=== PATIENT | male | born 1950 | race Caucasian/White ===

== ENCOUNTER 2019-12-09 11:43 | Outpatient (CLI) | payer MEDICARE, SELFPAY ==
[2019-12-09 12:29] LABS: Basophils Absolute Auto 0.03 K/mm3 (0.00-0.10); Basophils Percent Auto 0.3 % (0.0-1.0); Eosinophils Absolute Auto 0.17 K/mm3 (0.02-0.50); Eosinophils Percent Auto 1.7 % (1.0-6.0); Hematocrit 36.9 % (37.0-46.0); Hemoglobin 11.5 g/dL (12.4-15.3); Immature Granulocyte Absolute 0.03 K/mm3 (0.00-0.00); Immature Granulocyte Percent A 0.3 % (0.0-0.0); Immature Platelet Fraction Pct 17.5 % (1.0-7.0); Lymphocytes Absolute Auto 2.12 K/mm3 (1.10-4.50); Lymphocytes Percent Auto 21.8 % (18.0-42.0); Mean Corpuscular HGB Conc 31.2 g/dL (32.0-36.0); Mean Corpuscular Volume 89.8 fL (78.0-102.0); Monocytes Absolute Auto 0.61 K/mm3 (0.10-0.90); Monocytes Percent Auto 6.3 % (2.0-11.0); Neutrophils Absolute Auto 6.8 K/mm3 (1.7-7.2); Neutrophils Percent Auto 69.6 % (50.0-70.0); Platelet Count Result 35 K/mm3 (150-420); Red Blood Count 4.11 M/mm3 (4.70-6.10); Red Cell Distribution Width 14.1 % (11.6-14.4); White Blood Count 9.7 K/mm3 (4.8-10.8)
== END 2019-12-09 11:44 | disposition home or self-care (01) ==
DX: D69.3 Immune thrombocytopenic purpura (principal)
CPT/HCPCS: 36415; 85025; 85055

== ENCOUNTER 2020-01-07 11:54 | Outpatient (CLI) | payer MEDICARE, SELFPAY ==
[2020-01-07 12:13] LABS: Basophils Absolute Auto 0.04 K/mm3 (0.00-0.10); Basophils Percent Auto 0.4 % (0.0-1.0); Eosinophils Absolute Auto 0.22 K/mm3 (0.02-0.50); Eosinophils Percent Auto 2.3 % (1.0-6.0); Hematocrit 34.8 % (37.0-46.0); Hemoglobin 11.1 g/dL (12.4-15.3); Immature Granulocyte Absolute 0.03 K/mm3 (0.00-0.00); Immature Granulocyte Percent A 0.3 % (0.0-0.0); Immature Platelet Fraction Pct 16.6 % (1.0-7.0); Lymphocytes Absolute Auto 1.76 K/mm3 (1.10-4.50); Mean Corpuscular HGB Conc 31.9 g/dL (32.0-36.0); Mean Corpuscular Hemoglobin 28.5 pg (27.0-31.0); Mean Corpuscular Volume 89.2 fL (78.0-102.0); Monocytes Absolute Auto 0.69 K/mm3 (0.10-0.90); Monocytes Percent Auto 7.1 % (2.0-11.0); Neutrophils Percent Auto 71.9 % (50.0-70.0); Platelet Count Result 39 K/mm3 (150-420); Red Cell Distribution Width 13.9 % (11.6-14.4); White Blood Count 9.8 K/mm3 (4.8-10.8)
== END 2020-01-07 11:55 | disposition home or self-care (01) ==
DX: D69.3 Immune thrombocytopenic purpura (principal)
CPT/HCPCS: 36415; 85025; 85055

== ENCOUNTER 2020-02-08 11:52 | Outpatient (CLI) | payer MEDICARE, SELFPAY ==
[2020-02-08 12:16] LABS: Basophils Absolute Auto 0.03 K/mm3 (0.00-0.10); Basophils Percent Auto 0.3 % (0.0-1.0); Eosinophils Percent Auto 2.2 % (1.0-6.0); Hemoglobin 11.8 g/dL (12.4-15.3); Immature Granulocyte Absolute 0.05 K/mm3 (0.00-0.00); Immature Granulocyte Percent A 0.5 % (0.0-0.0); Immature Platelet Fraction Pct 15.6 % (1.0-7.0); Lymphocytes Absolute Auto 1.78 K/mm3 (1.10-4.50); Lymphocytes Percent Auto 19.5 % (18.0-42.0); Mean Corpuscular HGB Conc 31.9 g/dL (32.0-36.0); Mean Corpuscular Hemoglobin 28.4 pg (27.0-31.0); Mean Corpuscular Volume 88.9 fL (78.0-102.0); Monocytes Absolute Auto 0.49 K/mm3 (0.10-0.90); Monocytes Percent Auto 5.4 % (2.0-11.0); Neutrophils Absolute Auto 6.6 K/mm3 (1.7-7.2); Neutrophils Percent Auto 72.1 % (50.0-70.0); Platelet Count Result 37 K/mm3 (150-420); Red Blood Count 4.16 M/mm3 (4.70-6.10); Red Cell Distribution Width 13.8 % (11.6-14.4); White Blood Count 9.1 K/mm3 (4.8-10.8)
[2020-02-08 13:03] LABS: Alanine Aminotransferase 29 U/L (16-63); Albumin Level 2.8 g/dL (3.4-5.0); Alkaline Phosphatase 157 U/L (46-116); Anion Gap 12.7 mmol/L (7-16); Aspartate Amino Transferase 17 U/L (15-37); Bilirubin,Total 0.6 mg/dL (0.00-1.00); Blood Urea Nitrogen 40 mg/dL (7-18); Carbon Dioxide 27 mmol/L (21-32); Chloride 106 mmol/L (98-108); Estimated Glomerular Filt Rate 18; Glucose 121 mg/dL (70-99); Osmolality Calculated 304 mOsm/kg (285-295); Potassium 3.7 mmol/L (3.5-5.1); Sodium 142 mmol/L (136-145); Total Protein 6.1 g/dL (6.4-8.2)
== END 2020-02-08 11:53 | disposition home or self-care (01) ==
DX: D69.3 Immune thrombocytopenic purpura (principal)
CPT/HCPCS: 36415; 80053; 85025; 85055

== ENCOUNTER 2020-03-14 09:21 | Outpatient (CLI) | payer MEDICARE, SELFPAY ==
[2020-03-14 09:37] LABS: Basophils Absolute Auto 0.03 K/mm3 (0.00-0.10); Basophils Percent Auto 0.3 % (0.0-1.0); Eosinophils Absolute Auto 0.24 K/mm3 (0.02-0.50); Eosinophils Percent Auto 2.5 % (1.0-6.0); Hematocrit 36.7 % (37.0-46.0); Hemoglobin 11.4 g/dL (12.4-15.3); Immature Granulocyte Absolute 0.03 K/mm3 (0.00-0.00); Immature Granulocyte Percent A 0.3 % (0.0-0.0); Immature Platelet Fraction Pct 20.7 % (1.0-7.0); Lymphocytes Absolute Auto 1.98 K/mm3 (1.10-4.50); Lymphocytes Percent Auto 20.6 % (18.0-42.0); Mean Corpuscular HGB Conc 31.1 g/dL (32.0-36.0); Mean Corpuscular Hemoglobin 27.7 pg (27.0-31.0); Mean Corpuscular Volume 89.1 fL (78.0-102.0); Monocytes Absolute Auto 0.65 K/mm3 (0.10-0.90); Monocytes Percent Auto 6.8 % (2.0-11.0); Neutrophils Absolute Auto 6.7 K/mm3 (1.7-7.2); Neutrophils Percent Auto 69.5 % (50.0-70.0); Red Blood Count 4.12 M/mm3 (4.70-6.10); Red Cell Distribution Width 14.1 % (11.6-14.4); White Blood Count 9.6 K/mm3 (4.8-10.8)
[2020-03-14 09:43] LABS: Platelet Count Result 17 K/mm3 (150-420)
== END 2020-03-14 09:22 | disposition home or self-care (01) ==
DX: D69.3 Immune thrombocytopenic purpura (principal)
CPT/HCPCS: 36415; 85025; 85055

== ENCOUNTER 2020-03-21 09:33 | Outpatient (CLI) | payer MEDICARE, SELFPAY ==
[2020-03-21 09:45] LABS: Basophils Absolute Auto 0.04 K/mm3 (0.00-0.10); Basophils Percent Auto 0.4 % (0.0-1.0); Eosinophils Percent Auto 2.1 % (1.0-6.0); Hemoglobin 10.7 g/dL (12.4-15.3); Immature Granulocyte Absolute 0.03 K/mm3 (0.00-0.00); Immature Granulocyte Percent A 0.3 % (0.0-0.0); Lymphocytes Percent Auto 23.7 % (18.0-42.0); Mean Corpuscular HGB Conc 31.5 g/dL (32.0-36.0); Mean Corpuscular Hemoglobin 28.3 pg (27.0-31.0); Mean Corpuscular Volume 89.9 fL (78.0-102.0); Mean Platelet Volume 12.7 fl (8.7-11.0); Monocytes Percent Auto 7.2 % (2.0-11.0); Neutrophils Absolute Auto 6.4 K/mm3 (1.7-7.2); Neutrophils Percent Auto 66.3 % (50.0-70.0); Platelet Count Result 107 K/mm3 (150-420); Red Blood Count 3.78 M/mm3 (4.70-6.10); Red Cell Distribution Width 14.7 % (11.6-14.4); White Blood Count 9.7 K/mm3 (4.8-10.8)
== END 2020-03-21 09:34 | disposition home or self-care (01) ==
LOC: CHSLAB 09:36
DX: D69.3 Immune thrombocytopenic purpura (principal)
CPT/HCPCS: 36415; 85025

== ENCOUNTER 2020-05-10 09:15 | Outpatient (CLI) | payer OTHER, MEDICARE, SELFPAY ==
[2020-05-10 09:29] LABS: Basophils Absolute Auto 0.02 K/mm3 (0.00-0.10); Basophils Percent Auto 0.2 % (0.0-1.0); Eosinophils Absolute Auto 0.21 K/mm3 (0.02-0.50); Eosinophils Percent Auto 2.1 % (1.0-6.0); Hematocrit 35.4 % (37.0-46.0); Hemoglobin 11.1 g/dL (12.4-15.3); Immature Granulocyte Absolute 0.04 K/mm3 (0.00-0.00); Immature Granulocyte Percent A 0.4 % (0.0-0.0); Lymphocytes Absolute Auto 2.04 K/mm3 (1.10-4.50); Lymphocytes Percent Auto 20.5 % (18.0-42.0); Mean Corpuscular HGB Conc 31.4 g/dL (32.0-36.0); Mean Corpuscular Hemoglobin 28.4 pg (27.0-31.0); Mean Corpuscular Volume 90.5 fL (78.0-102.0); Neutrophils Absolute Auto 7.1 K/mm3 (1.7-7.2); Neutrophils Percent Auto 70.8 % (50.0-70.0); Platelet Count Result 44 K/mm3 (150-420); Red Blood Count 3.91 M/mm3 (4.70-6.10); Red Cell Distribution Width 14.4 % (11.6-14.4)
[2020-05-10] MEDS: romiPLOStim 125 MCG VIAL SUB-Q (10:14)
== END 2020-05-10 09:16 | disposition home or self-care (01) ==
PROVIDERS: Visit Provider Internal Medicine Hematology & Oncology
DX: D69.3 Immune thrombocytopenic purpura (principal)
CPT/HCPCS: 36415; 85025; 85055; 96372; J2796

== ENCOUNTER 2020-05-17 09:21 | Outpatient (CLI) | payer MEDICARE, OTHER, SELFPAY ==
[2020-05-17 09:36] LABS: Basophils Absolute Auto 0.02 K/mm3 (0.00-0.10); Basophils Percent Auto 0.2 % (0.0-1.0); Eosinophils Absolute Auto 0.19 K/mm3 (0.02-0.50); Eosinophils Percent Auto 1.9 % (1.0-6.0); Hematocrit 34.6 % (37.0-46.0); Hemoglobin 10.9 g/dL (12.4-15.3); Immature Granulocyte Absolute 0.04 K/mm3 (0.00-0.00); Immature Granulocyte Percent A 0.4 % (0.0-0.0); Immature Platelet Fraction Pct 12.7 % (1.0-7.0); Lymphocytes Absolute Auto 2.25 K/mm3 (1.10-4.50); Lymphocytes Percent Auto 22.8 % (18.0-42.0); Mean Corpuscular HGB Conc 31.5 g/dL (32.0-36.0); Mean Corpuscular Hemoglobin 28.2 pg (27.0-31.0); Mean Corpuscular Volume 89.6 fL (78.0-102.0); Monocytes Absolute Auto 0.65 K/mm3 (0.10-0.90); Monocytes Percent Auto 6.6 % (2.0-11.0); Neutrophils Absolute Auto 6.7 K/mm3 (1.7-7.2); Neutrophils Percent Auto 68.1 % (50.0-70.0); Platelet Count Result 38 K/mm3 (150-420); Red Blood Count 3.86 M/mm3 (4.70-6.10); White Blood Count 9.9 K/mm3 (4.8-10.8)
[2020-05-17] MEDS: romiPLOStim 125 MCG VIAL SUB-Q (10:14)
== END 2020-05-17 09:22 | disposition home or self-care (01) ==
PROVIDERS: Visit Provider Internal Medicine Hematology & Oncology
DX: D69.3 Immune thrombocytopenic purpura (principal)
CPT/HCPCS: 36415; 85025; 85055; 96372; J2796

== ENCOUNTER 2020-05-24 10:37 | Outpatient (CLI) | payer MEDICARE, OTHER, SELFPAY ==
[2020-05-24 10:52] LABS: Basophils Absolute Auto 0.03 K/mm3 (0.00-0.10); Basophils Percent Auto 0.3 % (0.0-1.0); Eosinophils Absolute Auto 0.22 K/mm3 (0.02-0.50); Eosinophils Percent Auto 2.2 % (1.0-6.0); Hematocrit 37.4 % (37.0-46.0); Hemoglobin 11.6 g/dL (12.4-15.3); Immature Granulocyte Absolute 0.04 K/mm3 (0.00-0.00); Immature Granulocyte Percent A 0.4 % (0.0-0.0); Lymphocytes Absolute Auto 2.16 K/mm3 (1.10-4.50); Lymphocytes Percent Auto 21.4 % (18.0-42.0); Mean Corpuscular Hemoglobin 28.1 pg (27.0-31.0); Mean Corpuscular Volume 90.6 fL (78.0-102.0); Monocytes Absolute Auto 0.65 K/mm3 (0.10-0.90); Monocytes Percent Auto 6.4 % (2.0-11.0); Neutrophils Percent Auto 69.3 % (50.0-70.0); Platelet Count Result 28 K/mm3 (150-420); Red Blood Count 4.13 M/mm3 (4.70-6.10); Red Cell Distribution Width 14.3 % (11.6-14.4); White Blood Count 10.1 K/mm3 (4.8-10.8)
[2020-05-24] MEDS: romiPLOStim 125 MCG VIAL SUB-Q (11:19)
== END 2020-05-24 10:38 | disposition home or self-care (01) ==
PROVIDERS: Visit Provider Internal Medicine Hematology & Oncology
DX: D69.3 Immune thrombocytopenic purpura (principal)
CPT/HCPCS: 36415; 85025; 85055; 96372; J2796

== ENCOUNTER 2020-05-31 11:42 | Outpatient (CLI) | payer MEDICARE, OTHER, SELFPAY ==
[2020-05-31 12:00] LABS: Basophils Absolute Auto 0.03 K/mm3 (0.00-0.10); Basophils Percent Auto 0.3 % (0.0-1.0); Eosinophils Absolute Auto 0.19 K/mm3 (0.02-0.50); Eosinophils Percent Auto 2.1 % (1.0-6.0); Hematocrit 36.7 % (37.0-46.0); Hemoglobin 11.6 g/dL (12.4-15.3); Immature Granulocyte Absolute 0.02 K/mm3 (0.00-0.00); Immature Granulocyte Percent A 0.2 % (0.0-0.0); Immature Platelet Fraction Pct 17.8 % (1.0-7.0); Lymphocytes Absolute Auto 1.86 K/mm3 (1.10-4.50); Mean Corpuscular HGB Conc 31.6 g/dL (32.0-36.0); Mean Corpuscular Hemoglobin 28.4 pg (27.0-31.0); Monocytes Percent Auto 5.6 % (2.0-11.0); Neutrophils Absolute Auto 6.3 K/mm3 (1.7-7.2); Neutrophils Percent Auto 70.8 % (50.0-70.0); Red Blood Count 4.08 M/mm3 (4.70-6.10); Red Cell Distribution Width 14.3 % (11.6-14.4); White Blood Count 8.9 K/mm3 (4.8-10.8)
[2020-05-31] MEDS: romiPLOStim 125 MCG VIAL SUB-Q (12:17)
[2020-05-31 12:22] VITALS: BP 142/69; PULSE 80; RESP 16; TEMP 36.4; O2SAT 94
[2020-05-31 13:15] LABS: Platelet Count Result 13 K/mm3 (150-420)
--- NOTE | 2020-05-31 13:15 | PHAR ---
05/31/20 13:15 - PLT=13 TODAY PER EZRA IN LAB. TLS
== END 2020-05-31 11:43 | disposition home or self-care (01) ==
LOC: CHSLAB 12:02 → CHSTREATRM 12:03
PROVIDERS: Visit Provider Internal Medicine Hematology & Oncology
DX: D69.3 Immune thrombocytopenic purpura (principal)
CPT/HCPCS: 36415; 85025; 85055; 96372; J2796

== ENCOUNTER 2020-06-07 08:04 | Outpatient (CLI) | payer MEDICARE, OTHER, SELFPAY ==
[2020-06-07] VITALS (10 sets, daily range): BP systolic 139–175; BP diastolic 61–85; PULSE 86–98; RESP 20–24; TEMP 36.6–36.8; O2SAT 94–97
== END 2020-06-07 08:05 | disposition home or self-care (01) ==
PROVIDERS: Visit Provider Internal Medicine Hematology & Oncology
DX: D69.3 Immune thrombocytopenic purpura (principal)
CPT/HCPCS: 96365; 96366; A9270; J1459

== ENCOUNTER 2020-06-08 08:00 | Outpatient (CLI) | payer MEDICARE, SELFPAY ==
[2020-06-08] VITALS (7 sets, daily range): BP systolic 136–169; BP diastolic 72–88; PULSE 88–92; RESP 14–20; TEMP 37.1–37.2; O2SAT 95–97
--- NOTE | 2020-06-08 08:26 | PC.NURSE ---
Patient here for 2nd day of Privigen IVIG IV infusion for ITP. Patient reports just worn out from yesterday- being up in for so long. Patient refusing tylenol and bendryl for pre med Reports never was given that before when I had this and don't want to take it now. Vital signs stable. Patient is a diabetic, but forgot to take his blood sugar this a.m. Accu check done 111. Has not ate breakfast- breakfast ordered for patient. IVIG administration began.
[2020-06-08 08:27] LABS: Glucose Point of Care 111 (65-105)
[2020-06-08] MEDS: ACETAMINOPHEN 325 MG TABLET 650 MG PO (09:39)
[2020-06-08 11:34] LABS: Glucose Point of Care 265 (65-105)
--- NOTE | 2020-06-08 12:01 | PC.NURSE ---
Privigen infusion continues without difficulty. Blood sugar 265. Patient taking his own sliding scale insulin. Eating lunch. No concerns.
--- NOTE | 2020-06-08 14:12 | PC.NURSE ---
1410 IVIG infusion completed. Patient tolerated well. IV site with pressure dressing applied. No concerns other than just being tired. Safe exit of hospital per wheelchair. No further appointment necessary at this time.
== END 2020-06-08 08:01 | disposition home or self-care (01) ==
PROVIDERS: Visit Provider Internal Medicine Hematology & Oncology
DX: D69.3 Immune thrombocytopenic purpura (principal)
CPT/HCPCS: 96365; 96366; A9270; J1459

== ENCOUNTER 2020-06-14 10:51 | Outpatient (RCR) | payer MEDICARE, SELFPAY ==
[2020-04-11 10:47] LABS: Basophils Absolute Auto 0.02 K/mm3 (0.00-0.10); Basophils Percent Auto 0.2 % (0.0-1.0); Eosinophils Absolute Auto 0.19 K/mm3 (0.02-0.50); Eosinophils Percent Auto 1.7 % (1.0-6.0); Hematocrit 35.6 % (37.0-46.0); Immature Granulocyte Absolute 0.04 K/mm3 (0.00-0.00); Immature Granulocyte Percent A 0.4 % (0.0-0.0); Immature Platelet Fraction Pct 16.8 % (1.0-7.0); Lymphocytes Absolute Auto 2.08 K/mm3 (1.10-4.50); Mean Corpuscular HGB Conc 30.9 g/dL (32.0-36.0); Mean Corpuscular Hemoglobin 27.8 pg (27.0-31.0); Mean Corpuscular Volume 89.9 fL (78.0-102.0); Monocytes Absolute Auto 0.63 K/mm3 (0.10-0.90); Monocytes Percent Auto 5.7 % (2.0-11.0); Platelet Count Result 34 K/mm3 (150-420); Red Blood Count 3.96 M/mm3 (4.70-6.10); Red Cell Distribution Width 14.5 % (11.6-14.4)
[2020-04-18 12:01] LABS: Basophils Absolute Auto 0.03 K/mm3 (0.00-0.10); Basophils Percent Auto 0.3 % (0.0-1.0); Eosinophils Absolute Auto 0.21 K/mm3 (0.02-0.50); Eosinophils Percent Auto 2.1 % (1.0-6.0); Hematocrit 36.3 % (37.0-46.0); Hemoglobin 11.1 g/dL (12.4-15.3); Immature Granulocyte Absolute 0.03 K/mm3 (0.00-0.00); Immature Granulocyte Percent A 0.3 % (0.0-0.0); Immature Platelet Fraction Pct 14.9 % (1.0-7.0); Lymphocytes Absolute Auto 2.02 K/mm3 (1.10-4.50); Lymphocytes Percent Auto 20.5 % (18.0-42.0); Mean Corpuscular HGB Conc 30.6 g/dL (32.0-36.0); Mean Corpuscular Hemoglobin 27.6 pg (27.0-31.0); Mean Corpuscular Volume 90.3 fL (78.0-102.0); Monocytes Absolute Auto 0.58 K/mm3 (0.10-0.90); Monocytes Percent Auto 5.9 % (2.0-11.0); Neutrophils Percent Auto 70.9 % (50.0-70.0); Platelet Count Result 51 K/mm3 (150-420); Red Blood Count 4.02 M/mm3 (4.70-6.10); Red Cell Distribution Width 14.4 % (11.6-14.4); White Blood Count 9.8 K/mm3 (4.8-10.8)
[2020-04-25 10:56] LABS: Basophils Absolute Auto 0.03 K/mm3 (0.00-0.10); Basophils Percent Auto 0.4 % (0.0-1.0); Eosinophils Absolute Auto 0.17 K/mm3 (0.02-0.50); Eosinophils Percent Auto 2.2 % (1.0-6.0); Hematocrit 36.5 % (37.0-46.0); Hemoglobin 10.9 g/dL (12.4-15.3); Immature Granulocyte Absolute 0.02 K/mm3 (0.00-0.00); Immature Granulocyte Percent A 0.3 % (0.0-0.0); Immature Platelet Fraction Pct 18.1 % (1.0-7.0); Lymphocytes Percent Auto 19.1 % (18.0-42.0); Mean Corpuscular HGB Conc 29.9 g/dL (32.0-36.0); Mean Corpuscular Hemoglobin 28.2 pg (27.0-31.0); Mean Corpuscular Volume 94.6 fL (78.0-102.0); Monocytes Absolute Auto 0.52 K/mm3 (0.10-0.90); Monocytes Percent Auto 6.6 % (2.0-11.0); Neutrophils Absolute Auto 5.6 K/mm3 (1.7-7.2); Neutrophils Percent Auto 71.4 % (50.0-70.0); Platelet Count Result 63 K/mm3 (150-420); Red Blood Count 3.86 M/mm3 (4.70-6.10); Red Cell Distribution Width 14.5 % (11.6-14.4); White Blood Count 7.9 K/mm3 (4.8-10.8)
[2020-05-02 10:02] LABS: Basophils Absolute Auto 0.03 K/mm3 (0.00-0.10); Basophils Percent Auto 0.3 % (0.0-1.0); Eosinophils Absolute Auto 0.17 K/mm3 (0.02-0.50); Eosinophils Percent Auto 1.9 % (1.0-6.0); Hematocrit 36.1 % (37.0-46.0); Hemoglobin 10.8 g/dL (12.4-15.3); Immature Granulocyte Absolute 0.03 K/mm3 (0.00-0.00); Immature Granulocyte Percent A 0.3 % (0.0-0.0); Immature Platelet Fraction Pct 11.7 % (1.0-7.0); Lymphocytes Percent Auto 21.3 % (18.0-42.0); Mean Corpuscular HGB Conc 29.9 g/dL (32.0-36.0); Mean Corpuscular Hemoglobin 27.6 pg (27.0-31.0); Mean Corpuscular Volume 92.1 fL (78.0-102.0); Monocytes Absolute Auto 0.65 K/mm3 (0.10-0.90); Monocytes Percent Auto 7.3 % (2.0-11.0); Neutrophils Absolute Auto 6.2 K/mm3 (1.7-7.2); Neutrophils Percent Auto 68.9 % (50.0-70.0); Platelet Count Result 56 K/mm3 (150-420); Red Blood Count 3.92 M/mm3 (4.70-6.10); Red Cell Distribution Width 14.5 % (11.6-14.4); White Blood Count 8.9 K/mm3 (4.8-10.8)
[2020-05-02 10:07] LABS: Mean Platelet Volume 12.2 fl (8.7-11.0)
[2020-06-14 11:03] LABS: Basophils Absolute Auto 0.02 K/mm3 (0.00-0.10); Basophils Percent Auto 0.3 % (0.0-1.0); Eosinophils Absolute Auto 0.11 K/mm3 (0.02-0.50); Eosinophils Percent Auto 1.8 % (1.0-6.0); Hematocrit 33.3 % (37.0-46.0); Hemoglobin 10.3 g/dL (12.4-15.3); Immature Granulocyte Absolute 0.02 K/mm3 (0.00-0.00); Immature Granulocyte Percent A 0.3 % (0.0-0.0); Lymphocytes Absolute Auto 1.68 K/mm3 (1.10-4.50); Lymphocytes Percent Auto 27.3 % (18.0-42.0); Mean Corpuscular HGB Conc 30.9 g/dL (32.0-36.0); Mean Corpuscular Hemoglobin 27.8 pg (27.0-31.0); Mean Platelet Volume 11.4 fl (8.7-11.0); Monocytes Absolute Auto 0.51 K/mm3 (0.10-0.90); Monocytes Percent Auto 8.3 % (2.0-11.0); Neutrophils Absolute Auto 3.8 K/mm3 (1.7-7.2); Platelet Count Result 152 K/mm3 (150-420); Red Cell Distribution Width 14.4 % (11.6-14.4); White Blood Count 6.2 K/mm3 (4.8-10.8)
== END 2020-07-10 23:59 | disposition home or self-care (01) ==
LOC: CHSLAB 10:51
PROVIDERS: Visit Provider Internal Medicine Hematology & Oncology
DX: D69.3 Immune thrombocytopenic purpura (principal)
CPT/HCPCS: 36415; 85025; 85055

== ENCOUNTER 2020-07-22 13:17 | Outpatient (CLI) | payer MEDICARE, SELFPAY ==
[2020-07-22 14:03] LABS: Basophils Absolute Auto 0.02 K/mm3 (0.00-0.10); Basophils Percent Auto 0.4 % (0.0-1.0); Eosinophils Absolute Auto 0.09 K/mm3 (0.02-0.50); Eosinophils Percent Auto 1.8 % (1.0-6.0); Hematocrit 35.5 % (37.0-46.0); Hemoglobin 11.2 g/dL (12.4-15.3); Immature Granulocyte Absolute 0.03 K/mm3 (0.00-0.00); Immature Granulocyte Percent A 0.6 % (0.0-0.0); Immature Platelet Fraction Pct 30.8 % (1.0-7.0); Lymphocytes Absolute Auto 0.99 K/mm3 (1.10-4.50); Lymphocytes Percent Auto 19.4 % (18.0-42.0); Mean Corpuscular HGB Conc 31.5 g/dL (32.0-36.0); Mean Corpuscular Hemoglobin 28.1 pg (27.0-31.0); Monocytes Absolute Auto 0.75 K/mm3 (0.10-0.90); Monocytes Percent Auto 14.7 % (2.0-11.0); Neutrophils Absolute Auto 3.2 K/mm3 (1.7-7.2); Neutrophils Percent Auto 63.1 % (50.0-70.0); Red Blood Count 3.99 M/mm3 (4.70-6.10); Red Cell Distribution Width 14.3 % (11.6-14.4); White Blood Count 5.1 K/mm3 (4.8-10.8)
[2020-07-22 14:49] LABS: Platelet Count Result 2 K/mm3 (150-420)
[2020-07-22 15:07] LABS: Alanine Aminotransferase 28 U/L (16-63); Albumin Level 2.9 g/dL (3.4-5.0); Alkaline Phosphatase 170 U/L (46-116); Anion Gap 12 mmol/L (8-16); Aspartate Amino Transferase 25 U/L (15-37); Bilirubin,Total 0.4 mg/dL (0.00-1.00); Blood Urea Nitrogen 53 mg/dL (7-18); Carbon Dioxide 21 mmol/L (21-32); Chloride 104 mmol/L (98-108); Estimated Glomerular Filt Rate 13; Glucose 136 mg/dL (70-99); Magnesium 1.2 mg/dL (1.8-2.4); Osmolality Calculated 300 mOsm/kg (285-295); Potassium 4.2 mmol/L (3.5-5.1); Prostate Specific Antigen 1.6 ng/mL (< OR = 4.0); Sodium 137 mmol/L (136-145); Total Protein 6.4 g/dL (6.4-8.2)
[2020-07-22 23:21] LABS: SARS-CoV-2 RNA PCR Positive
== END 2020-07-22 13:18 | disposition home or self-care (01) ==
PROVIDERS: Visit Provider Internal Medicine Hematology & Oncology
DX: U07.1 COVID-19 (principal); R05 Cough; D69.3 Immune thrombocytopenic purpura; Z12.5 Encounter for screening for malignant neoplasm of prostate
CPT/HCPCS: 36415; 80053; 83735; 84153; 85025; 85055; 87635; C9803; G0103; U0003

== ENCOUNTER 2020-07-22 18:40 | Inpatient (IN) | payer MEDICARE, OTHER, SELFPAY ==
[2020-07-22] VITALS (8 sets, daily range): BP systolic 155–168; BP diastolic 53–82; PULSE 60–105; RESP 17–24; TEMP 36.4–37.1; O2SAT 91–98; BMI 50.8
--- NOTE | ~2020-07-22 | XR_ITS ---
EXAMINATION: XR chest 1V portable DATE: 07/26/2020 13:09 INDICATION: Cough. COVID-19 pneumonia. TECHNIQUE: A single frontal view of the chest was obtained. COMPARISON: Chest single view 07/22/2020, CT abdomen and pelvis 04/06/2014 FINDINGS: The chest demonstrates clear lungs without pneumonia, pleural effusion, or pneumothorax. Th e heart size is normal. There are prominent paracardial fat pads. IMPRESSION: 1. No acute cardiopulmonary disease. Reviewed, dictated and finalized at location A. YSIS BIOMED TECHNICIAN
--- NOTE | ~2020-07-22 | US_ITS ---
EXAMINATION: US renal BI DATE: 07/23/2020 16:57 INDICATION: Renal failure TECHNIQUE: Multiple grayscale and Doppler ultrasound images of the kidneys were obtained. COMPARISON: 08/31/2012 FINDINGS: The right kidney measures 11.2 x 4.5 x 4.8 cm. The left kidney measures 12.3 x 4.4 x 5.7 cm . The kidneys demonstrate normal parenchymal echogenicity. There is moderate bilateral hydronephrosis . The bladder is normal. IMPRESSION: 1. Moderate bilateral hydronephrosis. Reviewed, dictated and finalized at location A. E EPIDEMIOLOGIST
--- NOTE | ~2020-07-22 | XR_ITS ---
EXAMINATION: XR chest 1V portable INDICATION: History of hypertension, COVID 19 PUI TECHNIQUE: Portable AP chest at 1954 hours COMPARISON: 04/06/2014 FINDINGS: Cardiomegaly is noted. There are opacities of the mid and lower lung zones. A small left pl eural effusion is suggested. There is no pneumothorax. IMPRESSION: 1. Airspace opacities of the mid and lower lung zones, consistent with atelectasis versus pneumonia. 2. Possible small left pleural effusion. 3. Cardiomegaly. Reviewed, dictated and finalized at location A. EXPERIMENTAL MECHANIC IMPRESSION: 1. Airspace opacities of the mid and lower lung zones, consistent with atelecta sis versus pneumonia. 2. Possible small left pleural effusion. 3. Cardiomegaly.
--- NOTE | 2020-07-22 19:08 | ED.RECABL ---
HPI - Recheck/Abnormal Lab/Rx General Chief Complaint: Recheck/Abnormal Lab/Rx Stated Complaint: abdnormal labs Time Seen by Provider: 07/22/20 19:08 Source: patient and EMS Mode of arrival: EMS Limitations: no limitations History of Present Illness HPI narrative: Patient is a 69-year-old male with a history of prior CVA, paroxysmal atrial fibrillation, hypertension, diabetes, ITP, who presents from outside care facility for evaluation of low platelets. Patient reportedly had platelet count of 2000 from outpatient laboratory testing. Patient's physician in [place], Dr. Rey, called him and told him to go to the nearest emergency department right away. Patient denies any acute pain or bleeding. No gum bleeding, no hematuria. No bruising or rash. No chest pain or shortness of breath. Patient states that he was swabbed for Covid today because he has had a dry cough. He does not know the results of this. He denies any rhinorrhea, loss of sense of taste or smell. No current sore throat. He denies abdominal pain. He reports chronic lower back pain. In the past, patient has required steroid therapy as well as IVIG, currently is not on any steroid therapy. Related Data Allergies Allergy/AdvReac Type Severity Reaction Status Date / Time Heparin Analogues Allergy Verified 07/29/13 23:30 meropenem Allergy Verified 07/29/13 21:03 vancomycin Allergy Verified 07/29/13 21:03 Review of Systems Review of Systems: Narrative: CONSTITUTIONAL: Denies fever, chills, or sweats. EYES: Denies visual changes, redness, or discharge. ENT: Denies rhinorrhea, congestion, sore throat, or otalgia. CARDIOVASCULAR: Denies chest pain, palpitations, or edema. RESPIRATORY: Reports dry cough GASTROINTESTINAL: Denies abdominal pain, nausea, vomiting, or diarrhea. GENITOURINARY: Denies dysuria or hematuria. SKIN: Denies rash or itching. MUSCULOSKELETAL: Reports chronic back pain NEUROLOGIC: Denies headache PMFSH Past Medical History Medical History Anxiety Atrial fibrillation CVA (cerebral vascular accident) Depression Diabetes History of ITP Hypertension Hypothyroidism Obstructive sleep apnea Surgical History Surgical History (Updated 07/22/20 @ 19:36 by Teresa Castro MD) History of appendectomy Social History Social History (Updated 12/11/20 @ 19:36 by Teresa Castro MD) Smoking status: Former smoker Tobacco type: cigars Alcohol intake: former Substance use: never Gender identity (if verbalized by the patient): Male Exam Narrative: Exam Narrative: GENERAL: Awake, alert, conversant HEAD: Normocephalic, atraumatic. EYES: 2+ PERRLA and EOMI. ENT: Nares clear, no rhinorrhea or epistaxis. Mucous membranes moist. NECK: Supple. CHEST: No respiratory distress, breathing even and non labored HEART: atrial fibrillation, rate controlled ABDOMEN:Obese, Non distended, non tender EXTREMITIES: Normal range of motion. Non pitting edema, bilateral lower extremities. SKIN: Warm, dry, no rash.Chronic venous stasis changes bilateral lower extremities. No petechiae or ecchymoses. NEURO:No focal deficits. Alert and oriented x3 Course Vital Signs Vital signs: Vital Signs Temperature 37.0 C 07/22/20 19:05 Pulse Rate 60 07/22/20 19:05 Respiratory Rate 17 07/22/20 19:05 Blood Pressure 165/74 H 07/22/20 19:05 Pulse Oximetry 95 07/22/20 19:05 Temperature 37.0 C 07/22/20 19:05 Pulse Rate 102 H 07/22/20 19:33 Respiratory Rate 18 07/22/20 19:33 Blood Pressure 155/62 H 07/22/20 19:33 Pulse Oximetry 98 07/22/20 19:33 MDM - Recheck/Abnormal Lab/Rx MDM Narrative Medical decision making narrative: Patient is a 69-year-old male who presented for evaluation of low platelet counts as called by his primary care provider. Patient reportedly had outpatient labs drawn this morning as well as a Covid swab given dry cough, and results of Covid swab are still
[2020-07-22 19:39] LABS: Basophils Percent Auto 0.6 % (0.2-1.2); Eosinophils Absolute Auto 0.1 K/mm3 (0-0.3); Eosinophils Percent Auto 1.7 % (0-4.4); Hematocrit 38.2 % (42.0-52.0); Hemoglobin 12.4 g/dL (14.0-18.0); Immature Granulocyte Absolute 0.02 K/mm3 (0.00-0.031); Immature Granulocyte Percent A 0.4 % (0-0.5); Lymphocytes Absolute Auto 0.98 K/mm3 (0.9-3.2); Lymphocytes Percent Auto 18.1 % (18.3-44.2); Mean Corpuscular HGB Conc 32.5 g/dl (32-36); Mean Corpuscular Hemoglobin 28.4 pg (26-34); Mean Corpuscular Volume 87.6 fl (80-100); Monocytes Absolute Auto 0.7 K/mm3 (0.1-0.6); Monocytes Percent Auto 12.4 % (2.6-8.5); Neutrophils Absolute Auto 3.6 K/mm3 (1.3-6.7); Neutrophils Percent Auto 66.8 % (45.5-73.1); Red Blood Count 4.36 M/mm3 (4.6-6.20); Red Cell Distribution Width 14.5 % (11.5-14.5); White Blood Count 5.4 K/mm3 (4.5-10.0)
[2020-07-22 19:45] LABS: Platelet Count Result 3 k/mm3 (150-375)
[2020-07-22 19:46] LABS: Prothrombin Time 13.7 Seconds (11.1-14.7)
[2020-07-22 19:49] LABS: Anion Gap 12 mmol/L (8-16); Blood Urea Nitrogen 55 mg/dL (9-20); Calcium 8.5 mg/dL (8.4-10.2); Carbon Dioxide 23 mmol/L (22-30); Chloride 103 mmol/L (98-107); Estimated CRCL calculation 22 ml/min; Estimated Glomerular Filt Rate 14; Glucose 233 mg/dL (75-110); Potassium 3.9 mmol/L (3.4-5.0); Sodium 138 mmol/L (137-145)
[2020-07-22] MEDS: methylPREDNISolone SOD SUCC 125 MG VIAL IV PUSH (20:54)
[2020-07-22] MEDS: SODIUM CHLORIDE 0.9% IV 250 ML 30 ML IV CONT (20:56)
--- NOTE | 2020-07-22 22:03 | PC.NURSE ---
Antibiotic still running when pt transferred to floor.
--- NOTE | 2020-07-22 22:05 | ADMGEN ---
This patient, Marcelino Quinonez, was admitted to [facility] Surg Room 323-01. Patient/family oriented to hospital policies and general routines including ID bracelet, bed and alarms, visiting hours, pain management, procedures, bathroom and other care routines, personal items, smoking policy, room service/diet, and visiting hours. Information on how to activate the Rapid Response Team has been discussed. Patient/Family are encouraged to report perceived risks to care and to ask questions if they do not understand what they are told or what they should do.
[2020-07-23] VITALS (13 sets, daily range): BP systolic 134–193; BP diastolic 55–100; PULSE 71–106; RESP 18–22; TEMP 36.3–36.9; O2SAT 94–99
[2020-07-23] MEDS: TUBING, BLOOD SET 1 EACH XX (02:03)
--- NOTE | 2020-07-23 08:07 | PC.NURSE ---
Called Dr Luna about pt reciving plts last night. No follow up CBC was done. New orders recieved,He said get new CBC consult Hematology
[2020-07-23] MEDS: methylPREDNISolone SOD SUCC 125 MG VIAL IV PUSH (09:02)
[2020-07-23 09:10] LABS: Hematocrit 36.4 % (42.0-52.0); Hemoglobin 11.7 g/dL (14.0-18.0); Immature Platelet Fraction Pct 21.9 % (0.9-11.2); Mean Corpuscular HGB Conc 32.1 g/dl (32-36); Mean Corpuscular Hemoglobin 27.5 pg (26-34); Mean Corpuscular Volume 85.6 fl (80-100); Red Blood Count 4.25 M/mm3 (4.6-6.20); Red Cell Distribution Width 14.2 % (11.5-14.5); White Blood Count 5.9 K/mm3 (4.5-10.0)
[2020-07-23 09:21] LABS: Platelet Count Result 7 k/mm3 (150-375)
--- NOTE | 2020-07-23 09:30 | PC.NURSE ---
called Dr. Luna to notifiy of critical plts. Of 7. New orders received to transfuse 10 units of plts.
--- NOTE | 2020-07-23 11:47 | PM.CNNEP ---
Assessment and Plan Assessment and plan (1) Acute on chronic kidney failure: Qualifiers: Acute renal failure type: unspecified Chronic kidney disease stage: unspecified stage Qualified Code(s): N17.9 - Acute kidney failure, unspecified; N18.9 - Chronic kidney disease, unspecified Code(s): N17.9 - Acute kidney failure, unspecified; N18.9 - Chronic kidney disease, unspecified Status: Acute Assessment and Plan: the patient has chronic kidney disease. This is substantial. In January he had a creatinine of 3.49 and GFR of only 18. So he has stage 4 chronic kidney disease. Most likely this is related to diabetes, hypertension, and vascular disease. We will check blood work to look for other causes which would include glomerulonephritis, interstitial nephritis. These are less likely in this scenario. Obstruction is also a possibility which is always something to consider. We will check immunofixation, serology, and a renal ultrasound. The patient has acute kidney injury as well. His creatinine is mildly higher than his baseline. The patient feels fine is been eating okay. So it is also possible that this may just be progression of his renal disease. We will check urine electrolytes and eosinophils to evaluate this. The patient does not have any symptoms of COVID but if it turns out that he does have COVID then this is associated with acute kidney injury as well. (2) Thrombocytopenia: Code(s): D69.6 - Thrombocytopenia, unspecified Status: Acute Assessment and Plan: The patient's has thrombocytopenia. He has ITP. (3) Exposure to COVID-19 virus: Code(s): Z20.828 - Contact with and (suspected) exposure to other viral communicable diseases Status: Acute Assessment and Plan: His has COVID-19 as well his daughter and grandchildren. It has spread throughout the family. (4) Erythropoietin deficiency anemia: Code(s): D63.1 - Anemia in chronic kidney disease Status: Acute Assessment and Plan: The patient has anemia. This is most likely related to his kidney disease with that low GFR. I am going to evaluate this with Iron stool guaiacs at [facility]. His hemoglobin is a bit higher than we would normally need to prescribe Epogen. (5) Essential (primary) hypertension: Code(s): I10 - Essential (primary) hypertension Status: Acute Assessment and Plan: He has hypertension for many years. He is on hydralazine for this at home. Will switched to amlodipine as this is a less immunostimulatory medication. (6) Type 2 diabetes mellitus without complications: Code(s): E11.9 - Type 2 diabetes mellitus without complications Status: Acute Assessment and Plan: the patient is getting blood sugars. History of Present Illness Reason for Consult Consult date: 07/23/20 Chief Complaint Chief complaint: Thrombocytopenia, ITP, Pneumonia History of Present Illness Narrative: Marcelino is a very pleasant 69-year-old gentleman who has multiple medical problems including chronic kidney disease, sleep apnea, stroke, atrial fibrillation, ITP, hypothyroidism, hypertension, depression, and anxiety. The patient has had hypertension for about 20 years. It has been under fair control. The patient has had diabetes for probably 20 or 30 years. His control has been fair of this as well. He has multiple complications from his diabetes, including kidneys, eyes, vascular disease, foot ulcers, etc. The patient has chronic kidney disease. He says that 15 years ago or so he was at the [facility] and had a very high creatinine. He almost needed dialysis but got away with that and his kidney function improved. He does not think he is sees a cloth printing utility worker as an outpatient but he has been told that his creatinine has been high for a long time. He does not have bloody urine, foamy urine, kidney stones, or bladder infections. He has no pain wi
--- NOTE | 2020-07-23 12:48 | PC.NURSE ---
Called Dr Luna to notifiy him of pt bp. it was 180/100. Doctor said he was putting in his home medications now.
[2020-07-23 13:01] LABS: Creatine Kinase 151 U/L (55-170); Erythrocyte Sedimentation Rate 30 mm/hr (0-20)
[2020-07-23 13:02] LABS: Complement C3 131 mg/dL (88-165)
[2020-07-23 13:44] LABS: Iron 95 ug/dL (49-181)
[2020-07-23 13:54] LABS: Percent Iron Saturation 31 % (20-50)
--- NOTE | 2020-07-23 14:22 | PM.IMHP ---
H&P: HPI History of Present Illness Date/Time: 07/23/20 14:22 Chief complaint: Thrombocytopenia, ITP, Pneumonia Narrative: Marcelino Quinonez is a 69 year old male [facility] Past Medical History Medical History (Updated 07/23/20 @ 11:54 by Aba Devine MD) Anxiety Atrial fibrillation CVA (cerebral vascular accident) Depression Diabetes Erythropoietin deficiency anemia Essential (primary) hypertension Exposure to COVID-19 virus History of ITP Hypertension Hypothyroidism Obstructive sleep apnea Type 2 diabetes mellitus without complications Surgical History Surgical History History of appendectomy Family History Family History Father Colon cancer Mother Breast cancer Sibling Acute myocardial infarction Colon cancer Social History Social History Smoking packs per day: 1 Smoking cigarettes per day: 20.0 Years smoked: 13 Smoking pack-years: 13.00 Smoking status: Former smoker Tobacco type: cigarettes and cigars Alcohol intake: current Drinks per week: 15 Substance use: never Gender identity (if verbalized by the patient): Male Spiritual care concerns: No Meds Home Medications and Allergies Home Medications Medication Instructions Recorded Confirmed Type Lactobacillus acidophilus 1,000 mmu cells PO DAILY 07/23/20 07/23/20 History atorvastatin [Lipitor] 40 mg PO DAILY 07/23/20 07/23/20 History bumetanide [Bumex] 1 mg PO DAILY 07/23/20 07/23/20 History carvedilol [Coreg] 12.5 mg PO BID 07/23/20 07/23/20 History gabapentin 800 mg PO TID 07/23/20 07/23/20 History hydralazine 50 mg PO TID 07/23/20 07/23/20 History insulin aspart U-100 See Protocol SUBCUT TIDWM 07/23/20 07/23/20 History insulin glargine [Lantus U-100 50 unit SUBCUT BID 07/23/20 07/23/20 History Insulin] isosorbide mononitrate 30 mg PO DAILY 07/23/20 07/23/20 History levetiracetam [Keppra] 1,000 mg PO BID 07/23/20 07/23/20 History levothyroxine [Synthroid] 75 mcg PO DAILY 07/23/20 07/23/20 History loperamide 2 mg PO Q4H PRN 07/23/20 07/23/20 History Allergies Allergy/AdvReac Type Severity Reaction Status Date / Time meropenem Allergy Hives Verified 07/23/20 00:02 vancomycin Allergy Hives Verified 07/23/20 00:02 Heparin Analogues AdvReac Unknown Verified 07/23/20 00:02 Vital Signs Vital Signs - 24 hr 07/22/20 19:05 07/22/20 19:33 07/22/20 21:00 Temperature 37.0 C Pulse Rate 60 102 H 105 H Respiratory Rate 17 18 24 H Blood Pressure 165/74 H 155/62 H 168/82 H Pulse Oximetry 95 98 97 07/22/20 21:25 07/22/20 21:46 07/22/20 21:57 Temperature 37.1 C 36.9 C 36.4 C Pulse Rate 94 100 96 Respiratory Rate 23 H 24 H 18 Blood Pressure 168/82 H 158/76 H 166/70 H Pulse Oximetry 97 96 94 07/22/20 22:05 07/22/20 23:40 07/23/20 00:00 Temperature 36.5 C 36.6 C 36.4 C Pulse Rate 92 96 95 Respiratory Rate 20 18 22 H Blood Pressure 161/53 H 158/76 H 134/55 L Pulse Oximetry 97 91 97 07/23/20 00:30 07/23/20 01:17 07/23/20 01:35 Temperature 36.4 C 36.6 C Pulse Rate 95 96 Respiratory Rate 22 H 22 H Blood Pressure 134/55 L 143/66 H Pulse Oximetry 97 97 99 07/23/20 02:35 07/23/20 04:00 07/23/20 08:00 Temperature 36.9 C 36.4 C L 36.6 C Pulse Rate 102 H 106 H 103 H Respiratory Rate 20 20 18 Blood Pressure 146/81 H 160/70 H 160/83 H Pulse Oximetry 97 99 94 07/23/20 12:00 07/23/20 13:38 07/23/20 14:04 Temperature 36.7 C 36.7 C 36.7 C Pulse Rate 100 106 H 98 Respiratory Rate 18 20 18 Blood Pressure 180/100 H 180/100 H 190/100 H Pulse Oximetry 98 98 95 H&P: Results Labs Labs: Short CBC 07/22/20 07/23/20 Range/Units 19:31 08:56 WBC 5.4 5.9 (4.5-10.0) K/mm3 Hgb 12.4 L 11.7 L (14.0-18.0) g/dL Hct 38.2 L 36.4 L (42.0-52.0) % Plt Count 3 L* 7 L* D (150-375) k/mm3 BMP 07/22/20 19:31 Sodium 1
[2020-07-23 14:28] LABS: Folic Acid 7.9 ng/mL (2.76->20)
[2020-07-23 15:12] LABS: Vitamin D 25 Hydroxy 30.6 ng/mL
[2020-07-23] MEDS: ATORVASTATIN 40 MG TABLET PO (15:26)
[2020-07-23] MEDS: hydrALAZINE HCL 50 MG TABLET PO ×2 (15:26→17:35)
[2020-07-23] MEDS: ISOSORBIDE MONONITRATE 30 MG TAB.ER.24H PO (15:26)
[2020-07-23] MEDS: SODIUM CHLORIDE 0.9% IV 250 ML 30 ML IV CONT (15:27)
[2020-07-23 15:57] LABS: Parathyroid Intact 606.6 pg/mL (7.5-53.5)
[2020-07-23 16:19] LABS: Glucose Point of Care 444 (65-105)
[2020-07-23] MEDS: GABAPENTIN 400 MG CAPSULE 800 MG PO (17:35)
[2020-07-23] MEDS: INSULIN ASPART (*BKC) 100 UNITS/ML SUB-Q (17:36)
--- NOTE | 2020-07-23 18:42 | HP_ITS ---
DATE OF SERVICE: CHIEF COMPLAINT: 1. Low platelet count. 2. COVID positive. HISTORY OF PRESENT ILLNESS: The patient is a 69-year-old male with history of multiple medical problems including CVA, wheelchair bound, paroxysmal atrial fibrillation, hypertension, diabetes, ITP, who was sent for the evaluation of low platelet count. According to the patient, the patient's platelet count was 2000 from an outside lab, and Dr. Candido Hyman told him that he should go to the emergency room for further evaluation and avail treatment. At the present time, the patient denies any bleeding, shortness of breath, or chest pain; however, he tested positive for COVID and had dry cough and visited the emergency room for further evaluation and treatment because chest x-ray also showed that the patient had pneumonia. The patient denies any fever or chills. REVIEW OF SYSTEMS: Positive for low platelet count, dry cough. All other 10 review of systems were reviewed with the patient and found to be negative. No evidence of acute bleeding at the present time. PAST MEDICAL HISTORY: Anxiety, atrial fibrillation, CVA, depression, diabetes, history of ITP, history of hypertension, hypothyroidism, obstructive sleep apnea. PAST SURGICAL HISTORY: History of appendectomy. SOCIAL HISTORY: The patient is a former smoker, currently smokes cigars occasionally. Used to drink alcohol, quit 10 years ago. No substance abuse. FAMILY HISTORY: The patient's father and mother both had hypertension. CURRENT MEDICATIONS: Reviewed and in the chart, and the current medications include atorvastatin, Bumex, carvedilol, gabapentin, hydralazine, insulin aspart, insulin glargine, isosorbide, lactobacillus, Keppra, and levothyroxine. ALLERGIES: THE PATIENT IS NOT ALLERGIC TO ANY MEDICATION. PHYSICAL EXAMINATION: VITAL SIGNS: At the time of admission include blood pressure of 155/62, pulse rate 102, respiration rate 18, pulse ox 98, temperature 37. HEENT: Pupils are equally reacting to light. NECK: No JVD. No bruit. Neck supple. LUNGS: Air entry good. No additional sounds. HEART: S1 and S2. Rate and rhythm regular. No S3, no murmurs. ABDOMEN: Soft and nontender. Bowel sounds are positive. No hepatosplenomegaly. EXTREMITIES: No cyanosis, clubbing, or edema. PERSONAL CARE WORKER: Alert and oriented x3. No new focal deficits. The patient, however, is wheelchair bound. LABORATORY DATA: Important laboratory data showed WBC count 5.4, hemoglobin 12.4, and platelet count is 3. Sodium 138, potassium 3.9, BUN 55, creatinine 4.3, glucose is 233. Chest x-ray shows possible pneumonia. ASSESSMENT: 1. Severe thrombocytopenia. 2. [id number] kidney failure. 3. COVID pneumonia. 4. History of diabetes. 5. History of hypertension. 6. History of hypothyroidism. PLAN: Admit, blood culture, urine culture, IV antibiotics, replace platelets. History of ITP, patient has. We will consult Hematology-Oncology. The patient stayed for more than 2 days in the hospital. The patient is full code at the present time. Further evaluation and treatment of the patient will be done according to the lab data available and recommended by a specialist. Roe I MT: Wayne
--- NOTE | 2020-07-23 19:39 | PC.NURSE ---
Called Dr Luna about pt's blood sugar of 444. new orders received to change SSI from low to mid. No orders for extra corrective insulin
[2020-07-23] MEDS: INSULIN GLARGINE (*BKC) 100 UNITS/ML 50 UNITS SUB-Q (20:47)
[2020-07-23] MEDS: levETIRAcetam 500 MG TABLET 1000 MG PO (20:48)
[2020-07-23] MEDS: carvediloL 12.5 MG TABLET PO (20:48)
[2020-07-23 21:19] LABS: Creatinine Urine 25.1 mg/dL
[2020-07-23 21:19] LABS: Glucose Point of Care 481 (65-105)
[2020-07-23 21:22] LABS: Sodium Urine Random 78 meq/L
[2020-07-23 21:27] LABS: Total Protein Urine Random 550 mg/dL; Ur Ttl Prot Creatinine Ratio 21.91 mg/mg (0-0.20)
[2020-07-23] MEDS: INSULIN ASPART (*BKC) 100 UNITS/ML 15 UNITS SUB-Q (21:37)
[2020-07-23] MEDS: ACETAMINOPHEN 325 MG TABLET 650 MG PO (21:37)
[2020-07-24] VITALS (8 sets, daily range): BP systolic 110–177; BP diastolic 59–98; PULSE 75–104; RESP 16–20; TEMP 36.1–36.8; O2SAT 95–100
[2020-07-24 00:40] LABS: Glucose Point of Care 460 (65-105)
[2020-07-24] MEDS: INSULIN ASPART (*BKC) 100 UNITS/ML 10 UNITS SUB-Q (01:38)
[2020-07-24] MEDS: LOPERAMIDE HCL 2 MG CAPSULE PO ×2 (01:44→10:48)
[2020-07-24] MEDS: LEVOTHYROXINE SODIUM 75 MCG TABLET PO (06:06)
[2020-07-24 07:16] LABS: Hematocrit 38.4 % (42.0-52.0); Hemoglobin 12.5 g/dL (14.0-18.0); Immature Platelet Fraction Pct 24.7 % (0.9-11.2); Mean Corpuscular HGB Conc 32.6 g/dl (32-36); Mean Corpuscular Hemoglobin 28.1 pg (26-34); Mean Corpuscular Volume 86.3 fl (80-100); Red Blood Count 4.45 M/mm3 (4.6-6.20); White Blood Count 10.5 K/mm3 (4.5-10.0)
[2020-07-24 07:54] LABS: Anion Gap 16 mmol/L (8-16); Blood Urea Nitrogen 70 mg/dL (9-20); Calcium 8.3 mg/dL (8.4-10.2); Carbon Dioxide 18 mmol/L (22-30); Chloride 101 mmol/L (98-107); Estimated CRCL calculation 22 ml/min; Estimated Glomerular Filt Rate 13; Glucose 410 mg/dL (75-110); Potassium 4.4 mmol/L (3.4-5.0); Sodium 135 mmol/L (137-145)
--- NOTE | 2020-07-24 08:00 | PC.NURSE ---
Called Dr tanner about pt blood sugar still being higfh with moderate SSI. New orders recieved for high SSI.
[2020-07-24 08:45] LABS: Platelet Count Result 17 k/mm3 (150-375)
--- NOTE | 2020-07-24 08:50 | PM.IMPN ---
Progress Note: A&P Assessment and Plan (1) Acute on chronic kidney failure: Qualifiers: Acute renal failure type: unspecified Chronic kidney disease stage: unspecified stage Qualified Code(s): N17.9 - Acute kidney failure, unspecified; N18.9 - Chronic kidney disease, unspecified Code(s): N17.9 - Acute kidney failure, unspecified; N18.9 - Chronic kidney disease, unspecified Status: Acute Assessment and Plan: the patient has chronic kidney disease. This is substantial. In January he had a creatinine of 3.49 and GFR of only 18. So he has stage 4 chronic kidney disease. Most likely this is related to diabetes, hypertension, and vascular disease. We will check blood work to look for other causes which would include glomerulonephritis, interstitial nephritis. These are less likely in this scenario. Obstruction is also a possibility which is always something to consider. We will check immunofixation, serology, and a renal ultrasound. The patient has acute kidney injury as well. His creatinine is mildly higher than his baseline. The patient feels fine is been eating okay. So it is also possible that this may just be progression of his renal disease. We will check urine electrolytes and eosinophils to evaluate this. The patient does not have any symptoms of COVID but if it turns out that he does have COVID then this is associated with acute kidney injury as well. (2) Thrombocytopenia: Code(s): D69.6 - Thrombocytopenia, unspecified Status: Acute Assessment and Plan: The patient's has thrombocytopenia. He has ITP. (3) Exposure to COVID-19 virus: Code(s): Z20.828 - Contact with and (suspected) exposure to other viral communicable diseases Status: Acute Assessment and Plan: His has COVID-19 as well his daughter and grandchildren. It has spread throughout the family. (4) Erythropoietin deficiency anemia: Code(s): D63.1 - Anemia in chronic kidney disease Status: Acute Assessment and Plan: The patient has anemia. This is most likely related to his kidney disease with that low GFR. I am going to evaluate this with Iron stool guaiacs at [facility]. His hemoglobin is a bit higher than we would normally need to prescribe Epogen. (5) Essential (primary) hypertension: Code(s): I10 - Essential (primary) hypertension Status: Acute Assessment and Plan: He has hypertension for many years. He is on hydralazine for this at home. Will switched to amlodipine as this is a less immunostimulatory medication. (6) Type 2 diabetes mellitus without complications: Code(s): E11.9 - Type 2 diabetes mellitus without complications Status: Acute Assessment and Plan: the patient is getting blood sugars. and follow sliding scale insulin Subjective Date/time seen: 07/24/20 08:50 Interval history: Patient was seen during the morning rounds today. Feeling slightly better, decreased sob,no chest pain, mood stable. Review of Systems Review of Systems: All systems reviewed & are unremarkable except as noted in HPI and below (the history and physical.) Exam Narrative: Exam Narrative: Exam Narrative: Well developed well-nourished in no acute distress Skin is warm and dry without rash Head normocephalic atraumatic Eyes normal sclerae and conjunctivae Mouth normal lips teeth and gums Neck no nodes no thyromegaly no carotid bruits Axillae no nodes Back no CVA tenderness Lungs:- air entry is slightly decreased. Heart irregular rate and rhythm without rub or gallop Abdomen bowel sounds positive soft nontender, no HSM, masses, or bruits. Extremities no cyanosis, clubbing, But 1 to 2+ edema Pulses 2+ equal in radial arteries Psychological not anxious or depressed Neuro alert and oriented x3 motor 5/5 cranial nerves 2-12 intact reflexes 2+ and equal in the biceps and patellar tendons cerebellar normal rapid alternating
--- NOTE | 2020-07-24 08:57 | PC.NURSE ---
Called Dr tanner about critical plt. of 17,000 . No new orders recived. Will continue to monitor.
[2020-07-24 09:11] LABS: Glucose Point of Care 394 (65-105)
--- NOTE | 2020-07-24 09:49 | PM.PNNEP ---
Progress Note: A&P Assessment and Plan (1) Acute on chronic kidney failure: Qualifiers: Acute renal failure type: unspecified Chronic kidney disease stage: unspecified stage Qualified Code(s): N17.9 - Acute kidney failure, unspecified; N18.9 - Chronic kidney disease, unspecified Code(s): N17.9 - Acute kidney failure, unspecified; N18.9 - Chronic kidney disease, unspecified Status: Acute Assessment and Plan: the patient has chronic kidney disease. This is substantial. In January he had a creatinine of 3.49 and GFR of only 18. So he has stage 4 chronic kidney disease. He tells me that [facility] was [facility] and had a creatinine of 7 which improved to about 4. Most likely this is related to diabetes, hypertension, and vascular disease. Most likely this is chronic kidney disease. May be a little bit of a bump in the creatinine from his COVID but it sounds like his baseline creatinine is more like 4. We discussed that he is going to need to plan for dialysis although he does not need dialysis now. This can wait till he has an outpatient and over COVID. He plans to continue with the [facility] for his [facility]ic care. (2) Thrombocytopenia: Code(s): D69.6 - Thrombocytopenia, unspecified Status: Acute Assessment and Plan: The patient's has thrombocytopenia. He has ITP. (3) Exposure to COVID-19 virus: Code(s): Z20.828 - Contact with and (suspected) exposure to other viral communicable diseases Status: Acute Assessment and Plan: His test came back positive His has COVID-19 as well his daughter and grandchildren. It has spread throughout the family. (4) Erythropoietin deficiency anemia: Code(s): D63.1 - Anemia in chronic kidney disease Status: Acute Assessment and Plan: The patient has anemia. This is most likely related to his kidney disease with that low GFR. I am going to evaluate this with Iron stool guaiacs at [facility]. His hemoglobin is a bit higher than we would normally need to prescribe Epogen. (5) Essential (primary) hypertension: Code(s): I10 - Essential (primary) hypertension Status: Acute Assessment and Plan: He has hypertension for many years. (6) Type 2 diabetes mellitus without complications: Code(s): E11.9 - Type 2 diabetes mellitus without complications Status: Acute Assessment and Plan: the patient is getting blood sugars. Subjective Date/time seen: 07/24/20 09:49 Interval history: Alert. Up in a chair. Ate breakfast. Feels okay. No shortness of breath or cough. Daughter is on the phone on speaker as we visit. Review of Systems Cardiovascular: Cardiovascular: Reports no additional cardiovascular complaints Respiratory: Respiratory: Reports no additional respiratory complaints Gastrointestinal: Gastrointestinal: Reports no additional gastrointestinal complaints Genitourinary: Genitourinary: Reports no additional male genitourinary complaints Exam Narrative: Exam Narrative: WDWN in NAD skin no rash head ncat lungs clear cor reg no rub abd BS+ nontender and soft ext no edema. Objective Data Vital Signs Vital Signs: Vital Signs - 24 hr 07/23/20 12:00 07/23/20 13:38 07/23/20 14:04 Temperature 36.7 C 36.7 C 36.7 C Pulse Rate 100 106 H 98 Respiratory Rate 18 20 18 Blood Pressure 180/100 H 180/100 H 190/100 H Pulse Oximetry 98 98 95 07/23/20 15:04 07/23/20 16:00 07/23/20 20:00 Temperature 36.3 C L 36.9 C 36.8 C Pulse Rate 71 94 95 Respiratory Rate 20 18 20 Blood Pressure 193/100 H 163/98 H 156/71 H Pulse Oximetry 98 96 95 07/24/20 00:00 07/24/20 04:00 Temperature 36.6 C 36.8 C Pulse Rate 99 95 Respiratory Rate 20 20 Blood Pressure 177/98 H 154/69 H Pulse Oximetry 97 100 Intake/Output Intake/Output: Intake & Output 07/21/20 07/22/20 07/23/20 07/24/20 23:59 23:59 23:59 23:59 Intake Total 0 14
[2020-07-24] MEDS: INSULIN ASPART (*BKC) 100 UNITS/ML SUB-Q (10:27)
[2020-07-24] MEDS: levETIRAcetam 500 MG TABLET 1000 MG PO ×2 (10:30→21:57)
[2020-07-24] MEDS: hydrALAZINE HCL 50 MG TABLET PO ×3 (10:33→17:48)
[2020-07-24] MEDS: ISOSORBIDE MONONITRATE 30 MG TAB.ER.24H PO (10:33)
[2020-07-24] MEDS: ACIDOPHILUS/BULGARICUS CHEWABLE TABLET 1 TABLET PO (10:33)
[2020-07-24] MEDS: amLODIPine BESYLATE 2.5 MG TABLET PO (10:33)
[2020-07-24] MEDS: GABAPENTIN 400 MG CAPSULE 800 MG PO ×3 (10:33→17:48)
[2020-07-24] MEDS: carvediloL 12.5 MG TABLET PO ×2 (10:34→21:57)
[2020-07-24] MEDS: DEXAMETHASONE SOD PHOS INJ 4 MG/ML VIAL 6 MG IV PUSH (10:34)
[2020-07-24] MEDS: ATORVASTATIN 40 MG TABLET PO (10:34)
[2020-07-24] MEDS: INSULIN GLARGINE (*BKC) 100 UNITS/ML 50 UNITS SUB-Q ×2 (10:35→21:58)
--- NOTE | 2020-07-24 12:56 | PM.PNPUL ---
Progress Note: A&P Assessment and Plan (1) Pneumonia due to COVID-19 virus: Code(s): U07.1 - COVID-19; J12.89 - Other viral pneumonia Status: Acute Assessment and Plan: He is not hypoxic. I would limit systemic steroids to no more than 5 days. This can be solumedrol as currently ordered for ITP, dexamethasone 6 mg or prednisone 40 mg daily. Not a candidate for Remdesivir (2) Thrombocytopenia: Code(s): D69.6 - Thrombocytopenia, unspecified Status: Acute (3) Chronic ITP (idiopathic thrombocytopenia): Code(s): D69.3 - Immune thrombocytopenic purpura Status: Acute Subjective Date/time seen: 07/24/20 12:56 Interval history: 69 y/o obese male with DM, Afib, CKD, ITP admitted to hospital for low platelets. His platelets were 2 on admission. There was no significant signs of bleeding he denied headaches. He did not have a CT head on admission. I was asked to see him for COVID-19. He has dry cough but no dyspnea, no chest tightness, he had one episode of fever a few days ago which resolved with tylenol. He denies loss of taste or smell. His CXR shows bibasilar infiltrates with cardiomegaly. He said most of his family members have developed COVID-19 in the past few weeks. He was also found to be in acute renal failure He was given platelet transfusions and started on systemic steroids. He says he usually get's IVIG which improves his platelets the most and he develops severe hyperglycemia from systemic steroids. Review of Systems Review of Systems: All systems reviewed & are unremarkable except as noted in HPI and below Exam Const: General: cooperative, healthy appearing, comfortable, no acute distress, well developed, alert, awake and Physically active Nutritional Appearance: obese morbidly obese Orientation/consciousness: oriented to person, oriented to place, oriented to time and patient oriented x3 HENMT: Head: normal to inspection, normocephalic and atraumatic Eyes: General: appearance normal, both eyes and all related structures Neck: Neck: trachea midline and supple Resp: Effort & Inspection: normal respiratory effort Auscultation: clear to auscultation bilaterally Cardio: Jugular venous distension: no JVD Rate: regular rate Rhythm: regular rhythm Heart sounds: S1 normal heart sound present and S2 normal heart sound present GI: Inspection: normal to inspection Auscultation: normal bowel sounds Skin: General skin exam: no rashes or lesions noted Neuro: General: oriented to person, oriented to place, oriented to time and patient oriented x3 Cognition (Neuro): normal cognition Speech: normal speech Extrem: General: no clubbing, cyanosis or edema Psych: Appearance: grossly normal and well kempt Mental Status: mental status grossly normal Objective Data Vital Signs Vital Signs: Vital Signs - 24 hr 07/23/20 13:38 07/23/20 14:04 07/23/20 15:04 Temperature 36.7 C 36.7 C 36.3 C L Pulse Rate 106 H 98 71 Respiratory Rate 20 18 20 Blood Pressure 180/100 H 190/100 H 193/100 H Pulse Oximetry 98 95 98 07/23/20 16:00 07/23/20 20:00 07/24/20 00:00 Temperature 36.9 C 36.8 C 36.6 C Pulse Rate 94 95 99 Respiratory Rate 18 20 20 Blood Pressure 163/98 H 156/71 H 177/98 H Pulse Oximetry 96 95 97 07/24/20 04:00 07/24/20 08:00 07/24/20 10:34 Temperature 36.8 C 36.1 C L Pulse Rate 95 75 75 Respiratory Rate 20 18 Blood Pressure 154/69 H 150/80 H Pulse Oximetry 100 98 Intake/Output Intake/Output: Intake & Output 07/21/20 07/22/20 07/23/20 07/24/20 23:59 23:59 23:59 23:59 Intake Total 0 1472 300 Output Total 3 600 Balance 0 1469 -300 Meds/Results Medications: Active Medications Generic Name Dose Route Start Last Admin Trade Name Freq PRN Reason Stop Dose Admin Acetaminophen 650 mg 07/23/20 21:10 07/23/20 21:37 Acetaminophen 325 Mg Tablet PO 650 mg Q6H PRN Administration Mild Pain (1-3) or Fever Amlodipine Besylate 2.5 mg 1
--- NOTE | 2020-07-24 12:57 | PC.NURSE ---
Notified Dr Luna of blood sugar of 414. one time dose of 15 units subcu of NovoLog
[2020-07-24] MEDS: INSULIN ASPART (*BKC) 100 UNITS/ML 15 UNITS SUB-Q ×2 (13:17→18:28)
[2020-07-24 17:24] LABS: Glucose Point of Care 414 (65-105)
[2020-07-24 17:56] LABS: Glucose Point of Care 460 (65-105)
--- NOTE | 2020-07-24 18:02 | PC.NURSE ---
Called Dr Luna ,notified him of blood sugar of 460. Recieved orders for one time dose of 15 units NovoLog .
[2020-07-24] MEDS: methylPREDNISolone SOD SUCC 125 MG VIAL IV PUSH (21:58)
[2020-07-24 23:05] LABS: Glucose Point of Care 387 (65-105)
[2020-07-25] VITALS (8 sets, daily range): BP systolic 107–143; BP diastolic 53–75; PULSE 73–104; RESP 18–20; TEMP 36.1–36.6; O2SAT 93–97
--- NOTE | 2020-07-25 00:23 | PC.NURSE ---
0001 07/25/2020 24 hour uriine collection completed and sent to lab.
--- NOTE | 2020-07-25 00:28 | PC.NURSE ---
2220 07/24/2020 HS SNACK OFFERED, PT DECLINED.
[2020-07-25] MEDS: LOPERAMIDE HCL 2 MG CAPSULE PO ×4 (05:07→20:47)
[2020-07-25 06:51] LABS: Albumin Level 3.4 g/dL (3.5-5.1); Anion Gap 13 mmol/L (8-16); Blood Urea Nitrogen 85 mg/dL (9-20); Calcium 7.9 mg/dL (8.4-10.2); Carbon Dioxide 18 mmol/L (22-30); Chloride 101 mmol/L (98-107); Estimated CRCL calculation 20 ml/min; Estimated Glomerular Filt Rate 12; Glucose 426 mg/dL (75-110); Hemoglobin A1C 7.4 % (<5.7); Phosphorus 5.6 mg/dL (2.5-4.5); Potassium 4.5 mmol/L (3.4-5.0); Sodium 132 mmol/L (137-145)
--- NOTE | 2020-07-25 07:47 | PC.NURSE ---
AT 0630, i ATTEMPTED TO GIVE PT HIS AM SYNTHROID DOSE. HE REFUSED. STATING HE DOESN'T TAKE ANYTHING FOR THYROID AND DOES NOT HAVE HYPOTHYROIDISM. tHEN HE STATED HE IS UNSURE OF HIS HOME MEDS. HIS DAUGHTER FILLS HIS PILL BOX AT HOME. hE WILL CHECK WITH HER AT NINE AM TO VERIFY IF HE TAKES IT. INFO PASSD ON IN REPORT TO NEXT RN.
[2020-07-25 08:01] LABS: Hematocrit 37.4 % (42.0-52.0); Hemoglobin 12.2 g/dL (14.0-18.0); Immature Platelet Fraction Pct 17.9 % (0.9-11.2); Mean Corpuscular HGB Conc 32.6 g/dl (32-36); Mean Corpuscular Hemoglobin 28.3 pg (26-34); Mean Corpuscular Volume 86.8 fl (80-100); Red Blood Count 4.31 M/mm3 (4.6-6.20); White Blood Count 10.9 K/mm3 (4.5-10.0)
[2020-07-25 08:19] LABS: Platelet Count Result 21 k/mm3 (150-375)
[2020-07-25 09:12] LABS: Glucose Point of Care 420 (65-105)
[2020-07-25] MEDS: INSULIN ASPART (*BKC) 100 UNITS/ML 10 UNITS SUB-Q ×2 (09:43→13:01)
[2020-07-25] MEDS: GABAPENTIN 400 MG CAPSULE 800 MG PO ×3 (09:44→17:50)
[2020-07-25] MEDS: methylPREDNISolone SOD SUCC 125 MG VIAL IV PUSH (09:44)
[2020-07-25] MEDS: ISOSORBIDE MONONITRATE 30 MG TAB.ER.24H PO (09:45)
[2020-07-25] MEDS: ACIDOPHILUS/BULGARICUS CHEWABLE TABLET 1 TABLET PO (09:45)
[2020-07-25] MEDS: levETIRAcetam 500 MG TABLET 1000 MG PO ×2 (09:45→20:19)
[2020-07-25] MEDS: carvediloL 12.5 MG TABLET PO ×2 (09:45→20:19)
[2020-07-25] MEDS: hydrALAZINE HCL 50 MG TABLET PO ×3 (09:46→17:50)
[2020-07-25] MEDS: amLODIPine BESYLATE 2.5 MG TABLET PO (09:46)
[2020-07-25] MEDS: ATORVASTATIN 40 MG TABLET PO (09:46)
[2020-07-25] MEDS: INSULIN GLARGINE (*BKC) 100 UNITS/ML 50 UNITS SUB-Q ×3 (09:50→20:47)
[2020-07-25 13:21] LABS: Glucose Point of Care > 500 (65-105)
--- NOTE | 2020-07-25 13:23 | PM.PNPUL ---
Progress Note: A&P Assessment and Plan (1) Pneumonia due to COVID-19 virus: Code(s): U07.1 - COVID-19; J12.89 - Other viral pneumonia Status: Acute Assessment and Plan: He is not hypoxic. I would limit systemic steroids to no more than 5 days. This can be solumedrol as currently ordered for ITP, dexamethasone 6 mg or prednisone 40 mg daily. Not a candidate for Remdesivir (2) Thrombocytopenia: Code(s): D69.6 - Thrombocytopenia, unspecified Status: Acute (3) Chronic ITP (idiopathic thrombocytopenia): Code(s): D69.3 - Immune thrombocytopenic purpura Status: Acute Subjective Date/time seen: 07/25/20 13:23 Interval history: No respiratory complaints Review of Systems Review of Systems: All systems reviewed & are unremarkable except as noted in HPI and below Exam Const: General: cooperative, healthy appearing, comfortable, no acute distress, well developed, alert, awake and Physically active Nutritional Appearance: obese morbidly obese Orientation/consciousness: oriented to person, oriented to place, oriented to time and patient oriented x3 HENMT: Head: normal to inspection, normocephalic and atraumatic Eyes: General: appearance normal, both eyes and all related structures Neck: Neck: trachea midline and supple Resp: Effort & Inspection: normal respiratory effort Auscultation: clear to auscultation bilaterally Cardio: Jugular venous distension: no JVD Rate: regular rate Rhythm: regular rhythm Heart sounds: S1 normal heart sound present and S2 normal heart sound present GI: Inspection: normal to inspection Auscultation: normal bowel sounds Skin: General skin exam: no rashes or lesions noted Neuro: General: oriented to person, oriented to place, oriented to time and patient oriented x3 Cognition (Neuro): normal cognition Speech: normal speech Extrem: General: no clubbing, cyanosis or edema Psych: Appearance: grossly normal and well kempt Mental Status: mental status grossly normal Objective Data Vital Signs Vital Signs: Vital Signs - 24 hr 07/24/20 16:00 07/24/20 20:00 07/24/20 21:57 Temperature 36.2 C L 36.8 C Pulse Rate 96 101 H 101 H Respiratory Rate 18 16 Blood Pressure 122/65 110/59 L Pulse Oximetry 98 96 07/25/20 00:00 07/25/20 05:00 07/25/20 08:00 Temperature 36.1 C L 36.1 C L 36.1 C L Pulse Rate 99 90 100 Respiratory Rate 20 20 18 Blood Pressure 143/72 H 130/73 133/70 Pulse Oximetry 96 96 96 07/25/20 09:45 07/25/20 12:00 Temperature 36.4 C L Pulse Rate 100 104 H Respiratory Rate 20 Blood Pressure 112/53 L Pulse Oximetry 93 Intake/Output Intake/Output: Intake & Output 07/22/20 07/23/20 07/24/20 07/25/20 23:59 23:59 23:59 23:59 Intake Total 0 1472 1205 1660 Output Total 3 1450 Balance 0 1469 -245 1660 Meds/Results Medications: Active Medications Generic Name Dose Route Start Last Admin Trade Name Freq PRN Reason Stop Dose Admin Acetaminophen 650 mg 07/23/20 21:10 07/23/20 21:37 Acetaminophen 325 Mg Tablet PO 650 mg Q6H PRN Administration Mild Pain (1-3) or Fever Amlodipine Besylate 2.5 mg 07/24/20 09:00 07/25/20 09:46 Amlodipine Besylate 2.5 Mg Tablet PO 2.5 mg QAM DAMARI Administration Atorvastatin Calcium 40 mg 07/23/20 14:00 07/25/20 09:46 Atorvastatin 40 Mg Tablet PO 40 mg DAILY DAMARI Administration Carvedilol 12.5 mg 07/23/20 21:00 07/25/20 09:45 Carvedilol 12.5 Mg Tablet PO 12.5 mg Q12HR DAMARI Administration Dextrose 12.5 gm 07/23/20 13:40 Dextrose 50% 25 Gm/50 Ml Syringe IV PUSH PRN PRN Hypoglycemia Protocol Gabapentin 800 mg 07/23/20 17:00 07/25/20 09:44 Gabapentin 400 Mg Capsule PO 800 mg TID DAMARI Administration Glucagon 1 mg 07/23/20 13:40 Glucagon For Inj 1 Mg Vial IM PRN PRN Hypoglycemia Protocol Glucose 15 gm 07/23/20 13:40 Glucose Oral Gel 15 Gm Of Glucse In 37.[address]
[2020-07-25 14:23] LABS: Glucose Point of Care > 500 (65-105)
--- NOTE | 2020-07-25 17:22 | PM.IMPN ---
Progress Note: A&P Assessment and Plan (1) Acute on chronic kidney failure: Qualifiers: Acute renal failure type: unspecified Chronic kidney disease stage: unspecified stage Qualified Code(s): N17.9 - Acute kidney failure, unspecified; N18.9 - Chronic kidney disease, unspecified Code(s): N17.9 - Acute kidney failure, unspecified; N18.9 - Chronic kidney disease, unspecified Status: Acute Assessment and Plan: the patient has chronic kidney disease. So he has stage 4 chronic kidney disease. (2) Thrombocytopenia: Code(s): D69.6 - Thrombocytopenia, unspecified Status: Acute Assessment and Plan: The patient's has thrombocytopenia. He has ITP. (3) Exposure to COVID-19 virus: Code(s): Z20.828 - Contact with and (suspected) exposure to other viral communicable diseases Status: Acute Assessment and Plan: His has COVID-19 as well his daughter and grandchildren. (4) Erythropoietin deficiency anemia: Code(s): D63.1 - Anemia in chronic kidney disease Status: Acute Assessment and Plan: The patient has anemia. This is most likely related to his kidney disease with that low GFR. I am going to evaluate this with Iron stool guaiacs at [facility]. His hemoglobin is a bit higher than we would normally need to prescribe Epogen. (5) Essential (primary) hypertension: Code(s): I10 - Essential (primary) hypertension Status: Acute Assessment and Plan: He has hypertension for many years. (6) Type 2 diabetes mellitus without complications: Code(s): E11.9 - Type 2 diabetes mellitus without complications Status: Acute Assessment and Plan: the patient is getting blood sugars. and follow sliding scale insulin Subjective Date/time seen: 07/25/20 17:22 Interval history: Pt is in the restroom, pt is admitted with covid, viral pneumonia and ITP pt sugars are running high because of steroids pt seen by pumology and neprology pt would like to see hematology would like IVIG treatment tomorrow Denies any bleeding or bruising No cough no fever would like to go home soon Review of Systems Review of Systems: All systems reviewed & are unremarkable except as noted in HPI and below Exam Const: General: cooperative and no acute distress Orientation/consciousness: oriented to person, oriented to place, oriented to time and patient oriented x3 HENMT: Head: normal to inspection General nose exam: Normal external nose present Face and sinus: normal facial exam Chest: Chest palpation & inspection: normal inspection of the chest and normal palpation of entire chest wall Neuro: General: oriented to person, oriented to place, oriented to time and patient oriented x3 Cranial nerves: Yes CN's II-XII intact bilaterally Speech: normal speech Gait exam (Neuro): Normal gait present Motor exam (neuro): 5/5 motor strength present throughout Sensory Exam: normal sensation Extrem: General: other (Wheel chair bound, one plus edema) Psych: Appearance: grossly normal Objective Data Vital Signs Vital Signs: Vital Signs - 24 hr 07/24/20 20:00 07/24/20 21:57 07/25/20 00:00 Temperature 36.8 C 36.1 C L Pulse Rate 101 H 101 H 99 Respiratory Rate 16 20 Blood Pressure 110/59 L 143/72 H Pulse Oximetry 96 96 07/25/20 05:00 07/25/20 08:00 07/25/20 09:45 Temperature 36.1 C L 36.1 C L Pulse Rate 90 100 100 Respiratory Rate 20 18 Blood Pressure 130/73 133/70 Pulse Oximetry 96 96 07/25/20 12:00 07/25/20 16:00 Temperature 36.4 C L 36.2 C L Pulse Rate 104 H 94 Respiratory Rate 20 20 Blood Pressure 112/53 L 107/56 L Pulse Oximetry 93 97 Intake/Output Intake/Output: Intake & Output 07/22/20 07/23/20 07/24/20 07/25/20 23:59 23:59 23:59 23:59 Intake Total 0 1472 1205 3020 Output Total 3 1450 Balance 0 1469 -245 3020 Meds/Results Medications: Active Medications Generic Name Dose Route Sta
[2020-07-25] MEDS: INSULIN ASPART (*BKC) 100 UNITS/ML 9 UNITS SUB-Q (17:48)
[2020-07-25] MEDS: methylPREDNISolone SOD SUCC 125 MG VIAL 60 MG IV PUSH (17:49)
[2020-07-25 17:52] LABS: Glucose Point of Care 441 (65-105)
--- NOTE | 2020-07-25 18:10 | PM.PNNEP ---
Progress Note: A&P Assessment and Plan (1) Acute on chronic kidney failure: Qualifiers: Acute renal failure type: unspecified Chronic kidney disease stage: unspecified stage Qualified Code(s): N17.9 - Acute kidney failure, unspecified; N18.9 - Chronic kidney disease, unspecified Code(s): N17.9 - Acute kidney failure, unspecified; N18.9 - Chronic kidney disease, unspecified Status: Acute Assessment and Plan: the patient has stage 4 chronic kidney disease. Most likely this is related to diabetes, hypertension, and vascular disease. his creatinine is up just a little bit. He is not on diuretics. Will follow this along. (2) Thrombocytopenia: Code(s): D69.6 - Thrombocytopenia, unspecified Status: Acute Assessment and Plan: The patient's has thrombocytopenia. He has ITP. Platelet count is on the rise (3) Exposure to COVID-19 virus: Code(s): Z20.828 - Contact with and (suspected) exposure to other viral communicable diseases Status: Acute Assessment and Plan: His test came back positive His has COVID-19 as well his daughter and grandchildren. It has spread throughout the family. (4) Erythropoietin deficiency anemia: Code(s): D63.1 - Anemia in chronic kidney disease Status: Acute Assessment and Plan: The patient has anemia. mild. (5) Essential (primary) hypertension: Code(s): I10 - Essential (primary) hypertension Status: Acute Assessment and Plan: He has hypertension for many years. Well controlled. (6) Type 2 diabetes mellitus without complications: Code(s): E11.9 - Type 2 diabetes mellitus without complications Status: Acute Assessment and Plan: the patient is getting blood sugars. Subjective Date/time seen: 07/25/20 18:10 Interval history: Alert. Up in a chair. no cough or shortness of breath. No swelling Review of Systems Cardiovascular: Cardiovascular: Reports no additional cardiovascular complaints Respiratory: Respiratory: Reports no additional respiratory complaints Gastrointestinal: Gastrointestinal: Reports no additional gastrointestinal complaints Genitourinary: Genitourinary: Reports no additional male genitourinary complaints Exam Narrative: Exam Narrative: WDWN in NAD skin no rash head ncat lungs clear bilaterally cor reg no rub abd BS+ nontender and soft ext no edema. Objective Data Vital Signs Vital Signs: Vital Signs - 24 hr 07/24/20 20:00 07/24/20 21:57 07/25/20 00:00 Temperature 36.8 C 36.1 C L Pulse Rate 101 H 101 H 99 Respiratory Rate 16 20 Blood Pressure 110/59 L 143/72 H Pulse Oximetry 96 96 07/25/20 05:00 07/25/20 08:00 07/25/20 09:45 Temperature 36.1 C L 36.1 C L Pulse Rate 90 100 100 Respiratory Rate 20 18 Blood Pressure 130/73 133/70 Pulse Oximetry 96 96 07/25/20 12:00 07/25/20 16:00 Temperature 36.4 C L 36.2 C L Pulse Rate 104 H 94 Respiratory Rate 20 20 Blood Pressure 112/53 L 107/56 L Pulse Oximetry 93 97 Intake/Output Intake/Output: Intake & Output 07/22/20 07/23/20 07/24/20 07/25/20 23:59 23:59 23:59 23:59 Intake Total 0 1472 1205 3020 Output Total 3 1450 Balance 0 1469 -245 3020 Meds/Results Medications: Active Medications Generic Name Dose Route Start Last Admin Trade Name Freq PRN Reason Stop Dose Admin Acetaminophen 650 mg 07/23/20 21:10 07/23/20 21:37 Acetaminophen 325 Mg Tablet PO 650 mg Q6H PRN Administration Mild Pain (1-3) or Fever Amlodipine Besylate 2.5 mg 07/24/20 09:00 07/25/20 09:46 Amlodipine Besylate 2.5 Mg Tablet PO 2.5 mg QAM DAMARI Administration Atorvastatin Calcium 40 mg 07/23/20 14:00 07/25/20 09:46 Atorvastatin 40 Mg Tablet PO 40 mg DAILY DAMARI Administration Carvedilol 12.5 mg 07/23/20 21:00 07/25/20 09:45 Carvedilol 12.5 Mg Tablet PO 12.5 mg Q12HR DAMARI Adminis
--- NOTE | 2020-07-25 18:16 | PDONCCN ---
HPI - Date of Consult Date/Time: 07/25/20 18:16 Requesting Physician: Ok Salvador DO Primary Care Provider: [facility] - Consult Narrative Reason for consult: Thrombocytopenia Narrative: Marcelino Quinonez is a 69 year old male This is a pleasant 69-year-old obese male with history of ITP diagnosed in . Patient also has a history of stroke and atrial fibrillation along with diabetes and hypertension. He has received IV IgG treatment in the past. Patient has history of diabetes. He came into the hospital when platelet was found to be 2000. He was not having any bleeding. He denies any shortness of breath and chest pain. He was tested positive for COVID-19 and had dry cough. Chest x-ray was performed in the ER that showed patient might have pneumonia. He denies any fevers and chills. Patient received platelet transfusion with slight improvement in the platelet count. IV Solu-Medrol was started. Platelet [place] 3000 [place] [address]. Review of Systems - Review of Systems All systems reviewed & are unremarkable except as noted in HPI and bel - Neurologic Reports system reviewed and no additional complaints, except as documented PMF Medical History: Medical History (Last Updated 07/23/20 @ 11:54 by Aba Devine MD) Anxiety Atrial fibrillation CVA (cerebral vascular accident) Depression Diabetes Erythropoietin deficiency anemia Essential (primary) hypertension Exposure to COVID-19 virus History of ITP Hypertension Hypothyroidism Obstructive sleep apnea Type 2 diabetes mellitus without complications Surgical History: Surgical History (Last Reviewed 07/23/20 @ 11:52 by Aba Devine MD) History of appendectomy Family History: Family History (Last Reviewed 07/23/20 @ 11:52 by Aba Devine MD) Father Colon cancer Mother Breast cancer Sibling Acute myocardial infarction Colon cancer - Social History Social History: Social History (Last Reviewed 07/23/20 @ 11:52 by Aba Devine MD) Gender Identity: Gender identity (if verbalized by the patient): Male Alcohol Use: Alcohol intake: current Drinks per week: 15 Substance Use: Substance use: never Others: Spiritual care concerns: No Smoking Status: Smoking status: Former smoker Tobacco type: cigarettes Tobacco type: cigars Approximate Smoking End Date: 1976 Smoking Pack-years: Smoking packs per day: 1 Smoking cigarettes per day: 20 Years smoked: 13 Smoking pack-years: 13.00 Meds Home Medications Medication Instructions Recorded Confirmed Type Lactobacillus acidophilus 1,000 mmu cells PO DAILY 07/23/20 07/23/20 History atorvastatin [Lipitor] 40 mg PO DAILY 07/23/20 07/23/20 History bumetanide [Bumex] 1 mg PO DAILY 07/23/20 07/23/20 History carvedilol [Coreg] 12.5 mg PO BID 07/23/20 07/23/20 History gabapentin 800 mg PO TID 07/23/20 07/23/20 History hydralazine 50 mg PO TID 07/23/20 07/23/20 History insulin aspart U-100 See Protocol SUBCUT TIDWM 07/23/20 07/23/20 History insulin glargine [Lantus U-100 50 unit SUBCUT BID 07/23/20 07/23/20 History Insulin] isosorbide mononitrate 30 mg PO DAILY 07/23/20 07/23/20 History levetiracetam [Keppra] 1,000 mg PO BID 07/23/20 07/23/20 History levothyroxine [Synthroid] 75 mcg PO DAILY 07/23/20 07/23/20 History loperamide 2 mg PO Q4H PRN 07/23/20 07/23/20 History Allergies Allergy/AdvReac Type Severity Reaction Status Date / Time meropenem Allergy Hives Verified 07/23/20 00:02 vancomycin Allergy Hives Verified 07/23/20 00:02 Heparin Analogues AdvReac Unknown Verified 07/23/20 00:02 Results - Labs CBC & Chem 7: 07/25/20 07:35 07/25/20 06:14 Labs: Short CBC 07/25/20 Range/Units 07:35 WBC 10.9 H (4.5-10.0) K/mm3 Hgb 12.2 L (14.0-18.0) g/dL Hct 37.4 L (42.0-52.0) % Plt Count 21 L* (150-375) k/mm3 [facility] 07/25/20 06:1
[2020-07-25] MEDS: INSULIN ASPART (*BKC) 100 UNITS/ML 15 UNITS SUB-Q (20:45)
[2020-07-25 21:41] LABS: Glucose Point of Care > 500 (65-105)
[2020-07-26] VITALS (8 sets, daily range): BP systolic 120–147; BP diastolic 54–77; PULSE 81–112; RESP 18–20; TEMP 36.1–36.8; O2SAT 97–100
[2020-07-26 00:32] LABS: Glucose Point of Care 481 (65-105)
[2020-07-26] MEDS: LEVOTHYROXINE SODIUM 75 MCG TABLET PO (04:54)
[2020-07-26] MEDS: methylPREDNISolone SOD SUCC 125 MG VIAL 60 MG IV PUSH (04:54)
[2020-07-26 07:05] LABS: Albumin Level 3.4 g/dL (3.5-5.1); Anion Gap 12 mmol/L (8-16); Blood Urea Nitrogen 95 mg/dL (9-20); Calcium 7.7 mg/dL (8.4-10.2); Carbon Dioxide 18 mmol/L (22-30); Chloride 100 mmol/L (98-107); Estimated CRCL calculation 19 ml/min; Estimated Glomerular Filt Rate 11; Glucose 471 mg/dL (75-110); Potassium 4.6 mmol/L (3.4-5.0); Sodium 130 mmol/L (137-145)
[2020-07-26] MEDS: amLODIPine BESYLATE 2.5 MG TABLET PO (08:10)
[2020-07-26] MEDS: hydrALAZINE HCL 50 MG TABLET PO ×3 (08:10→18:02)
[2020-07-26] MEDS: GABAPENTIN 400 MG CAPSULE 800 MG PO ×3 (08:11→18:02)
[2020-07-26] MEDS: levETIRAcetam 500 MG TABLET 1000 MG PO ×2 (08:11→21:31)
[2020-07-26] MEDS: ATORVASTATIN 40 MG TABLET PO (08:11)
[2020-07-26] MEDS: carvediloL 12.5 MG TABLET PO ×2 (08:12→21:32)
[2020-07-26] MEDS: ACIDOPHILUS/BULGARICUS CHEWABLE TABLET 1 TABLET PO (08:12)
[2020-07-26 08:23] LABS: Glucose Point of Care 423 (65-105)
[2020-07-26] MEDS: INSULIN GLARGINE (*BKC) 100 UNITS/ML 50 UNITS SUB-Q ×2 (08:27→21:35)
[2020-07-26] MEDS: INSULIN ASPART (*BKC) 100 UNITS/ML 8 UNITS SUB-Q ×3 (08:27→18:00)
[2020-07-26] MEDS: ISOSORBIDE MONONITRATE 30 MG TAB.ER.24H PO (08:27)
[2020-07-26] MEDS: INSULIN ASPART (*BKC) 100 UNITS/ML 10 UNITS SUB-Q ×3 (08:29→18:00)
[2020-07-26] MEDS: LOPERAMIDE HCL 2 MG CAPSULE PO ×3 (08:31→18:06)
--- NOTE | 2020-07-26 11:03 | PM.PNNEP ---
Progress Note: A&P Assessment and Plan (1) Acute on chronic kidney failure: Qualifiers: Acute renal failure type: unspecified Chronic kidney disease stage: unspecified stage Qualified Code(s): N17.9 - Acute kidney failure, unspecified; N18.9 - Chronic kidney disease, unspecified Code(s): N17.9 - Acute kidney failure, unspecified; N18.9 - Chronic kidney disease, unspecified Status: Acute Assessment and Plan: the patient has stage 4 chronic kidney disease. Most likely this is related to diabetes, hypertension, and vascular disease. his creatinine is up just a little bit more. this could be covid (third spacing?) related. bp is a bit soft. will stop amlodipine. (2) Thrombocytopenia: Code(s): D69.6 - Thrombocytopenia, unspecified Status: Acute Assessment and Plan: The patient's has thrombocytopenia. He has ITP. Platelet count is on the rise (3) Exposure to COVID-19 virus: Code(s): Z20.828 - Contact with and (suspected) exposure to other viral communicable diseases Status: Acute Assessment and Plan: His test came back positive His has COVID-19 as well his daughter and grandchildren. It has spread throughout the family. (4) Erythropoietin deficiency anemia: Code(s): D63.1 - Anemia in chronic kidney disease Status: Acute Assessment and Plan: The patient has anemia. mild. (5) Essential (primary) hypertension: Code(s): I10 - Essential (primary) hypertension Status: Acute Assessment and Plan: He has hypertension for many years. Well controlled. (6) Type 2 diabetes mellitus without complications: Code(s): E11.9 - Type 2 diabetes mellitus without complications Status: Acute Assessment and Plan: the patient is getting blood sugars. Subjective Date/time seen: 07/26/20 11:03 Interval history: Alert. resting in bed. he is a little more congested and has a cough. Review of Systems Cardiovascular: Cardiovascular: Reports no additional cardiovascular complaints Respiratory: Respiratory: Reports no additional respiratory complaints Gastrointestinal: Gastrointestinal: Reports no additional gastrointestinal complaints Genitourinary: Genitourinary: Reports no additional male genitourinary complaints Exam Narrative: Exam Narrative: WDWN in NAD skin no rash or sq nodules head ncat lungs clear to ausc cor reg no rub abd BS+ nontender and soft ext no edema. Objective Data Vital Signs Vital Signs: Vital Signs - 24 hr 07/25/20 12:00 07/25/20 16:00 07/25/20 20:00 Temperature 36.4 C L 36.2 C L 36.6 C Pulse Rate 104 H 94 93 Respiratory Rate 20 20 20 Blood Pressure 112/53 L 107/56 L 113/75 Pulse Oximetry 93 97 96 07/25/20 20:19 07/26/20 00:00 07/26/20 04:00 Temperature 36.6 C 36.8 C Pulse Rate 73 90 81 Respiratory Rate 20 20 Blood Pressure 123/56 L 125/70 Pulse Oximetry 97 100 07/26/20 08:00 07/26/20 08:12 Temperature 36.2 C L Pulse Rate 90 86 Respiratory Rate 20 Blood Pressure 139/54 L Pulse Oximetry 100 Intake/Output Intake/Output: Intake & Output 07/23/20 07/24/20 07/25/20 07/26/20 23:59 23:59 23:59 23:59 Intake Total 1472 1205 3020 350 Output Total 3 1450 Balance 1469 -245 3020 350 Meds/Results Medications: Active Medications Generic Name Dose Route Start Last Admin Trade Name Freq PRN Reason Stop Dose Admin Acetaminophen 650 mg 07/23/20 21:10 07/23/20 21:37 Acetaminophen 325 Mg Tablet PO 650 mg Q6H PRN Administration Mild Pain (1-3) or Fever Amlodipine Besylate 2.5 mg 07/24/20 09:00 07/26/20 08:10 Amlodipine Besylate 2.5 Mg Tablet PO 2.5 mg QAM DAMARI Administration Atorvastatin Calcium 40 mg 07/23/20 14:00 07/26/20 08:11 Atorvastatin 40 Mg Tablet PO 40 mg DAILY DAMARI Administration Carvedilol 12.5 mg 07/23/20 21:00 07/26/20 08:12 Carvedilol 12.5 Mg Ta
[2020-07-26 12:50] LABS: Glucose Point of Care 425 (65-105)
--- NOTE | 2020-07-26 17:52 | PM.IMPN ---
Progress Note: A&P Assessment and Plan (1) Acute on chronic kidney failure: Qualifiers: Acute renal failure type: unspecified Chronic kidney disease stage: unspecified stage Qualified Code(s): N17.9 - Acute kidney failure, unspecified; N18.9 - Chronic kidney disease, unspecified Code(s): N17.9 - Acute kidney failure, unspecified; N18.9 - Chronic kidney disease, unspecified Status: Acute Assessment and Plan: Stage 4 chronic kidney disease. (2) Thrombocytopenia: Code(s): D69.6 - Thrombocytopenia, unspecified Status: Acute Assessment and Plan: The patient's has thrombocytopenia. He has ITP. hadivic yesterday seen DR Quevedo (3) Exposure to COVID-19 virus: Code(s): Z20.828 - Contact with and (suspected) exposure to other viral communicable diseases Status: Acute Assessment and Plan: His has COVID-19 as well his daughter and grandchildren. (4) Erythropoietin deficiency anemia: Code(s): D63.1 - Anemia in chronic kidney disease Status: Acute Assessment and Plan: The patient has anemia. (5) Essential (primary) hypertension: Code(s): I10 - Essential (primary) hypertension Status: Acute Assessment and Plan: He has hypertension for many years. (6) Type 2 diabetes mellitus without complications: Code(s): E11.9 - Type 2 diabetes mellitus without complications Status: Acute Assessment and Plan: the patient is getting blood sugars. and follow sliding scale insulin, sugars are high due to iv steroids Subjective Date/time seen: 07/26/20 17:52 Interval history: Pt is in the restroom, pt is admitted with covid, viral pneumonia and ITP pt sugars are running high because of steroids pt sitting in wheelchair comfortable with a cough Review of Systems Review of Systems: All systems reviewed & are unremarkable except as noted in HPI and below Exam Narrative: Exam Narrative: Comfortable sitting in wheelchair Lungs:- air entry is slightly decreased. Heart irregular rate and rhythm without rub or gallop Abdomen bowel sounds positive soft nontender Extremities no cyanosis, clubbing Pulses 2+ equal in radial arteries Psychological not anxious or depressed Neuro alert and oriented x3 motor 5/5 cranial nerves 2-12 intact reflexes 2+ and equal in the biceps and patellar tendons cerebellar normal rapid alternating movements Objective Data Vital Signs Vital Signs: Vital Signs - 24 hr 07/25/20 20:00 07/25/20 20:19 07/26/20 00:00 Temperature 36.6 C 36.6 C Pulse Rate 93 73 90 Respiratory Rate 20 20 Blood Pressure 113/75 123/56 L Pulse Oximetry 96 97 07/26/20 04:00 07/26/20 08:00 07/26/20 08:12 Temperature 36.8 C 36.2 C L Pulse Rate 81 90 86 Respiratory Rate 20 20 Blood Pressure 125/70 139/54 L Pulse Oximetry 100 100 07/26/20 12:00 07/26/20 16:00 Temperature 36.2 C L 36.4 C Pulse Rate 91 112 H Respiratory Rate 20 20 Blood Pressure 120/67 133/58 L Pulse Oximetry 100 100 Intake/Output Intake/Output: Intake & Output 07/23/20 07/24/20 07/25/20 07/26/20 23:59 23:59 23:59 23:59 Intake Total 1472 1205 3020 1979 Output Total 3 1450 Balance 1469 -245 3020 1979 Meds/Results Medications: Active Medications Generic Name Dose Route Start Last Admin Trade Name Freq PRN Reason Stop Dose Admin Acetaminophen 650 mg 07/23/20 21:10 07/23/20 21:37 Acetaminophen 325 Mg Tablet PO 650 mg Q6H PRN Administration Mild Pain (1-3) or Fever Atorvastatin Calcium 40 mg 07/23/20 14:00 07/26/20 08:11 Atorvastatin 40 Mg Tablet PO 40 mg DAILY DAMARI Administration Carvedilol 12.5 mg 07/23/20 21:00 07/26/20 08:12 Carvedilol 12.5 Mg Tablet PO 12.5 mg Q12HR DAMARI Administration Dextrose 12.5 gm 07/23/20 13:40 Dextrose 50% 25 Gm/50 Ml Syringe IV PUSH PRN PRN Hypoglycemia Protocol Gabapentin 800 mg 07/23/20 17:00
[2020-07-26] MEDS: BENZONATATE 100 MG CAPSULE PO (18:10)
[2020-07-26 18:20] LABS: Glucose Point of Care 487 (65-105)
[2020-07-26] MEDS: methylPREDNISolone SOD SUCC 40 MG VIAL 20 MG IV PUSH (21:28)
[2020-07-26 22:34] LABS: Glucose Point of Care > 500 (65-105)
[2020-07-26] MEDS: INSULIN ASPART (*BKC) 100 UNITS/ML 15 UNITS SUB-Q (23:36)
[2020-07-27] VITALS: BP 142/71; PULSE 86; RESP 18; TEMP 36.7; O2SAT 99
[2020-07-27] MEDS: ALBUTEROL SULFATE (*SP) AEROSOL 1 PUFF 4 PUFF INHALATION ×2 (03:38→09:55)
[2020-07-27 04:00] VITALS: BP 128/58; PULSE 98; RESP 20; TEMP 36.1; O2SAT 96
[2020-07-27] MEDS: LEVOTHYROXINE SODIUM 75 MCG TABLET PO (06:11)
[2020-07-27 06:25] LABS: Platelet Count Result 75 k/mm3 (150-375)
[2020-07-27 06:43] LABS: Albumin Level 3.2 g/dL (3.5-5.1); Anion Gap 9 mmol/L (8-16); Blood Urea Nitrogen 91 mg/dL (9-20); Calcium 7.8 mg/dL (8.4-10.2); Carbon Dioxide 20 mmol/L (22-30); Chloride 105 mmol/L (98-107); Estimated CRCL calculation 19 ml/min; Estimated Glomerular Filt Rate 11; Glucose 325 mg/dL (75-110); Potassium 4.3 mmol/L (3.4-5.0); Sodium 134 mmol/L (137-145)
[2020-07-27 08:00] VITALS: BP 153/78; PULSE 91; RESP 20; TEMP 36.6; O2SAT 98
[2020-07-27 08:05] VITALS: O2SAT 98
[2020-07-27 08:24] LABS: Glucose Point of Care 286 (65-105)
[2020-07-27] MEDS: INSULIN ASPART (*BKC) 100 UNITS/ML 8 UNITS SUB-Q ×2 (09:37→14:26)
[2020-07-27] MEDS: INSULIN ASPART (*BKC) 100 UNITS/ML SUB-Q ×2 (09:37→14:26)
[2020-07-27] MEDS: INSULIN GLARGINE (*BKC) 100 UNITS/ML 50 UNITS SUB-Q (09:38)
[2020-07-27 09:39] VITALS: PULSE 75
[2020-07-27] MEDS: levETIRAcetam 500 MG TABLET 1000 MG PO (09:39)
[2020-07-27] MEDS: ISOSORBIDE MONONITRATE 30 MG TAB.ER.24H PO (09:39)
[2020-07-27] MEDS: BENZONATATE 100 MG CAPSULE PO ×2 (09:39→14:26)
[2020-07-27] MEDS: GABAPENTIN 400 MG CAPSULE 800 MG PO ×2 (09:39→14:26)
[2020-07-27] MEDS: carvediloL 12.5 MG TABLET PO (09:39)
[2020-07-27] MEDS: ATORVASTATIN 40 MG TABLET PO (09:39)
[2020-07-27] MEDS: ACIDOPHILUS/BULGARICUS CHEWABLE TABLET 1 TABLET PO (09:40)
[2020-07-27] MEDS: methylPREDNISolone SOD SUCC 40 MG VIAL 20 MG IV PUSH (09:40)
[2020-07-27] MEDS: hydrALAZINE HCL 50 MG TABLET PO ×2 (09:40→14:26)
[2020-07-27 12:00] VITALS: BP 160/83; PULSE 98; RESP 20; TEMP 36.5; O2SAT 96
[2020-07-27 12:21] LABS: Glucose Point of Care 336 (65-105)
[2020-07-27 12:42] LABS: Complement Total CH50 >60 U/mL (31-60)
--- NOTE | 2020-07-27 16:05 | PM.DS ---
DS: Admitting Diagnosis Admitting Diagnosis Admitting Diagnosis: Acute on chronic respiratory failure DS: Discharge Diagnosis Discharge Diagnosis (1) Acute on chronic kidney failure: Qualifiers: Acute renal failure type: unspecified Chronic kidney disease stage: unspecified stage Qualified Code(s): N17.9 - Acute kidney failure, unspecified; N18.9 - Chronic kidney disease, unspecified Code(s): N17.9 - Acute kidney failure, unspecified; N18.9 - Chronic kidney disease, unspecified Status: Acute Assessment and Plan: Stage 4 chronic kidney disease. (2) Thrombocytopenia: Code(s): D69.6 - Thrombocytopenia, unspecified Status: Acute Assessment and Plan: The patient's has thrombocytopenia. He has ITP. Pt received IVIG under DR Quevedo (3) Exposure to COVID-19 virus: Code(s): Z20.828 - Contact with and (suspected) exposure to other viral communicable diseases Status: Acute Assessment and Plan: His has COVID-19 as well his daughter and grandchildren. (4) Erythropoietin deficiency anemia: Code(s): D63.1 - Anemia in chronic kidney disease Status: Acute Assessment and Plan: The patient has anemia. (5) Essential (primary) hypertension: Code(s): I10 - Essential (primary) hypertension Status: Acute Assessment and Plan: He has hypertension for many years. (6) Type 2 diabetes mellitus without complications: Code(s): E11.9 - Type 2 diabetes mellitus without complications Status: Acute Assessment and Plan: the patient is getting blood sugars. and follow sliding scale insulin, sugars are high due to iv steroids (7) Pneumonia due to COVID-19 virus: Code(s): U07.1 - COVID-19; J12.89 - Other viral pneumonia Status: Acute Assessment and Plan: Pt is admitted with covid, viral pneumonia and ITP pt sugars are running high because of steroids otherwise is doing better overall. On inhaler, tessalon perles and steroids. DS: Summary Hospital Course Hospital Course: Pt is admitted with covid, viral pneumonia and ITP, is doing better and discharged, SEen by pulmology, nephrology and oncology while in the hospital. Time Spent with Patient Time attestation: Total time spent providing and/or coordinating discharge services:40 minutes on day of dischrage Exam Narrative: Exam Narrative: Comfortable sitting in wheelchair Lungs:- air entry is slightly decreased. Heart irregular rate and rhythm without rub or gallop Abdomen bowel sounds positive soft nontender Extremities no cyanosis, clubbing Pulses 2+ equal in radial arteries Psychological depressed Neuro alert and oriented x3 motor 5/5 cranial nerves 2-12 intact DS: Data Data Completed and Pending Labs on day of discharge: Labs from last 24 hours 07/27/20 07/27/20 07/27/20 11:57 07:59 06:07 Plt Count 75 L D MPV 13.0 H Sodium Potassium Chloride Carbon Dioxide Anion Gap BUN Creatinine Estim Creat Clear Calc Estimated GFR Glucose POC Capillary Glucose 336 H 286 H Calcium Phosphorus Albumin Ur GRECIA Interpret 24 hr Tot Complement (CH50) Free [place] & Lambda LC 07/27/20 07/26/20 07/26/20 06:07 21:31 17:42 Plt Count MPV Sodium 134 L Potassium 4.3 Chloride 105 Carbon Dioxide 20 L Anion Gap 9 BUN 91 H Creatinine 5.10 H Estim Creat Clear Calc 19 Estimated GFR 11 L Glucose 325 H POC Capillary Glucose > 500 H* 487 H Calcium 7.8 L Phosphorus 5.0 H Albumin 3.2 L Ur GRECIA Interpret 24 hr Tot Complement (CH50) Free [place] & Lambda LC 07/23/20 07/23/20 12:23 00:07 Plt Count MPV Sodium Potassium Chloride Carbon Dioxide Anion Gap BUN Creatinine Estim Creat Clear Calc Estimated GFR Glucose POC Capillary Glucose Calcium Phosphorus Albumin Ur GRECIA Interpr
[2020-07-29 00:03] LABS: Lambda Light Chain 37.8 mg/L (5.7-26.3)
[2020-07-30 16:47] LABS: Platelet Antibody, Direct IgG NEGATIVE (NEGATIVE)
== END 2020-07-27 17:43 | disposition home or self-care (01) | DRG 177 ==
LOC: ANHED 20:50 → ANH3MEDSUR 07-24 04:57
PROVIDERS: Internal Medicine; Internal Medicine Hematology & Oncology; Internal Medicine Nephrology; Admitting Provider Student in an Organized Health Care Education/Training Program; Emergency Provider Emergency Medicine; Referring Provider Family Medicine; Visit Provider Family Medicine
DX: U07.1 COVID-19 (principal); J12.89 Other viral pneumonia; J96.21 Acute and chronic respiratory failure with hypoxia; J96.22 Acute and chronic respiratory failure with hypercapnia; N17.9 Acute kidney failure, unspecified; D69.3 Immune thrombocytopenic purpura; N18.4 Chronic kidney disease, stage 4 (severe); R00.1 Bradycardia, unspecified; E11.22 Type 2 diabetes mellitus with diabetic chronic kidney disease; I12.9 Hypertensive chronic kidney disease with stage 1 through stage 4 chronic kidney disease, or unspecified chronic kidney disease; D63.1 Anemia in chronic kidney disease; E11.65 Type 2 diabetes mellitus with hyperglycemia; H40.9 Unspecified glaucoma; E87.5 Hyperkalemia; I48.0 Paroxysmal atrial fibrillation; F41.8 Other specified anxiety disorders; G47.33 Obstructive sleep apnea (adult) (pediatric); E03.9 Hypothyroidism, unspecified; Z86.73 Personal history of transient ischemic attack (TIA), and cerebral infarction without residual deficits; Z87.891 Personal history of nicotine dependence; Z99.3 Dependence on wheelchair
CPT/HCPCS: 36415; 36430; 71045; 76775; 80048; 80069; 82306; 82550; 82570; 82607; 82728; 82746; 83036; 83540; 83550; 83883; 83970; 84156; 84300; 85025; 85027; 85049; 85055; 85610; 85652; 85730; 85999; 86023; 86038; 86160; 86162; 86334; 86335; 86850; 86900; 86901; 87040; 87086; 87088; 94640; 99285; A9270; J1100; J1459; J1815; J1956; J2920; J2930; J7050; P9034

== ENCOUNTER 2020-07-27 20:44 | Inpatient (IN) | payer MEDICARE, OTHER, SELFPAY ==
--- NOTE | ~2020-07-27 | XR_ITS ---
EXAMINATION: XR chest ET placement EXAM DATE: 07/29/2020 17:40 INDICATION: bradycardia, intubated, NG and ET placement . TECHNIQUE: Portable AP frontal chest x-ray was obtained. Comparison is made to prior examination from 07/28/2020. FINDINGS: Endotracheal tube is in position. The nasogastric tube tip appears to be at the gastroesoph ageal junction. This could be safely advanced 10 cm. There is been rapid interval progression of extensive bilateral edema or infection. No pneumothorax. Mild cardiomegaly. No sizable pleural effusion. Mild to moderate thoracolumbar spondylosis. IMPRESSION: 1. NG tube could be safely advanced 10 cm. 2. ET tube in position. 3. Progression of extensive edema and/or pneumonia. Reviewed, dictated and finalized at location A. HOUSE STOCK CLERK
--- NOTE | ~2020-07-27 | XR_ITS ---
EXAMINATION: XR chest 1V portable DATE: 07/28/2020 13:36 INDICATION: Shortness of breath. COVID-19 pneumonia. TECHNIQUE: A single frontal view of the chest was obtained. COMPARISON: Chest single view 07/26/2020, CT abdomen and pelvis 04/06/2014 FINDINGS: There are airspace opacities in the mid and lower lung zones. No pleural effusion or pneumo thorax. Cardiomegaly is noted. There are prominent paracardial fat pads. IMPRESSION: 1. Worsened airspace opacities in the mid and lower lung zones, consistent with pneumonia versus pulm onary edema. 2. Cardiomegaly. Reviewed, dictated and finalized at location A. NG SLITTER IMPRESSION: 1. Worsened airspace opacities in the mid and lower lung zones, consistent with pneumonia versus pulmonary edema. 2. Cardiomegaly.
[2020-07-27 21:00] VITALS: BP 185/95; PULSE 122; RESP 18; TEMP 37.7; O2SAT 94
--- NOTE | 2020-07-27 21:15 | ECG_ITS ---
Measurements Intervals [place] Rate: 123 P: MD: 0 QRS: -60 QRSD: 90 T: 70 QT: 264 QTc: 379 Interpretive Statements ATRIAL FIBRILLATION WITH RAPID VENTRICULAR RESPONSE INCOMPLETE LEFT BUNDLE BRANCH BLOCK BORDERLINE R WAVE PROGRESSION, ANTERIOR LEADS INFERIOR INFARCT, AGE INDETERMINATE BORDERLINE ST-T WAVE ABNORMALITY- HIGH LATERAL LEADS BASELINE ARTIFACT- I, II, III, AVR, AVL, AVF, V1-V3 ABNORMAL ECG Electronically Signed On 07-28-2020 6:20:32 TEAMCENTER CONSULTANT by Elias Persaud D.O.
--- NOTE | 2020-07-27 21:49 | ECG_ITS ---
Measurements Intervals [place] Rate: 123 P: AR: 0 QRS: -65 QRSD: 101 T: 75 QT: 274 QTc: 393 Interpretive Statements ATRIAL FIBRILLATION WITH RAPID VENTRICULAR RESPONSE POOR R WAVE PROGRESSION, ANTERIOR LEADS INFERIOR INFARCT, AGE INDETERMINATE BORDERLINE ST-T WAVE ABNORMALITY- HIGH LATERAL LEADS BASELINE ARTIFACT- I, II, AVR, AVL, AVF, V1-V2 ABNORMAL ECG Electronically Signed On 07-28-2020 6:21:50 SLITTER AND REWINDER MACHINE OPERATOR by Elias Persaud D.O.
[2020-07-27 21:58] LABS: Base Excess ABG -7.4 mmol/L (0-2); Device NASAL CANNULA; HCO3 ABG 17.5 mmol/L (23-29); Modified Allen's Test Pass; Oxygen Saturation ABG 98.5 % (95-97); Oxyhemoglobin 97.2 % (94-100); PCO2 ABG 33.5 mmHg (35-45); Site Drawn LEFT BRACHIAL; pH ABG 7.34 (7.35-7.45)
[2020-07-27 22:00] VITALS: BP 155/109; PULSE 128
[2020-07-27 22:01] LABS: Basophils Absolute Auto 0.01 K/mm3 (0.00-0.10); Basophils Percent Auto 0.1 % (0.0-1.0); Hematocrit 37.1 % (37.0-46.0); Immature Granulocyte Absolute 0.09 K/mm3 (0.00-0.00); Immature Granulocyte Percent A 0.7 % (0.0-0.0); Immature Platelet Fraction Pct 3.8 % (1.0-7.0); Lymphocytes Absolute Auto 0.87 K/mm3 (1.10-4.50); Lymphocytes Percent Auto 6.9 % (18.0-42.0); Mean Corpuscular HGB Conc 32.3 g/dL (32.0-36.0); Mean Corpuscular Hemoglobin 27.6 pg (27.0-31.0); Mean Corpuscular Volume 85.3 fL (78.0-102.0); Mean Platelet Volume 11.4 fl (8.7-11.0); Monocytes Absolute Auto 0.64 K/mm3 (0.10-0.90); Monocytes Percent Auto 5.1 % (2.0-11.0); Neutrophils Percent Auto 87.2 % (50.0-70.0); Platelet Count Result 112 K/mm3 (150-420); Red Blood Count 4.35 M/mm3 (4.70-6.10); Red Cell Distribution Width 13.9 % (11.6-14.4); White Blood Count 12.6 K/mm3 (4.8-10.8)
[2020-07-27 22:17] LABS: Alanine Aminotransferase 31 U/L (16-63); Albumin Level 2.5 g/dL (3.4-5.0); Alkaline Phosphatase 115 U/L (46-116); Anion Gap 10 mmol/L (8-16); Aspartate Amino Transferase 21 U/L (15-37); Bilirubin,Total 0.6 mg/dL (0.00-1.00); Blood Urea Nitrogen 95 mg/dL (7-18); Carbon Dioxide 21 mmol/L (21-32); Chloride 102 mmol/L (98-108); Estimated CRCL calculation 21 ml/min; Estimated Glomerular Filt Rate 13; Glucose 207 mg/dL (70-99); Osmolality Calculated 311 mOsm/kg (285-295); Potassium 3.8 mmol/L (3.5-5.1); Sodium 133 mmol/L (136-145)
[2020-07-27 22:20] LABS: Prothrombin Time 10.8 Seconds (9.50-12.10)
[2020-07-27 22:24] LABS: D Dimer 1.71 mg/L (0.19-0.50); Troponin I 68.9 ng/L (0.00-60.4)
[2020-07-27 22:25] LABS: BNP 189 pg/mL (0-100)
--- NOTE | 2020-07-27 22:54 | ED.GENADULT ---
HPI - General Adult General Chief complaint: Chest Pain Stated complaint: COVID+, SOB, cough, Congestion,Weakness Source: patient Mode of arrival: ambulatory Limitations: no limitations History of Present Illness HPI narrative: Marcelino is a 69M with a complex PMH (CKDIII, CVA, seizures, Afib, HLD, HTN, sleep apnea, colon polyps, OA, ITP, Hypotension, DMII, glaucoma) that presented to the ED with chest pressure, SOB, chills, shaking, body aches and just generally not feeling well. He was admitted with COVID pneumonia from 07/23 until today. He has never felt better and did not believe he shoud have been discharged. However, this afternoon he did have the worsening SOB. Related Data Home Medications Medication Instructions Recorded Confirmed Lactobacillus acidophilus 1,000 mmu cells PO DAILY 07/23/20 07/27/20 Lantus U-100 Insulin 50 unit SUBCUT BID 07/23/20 07/27/20 atorvastatin [Lipitor] 40 mg PO DAILY 07/23/20 07/27/20 bumetanide 1 mg PO DAILY 07/23/20 07/27/20 carvedilol [Coreg] 12.5 mg PO BID 07/23/20 07/27/20 gabapentin 800 mg PO TID 07/23/20 07/27/20 hydralazine 50 mg PO TID 07/23/20 07/27/20 insulin aspart U-100 See Protocol SUBCUT TIDWM 07/23/20 07/27/20 isosorbide mononitrate 30 mg PO DAILY 07/23/20 07/27/20 levetiracetam [Keppra] 1,000 mg PO BID 07/23/20 07/27/20 levothyroxine [Synthroid] 75 mcg PO DAILY 07/23/20 07/27/20 loperamide 2 mg PO Q4H PRN 07/23/20 07/27/20 Allergies Allergy/AdvReac Type Severity Reaction Status Date / Time meropenem Allergy Hives Verified 07/27/20 21:21 vancomycin Allergy Hives Verified 07/27/20 21:21 Heparin Analogues AdvReac Unknown Verified 07/27/20 21:21 Review of Systems Constitutional: Constitutional: Reports chills, Reports fatigue, Reports fever(s) and Reports weakness Eyes: Eyes: Reports no additional eye complaints ENT: Reports system reviewed and no additional complaints, except as documented Cardiovascular: Cardiovascular: Reports as per HPI Respiratory: Respiratory: Reports as per HPI Gastrointestinal: Gastrointestinal: Reports nausea and Denies vomiting Genitourinary: Genitourinary: Reports no additional male genitourinary complaints Musculoskeletal: Musculoskeletal: Reports myalgias, Reports arthralgias and Reports muscle cramps Integumentary/Breasts: Skin/Breast: Reports system reviewed and no additional complaints, except as docu Neurologic: Reports system reviewed and no additional complaints, except as documented Psychiatric: Psychiatric: Reports no additional psychiatric complaints Endocrine: Endocrine: Reports no additional endocrine complaints Hematologic/Lymphatic: Hematologic/Lymphatic: Reports no additional hematologic/lymphatic complaints Allergic/Immunologic: Allergic/Immunologic: Reports no additional allergic/immunologic complaints [facility] Past Medical History Medical History Anxiety Atrial fibrillation CVA (cerebral vascular accident) Depression Diabetes Erythropoietin deficiency anemia Essential (primary) hypertension Exposure to COVID-19 virus History of ITP Hypertension Hypothyroidism Obstructive sleep apnea Type 2 diabetes mellitus without complications Surgical History Surgical History History of appendectomy Family History Family History Father Colon cancer Mother Breast cancer Sibling Acute myocardial infarction Colon cancer Social History Social History Smoking packs per day: 1 Smoking cigarettes per day: 20.0 Years smoked: 13 Smoking pack-years: 13.00 Smoking status: Former smoker Tobacco type: cigarettes and cigars Alcohol intake: current Drinks per week: 15 Substance use: never Gender identity (if verbalized by the patient): Male Spiritual care concerns: No Exam C
[2020-07-27 23:00] VITALS: PULSE 94
[2020-07-27 23:30] VITALS: BP 150/72; PULSE 114
[2020-07-28] VITALS (14 sets, daily range): BP systolic 86–139; BP diastolic 41–103; PULSE 74–106; RESP 20; TEMP 35.9–37.4; O2SAT 94–98; BMI 49.0
[2020-07-28] MEDS: ACETAMINOPHEN/CODEINE (*CRX) 300/30 MG TABLET 2 TAB PO (00:06)
[2020-07-28] MEDS: ONDANSETRON INJ 4 MG/2 ML VIAL IV PUSH (01:00)
--- NOTE | 2020-07-28 02:00 | ADMGEN ---
This patient, Marcelino Quinonez, was admitted to 2nd Floor Room 206-1. Patient oriented to hospital policies and general routines including ID bracelet, bed and alarms, visiting hours, pain management, procedures, bathroom and other care routines, personal items, smoking policy, room service/diet, and visiting hours. Patient encouraged to report perceived risks to care and to ask questions if they do not understand what they are told or what they should do.
--- NOTE | 2020-07-28 04:01 | PC.NURSE ---
Contacted Dr regarding heart rate, noted in 70-80's afib, order to decrease cardizem drip to 10mg/hr, if heart rate increases up to 115 and sustains for 15 min or more then may increase cardizem back to 15mg/hr
[2020-07-28 05:26] LABS: Basophils Absolute Auto 0.01 K/mm3 (0.00-0.10); Basophils Percent Auto 0.1 % (0.0-1.0); Hematocrit 35.8 % (37.0-46.0); Hemoglobin 11.3 g/dL (12.4-15.3); Immature Granulocyte Absolute 0.08 K/mm3 (0.00-0.00); Immature Granulocyte Percent A 0.7 % (0.0-0.0); Lymphocytes Absolute Auto 0.98 K/mm3 (1.10-4.50); Mean Corpuscular HGB Conc 31.6 g/dL (32.0-36.0); Mean Corpuscular Hemoglobin 27.7 pg (27.0-31.0); Mean Corpuscular Volume 87.7 fL (78.0-102.0); Mean Platelet Volume 11.7 fl (8.7-11.0); Monocytes Absolute Auto 0.63 K/mm3 (0.10-0.90); Monocytes Percent Auto 5.8 % (2.0-11.0); Neutrophils Absolute Auto 9.2 K/mm3 (1.7-7.2); Neutrophils Percent Auto 84.4 % (50.0-70.0); Platelet Count Result 114 K/mm3 (150-420); Red Blood Count 4.08 M/mm3 (4.70-6.10); White Blood Count 10.9 K/mm3 (4.8-10.8)
[2020-07-28 05:44] LABS: Alanine Aminotransferase 26 U/L (16-63); Albumin Level 2.4 g/dL (3.4-5.0); Alkaline Phosphatase 100 U/L (46-116); Anion Gap 8 mmol/L (8-16); Aspartate Amino Transferase 19 U/L (15-37); Bilirubin,Total 0.6 mg/dL (0.00-1.00); Blood Urea Nitrogen 100 mg/dL (7-18); Calcium 7.9 mg/dL (8.5-10.1); Carbon Dioxide 23 mmol/L (21-32); Chloride 104 mmol/L (98-108); Estimated CRCL calculation 19 ml/min; Estimated Glomerular Filt Rate 12; Glucose 133 mg/dL (70-99); Osmolality Calculated 313 mOsm/kg (285-295); Potassium 3.6 mmol/L (3.5-5.1); Sodium 135 mmol/L (136-145); Total Protein 8.2 g/dL (6.4-8.2)
--- NOTE | 2020-07-28 05:48 | PC.NURSE ---
pt resting in bed, cardizem running per orders, equipment monitor phototypesetting on
[2020-07-28] MEDS: LEVOTHYROXINE SODIUM 75 MCG TABLET PO (05:58)
[2020-07-28 07:35] LABS: Glucose Point of Care 118 (65-105)
[2020-07-28] MEDS: MORPHINE SULFATE (*CRX) 2 MG/ML INJ IV PUSH ×2 (09:20→23:31)
[2020-07-28] MEDS: levETIRAcetam 500 MG TABLET 1000 MG PO ×2 (09:20→17:05)
[2020-07-28] MEDS: ATORVASTATIN 40 MG TABLET PO (09:20)
[2020-07-28] MEDS: BUMETANIDE 1 MG TABLET PO (09:21)
[2020-07-28] MEDS: GABAPENTIN 400 MG CAPSULE 800 MG PO ×3 (09:21→17:05)
[2020-07-28] MEDS: BENZONATATE 100 MG CAPSULE PO ×2 (09:21→12:32)
[2020-07-28] MEDS: DEXAMETHASONE 2 MG TABLET 6 MG PO (09:21)
[2020-07-28] MEDS: carvediloL 12.5 MG TABLET PO ×2 (09:46→17:06)
[2020-07-28] MEDS: ISOSORBIDE MONONITRATE 30 MG TAB.ER.24H PO (09:47)
[2020-07-28] MEDS: dilTIAZem HCL CD 180 MG CAP.ER.24H 360 MG PO (09:47)
[2020-07-28 11:36] LABS: Glucose Point of Care 112 (65-105)
--- NOTE | 2020-07-28 12:38 | PC.NURSE ---
Patient refuses to get out of bed.
--- NOTE | 2020-07-28 13:24 | PC.NURSE ---
Chest xray being done at this time
--- NOTE | 2020-07-28 13:26 | PM.IMHP ---
H&P: HPI History of Present Illness Date/Time: 07/28/20 13:26 Chief Complaint: covid positive sob Narrative: Marcelino Quinonez is a 69 year old male that presented to urgent care with shortness of breath, chest pressure, chills, shaking, body aches, and weakness post testing Covid positive. Patient has a past medical history of A. fib, CVA, depression, diabetes, hypertension, ITP, hypothyroidism, and sleep apnea. Patient was recently discharged from [facility] on 07/27/2020 he was admitted on 07/22/2020 diagnosed with Covid. Patient presented to our ED the same day he was discharged from [facility]. According to patient daughter patient did not feel well on day of discharge. Patient did receive while at [facility] is not a candidate for remdesivir due to his renal function. Today patient is very fatigued and notes that his chest hurts from coughing. He is able to follow commands but he is very fatigued. The patient denies CP, palpitation, extremity numbness, lightheadedness, dizziness, constipation, diarrhea, chills, or fever. This document was completed by using [employer] speech recognition software, therefore physician extender variances may occur. Despite proofreading, typographical errors may also occur. Review of Systems Review of Systems: All systems reviewed & are unremarkable except as noted in HPI and below (10 point system review) [facility] Past Medical History Medical History (Updated 07/28/20 @ 13:43 by KAY Carrillo-C) Anxiety Atrial fibrillation CVA (cerebral vascular accident) Depression Diabetes Erythropoietin deficiency anemia Essential (primary) hypertension Exposure to COVID-19 virus History of ITP Hypertension Hypothyroidism Obstructive sleep apnea Type 2 diabetes mellitus without complications Surgical History Surgical History History of appendectomy Family History Family History Father Colon cancer Mother Breast cancer Sibling Acute myocardial infarction Colon cancer Social History Social History Smoking packs per day: 1 Smoking cigarettes per day: 20.0 Years smoked: 13 Smoking pack-years: 13.00 Smoking status: Former smoker Tobacco type: cigarettes and cigars Alcohol intake: unknown Drinks per week: 15 Substance use: never Gender identity (if verbalized by the patient): Male Spiritual care concerns: No Meds Home Medications and Allergies Home Medications Medication Instructions Recorded Confirmed Type Lactobacillus acidophilus 1,000 mmu cells PO DAILY 07/23/20 07/27/20 History Lantus U-100 Insulin 50 unit SUBCUT BID 07/23/20 07/27/20 History atorvastatin [Lipitor] 40 mg PO DAILY 07/23/20 07/27/20 History bumetanide 1 mg PO DAILY 07/23/20 07/27/20 History carvedilol [Coreg] 12.5 mg PO BID 07/23/20 07/27/20 History gabapentin 800 mg PO TID 07/23/20 07/27/20 History hydralazine 50 mg PO TID 07/23/20 07/27/20 History insulin aspart U-100 See Protocol SUBCUT TIDWM 07/23/20 07/27/20 History isosorbide mononitrate 30 mg PO DAILY 07/23/20 07/27/20 History levetiracetam [Keppra] 1,000 mg PO BID 07/23/20 07/27/20 History levothyroxine [Synthroid] 75 mcg PO DAILY 07/23/20 07/27/20 History loperamide 2 mg PO Q4H PRN 07/23/20 07/27/20 History albuterol sulfate [Proventil HFA] 4 puff INHALATION Q6HRT PRN #1 inh 07/27/20 07/27/20 Rx benzonatate 100 mg PO TID #30 cap 07/27/20 07/27/20 Rx methylprednisolone [Methylpred DP] See Rx Instructions .ROUTE 07/27/20 07/27/20 Rx .COMPLEX #21 ea Allergies Allergy/AdvReac Type Severity Reaction Status Date / Time meropenem Allergy Hives Verified 07/27/20 21:21 vancomycin Allergy Hives Verified 07/27/20 21:21 Heparin Analogues AdvReac Unknown Verified 07/27/20 21:21 Vital Signs Vital Signs - 24 hr 07/27/20 21:00 07/27/20 22
[2020-07-28 16:10] LABS: Glucose Point of Care 186 (65-105)
[2020-07-28] MEDS: SODIUM CHLORIDE 0.9% IV 1,000 ML 100 ML IV CONT ×2 (17:04→23:28)
[2020-07-28] MEDS: BENZONATATE 100 MG CAPSULE 200 MG PO (17:05)
[2020-07-28] MEDS: ACETAMINOPHEN 325 MG TABLET 650 MG PO (17:05)
[2020-07-28] MEDS: BUDESONIDE/FORMOTEROL (*SP) 160-4.5 MCG 6 GM INH 2 PUFF INHALATION (17:06)
[2020-07-28] MEDS: INSULIN GLARGINE (*BKC) 100 UNITS/ML 50 UNITS SUB-Q (17:11)
[2020-07-28] MEDS: guaiFENesin 12 HR 600 MG TABCR 1200 MG PO (20:35)
[2020-07-28] MEDS: DOCUSATE SODIUM 100 MG CAPSULE PO (20:35)
[2020-07-28 21:17] LABS: Glucose Point of Care 277 (65-105)
[2020-07-29] VITALS (8 sets, daily range): BP systolic 81–113; BP diastolic 48–50; PULSE 46–86; RESP 10–18; TEMP 35.6; O2SAT 89–98
--- NOTE | 2020-07-29 02:40 | PC.NURSE ---
pt sleeping, no evidence of distress noted, telemetry on pt still in AFIB
[2020-07-29] MEDS: BUDESONIDE/FORMOTEROL (*SP) 160-4.5 MCG 6 GM INH 2 PUFF INHALATION (05:29)
[2020-07-29] MEDS: LEVOTHYROXINE SODIUM 75 MCG TABLET PO (05:29)
[2020-07-29 05:51] LABS: Hematocrit 36.9 % (37.0-46.0); Hemoglobin 11.1 g/dL (12.4-15.3); Immature Platelet Fraction Pct 6.6 % (1.0-7.0); Mean Corpuscular HGB Conc 30.1 g/dL (32.0-36.0); Mean Corpuscular Hemoglobin 28.1 pg (27.0-31.0); Mean Corpuscular Volume 93.4 fL (78.0-102.0); Mean Platelet Volume 13.1 fl (8.7-11.0); Platelet Count Result 44 K/mm3 (150-420); Red Blood Count 3.95 M/mm3 (4.70-6.10); Red Cell Distribution Width 14.1 % (11.6-14.4); White Blood Count 8.7 K/mm3 (4.8-10.8)
[2020-07-29 05:56] LABS: BNP 110 pg/mL (0-100)
[2020-07-29 06:16] LABS: Lactic Acid Reflex 1.2 mmol/L (0.4-2.0)
[2020-07-29 06:23] LABS: Alanine Aminotransferase 24 U/L (16-63); Albumin Level 2.1 g/dL (3.4-5.0); Alkaline Phosphatase 88 U/L (46-116); Anion Gap 9 mmol/L (8-16); Aspartate Amino Transferase 23 U/L (15-37); Bilirubin,Total 0.6 mg/dL (0.00-1.00); Blood Urea Nitrogen 113 mg/dL (7-18); Calcium 8.1 mg/dL (8.5-10.1); Carbon Dioxide 20 mmol/L (21-32); Chloride 102 mmol/L (98-108); Estimated CRCL calculation 16 ml/min; Estimated Glomerular Filt Rate 10; Magnesium 1.7 mg/dL (1.8-2.4); Osmolality Calculated 327 mOsm/kg (285-295); Potassium 4.8 mmol/L (3.5-5.1); Sodium 131 mmol/L (136-145); Total Protein 7.7 g/dL (6.4-8.2)
[2020-07-29 06:26] LABS: Glucose 461 mg/dL (70-99)
--- NOTE | 2020-07-29 06:29 | PC.NURSE ---
critical glucose of 461 and creatinine of 5.[address] Larry, instructed to follow sliding scale for elevated glucose
[2020-07-29 07:35] LABS: Glucose Point of Care 395 (65-105)
--- NOTE | 2020-07-29 09:06 | P.PN_ITS ---
Progress Note: A&P Assessment and Plan (1) Atrial fibrillation with RVR: Code(s): I48.91 - Unspecified atrial fibrillation Status: Acute Assessment and Plan: * Patient was previously on dilt drip discontinued and p.o. started * Will hold Coreg 12.5 mg twice daily due to soft blood pressure we will more than likely discontinue use of Coreg (2) 2019 novel coronavirus–infected pneumonia (NCIP)#8211;infected pneumonia (NCIP): Code(s): U07.1 - COVID-19; J12.89 - Other viral pneumonia Status: Acute Assessment and Plan: * Continue dexamethasone * Not a candidate for remdesivir due to renal function * Patient not on any anticoagulant due to ITP. (3) Type 2 diabetes mellitus without complications: Code(s): E11.9 - Type 2 diabetes mellitus without complications Status: Acute Assessment and Plan: * Blood sugar 461 * Blood sugar elevated due to steroid * Increase Lantus from 50 units * Continue Accu-Cheks , changed to moderate sliding scale and hypoglycemic protocol * Will adjust medication as needed * Continue diabetic diet (4) Essential (primary) hypertension: Code(s): I10 - Essential (primary) hypertension Status: Acute Assessment and Plan: * Blood pressure improved currently 139/75 * Continue dilt and hold Coreg * Continue IV fluid cautiously * Vital signs as ordered * Adjust medication as * Amlodipine stopped at [facility] due to soft blood pressure (5) Thrombocytopenia: Code(s): D69.6 - Thrombocytopenia, unspecified Status: Acute Assessment and Plan: * Patient is followed by hematology * Patient's platelets currently 118 * Water Systems Designer was consulted while at [facility] IVIG 0.5 mg/kg for 2 days restarted, at that time platelets were 21 * Patient has a history of ITP * According to patient's daughter baseline is at creatinine 3.0 (6) Acute on chronic kidney failure: Qualifiers: Acute renal failure type: unspecified Chronic kidney disease stage: unspecified stage Qualified Code(s): N17.9 - Acute kidney failure, unspecified; N18.9 - Chronic kidney disease, unspecified Code(s): N17.9 - Acute kidney failure, unspecified; N18.9 - Chronic kidney disease, unspecified Status: Acute Assessment and Plan: * Creatinine at 5.71 slightly worsened * Machine Set Up consulted at [facility], worsening believed to be caused by Covid * Will continue to monitor renal function * Avoid nephrotoxic agents * Will start IV fluids (7) Chronic ITP (idiopathic thrombocytopenia): Code(s): D69.3 - Immune thrombocytopenic purpura Status: Acute Assessment and Plan: * Platelets in the 100's * Patient is followed by lead mobile developer * Patient lead mobile developer DC his anticoagulant according to family members (8) Elevated troponin: Code(s): R77.8 - Other specified abnormalities of plasma proteins Status: Acute Assessment and Plan: * Troponin elevated on admission 68.9 possibly secondary to Covid versus uncontrolled A. fib * Repeat troponin pending * EKG on admission did show A. fib with RVR with a heart rate of 123 (9) Electrolyte imbalance: Code(s): E87.8 - Other disorders of electrolyte and fluid balance, not elsewhere classified Status: Acute Assessment and Plan: * Magnesium decreased patient received supplement via IV * Will continue to monitor Review of Systems Review of Systems: All systems reviewed & are unremarkable except as noted in HPI and below (10 point system review)
--- NOTE | 2020-07-29 09:06 | WPDPN ---
Progress Note: A&P Assessment and Plan (1) Atrial fibrillation with RVR: Code(s): I48.91 - Unspecified atrial fibrillation Status: Acute Assessment and Plan: Patient was previously on dilt drip discontinued and p.o. started Will hold Coreg 12.5 mg twice daily due to soft blood pressure we will more than likely discontinue use of Coreg (2) 2019 novel coronavirus–infected pneumonia (NCIP)#8211;infected pneumonia (NCIP): Code(s): U07.1 - COVID-19; J12.89 - Other viral pneumonia Status: Acute Assessment and Plan: Continue dexamethasone of Not a candidate for remdesivir due to renal function Patient not on any anticoagulant due to ITP. (3) Type 2 diabetes mellitus without complications: Code(s): E11.9 - Type 2 diabetes mellitus without complications Status: Acute Assessment and Plan: Blood sugar 461 Blood sugar elevated due to steroid Increase Lantus from 50 units Continue Accu-Cheks , changed to moderate sliding scale and hypoglycemic protocol Will adjust medication as needed Continue diabetic diet (4) Essential (primary) hypertension: Code(s): I10 - Essential (primary) hypertension Status: Acute Assessment and Plan: Blood pressure improved currently 139/75 Continue dilt and hold Coreg Continue IV fluid cautiously Vital signs as ordered Adjust medication as Amlodipine stopped at [facility] due to soft blood pressure (5) Thrombocytopenia: Code(s): D69.6 - Thrombocytopenia, unspecified Status: Acute Assessment and Plan: Patient is followed by hematology Patient's platelets currently 118 Hide Buyer was consulted while at [facility] IVIG 0.5 mg/kg for 2 days restarted, at that time platelets were 21 Patient has a history of ITP According to patient's daughter baseline is at creatinine 3.0 (6) Acute on chronic kidney failure: Qualifiers: Acute renal failure type: unspecified Chronic kidney disease stage: unspecified stage Qualified Code(s): N17.9 - Acute kidney failure, unspecified; N18.9 - Chronic kidney disease, unspecified Code(s): N17.9 - Acute kidney failure, unspecified; N18.9 - Chronic kidney disease, unspecified Status: Acute Assessment and Plan: Creatinine at 5.71 slightly worsened Net Architect consulted at [facility], worsening believed to be caused by Covid Will continue to monitor renal function Avoid nephrotoxic agents Will start IV fluids (7) Chronic ITP (idiopathic thrombocytopenia): Code(s): D69.3 - Immune thrombocytopenic purpura Status: Acute Assessment and Plan: Platelets in the 100's Patient is followed by funnel coater Patient funnel coater DC his anticoagulant according to family members (8) Elevated troponin: Code(s): R77.8 - Other specified abnormalities of plasma proteins Status: Acute Assessment and Plan: Troponin elevated on admission 68.9 possibly secondary to Covid versus uncontrolled A. fib Repeat troponin pending EKG on admission did show A. fib with RVR with a heart rate of 123 (9) Electrolyte imbalance: Code(s): E87.8 - Other disorders of electrolyte and fluid balance, not elsewhere classified Status: Acute Assessment and Plan: Magnesium decreased patient received supplement via IV Will continue to monitor Review of Systems Review of Systems: All systems reviewed & are unremarkable except as noted in HPI and below (10 point system review) Exam Narrative: Exam Narrative: GENERAL: Fatigue, morbidly obese, condition has improved since yesterday HEAD: normocephalic, atraumatic. EYES: PERRL. Sclera clear/white. Vision is grossly intact. EARS: External ears normal, auditory canals clear and without drainage, TMs normal without perforation. Hearing grossly intact. NOSE: External nose normal with no obvious nasal discharge, nares without redness, no rhinorrhea. THROAT: Mucous
[2020-07-29] MEDS: SODIUM CHLORIDE 0.9% IV 1,000 ML 100 ML IV CONT (09:12)
[2020-07-29] MEDS: MAGNESIUM SULF 2 GM/WATER 50ML 2 GM/50 ML BAG IVPB (09:12)
[2020-07-29] MEDS: DEXAMETHASONE 2 MG TABLET 6 MG PO (09:13)
[2020-07-29] MEDS: BUMETANIDE 1 MG TABLET PO (09:13)
[2020-07-29] MEDS: dilTIAZem HCL CD 180 MG CAP.ER.24H 360 MG PO (09:13)
[2020-07-29] MEDS: ISOSORBIDE MONONITRATE 30 MG TAB.ER.24H PO (09:14)
[2020-07-29] MEDS: GABAPENTIN 400 MG CAPSULE 800 MG PO ×2 (09:14→12:58)
[2020-07-29] MEDS: levETIRAcetam 500 MG TABLET 1000 MG PO (09:14)
[2020-07-29] MEDS: DOCUSATE SODIUM 100 MG CAPSULE PO (09:15)
[2020-07-29] MEDS: ACETAMINOPHEN 325 MG TABLET 650 MG PO (09:15)
[2020-07-29] MEDS: ATORVASTATIN 40 MG TABLET PO (09:15)
[2020-07-29] MEDS: carvediloL 12.5 MG TABLET PO (09:15)
[2020-07-29] MEDS: guaiFENesin 12 HR 600 MG TABCR 1200 MG PO (09:15)
[2020-07-29] MEDS: BENZONATATE 100 MG CAPSULE 200 MG PO ×2 (09:15→12:58)
[2020-07-29] MEDS: INSULIN GLARGINE (*BKC) 100 UNITS/ML 55 UNITS SUB-Q (09:51)
[2020-07-29 09:54] LABS: Troponin I 59.7 ng/L (0.00-60.4)
[2020-07-29 11:41] LABS: Glucose Point of Care 448 (65-105)
--- NOTE | 2020-07-29 14:33 | PM.EVENT ---
Event Note Event Note Event Note: Patient blood pressure 81/40 heart rate 48 Patient previously receiving 360 of Cardizem discontinued and decrease the amount to Cardizem 120mg daily. Patient will be bolused 1 liter will continue to monitor
--- NOTE | 2020-07-29 14:34 | PC.NURSE ---
Patient telemetry sammy 43. B/P 81/40, 48. 500ml bolus
--- NOTE | 2020-07-29 15:00 | PC.NURSE ---
Patient alarmed sammy, checked blood pressure 81/40 48. SERVICE DESK ANALYST Sonda notified. 500ml/ bolus started.
--- NOTE | 2020-07-29 15:02 | ECG_ITS ---
Measurements Intervals [place] Rate: 52 P: [place]: 0 QRS: -61 QRSD: 133 T: 18 QT: 423 QTc: 394 Interpretive Statements ATRIAL FIBRILLATION WITH SLOW VENTRICULAR RESPONSE INTRAVENTRICULAR CONDUCTION DELAY BORDERLINE R WAVE PROGRESSION, ANTERIOR LEADS INFERIOR INFARCT, AGE INDETERMINATE BASELINE WANDER- I, II ABNORMAL ECG Electronically Signed On 07-29-2020 16:51:03 GRIDCAP MACHINE OPERATOR by Elias Persaud D.O.
[2020-07-29 16:03] LABS: Base Excess ABG -9.9 mmol/L (0-2); HCO3 ABG 19.2 mmol/L (23-29); Oxygen Content ABG 15.9 %vol (16.0-22.0); Oxygen Saturation ABG 94.3 % (95-97); Oxyhemoglobin 93.8 % (94-100); PCO2 ABG 56.8 mmHg (35-45); PO2 ABG 83.6 mmHg (75-85); pH ABG 7.15 (7.35-7.45)
[2020-07-29 16:04] LABS: Device BIPAP; Modified Allen's Test Pass; Site Drawn LEFT RADIAL
[2020-07-29 16:05] LABS: Expiratory Pressure 6 cmH2O; Inspiratory Pressure 10 cmH2O
[2020-07-29 16:10] LABS: Hematocrit 37.2 % (37.0-46.0); Hemoglobin 10.9 g/dL (12.4-15.3); Immature Platelet Fraction Pct 6.2 % (1.0-7.0); Mean Corpuscular HGB Conc 29.3 g/dL (32.0-36.0); Mean Corpuscular Volume 95.6 fL (78.0-102.0); Mean Platelet Volume 13.2 fl (8.7-11.0); Platelet Count Result 95 K/mm3 (150-420); Red Blood Count 3.89 M/mm3 (4.70-6.10); Red Cell Distribution Width 14.2 % (11.6-14.4); White Blood Count 12.3 K/mm3 (4.8-10.8)
[2020-07-29 16:28] LABS: Lactic Acid Reflex 2.2 mmol/L (0.4-2.0)
[2020-07-29 16:29] LABS: Alanine Aminotransferase 26 U/L (16-63); Alkaline Phosphatase 84 U/L (46-116); Anion Gap 13 mmol/L (8-16); Aspartate Amino Transferase 22 U/L (15-37); Bilirubin,Total 0.5 mg/dL (0.00-1.00); Blood Urea Nitrogen 114 mg/dL (7-18); Calcium 8.2 mg/dL (8.5-10.1); Carbon Dioxide 15 mmol/L (21-32); Chloride 102 mmol/L (98-108); Estimated CRCL calculation 17 ml/min; Estimated Glomerular Filt Rate 10; Osmolality Calculated 327 mOsm/kg (285-295); Potassium 5.1 mmol/L (3.5-5.1); Sodium 130 mmol/L (136-145); Troponin I 48.4 ng/L (0.00-60.4)
[2020-07-29 16:31] LABS: Glucose 483 mg/dL (70-99)
--- NOTE | 2020-07-29 17:37 | PM.TDS ---
Transfer Discharge Sum: Prov Provider Date of admission: 07/28/20 10:20 Primary care physician: UNKNOWN,DOCTOR Admitting clinician: Holland Morton DO DS: Admitting Diagnosis Admitting Diagnosis Admitting Diagnosis: afib with rvr and covid DS: Discharge Diagnosis Discharge Diagnosis (1) Respiratory failure: Code(s): J96.90 - Respiratory failure, unspecified, unspecified whether with hypoxia or hypercapnia Status: Acute Assessment and Plan: Patient intubated Medical flight staff transfer patient to [place] (2) Bradycardic cardiac arrest: Code(s): R00.1 - Bradycardia, unspecified; I46.2 - Cardiac arrest due to underlying cardiac condition Status: Acute Assessment and Plan: Patient given atropine and placed on dopamine Transfer Discharge Sum: Med Medications Active and Home Medications: Home Medications Lactobacillus acidophilus 1,000 mmu cells PO DAILY 07/23/20 [History Confirmed 07/27/20] Lantus U-100 Insulin 50 unit SUBCUT BID 07/23/20 [History Confirmed 07/27/20] atorvastatin [Lipitor] 40 mg PO DAILY 07/23/20 [History Confirmed 07/27/20] bumetanide 1 mg PO DAILY 07/23/20 [History Confirmed 07/27/20] carvedilol [Coreg] 12.5 mg PO BID 07/23/20 [History Confirmed 07/27/20] gabapentin 800 mg PO TID 07/23/20 [History Confirmed 07/27/20] hydralazine 50 mg PO TID 07/23/20 [History Confirmed 07/27/20] insulin aspart U-100 See Protocol SUBCUT TIDWM 07/23/20 [History Confirmed 07/27/20] isosorbide mononitrate 30 mg PO DAILY 07/23/20 [History Confirmed 07/27/20] levetiracetam [Keppra] 1,000 mg PO BID 07/23/20 [History Confirmed 07/27/20] levothyroxine [Synthroid] 75 mcg PO DAILY 07/23/20 [History Confirmed 07/27/20] loperamide 2 mg PO Q4H PRN 07/23/20 [History Confirmed 07/27/20] albuterol sulfate [Proventil HFA] 4 puff INHALATION Q6HRT PRN #1 inh 07/27/20 [Rx Confirmed 07/27/20] benzonatate 100 mg PO TID #30 cap 07/27/20 [Rx Confirmed 07/27/20] methylprednisolone [Methylpred DP] See Rx Instructions .ROUTE .COMPLEX #21 ea 07/27/20 [Rx Confirmed 07/27/20] Active Medications Acetaminophen (Acetaminophen 325 Mg Tablet) 650 mg PO BID [facility] Last Admin: 07/29/20 09:15 Dose: 650 mg Documented by: Albuterol (Albuterol Sulfate (*Sp) Inhaler) 4 puff INHALATION Q6HRT PRN PRN Reason: Shortness Of Breath Atorvastatin Calcium (Atorvastatin 40 Mg Tablet) 40 mg PO DAILY [facility] Last Admin: 07/29/20 09:15 Dose: 40 mg Documented by: Benzonatate (Benzonatate 100 Mg Capsule) 200 mg PO TID [facility] Last Admin: 07/29/20 12:58 Dose: 200 mg Documented by: Budesonide/Formoterol Fumarate (Budesonide/Formoterol (*Sp) 160-4.5 Mcg 6 Gm Inh) 2 puff INHALATION Q12HR [facility] Bumetanide (Bumetanide 1 Mg Tablet) 1 mg PO DAILY [facility] Last Admin: 07/29/20 09:13 Dose: 1 mg Documented by: Dexamethasone (Dexamethasone 2 Mg Tablet) 6 mg PO DAILY@0800 [facility] Stop: 08/06/20 08:01 Last Admin: 07/29/20 09:13 Dose: 6 mg Documented by: Dextrose (Dextrose 50% 25 Gm/50 Ml Syringe) 12.5 gm IV PUSH PRN PRN; Protocol PRN Reason: Hypoglycemia Diltiazem HCl (Diltiazem Hcl Cd 120 Mg Cap.Sa.24h) 120 mg PO QAM [facility] Diphenhydramine HCl (Diphenhydramine Hcl Inj 50 Mg/Ml Vial) 50 mg IV PUSH HS PRN PRN Reason: Insomnia Docusate Sodium (Docusate Sodium 100 Mg Capsule) 100 mg PO Q12HR [facility] Last Admin: 07/29/20 09:15 Dose: 100 mg Documented by: Gabapentin (Gabapentin 400 Mg Capsule) 800 mg PO TID [facility] Last Admin: 07/29/20 12:58 Dose: 800 mg Documented by: Glucagon (Glucagon For Inj 1 Mg Vial) 1 mg IM PRN PRN; Protocol PRN Reason: Hypoglycemia Glucose (Glucose Oral Gel 15 Gm Of Glucse In 37.5 Gm Tube) 15 gm PO PRN PRN; Protocol PRN Reason: Hypoglycemia Guaifenesin (Guaifenesin 12 Hr 600 Mg Tabcr) 1,200 mg PO Q12HR [facility] Last Admin: 07/29/20 09:15 Dose: 1,200 mg Documented by: Sodium Chloride (Normal Saline Iv) 1,000 mls @ 100 mls/hr IV CONT .Q10H [facility] Last Admin: 07/29/20 09:12 Dose: 100 mls/hr Documented by: Dextrose (
[2020-07-29 17:47] LABS: Reflex Lactic Acid Yes or No No Lactic Reflex
--- NOTE | 2020-07-29 18:51 | PC.NURSE ---
See code sheet
--- NOTE | 2020-07-29 19:05 | PC.NURSE ---
1500: 77/34 46. Attempted to pace patient with defibrillator pads. Could not capture. Dr. Cobb at bedside 1504: 102/37 1510: Pam lift to bed 1515: 95/47 59 1520: EKG. spo2 dropped to 68%, on 4 liters. Increased spo2 to 6 liters spo2 74% labs,blood gas, chest x ray ordered 102/42 49 Hi flow nasal cannula applied @15 liters 82% 1522: 98/44 56 1528: Bi pap started @ 10/6, 95%, pulse 52 1532: 97%, 103/44, 48 1538: Ativan 1mg 98%, 49 1545: Atropine 1 amp given 1550: Dopamine drip 20 started, 93% 139/65,81 1605: 20 gauge started right shoulder, 145/53 1615: IO started right finney 1624: etomidate 40 given, succ 200 1628: Intubated 7.5 1629: tube out, retry numerous times 1630: Propofol infusion started 20ml/hr 1640: cxr: propofol increased to 30ml/hr Larger tube needed. 8.0 intubated 26 at lips, NG tube placed. Placement verified 1700:151/56 1729: 126/54 1730: Arch at bedside. Prepping patient for transfer 1800: Patient to [facility]. Arch notified [facility] for [facility]. 1830: [place] [facility] arrived. Patient transferred to [facility] 1900: [facility] transferred patient off of floor.
== END 2020-07-29 19:00 | disposition short-term general hospital (02) | DRG 308 ==
LOC: CHSED 20:48 → CHS2ND 07-28 07:29
PROVIDERS: Nurse Practitioner; Admitting Provider Family Medicine; Emergency Provider Family Medicine; Visit Provider Family Medicine
DX: I48.20 Chronic atrial fibrillation, unspecified (principal); U07.1 COVID-19; J96.00 Acute respiratory failure, unspecified whether with hypoxia or hypercapnia; J12.89 Other viral pneumonia; D69.3 Immune thrombocytopenic purpura; N17.9 Acute kidney failure, unspecified; D69.6 Thrombocytopenia, unspecified; D64.89 Other specified anemias; I10 Essential (primary) hypertension; E11.9 Type 2 diabetes mellitus without complications; E03.9 Hypothyroidism, unspecified; R00.1 Bradycardia, unspecified; G47.30 Sleep apnea, unspecified; F32.9 Major depressive disorder, single episode, unspecified; Z86.73 Personal history of transient ischemic attack (TIA), and cerebral infarction without residual deficits; Z87.891 Personal history of nicotine dependence
CPT/HCPCS: 36415; 36600; 71045; 80053; 82805; 83605; 83735; 83880; 84484; 85025; 85027; 85055; 85380; 85610; 93005; 94002; 96365; 96366; 96375; 99285; A9270; G0378; G0379; J0171; J0330; J0461; J1815; J2270; J2405; J2704; J2930; J3475; J7030; J7050; J8540

== ENCOUNTER 2020-07-29 20:24 | Inpatient (IN) | payer MEDICARE, OTHER, SELFPAY ==
[2020-07-29] VITALS (9 sets, daily range): BP systolic 123–181; BP diastolic 51–69; PULSE 52–72; RESP 18–32; TEMP 35.7; O2SAT 84–96
--- NOTE | ~2020-07-29 | US_ITS ---
EXAMINATION: US renal BI DATE: 07/31/2020 14:06 INDICATION: Acute kidney injury. TECHNIQUE: Multiple ultrasound grayscale images of the kidneys were obtained. COMPARISON: Ultrasound 07/23/2020 FINDINGS: The right kidney measures 11.8 x 5.5 x 7.2 cm. The left kidney measures 11.5 x 5.1 x 6.0 cm. There is no hydronephrosis. The bladder is decompressed by a [place] catheter. IMPRESSION: 1. Normal kidney sizes. No hydronephrosis. Reviewed, dictated and finalized at location A. R DIAMETER GRINDER
--- NOTE | ~2020-07-29 | XR_ITS ---
EXAMINATION: XR chest 1V portable, XR abdomen NG/feed tube rechec DATE: 08/09/2020 05:11 INDICATION: Respiratory failure TECHNIQUE: 1. Frontal view of the chest was obtained. 2. AP view of the abdomen was obtained. COMPARISON: Chest radiograph dated 08/08/2020 FINDINGS: Chest: Endotracheal tube tip 7.8 cm above the lisa. Left and right internal jugular central venous cathete rs with distal tips in the cephalad and caudal superior vena cava respectively. Small left pleural effusion. Slight progression of patchy airspace opacities in the left mid and lowe r lung zones. Improvement in patchy airspace opacities in the right lower lung zone. No visible pneum othorax although the apices of lungs are excluded from [id number]. Cardiomegaly. Abdomen: Nasogastric tube distal tip in proximal side port in the body of the stomach. No dilated loops of gas -filled bowel in the visualized abdomen. The pelvis and majority of the right abdomen are excluded fr om the [id number]. IMPRESSION: 1. Endotracheal tube tip 7.8 cm above the lisa. Recommend advancement by 5 cm. 2. Small left pleural effusion. 3. Bilateral lung disease increase in the left mid and lower lung zones and with improvement in the r ight lower lung zone which could represent atelectasis and/or pneumonia. 4. Nasogastric tube in the stomach. Reviewed, dictated and finalized at location A. ESTATE FIRM MANAGER IMPRESSION: 1. Endotracheal tube tip 7.8 cm above the lisa. Recommend advancement by 5 cm . 2. Small left pleural effusion. 3. Bilateral lung disease increase in the left mid and lower lung zones and wit h improvement in the right lower lung zone which could represent atelectasis an d/or pneumonia. 4. Nasogastric tube in the stomach.
--- NOTE | ~2020-07-29 | US_ITS ---
EXAMINATION: US art doppler w press UE BI DATE: 08/12/2020 12:45 INDICATION: Right arm discoloration with mottled appearance. TECHNIQUE: Segmental pressures and plethysmographic and Doppler waveforms of the upper extremity jong juana were obtained. COMPARISON: None. FINDINGS: Left brachial artery pressure of 126 mm Hg. The right brachial artery and the vessels at the bilatera l forearms were unable to be occluded. Utilizing only the right brachial artery pressure, the right f michael:brachial systolic pressure ratio is 0.66 (normal > 0.8). Arterial waveforms are biphasic with b risk systolic upstrokes throughout (normal upstroke < 0.2 s). Cardiac arrhythmia is present. The left finger:brachial systolic pressure ratio is 0.51. Arterial waveforms are triphasic at the le ft subclavian, axillary and brachial arteries and biphasic at the left radial and ulnar arteries with brisk systolic upstrokes throughout. IMPRESSION: 1. Arterial occlusive disease to the bilateral lower limbs with mildly decreased bilateral finger bra chial indices. 2. Cardiac arrhythmias present. Correlate with EKG . Reviewed, dictated and finalized at location A. ING MACHINE OPERATOR IMPRESSION: 1. Arterial occlusive disease to the bilateral lower limbs with mildly decrease d bilateral finger brachial indices. 2. Cardiac arrhythmias present. Correlate with EKG .
--- NOTE | ~2020-07-29 | XR_ITS ---
EXAMINATION: XR chest 1V portable INDICATION: COVID 19 pneumonia TECHNIQUE: Portable AP chest at 0529 hours COMPARISON: 07/31/2020 FINDINGS: The endotracheal tube ends approximately 7.2 cm above the lisa. The nasogastric tube is f ollowed as far as the stomach. Its tip is beyond the inferior margin of the radiograph. Patchy airspa ce opacities persist throughout all lung zones with slight improvement in the upper lung zones. There is no pleural effusion or pneumothorax. Stable cardiomegaly is noted. IMPRESSION: 1. Diffuse lung disease with interval improvement in the upper lung zones, consistent with pneumonia and/or pulmonary edema and/or acute respiratory distress syndrome (ARDS). Reviewed, dictated and finalized at location A. UCTION POSTING CLERK IMPRESSION: 1. Diffuse lung disease with interval improvement in the upper lung zones, cons istent with pneumonia and/or pulmonary edema and/or acute respiratory distress syndrome (ARDS).
--- NOTE | ~2020-07-29 | XR_ITS ---
EXAMINATION: XR chest 1V portable EXAM DATE: 08/07/2020 14:02 INDICATION: Code blue. Respiratory failure. COVID 19 pneumonia. TECHNIQUE: Portable AP frontal chest x-ray was obtained. Comparison is made to prior examination from earlier same date. FINDINGS: Endotracheal tube tip is 4 centimeters above the lisa. There is a nasogastric tube seen with tip collimated off the study, but below the left hemidiaphragm. Right-sided double-lumen dialysi s catheter and left IJ venous line, tips projecting over region of SVC, adequate. Dense multisegmental left lower lobe and lingula consolidation and small to moderate amount of right- sided airspace disease most consistent with pneumonia. Probable small left pleural effusion. There is no pneumothorax suspected. The cardiomediastinal silhouette is prominent but magnified on this A P technique. There is moderate right glenohumeral joint primary osteoarthritis. Compared to prior examination, suspect some progression of the right basilar pneumonia or edema. IMPRESSION: 1. Lines and tube(s) in position. 2. Dense left consolidation, progressing right-sided pneumonia. 3. Small left pleural effusion. Reviewed, dictated and finalized at location A. WAY DRIVER
--- NOTE | ~2020-07-29 | XR_ITS ---
EXAMINATION: XR chest 1V portable DATE: 07/31/2020 05:59 INDICATION: COVID-19 pneumonia. TECHNIQUE: A single frontal view of the chest was obtained on 2 radiographs. COMPARISON: Chest single view 07/30/2020 FINDINGS: The patient is rotated to his left. There are airspace opacities in all lung zones bilatera lly. No pleural effusion or pneumothorax. Cardiomegaly is noted. The endotracheal tube tip is 6.8 cm above the lisa. The nasogastric tube tip is beyond the inferior margin of the radiograph, but at le ast to the stomach. IMPRESSION: 1. Stable diffuse lung disease, consistent with pneumonia versus pulmonary edema. 2. Cardiomegaly. Reviewed, dictated and finalized at location A. MERCHANDISER IMPRESSION: 1. Stable diffuse lung disease, consistent with pneumonia versus pulmonary regis a. 2. Cardiomegaly.
--- NOTE | ~2020-07-29 | XR_ITS ---
EXAMINATION: XR chest 1V portable DATE: 07/30/2020 06:31 INDICATION: COVID-19 pneumonia. Acute respiratory failure. TECHNIQUE: A single frontal view of the chest was obtained on 2 radiographs. COMPARISON: Chest single view 07/29/2020, CT abdomen and pelvis 04/06/2014 FINDINGS: There are airspace opacities in all lung zones bilaterally. No pleural effusion or pneumoth orax. Cardiomegaly is noted. There are prominent paracardial fat pads. The endotracheal tube tip is 5 .9 cm above the lisa. The nasogastric tube tip is beyond the inferior margin of the radiograph, but at least to the stomach. IMPRESSION: 1. Diffuse lung disease with improvement at left lung base, consistent with pneumonia versus pulmonar y edema. 2. Cardiomegaly. Reviewed, dictated and finalized at location A. E COMMERCE PROJECT MANAGER IMPRESSION: 1. Diffuse lung disease with improvement at left lung base, consistent with pne umonia versus pulmonary edema. 2. Cardiomegaly.
--- NOTE | ~2020-07-29 | XR_ITS ---
EXAMINATION: XR chest 1V portable DATE: 08/11/2020 06:33 INDICATION: COVID 19 pneumonia. Acute respiratory failure. TECHNIQUE: frontal view of the chest was obtained. COMPARISON: Chest radiograph dated 08/10/2020 FINDINGS: Endotracheal tube tip 5.7 cm above the lisa. Nasogastric tube extends below the left hemidiaphragm with distal tip collimated off the study. Left internal jugular central venous catheter with distal tip at the cephalad superior vena cava. Large-bore right internal jugular central venous catheter wit h distal tip in the caudal superior vena cava. No significant interval change in opacities in the bilateral lower lung zones, left greater than righ t with blunting at the left costophrenic angle consistent with small left pleural effusion. No pneumo thorax. The cardiomediastinal silhouette is normal. IMPRESSION: 1. Small left pleural effusion. 2. No significant change in opacities in the lower lung zones consistent with atelectasis and/or pneu monia. Reviewed, dictated and finalized at location A. TRICAL MANAGER IMPRESSION: 1. Small left pleural effusion. 2. No significant change in opacities in the lower lung zones consistent with a telectasis and/or pneumonia.
--- NOTE | ~2020-07-29 | XR_ITS ---
EXAMINATION: XR chest 1V portable EXAM DATE: 08/01/2020 12:29 INDICATION: Central line placement . COVID pneumonia. Respiratory failure. TECHNIQUE: Portable AP frontal chest x-ray was obtained. Comparison is made to prior examination from 08/01/2020. FINDINGS: Endotracheal tube about 7 cm above lisa, could be safely advanced 2 cm. There is a nasog astric tube seen with tip collimated off the study, but below the left hemidiaphragm. There is a new left-sided IJ venous line overlying expected course. Diffuse bilateral acute airspace disease with some confluence, air bronchograms in the left lower lob e likely COVID pneumonia given history. Small left pleural effusion. Mild cardiomegaly. There is n o pneumothorax suspected. Mild to moderate thoracic spondylosis. Advanced right shoulder osteoarthri tis. Airspace disease appears not significant changed. IMPRESSION: 1. ET tube could be safely advanced 2 cm. 2. Stable airspace disease and other findings as above. Reviewed, dictated and finalized at location B. COUNSELOR
--- NOTE | ~2020-07-29 | XR_ITS ---
EXAMINATION: XR chest 1V portable EXAM DATE: 08/05/2020 05:55 INDICATION: Respiratory failure. COVID 19 pneumonia. TECHNIQUE: Portable AP frontal chest x-ray was obtained. Comparison is made to prior examination from 08/04/2020. FINDINGS: Endotracheal tube tip is 5 centimeters above the lisa. There is a nasogastric tube seen with tip collimated off the study, but below the left hemidiaphragm. Right-sided double-lumen dialysi s catheter and left IJ venous line, tip projecting over region of SVC, adequate. Dense multisegmental left lower lobe and lingula consolidation most consistent with pneumonia. Proba ble small left pleural effusion, but difficult to quantify and opacified lung adjacent to it. There is no pneumothorax suspected. The cardiomediastinal silhouette is prominent but magnified on this A P technique. There is moderate right glenohumeral joint primary osteoarthritis. There is no significant interval change compared to prior exam. IMPRESSION: 1. Line and tube(s) in position. 2. Multi segmental left lower lobe and lingular consolidation. Reviewed, dictated and finalized at location A. BASKET MAKER HELPER MACHINE
--- NOTE | ~2020-07-29 | XR_ITS ---
EXAMINATION: XR chest 1V portable INDICATION: COVID 19 pneumonia TECHNIQUE: Portable AP chest at 0519 hours COMPARISON: 08/02/2020 FINDINGS: The endotracheal tube ends approximately 7.2 cm above the lisa. The nasogastric tube is f ollowed as far as the stomach. Its tip is beyond the inferior margin of the radiograph. A left international first officer al jugular central venous catheter ends with its tip in the superior vena cava. Diffuse bilateral opa cities persist with slight improvement in the upper lung zones. There is persistent dense consolidati on of the left lung base. Stable cardiomegaly is noted. No pleural effusion or pneumothorax is identi fied. IMPRESSION: 1. Diffuse lung disease with interval improvement in the upper lung zones, consistent with pneumonia and/or pulmonary edema and/or acute respiratory distress syndrome (ARDS). Reviewed, dictated and finalized at location A. SHEEP FARMER IMPRESSION: 1. Diffuse lung disease with interval improvement in the upper lung zones, cons istent with pneumonia and/or pulmonary edema and/or acute respiratory distress syndrome (ARDS).
--- NOTE | ~2020-07-29 | XR_ITS ---
EXAMINATION: XR chest 1V portable INDICATION: COVID 19 pneumonia TECHNIQUE: Portable AP chest at 0544 hours COMPARISON: 08/01/2020 FINDINGS: The endotracheal tube ends approximately 4.9 cm above the lisa. The nasogastric tube is f ollowed as far as the stomach. Its tip is beyond the inferior margin of the radiograph. A left product development intern al jugular central venous catheter ends with its tip in the superior vena cava. There is persistent d ense consolidation of the left lower lobe. Diffuse patchy airspace opacities throughout the remainder of the lungs are unchanged. There is stable cardiomegaly. No pleural effusion or pneumothorax is jamel ntified. IMPRESSION: 1. Stable diffuse lung disease, consistent with pneumonia and/or pulmonary edema and/or acute respira tory distress syndrome (ARDS). Reviewed, dictated and finalized at location A. GER DISCOVERY IMPRESSION: 1. Stable diffuse lung disease, consistent with pneumonia and/or pulmonary regis a and/or acute respiratory distress syndrome (ARDS).
--- NOTE | ~2020-07-29 | US_ITS ---
EXAMINATION: US venous doppler LE EXAM DATE: 07/31/2020 15:53 INDICATION: Respiratory abnormality. COVID pneumonia. TECHNIQUE: Multiple grayscale, color flow and Doppler images of the lower extremity deep venous syste ms bilaterally were obtained and reviewed. There is no prior study for comparison. FINDINGS: Right side: The right common femoral, femoral and profunda veins demonstrate normal color flow, respi ratory variation, augmentation and compressibility. Compressibility, color flow confirmed within the right popliteal, posterior tibial, peroneal, and greater saphenous veins. Left side: The left common femoral, femoral and profunda veins demonstrate normal color flow, respira tory variation, augmentation and compressibility. Compressibility, color flow confirmed within the l eft popliteal, posterior tibial, peroneal, and greater saphenous veins. IMPRESSION: 1. No lower extremity deep venous thrombosis bilaterally. Reviewed, dictated and finalized at location A. UCTION ADMINISTRATOR
--- NOTE | ~2020-07-29 | US_ITS ---
EXAMINATION: US venous doppler LE DATE: 08/11/2020 12:11 INDICATION: Acute respiratory failure. Fevers. COVID 19. TECHNIQUE: Grayscale ultrasound images without and with compression and Doppler ultrasound images of the bilateral lower extremity veins were obtained. COMPARISON: 07/31/2020 FINDINGS: The visualized portions of right common femoral vein, profunda (deep) femoral vein, femoral vein, pop liteal vein, posterior tibial veins, peroneal veins, gastrocnemius vein and greater saphenous vein ou tflow are patent. The visualized portions of left common femoral vein, profunda femoral vein, femoral vein, popliteal v ein, posterior tibial veins, peroneal veins, gastrocnemius vein and greater saphenous vein outflow ar e patent. IMPRESSION: 1. No deep venous thrombosis in either lower limb. Reviewed, dictated and finalized at location A. STRIPPER
--- NOTE | ~2020-07-29 | XR_ITS ---
EXAMINATION: XR chest 1V portable EXAM DATE: 08/07/2020 06:39 INDICATION: Respiratory failure. COVID 19 pneumonia. TECHNIQUE: Portable AP frontal chest x-ray was obtained. Comparison is made to prior examination from 08/05/2020. FINDINGS: Endotracheal tube tip poorly visualized but appears with position unchanged, adequate. The re is a nasogastric tube seen with tip collimated off the study, but below the left hemidiaphragm. Ri ght-sided double-lumen dialysis catheter and left IJ venous line, tips projecting over region of SVC, adequate. Dense multisegmental left lower lobe and lingula consolidation and small amount of right-sided airspa ce disease most consistent with pneumonia. Probable small to moderate left pleural effusion. There is no pneumothorax suspected. The cardiomediastinal silhouette is prominent but magnified on this A P technique. There is moderate right glenohumeral joint primary osteoarthritis. There is no significant interval change compared to prior exam. IMPRESSION: 1. Lines and tube(s) in position. 2. Dense left consolidation, smaller right basilar pneumonia. 3. Probable small to moderate left pleural effusion. Reviewed, dictated and finalized at location A. SOLUTIONS ARCHITECT
--- NOTE | ~2020-07-29 | XR_ITS ---
EXAMINATION: XR abdomen NG/feed tube rechec DATE: 08/03/2020 12:03 INDICATION: Orogastric tube placement. TECHNIQUE: A semiupright view of the abdomen was obtained. COMPARISON: Chest single view at 5:17 AM, CT abdomen and pelvis 04/06/2014 FINDINGS: The majority of the abdomen is excluded. The nasogastric tube tip is in the stomach with pr oximal side port in the distal esophagus. There are airspace opacities in all lung zones bilaterally, worst at left lung base. The endotracheal tube tip is 8.0 cm above the lisa. A left internal jugul ar central venous catheter is seen with tip in the superior vena cava. IMPRESSION: 1. Nasogastric tube tip in the stomach with proximal side port in the distal esophagus. Advancement 8 cm is recommended. 2. Diffuse lung disease with slight improvement, consistent with pulmonary edema versus pneumonia anisa vanessa acute respiratory distress syndrome (ARDS). Reviewed, dictated and finalized at location A. ICE SUPERINTENDENT IMPRESSION: 1. Nasogastric tube tip in the stomach with proximal side port in the distal es ophagus. Advancement 8 cm is recommended. 2. Diffuse lung disease with slight improvement, consistent with pulmonary regis a versus pneumonia versus acute respiratory distress syndrome (ARDS).
--- NOTE | ~2020-07-29 | XR_ITS ---
EXAMINATION: XR chest 1V portable EXAM DATE: 07/29/2020 20:22 INDICATION: Recheck endotracheal macro TECHNIQUE: Portable AP frontal chest x-ray was obtained. Comparison is made to prior examination from earlier same day. FINDINGS: Endotracheal tube tip is 4-5 centimeters above the lisa. Nasogastric tube tip may be at the gastroesophageal junction as previously seen given that the side port suspected to be identified, indicated. Extensive acute bilateral infection and/or edema. There are no sizable pleural effusions. There is no pneumothorax suspected. The cardiomediastinal silhouette is prominent but magnified on this AP technique. There are bony degenerative changes. There is no significant interval change compared to prior exam. IMPRESSION: 1. NG tube tip at gastroesophageal junction, could be safely advanced 10 cm. 2. ET tube in position. 3. Extensive acute edema and/or pneumonia. Reviewed, dictated and finalized at location A. CIATE MERCHANDISE PLANNER
--- NOTE | ~2020-07-29 | XR_ITS ---
EXAMINATION: XR chest 1V portable DATE: 08/10/2020 06:08 INDICATION: Acute respiratory failure. COVID 19 pneumonia. TECHNIQUE: frontal view of the chest was obtained. COMPARISON: Chest radiograph dated 08/09/2020 FINDINGS: Endotracheal tube tip 4.7 cm above the lisa. Nasogastric tube extends below the left hemidiaphragm with distal tip collimated off the study. Left internal jugular central venous catheter with distal tip in the cephalad superior vena cava and larger bore right internal jugular central venous catheter with distal tip in the caudal superior vena cava. Opacities in the left mid and bilateral lower lung zones, slightly more prominent but with interval i mprovement on the left. Small left pleural effusion. No pneumothorax. The cardiomediastinal silhouett e is normal. IMPRESSION: 1. Small left pleural effusion. 2. Opacities in the left mid and bilateral lower lung zones with some improvement on the left which c ould represent atelectasis and/or pneumonia. Reviewed, dictated and finalized at location A. CAL ASST IMPRESSION: 1. Small left pleural effusion. 2. Opacities in the left mid and bilateral lower lung zones with some improveme nt on the left which could represent atelectasis and/or pneumonia.
--- NOTE | ~2020-07-29 | XR_ITS ---
XR chest port-a-cath/central 08/04/2020 15:13 Indication: Dialysis catheter placement Procedure: AP portable chest Comparison: Comparison to multiple prior studies sequentially, with oldest reviewed study dated 07/13. Findings: Endotracheal tube 6.5 cm above the lisa. NG tube in the stomach. Left IJ central line tip in the SVC. Right IJ large bore central venous catheter tip in the SVC near the cavoatrial junction. Moderate cardiomegaly with diffuse pulmonary edema. Left pleural effusion. No pneumothorax. Impression: 1: Cardiomegaly with pulmonary edema, slightly improved. 2: Left pleural effusion. Reviewed, dictated and finalized at location A. URE ARTIST Impression: 1: Cardiomegaly with pulmonary edema, slightly improved. 2: Left pleural effusion.
--- NOTE | ~2020-07-29 | XR_ITS ---
EXAMINATION: XR chest 1V portable EXAM DATE: 08/06/2020 05:52 INDICATION: Respiratory failure. COVID 19 pneumonia. TECHNIQUE: Portable AP frontal chest x-ray was obtained. Comparison is made to prior examination from 08/05/2020. FINDINGS: Endotracheal tube tip is 5 centimeters above the lisa. There is a nasogastric tube seen with tip collimated off the study, but below the left hemidiaphragm. Right-sided double-lumen dialysi s catheter and left IJ venous line, tips projecting over region of SVC, adequate. Dense multisegmental left lower lobe and lingula consolidation and small amount of right-sided airspa ce disease most consistent with pneumonia. Probable small left pleural effusion, but difficult to qu antify due to opacified lung adjacent to it. There is no pneumothorax suspected. The cardiomediast inal silhouette is prominent but magnified on this AP technique. There is moderate right glenohumera l joint primary osteoarthritis. There is no significant interval change compared to prior exam. IMPRESSION: 1. Lines and tube(s) in position. 2. Bibasilar pneumonia, more consolidated on the left. Reviewed, dictated and finalized at location A. UELS PROCESSING TECHNICIAN
--- NOTE | ~2020-07-29 | XR_ITS ---
EXAMINATION: XR chest 1V portable DATE: 07/30/2020 08:25 INDICATION: Respiratory failure. COVID-19 pneumonia. TECHNIQUE: A single frontal view of the chest was obtained. COMPARISON: Chest single view at 5:30 AM FINDINGS: There are airspace opacities in all lung zones bilaterally. The right lateral costophrenic angle is excluded. No pleural effusion or pneumothorax. Cardiomegaly is noted. The endotracheal tube tip is 6.8 cm above the lisa. The nasogastric tube tip is beyond the inferior margin of the radiogr aph, but at least to the stomach. IMPRESSION: 1. Stable diffuse lung disease, consistent with pneumonia versus pulmonary edema. 2. Cardiomegaly. Reviewed, dictated and finalized at location A. AR MAKER IMPRESSION: 1. Stable diffuse lung disease, consistent with pneumonia versus pulmonary regis a. 2. Cardiomegaly.
--- NOTE | ~2020-07-29 | XR_ITS ---
XR abdomen NG/feed tube insert INDICATION: Evaluate OG position. TECHNIQUE: Limited KUB perform for evaluating LG tube . COMPARISON: 08/03/2020 FINDINGS: OG tube tip in the stomach. Visualized bowel gas pattern is unremarkable. IMPRESSION: 1: OG tube tip in the stomach. Reviewed, dictated and finalized at location A. AGE CHEESE MAKER
--- NOTE | ~2020-07-29 | XR_ITS ---
EXAMINATION: XR chest 1V portable DATE: 08/12/2020 06:13 INDICATION: COVID 19 pneumonia. Acute respiratory failure. TECHNIQUE: frontal view of the chest was obtained. COMPARISON: Chest radiograph dated 08/11/2020 FINDINGS: No pneumothorax. Endotracheal tube tip 7.2 cm above the lisa. Nasogastric tube extends below the left hemidiaphragm with distal tip collimated off the study. Left internal jugular central venous catheter with distal tip in the cephalad superior vena cava. Right internal jugular central venous catheter with distal ti p in the caudal superior vena cava. No significant change in opacities at the bilateral lower lung zones, left greater than right. This i ncludes small bilateral pleural effusions. No pneumothorax. The cardiomediastinal silhouette is samina l. IMPRESSION: 1. No significant interval change in opacities in the lower lung zones, left greater than right consi stent with atelectasis and/or pneumonia. 2. Small bilateral pleural effusions. 3. Endotracheal tube tip 7.2 cm above the lisa. Consider advancement by 5 cm. Reviewed, dictated and finalized at location A. ITORY COUNSELOR IMPRESSION: 1. No significant interval change in opacities in the lower lung zones, left gr eater than right consistent with atelectasis and/or pneumonia. 2. Small bilateral pleural effusions. 3. Endotracheal tube tip 7.2 cm above the lisa. Consider advancement by 5 cm.
--- NOTE | ~2020-07-29 | CT_ITS ---
EXAMINATION: CT brain wo con DATE: 08/01/2020 21:29 INDICATION: Acute seizure TECHNIQUE: Computed tomography (CT) of the head was performed without intravenous contrast. The dose- length product was 681.00 mGy-cm. Automated exposure control and iterative reconstruction technique w ere employed. COMPARISON: CT dated 04/06/2014 FINDINGS: There is a chronic left parietal infarction. There is intracranial atherosclerosis. There a re bilateral mastoid effusions. There is mucosal thickening of the ethmoid, maxillary and sphenoid si nuses. No acute intracranial hemorrhage, infarction, mass or mass effect. IMPRESSION: 1. No acute intracranial abnormality. 2: Moderate sinusitis. 3: Chronic left parietal infarction. Reviewed, dictated and finalized at location A. NCED PRACTICE PROVIDER
--- NOTE | ~2020-07-29 | XR_ITS ---
EXAMINATION: XR chest 1V portable DATE: 08/08/2020 06:01 INDICATION: Respiratory failure TECHNIQUE: frontal view of the chest was obtained. COMPARISON: Chest radiograph dated 08/07/2020 FINDINGS: Endotracheal tube tip 5.6 cm above the lisa. Nasogastric tube extends below the left hemidiaphragm with distal tip collimated off the study. Left internal jugular central venous catheter with distal tip in the midsuperior vena cava. Tip of a large-bore dual-lumen right internal jugular central venou s catheter with distal tip at the caudal superior vena cava. Scattered bilateral basilar predominant opacities which could represent atelectasis and/or pneumonia. Likely small left pleural effusion. No pneumothorax. Cardiomegaly. IMPRESSION: 1. Unchanged basilar predominant bilateral lung disease which could represent atelectasis and/or pneu monia. 2. Small left pleural effusion. 3. Cardiomegaly. Reviewed, dictated and finalized at location A. APPLICATION SUPPORT SPECIALIST IMPRESSION: 1. Unchanged basilar predominant bilateral lung disease which could represent a telectasis and/or pneumonia. 2. Small left pleural effusion. 3. Cardiomegaly.
[2020-07-29] MEDS: EPINEPHrine INJ 1 MG in DEXTROSE 5% IN WATER 250 ML 150.6 MG IV CONT (19:58)
[2020-07-29 19:59] LABS: Alveolar/Arterial O2 Gradient 606.5 mmHg; Base Excess ABG -13.3 mEq/l (+/-2.0); Fractional Inspired Oxygen 100 %; HCO3 ABG 16.1 mEq/l (22.0-26.0); Oxygen Content ABG 14.2 %vol (16.0-22.0); Oxyhemoglobin 81.4 % THb (90.0-100.0); PCO2 ABG 51.7 mmHg (35.0-45.0); PO2 ABG 54.8 mmHg (80.0-100.0); PO2 FiO2 Ratio Arterial Blood 0.55 %; Total Hemoglobin 12.4 g/dL (12.0-18.0)
[2020-07-29 20:03] LABS: Device VENTILATOR; Site Drawn LEFT BRACHIAL; pH ABG 7.111 (7.350-7.450)
[2020-07-29 20:04] LABS: Arterial Blood Gas PEEP 18 cmH2O; Arterial Blood Gas Vent Mode PRESSURE CONTROL; Arterial Blood Gas Ventilator rate 18 /MIN
[2020-07-29 20:05] LABS: Peak Inspiratory Pressure 15 cmH2O
--- NOTE | 2020-07-29 20:29 | ECG_ITS ---
Measurements Intervals [place] Rate: 59 P: [place]: 0 QRS: -52 QRSD: 141 T: 74 QT: 453 QTc: 450 Interpretive Statements ATRIAL FIBRILLATION WITH SLOW VENTRICULAR RESPONSE LEFT AXIS DEVIATION LEFT BUNDLE BRANCH BLOCK BASELINE ARTIFACT- I, III, AVR, AVL, AVF, V1-V6 ABNORMAL ECG Electronically Signed On 07-30-2020 7:29:32 CHIEF MEDICAL DIRECTOR by Elias Persaud D.O.
--- NOTE | 2020-07-29 20:54 | PM.IMHP ---
H&P: HPI History of Present Illness Date/Time: 07/29/20 20:54 Chief Complaint: respiratory failure Narrative: Marcelino Quinonez is a 69 year old male who was a direct admit from [facility]. Admitted to [facility] on 07/23/2020 with a history of multiple problems the patient was wheelchair bound had paroxysmal atrial fibrillation hypertension diabetes ITP in was sent here for evaluation for low platelets. The patient was told to go to the emergency room. The patient denied any bleeding at that time or shortness of breath or any chest pain. The patient tested for COVID and his chest x-ray showed that he had pneumonia. 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 He does have a history of chronic kidney disease. He is also seen by Oncology for his idiopathic thrombocytopenia. The patient was not a candidate for remdesivir and looks like he did receive some prednisone at that time. Patient was discharged from here on 07/27/2020. He was discharged he went to [facility] and explained that he felt like he did not believe he needed to be discharged. And felt like he was getting worsening shortness of breath. The patient had atrial fibrillation with RVR on that day. They did a diltiazem drip and he was also on Coreg. Patient was placed on dexamethadone at that time but no remdesivir . No Lovenox due to ITP. It looks like on 07/28/2020 the patient was noted to be at a poor candidate for remdesivir due to his creatinine. Not able to be anticoagulated due to the ITP. The patient was on a diltiazem drip and then changed to p.o. on the of this month and Coreg was placed on hold. The patient's blood pressure was noted to be low so they discontinue to use of Coreg. Blood sugar was noted to be 461 today his blood pressure and if initially was 139/75. Also has noted that patient's amlodipine was held today due to low blood pressure. Associate Dean will saw the patient while they were here and was given IV IG 0.5 milligrams/kilogram for 2 days and it looks like that was restarted. Platelets were noted to be in the 100s. Troponin had been elevated to 68.9 which was slightly elevated according to their range at [facility]. Patient also received magnesium while at [facility]. On the transfer note from [facility] patient was in respiratory failure and was intubated. Patient also had bradycardic event. Patient's blood pressure was noted to be 77/34 heart rate 31 to 40s a attempted 1 L bolus and patient was placed on a defibrillator pads and could not capture. At 3:02 p.m. he was given an amp of atropine blood pressure 95/47 with a heart rate of 59. EKG was ordered and was AFib with slow ventricular response. He was placed on a BiPAP M ABGs were collected. At 3:45 p.m. an amp of Ativan was given. IO was placed and 5 minutes later patient was placed on a dopamine drip blood pressure 139/65 at that time. It looks like around 1556 the patient was intubated with an ET tube a 5.0 approximately 26 at the lip NG tube was also placed. When the patient was received [facility] the patient had external pacer pads on and his blood pressure was 123/58 upon arrival. pulse ox was 89%. ABGs were obtained and central line was placed and more day. the intensvist has been consulted and is here seeing the patient. An arterial line was placed per the die out worker. The patient was admitted to inpatient ICU date of service 07/29/2020. Review of Systems Review of Systems: All systems reviewed & are unremarkable except as noted in HPI and below ROS unobtainable: Yes unobtainable due to endotracheal tube Constitutional: Constitutional: Reports as per HPI and Reports no additional constitutional complaints Eyes: Eyes: Reports as per HPI and Reports no additional eye complaints ENT: Reports system reviewed and no additional complaints, except as documented and Reports Normal hearing present Cardiovascular: Cardiovascul
[2020-07-29 21:18] LABS: Basophils Percent Auto 0.1 % (0.2-1.2); Hematocrit 34.9 % (42.0-52.0); Hemoglobin 10.9 g/dL (14.0-18.0); Immature Granulocyte Absolute 0.16 K/mm3 (0.00-0.031); Immature Granulocyte Percent A 0.9 % (0-0.5); Immature Platelet Fraction Pct 10.7 % (0.9-11.2); Lymphocytes Percent Auto 1.6 % (18.3-44.2); Mean Corpuscular HGB Conc 31.2 g/dl (32-36); Mean Corpuscular Hemoglobin 27.7 pg (26-34); Mean Corpuscular Volume 88.8 fl (80-100); Mean Platelet Volume 13.1 fl (7.4-10.4); Monocytes Absolute Auto 0.9 K/mm3 (0.1-0.6); Monocytes Percent Auto 4.7 % (2.6-8.5); Neutrophils Absolute Auto 17.4 K/mm3 (1.3-6.7); Neutrophils Percent Auto 92.7 % (45.5-73.1); Platelet Count Result 112 k/mm3 (150-375); Red Blood Count 3.93 M/mm3 (4.6-6.20); Red Cell Distribution Width 14.6 % (11.5-14.5); White Blood Count 18.7 K/mm3 (4.5-10.0)
[2020-07-29 21:27] LABS: Partial Thromboplastin Time 31.1 SECONDS (22.3-36.8)
[2020-07-29 21:28] LABS: Lactic Acid Reflex 1.3 mmol/L (0.7-2.1)
[2020-07-29] MEDS: levETIRAcetam 1000MG/NACL100ML 1,000 MG/100 ML BAG 400 MG IVPB (21:33)
[2020-07-29 21:38] LABS: Alanine Aminotransferase 24 U/L (4-50); Albumin Level 2.9 g/dL (3.5-5.1); Alkaline Phosphatase 88 U/L (38-126); Anion Gap 10 mmol/L (8-16); Aspartate Amino Transferase 29 U/L (17-59); Blood Urea Nitrogen 108 mg/dL (9-20); Calcium 7.9 mg/dL (8.4-10.2); Carbon Dioxide 17 mmol/L (22-30); Chloride 105 mmol/L (98-107); Estimated Glomerular Filt Rate 10; Glucose 582 mg/dL (75-110); Magnesium 2.2 mg/dL (1.6-2.3); Potassium 5.6 mmol/L (3.4-5.0); Sodium 132 mmol/L (137-145)
[2020-07-29] MEDS: EPINEPHrine INJ 1 MG in DEXTROSE 5% IN WATER 250 ML 120.48 MG IV CONT (21:45)
[2020-07-29] MEDS: CALCIUM GLUCONATE 1,000 MG/10 ML VIAL 1000 MG IV PUSH (21:48)
[2020-07-29] MEDS: CALCIUM GLUC 2,000 MG/NS 100ML 2,000 MG/100 ML BAG 100 MG IVPB (21:48)
--- NOTE | 2020-07-29 21:49 | WPDCNINT ---
Assessment and Plan Assessment and plan (1) Respiratory failure: Code(s): J96.90 - Respiratory failure, unspecified, unspecified whether with hypoxia or hypercapnia Status: Acute Assessment and Plan: Acute hypoxic respiratory to volume overload, COVID-19 pneumonia -Chest x-ray shows extensive edema and/or pneumonia. -patient was on pressure control ventilation, with pH of 7.11, pCO2 of 51.7, PO2 54, O2 sats 77% and HC03 16.1. -patient was placed on CMV mode of ventilation, low tidal volume strategy due to ARDS physiology, peep of 16, tidal volume of 430, rate of 32, 100% FiO2 -repeat ABGs showed a pH of 7.20, pCO2 of 38.7, PO2 of 95.7, HC03 14.8, O2 sats 95.8% -will wean PEEP to 14 thereafter titrate FiO2 to maintain O2 sats greater than 92% -continue bronchodilators -will start sedation when needed (2) Atrial fibrillation: Code(s): I48.91 - Unspecified atrial fibrillation Status: Acute Assessment and Plan: Patient with AFib RVR at the outside hospital requiring Cardizem infusion which was then converted to p.o. Cardizem. Developed developed bradycardia, Cardizem infusion was discontinued -patient was being paced with external pacer pads. Patient was stopped to see underlying rhythm, remains in AFib, heart rate in the 50s to 60s. -continue to monitor closely (3) Bradycardia: Code(s): R00.1 - Bradycardia, unspecified Status: Acute Assessment and Plan: Patient with bradycardia, requiring atropine, dopamine, epinephrine and started being paced with external pacer pads -this could be related to multiple causes, Cardizem, Coreg, COVID-19 induced cardiomyopathy or myocarditis -discussed with Cardiology, Dr. Upton, he agrees with calcium gluconate and glucagon -continue to monitor patient's intrinsic heart rate, if he drops below 40 will start pacing, at that time were caught dough mixer helper and he will come in place at transvenous pacemaker (4) Diabetes: Code(s): E11.9 - Type 2 diabetes mellitus without complications Status: Chronic Assessment and Plan: Hyperglycemia likely related to steroids, acute critical care illness -will start insulin infusion per protocol (5) Chronic ITP (idiopathic thrombocytopenia): Code(s): D69.3 - Immune thrombocytopenic purpura Status: Acute Assessment and Plan: Patient with history of ITP, has been seen by Dr. Rodriguez, patient has received platelets recently, he also receives IVIG treatment in the past -platelets stable at this time will continue to monitor -will have Dr. Rodriguez follow the patient (6) 2019 novel coronavirus–infected pneumonia (NCIP)#8211;infected pneumonia (NCIP): Code(s): U07.1 - COVID-19; J12.89 - Other viral pneumonia Status: Acute Assessment and Plan: SARS-CoV-2 PCR positive on 07/22/2020 -continue dexamethasone, initiated on 07/28/2020 -patient not a candidate for Remdesivir due to acute on chronic renal failure -continue droplet, airborne, contact isolation/precautions -will monitor inflammatory markers (7) Erythropoietin deficiency anemia: Code(s): D63.1 - Anemia in chronic kidney disease Status: Acute Assessment and Plan: Hemoglobin is stable, will continue to monitor (8) Acute on chronic kidney failure: Qualifiers: Acute renal failure type: unspecified Chronic kidney disease stage: unspecified stage Qualified Code(s): N17.9 - Acute kidney failure, unspecified; N18.9 - Chronic kidney disease, unspecified Code(s): N17.9 - Acute kidney failure, unspecified; N18.9 - Chronic kidney disease, unspecified Status: Acute Assessment and Plan: Acute on chronic kidney disease, baseline creatinine 3.5-4.0 -metabolic acidosis likely related to uremia, will start a bicarb infusion at 50 mL per hour for 1 bag. -hyperkalemia also related to acute on chronic kidney disease along with metabolic acidosis, will treat hyperkalemia with insulin, D50
[2020-07-29 21:52] LABS: Troponin I 0.035 ng/mL (0.000-0.034)
[2020-07-29 22:00] LABS: Alveolar/Arterial O2 Gradient 578.6 mmHg; Base Excess ABG -12.4 mEq/l (+/-2.0); Fractional Inspired Oxygen 100 %; HCO3 ABG 14.8 mEq/l (22.0-26.0); Oxygen Content ABG 15.5 %vol (16.0-22.0); Oxygen Saturation ABG 95.8 % (95.0-100.0); Oxyhemoglobin 95.3 % THb (90.0-100.0); PCO2 ABG 38.7 mmHg (35.0-45.0); PO2 ABG 95.7 mmHg (80.0-100.0); PO2 FiO2 Ratio Arterial Blood 0.96 %; Total Hemoglobin 11.5 g/dL (12.0-18.0)
[2020-07-29 22:02] LABS: Arterial Blood Gas Ventilator rate 32 /MIN; Device VENTILATOR; Site Drawn ARTLINE; pH ABG 7.201 (7.350-7.450)
[2020-07-29 22:03] LABS: Arterial Blood Gas PEEP 16 cmH2O; Arterial Blood Gas Tidal Volume 430 ml; Arterial Blood Gas Vent Mode CMV
[2020-07-29] MEDS: GLUCAGON FOR INJ 1 MG VIAL 5 MG IV PUSH (22:07)
--- NOTE | 2020-07-29 22:29 | WPDPROCEDUR ---
Procedures Central Line Placement Right Femoral: Central Line Date: 07/29/20 Central Line Time: 19:16 Discussed w/ the patient/family/POA,the placement of a central venous catheter, including its clinical necessity/indication & associated potential risks, benifits and alternatives.: Yes The patient/family/POA understand(s) and acknowledge(s) the need to proceed with central venous catheter insertion as an important element of the patient's clinical management.: Yes Time Out Performed: Yes Patient Position: supine Patient placed on monitor/pulse ox: Yes Provider Prep: Max. sterile barrier precautions Central line prep: 2% Chlorhexidine scrub Local anesthesia used: lidocaine 2% Sterile US Technique with sterile gel/sterile probe covers: Yes Central line lumen inserted: triple Gabonese: 7 Length (cm): 16 Depth of Insertion (cm): 16 Post Procedure: sutured in place, good blood return, all ports aspirated, flushed, capped, transparent dressing, antimicrobial product and securement product Patient tolerated procedure: no complications Complications: none
[2020-07-29] MEDS: SODIUM BICARBONATE 8.4% 50 MEQ/50 ML SYRINGE 100 MEQ (22:30)
[2020-07-29] MEDS: SODIUM BICARBONATE 8.4% 50 MEQ/50 ML VIAL 100 MEQ IV PUSH (22:30)
[2020-07-29] MEDS: INSULIN HUMAN REGULAR (*BKC) 100 UNITS/ML 10 UNITS IV PUSH (22:35)
--- NOTE | 2020-07-29 22:43 | P.PCNBED_ITS ---
Procedures Arterial Line Arterial Line Date: 07/29/20 Arterial Line Time: 08:22 Perfomed Emergently - Given emergent patient conditions, temporal constraints may have precluded informed consent: Yes Time Out Performed: Yes Patient Position: supine Business Systems Developer Prep: sterile gown, sterile gloves and mask Site: left and radial Site Prep: chlorhexidine and sterile drape Skin Anesthesia: none Technique used: ultrasound-guided Size (Gauge): 16 Length: 4.4 cm Closure/Dressing: suture, transparent dressing, hemostatic product, antimicrobial product and securement product Patient tolerated procedure: well Complications: none
[2020-07-29] MEDS: INSULIN HUMAN REGULAR (*BKC) 100 UNITS in SODIUM CHLORIDE 0.9% IV 99 ML 9.1 UNITS IV CONT (22:51)
[2020-07-29] MEDS: DEXTROSE 50% 25 GM/50 ML SYRINGE IV PUSH (22:52)
[2020-07-29] MEDS: SODIUM BICARBONATE 8.4% 150 MEQ in WATER, STERILE FOR INJECTION 950 ML 50 MEQ IV CONT (23:11)
[2020-07-30] VITALS (38 sets, daily range): BP systolic 131–197; BP diastolic 51–71; PULSE 57–86; RESP 23–32; TEMP 35.5–36.3; O2SAT 87–99; BMI 49.0
--- NOTE | 2020-07-30 | ECHO_ITS ---
Patient Info Name: Marcelino Quinonez Age: 69 years : 1950 Gender: Male Ht: 70 in Wt: 344 lbs BSA: 2.86 m2 HR: 60 bpm BP: 139 / 55 mmHg Heart Rhythm: Atrial Fibrillation Technical Quality: Poor Exam Date: 07/30/2020 2:35 PM Exam Location: [facility] Pulmonary Exam Room: ICU 5 Patient Status: Inpatient Admit Date: 07/29/2020 Staff Ordering Physician: Mario Alberto Álvarez MD Utilization Review Nurse: Vandana Keenan RDCS Attending Provider: Lissett Palomino MD Referring Physician: Henri BONILLA; Exam Type: CA echo dop color flow w con Study Info Indications - bradycardia afib Complete two-dimensional, color flow and Doppler transthoracic echocardiogram is performed with contrast to opacify the left ventricle and to improve the deliniation of the left ventricle endocardial borders. Contrast/Agitated Saline Contrast/Ag. Saline: Definity Amount: 1.00 ml Reason for Poor Study: patient body habitus Summary 1. Left ventricular chamber dimension is normal. 2. Left ventricular systolic function is normal, estimated at 60-65%. 3. There is mildly increased left ventricular wall thickness. 4. The left ventricular diastolic function is indeterminate. 5. Left atrial chamber dimension is mildly enlarged. 6. The mitral valve has thickened leaflets and calcified annulus. 7. There is mild tricuspid valve regurgitation. 8. Mild pulmonary hypertension, estimated pulmonary arterial systolic pressure is 39 mmHg. 9. There is mild pulmonic regurgitation. Left Ventricle Left ventricular chamber dimension is normal. Left ventricular systolic function is normal, estimated at 60-65%. There is mildly increased left ventricular wall thickness. The left ventricular diastolic function is indeterminate. Right Ventricle Right ventricular chamber dimension is normal. Right ventricular systolic function is normal. Left Atria Left atrial chamber dimension is mildly enlarged. Right Atria Right atrial chamber dimension is normal. Atrial Septum Intact interatrial septum visualized by color flow imaging. Aortic Valve The aortic valve is trileaflet. There is mild aortic valve sclerosis. There is no aortic valve stenosis. There is trace aortic valve regurgitation. Pulmonic Valve The pulmonic valve is normal. There is no pulmonic valve stenosis. There is mild pulmonic regurgitation. Mitral Valve The mitral valve has thickened leaflets and calcified annulus. There is no mitral valve stenosis. There is trace mitral valve regurgitation. Tricuspid Valve The tricuspid valve leaflets are normal. There is no significant tricuspid valve stenosis. There is mild tricuspid valve regurgitation. Mild pulmonary hypertension, estimated pulmonary arterial systolic pressure is 39 mmHg. Pericardium/Pleural The pericardium appears normal. There is trivial pericardial effusion. Inferior Vena Cava Dilated inferior vena cava with <50% collapse upon inspiration consistent with elevated right atrial pressure, 20 mmHg. Aorta The aortic root size at the sinus of Valsalva is normal. Left Ventricular Outflow Tract Name Value Normal LVOT 2D LVOT Diameter 2.20 cm
--- NOTE | 2020-07-30 00:28 | ADMGEN ---
This patient, Marcelino Quinonez, was admitted to Intensive Care Unit-5 at 1930. Patient/family oriented to hospital policies and general routines including ID bracelet, bed and alarms, visiting hours, pain management, procedures, bathroom and other care routines, personal items, smoking policy, room service/diet, and visiting hours. Information on how to activate the Rapid Response Team has been discussed. Patient/Family are encouraged to report perceived risks to care and to ask questions if they do not understand what they are told or what they should do.
[2020-07-30] MEDS: EPINEPHrine INJ 4 MG in DEXTROSE 5% IN WATER 250 ML 15.24 MG IV CONT (01:21)
[2020-07-30 03:26] LABS: Basophils Percent Auto 0.1 % (0.2-1.2); Hematocrit 32.7 % (42.0-52.0); Hemoglobin 10.4 g/dL (14.0-18.0); Immature Granulocyte Absolute 0.12 K/mm3 (0.00-0.031); Immature Granulocyte Percent A 0.6 % (0-0.5); Immature Platelet Fraction Pct 11.8 % (0.9-11.2); Lymphocytes Percent Auto 2.1 % (18.3-44.2); Mean Corpuscular HGB Conc 31.8 g/dl (32-36); Mean Corpuscular Hemoglobin 27.4 pg (26-34); Mean Corpuscular Volume 86.3 fl (80-100); Monocytes Absolute Auto 0.5 K/mm3 (0.1-0.6); Monocytes Percent Auto 2.4 % (2.6-8.5); Neutrophils Absolute Auto 17.7 K/mm3 (1.3-6.7); Neutrophils Percent Auto 94.8 % (45.5-73.1); Platelet Count Result 74 k/mm3 (150-375); Red Blood Count 3.79 M/mm3 (4.6-6.20); Red Cell Distribution Width 14.3 % (11.5-14.5); White Blood Count 18.7 K/mm3 (4.5-10.0)
[2020-07-30 03:33] LABS: Add Urine Microscopic? YES; Amorphous Sediment Urine Few; Appearance Urine Cloudy (Clear); Bacteria Urine Trace /hpf; Bilirubin Urine Negative (Negative); Blood Urine 2+ (Negative); Color Urine Yellow (Yellow); Glucose Urine UA 3+ mg/dL (Negative); Ketones Urine Negative (Negative); Leukocyte Esterase Ur Negative LEU/UL (Negative); Nitrate Urine Negative (Negative); Protein Urine 2+ mg/dL (Negative); RBC Urine 21-50 /hpf (0-2); Specific Grav Ur 1.012 (1.001-1.035); Squamous Epithelial Cell Urine Rare /hpf (Few); Urobilinogen Urine Negative mg/dL (<2.0); WBC Urine 0-3 /hpf
[2020-07-30 03:39] LABS: Lactic Acid Reflex 1.6 mmol/L (0.7-2.1)
[2020-07-30 03:49] LABS: Troponin I 0.027 ng/mL (0.000-0.034)
[2020-07-30 04:07] LABS: Alanine Aminotransferase 22 U/L (4-50); Albumin Level 2.7 g/dL (3.5-5.1); Alkaline Phosphatase 81 U/L (38-126); Anion Gap 12 mmol/L (8-16); Aspartate Amino Transferase 23 U/L (17-59); Bilirubin,Total 0.8 mg/dL (0.2-1.3); Blood Urea Nitrogen 114 mg/dL (9-20); CRP 8.2 mg/dL (<1.0); Calcium 8.4 mg/dL (8.4-10.2); Carbon Dioxide 19 mmol/L (22-30); Chloride 105 mmol/L (98-107); Estimated CRCL calculation 17 ml/min; Estimated Glomerular Filt Rate 10; Glucose 515 mg/dL (75-110); Magnesium 2.2 mg/dL (1.6-2.3); Phosphorus 5.8 mg/dL (2.5-4.5); Potassium 4.3 mmol/L (3.4-5.0); Sodium 136 mmol/L (137-145)
[2020-07-30 04:20] LABS: Alveolar/Arterial O2 Gradient 581.6 mmHg; Base Excess ABG -9.9 mEq/l (+/-2.0); Carboxyhemoglobin 0.3 % THb (0-2.0); Fractional Inspired Oxygen 100 %; HCO3 ABG 17.4 mEq/l (22.0-26.0); Methemoglobin ABG 0.3 %THb (0-1.5); Oxygen Content ABG 15.3 %vol (16.0-22.0); Oxyhemoglobin 94.1 % THb (90.0-100.0); PCO2 ABG 43.3 mmHg (35.0-45.0); PO2 ABG 88.1 mmHg (80.0-100.0); PO2 FiO2 Ratio Arterial Blood 0.88 %; Reduced Hemoglobin 5.3 %THb (0-5.0); Total Hemoglobin 11.5 g/dL (12.0-18.0)
[2020-07-30 04:22] LABS: Device VENTILATOR; Site Drawn ARTLINE; pH ABG 7.221 (7.350-7.450)
[2020-07-30 04:23] LABS: Arterial Blood Gas PEEP 16 cmH2O; Arterial Blood Gas Vent Mode CMV; Arterial Blood Gas Ventilator rate 32 /MIN
[2020-07-30 04:24] LABS: Arterial Blood Gas Tidal Volume 430 ml
[2020-07-30] MEDS: INSULIN HUMAN REGULAR (*BKC) 100 UNITS in SODIUM CHLORIDE 0.9% IV 99 ML 22 UNITS IV CONT (04:48)
[2020-07-30] MEDS: CENTRAL LINE FLUSH 10 ML IV PUSH ×2 (04:51→20:20)
[2020-07-30 05:18] LABS: Thyroid Stimulating Hormone Reflex 0.686 uIU/mL (0.465-4.68)
[2020-07-30] MEDS: FENTANYL 2,500MCG/NS250ML(*CRX 2,500 MCG/250 ML BAG IV CONT (05:42)
[2020-07-30] MEDS: LEVOTHYROXINE SODIUM INJ 100 MCG/5 ML VIAL 37.5 MCG IV PUSH (06:52)
[2020-07-30 07:00] LABS: Glucose Point of Care > 500 (65-105)
[2020-07-30 07:00] LABS: Glucose Point of Care > 500 (65-105)
[2020-07-30 07:00] LABS: Glucose Point of Care > 500 (65-105)
[2020-07-30 07:00] LABS: Glucose Point of Care 490 (65-105)
[2020-07-30 07:01] LABS: Glucose Point of Care 376 (65-105)
[2020-07-30 07:01] LABS: Glucose Point of Care 343 (65-105)
[2020-07-30 07:01] LABS: Glucose Point of Care 426 (65-105)
[2020-07-30] MEDS: ROCURONIUM BROMIDE 50 MG/5 ML VIAL (08:06)
[2020-07-30] MEDS: DEXAMETHASONE SOD PHOS INJ 4 MG/ML VIAL 6 MG IV PUSH (08:14)
[2020-07-30] MEDS: levETIRAcetam 1000MG/NACL100ML 1,000 MG/100 ML BAG 400 MG IVPB ×2 (08:14→20:19)
[2020-07-30 09:16] LABS: Glucose Point of Care 280 (65-105)
[2020-07-30] MEDS: INSULIN HUMAN REGULAR (*BKC) 100 UNITS in SODIUM CHLORIDE 0.9% IV 99 ML 19.8 UNITS IV CONT (09:25)
[2020-07-30] MEDS: CISATRACURIUM BESYLATE 200 MG in DEXTROSE 5% 80 ML 14.07 ML IV CONT ×3 (09:26→20:25)
[2020-07-30] MEDS: IPRATROPIUM BR 0.02% INH SOLN 0.5 MG/2.5 ML VIAL INHALATION ×3 (09:30→19:59)
[2020-07-30] MEDS: ALBUTEROL SULFATE NEB 2.5 MG/0.5 ML INH INHALATION ×3 (09:30→19:59)
--- NOTE | 2020-07-30 09:55 | PM.CNPUL ---
Assessment and Plan Assessment and plan (1) Respiratory failure: Qualifiers: Chronicity: acute on chronic Respiratory failure complication: hypoxia and hypercapnia Qualified Code(s): J96.21 - Acute and chronic respiratory failure with hypoxia; J96.22 - Acute and chronic respiratory failure with hypercapnia Code(s): J96.90 - Respiratory failure, unspecified, unspecified whether with hypoxia or hypercapnia Status: Acute Assessment and Plan: He has profound respiratory failure, was difficult to intubate last night, required central line in Right femoral vein. He is receiving maximum supportive care for his multisystem failure. I agree with the current ventilator strategy. His pO2 is now improved, and FiO2 may be able to be weaned slowly. Prognosis is poor. (2) Pneumonia due to COVID-19 virus: Code(s): U07.1 - COVID-19; J12.89 - Other viral pneumonia Status: Acute Assessment and Plan: 07/22/2020 diagnosed with (+) SARS-CoV-2 {RT-PCR}; was not able to have remdesivir with is renal issues, no lovenox with ITP and low platelets; he is getting maximum supportive care. He has elevated inflammatory markers including ferritin 508, CRP 8.2, (3) Acidosis, metabolic, with respiratory acidosis: Code(s): E87.4 - Mixed disorder of acid-base balance Status: Acute Assessment and Plan: Has mixed acid base status with metabolic acidosis from shock, renal failure which is acute on chronic, respiratory acidosis due to respiratory failure. Acidosis is improved, pH closer to normal 7.221. He is on bicarbonate drip, and has ventilator settings with Ve = f x TV =14.4 has corrected pCO2 now 43 mmHg. History of Present Illness History of Present Illness Consult date: 07/30/20 Requesting physician: Maddy Vigil MD Chief complaint: Covid Pneumonia Narrative: NEW: Marcelino Quinonez is a 69 yo man with recent admission @ [place] Jul 22 with COVID pneumonia; was released, readmitted with worsening symptoms yesterday. Initial symptoms were cough, shortness of breath, myalgias and fevers. He had renal insufficiency with underlying CKD stage 3; he worsened, return to [place] ER yesterday July 28, was airlifted to [place]. He had profound metabolic acidosis and slow atrial fib. He has external pacing pads on, bicarb drip epinephrine drip to increase his heart rate as well as Nimbex drip for neuromuscular blockade to facilitate better synchrony with the ventilator. His acid base status has improved, and he is oxygenating on 100%, PEEP 16 cm, TV 430 and rate 32. He is on an insulin drip to can control his glucose, has underlying diabetes type 2. His CKD stage III is worsening, today BUN 114/creat 5.5. He is in ICU 5 and his is in ICU 10, also critically ill with COVID. His baseline medical issues: Hypertension stroke seizure CKD stage 3 ITP diabetes type 2 glaucoma. This document was completed by using [employer] speech recognition software, therefore clearing hand variances may occur. Despite proofreading, typographical errors may also occur. Review of Systems Review of Systems: ROS unobtainable: Yes unobtainable due to endotracheal tube PMFSH Past Medical History Medical History Anxiety Atrial fibrillation Atrial fibrillation CVA (cerebral vascular accident) Depression Diabetes Erythropoietin deficiency anemia Essential (primary) hypertension Exposure to COVID-19 virus History of ITP Hypertension Hypothyroidism Obstructive sleep apnea Seizure Type 2 diabetes mellitus without complications Surgical History Surgical History History of appendectomy Family H
--- NOTE | 2020-07-30 11:32 | PM.CNCAR ---
Assessment and Plan Assessment and plan (1) Bradycardia: Code(s): R00.1 - Bradycardia, unspecified Status: Acute Assessment and Plan: Currently improved. Received calcium gluconate. Avoid AV an SA gordon agents. Right now his heart rate is r reasonable. Will Turn epinephrine off. No carvedilol or diltiazem to be given. 2D echocardiogram Doppler will be ordered and reviewed. DC further troponins at this point. Keep pacer pads in place at least for another 24 hours. Check a T4 level (2) Atrial fibrillation: Code(s): I48.91 - Unspecified atrial fibrillation Status: Acute Assessment and Plan: Rate is stable. Anticoagulate if okay with Hematology (3) 2019 novel coronavirus–infected pneumonia (NCIP)#8211;infected pneumonia (NCIP): Code(s): U07.1 - COVID-19; J12.89 - Other viral pneumonia Status: Acute Assessment and Plan: Per financial quantitative analyst (4) Chronic ITP (idiopathic thrombocytopenia): Code(s): D69.3 - Immune thrombocytopenic purpura Status: Acute Assessment and Plan: Hematology is consulted (5) Essential (primary) hypertension: Code(s): I10 - Essential (primary) hypertension Status: Acute Assessment and Plan: Hydralazine 25 mg p.o./per tube t.i.d. to be started History of Present Illness History of Present Illness Consult date/time: 07/30/20 11:32 Requesting physician: Abad Farias MD Consult reason: atrial fibrillation and Other (Bradycardia) Reason For Visit: Covid Pneumonia Narrative: Date of service 07/30/20 Reason for consultation, bradycardia: Atrial fibrillation History: Patient is a 69-year-old male has chronic kidney disease, atrial fibrillation, history of stroke, seizures, sleep apnea, hypertension, diabetes. He was [facility] [place] with increasing shortness of breath. He tested positive for Coronavirus on 07/23/2020 he has ITP and low platelets and therefore anticoagulation was not started. While at [place] he developed atrial fibrillation with rapid ventricular response. Initially our own carvedilol and was switched to diltiazem. Yesterday he became hypotensive and bradycardic with heart rate in the 30s and 40s. A multitude of interventions were performed including atropine, epinephrine drip, external pacer pads. He was eventually transported via helicopter to [place] for further workup evaluation. At the time of presentation to [place], he still had external pacers on but underlying heart rate with holding pacing showed atrial fibrillation with heart rate around 60. At that point decision was made not to pursue a temporary pacemaker. He is currently intubated and sedated. Rhythm and blood pressure have been stable to today. There has been no recent syncope. Shortness of breath is as described. No recent chest pain. Review of Systems Review of Systems: All systems reviewed & are unremarkable except as noted in HPI and below Constitutional: Constitutional: Reports weakness Eyes: Eyes: Denies blurry vision ENT: Denies epistaxis Cardiovascular: Cardiovascular: Denies chest pain Respiratory: Respiratory: Reports cough and Reports dyspnea Gastrointestinal: Gastrointestinal: Denies hematemesis Genitourinary: Genitourinary: Denies hematuria Musculoskeletal: Musculoskeletal: Denies joint swelling Integumentary/Breasts: Comments: Chronic stasis changes Neurologic: Comments: No focal abnormalities Psychiatric: Psychiatric: Denies depression Endocrine: Endocrine: Reports fatigue Hematologic/Lymphatic: Hematologic/Lymphatic: Denies easy bleeding Allergic/Immunologic: Allergic/Immunologic: Denies lip swelling PMFSH Past Medical History Medical History Anxiety Atrial fibrillation Atrial fibrillation CVA (cerebral vascular accident) Depression Diabetes Erythropoietin deficiency anemia Essential (primary) hyper
[2020-07-30] MEDS: NOREPINEPHRINE 8 MG/D5W 250 ML 8 MG/250 ML BAG 9.38 MG IV CONT (12:24)
--- NOTE | 2020-07-30 13:18 | WPDINTPN ---
Progress Note: A&P Assessment and Plan (1) Respiratory failure: Qualifiers: Chronicity: acute on chronic Respiratory failure complication: hypoxia and hypercapnia Qualified Code(s): J96.21 - Acute and chronic respiratory failure with hypoxia; J96.22 - Acute and chronic respiratory failure with hypercapnia Code(s): J96.90 - Respiratory failure, unspecified, unspecified whether with hypoxia or hypercapnia Status: Acute Assessment and Plan: Acute hypoxic respiratory to volume overload, COVID-19 pneumonia -Chest x-ray shows extensive edema and/or pneumonia. -patient is on CMV mode of ventilation, low tidal volume strategy due to ARDS physiology, peep of 16, tidal volume of 430, rate of 32, 100% FiO2. -permissive hypercapnia. Continue to monitor ABG and chest x-ray. -wean PEEP and FiO2 if tolerated. He is currently paralyzed with Nimbex which has been asses 07/30 for severe hypoxia with maximum support from ventilator with 100% FiO2 and 16 of PEEP. -continue bronchodilators -currently sedated with fentanyl and Versed. Keep RASS of -1. Daily sedation vacation trial. (2) Atrial fibrillation: Code(s): I48.91 - Unspecified atrial fibrillation Status: Acute Assessment and Plan: Patient with AFib RVR at the outside hospital requiring Cardizem infusion which was then converted to p.o. Cardizem and Coreg. Developed bradycardia. Now both has been discontinued. -He was given calcium gluconate yesterday. Cardiology is following. AV gordon kaz will be on hold. Epinephrine has been discontinued. Continue pacer paid for the next 20 Jazmyn which can be discontinued if he remains stable. -continue to monitor closely (3) Bradycardia: Code(s): R00.1 - Bradycardia, unspecified Status: Acute Assessment and Plan: Patient with bradycardia, requiring atropine, dopamine, epinephrine and started being paced with external pacer pads -this could be related to multiple causes, Cardizem, Coreg, COVID-19 induced cardiomyopathy or myocarditis -cardiology service recommendations appreciated. -now off epinephrine and pacing and his heart rate in his 60s and 70s. Continue pacer attached for now at least for next 24 hours which can be discontinued at that time. Echocardiogram has been ordered. (4) Diabetes: Code(s): E11.9 - Type 2 diabetes mellitus without complications Status: Chronic Assessment and Plan: Hyperglycemia likely related to steroids, acute critical care illness -will continue insulin infusion per protocol (5) Chronic ITP (idiopathic thrombocytopenia): Code(s): D69.3 - Immune thrombocytopenic purpura Status: Acute Assessment and Plan: Patient with history of ITP, has been seen by Dr. Rodriguez, patient has received platelets recently, he also receives IVIG treatment -there is some drop in platelet count today. Hematology service is aware. Labs will be repeated today. (6) 2019 novel coronavirus–infected pneumonia (NCIP)#8211;infected pneumonia (NCIP): Code(s): U07.1 - COVID-19; J12.89 - Other viral pneumonia Status: Acute Assessment and Plan: SARS-CoV-2 PCR positive on 07/22/2020 -continue dexamethasone, initiated on 07/28/2020 -patient not a candidate for Remdesivir due to acute on chronic renal failure -continue droplet, airborne, contact isolation/precautions -will monitor inflammatory markers (7) Erythropoietin deficiency anemia: Code(s): D63.1 - Anemia in chronic kidney disease Status: Acute Assessment and Plan: Hemoglobin is stable, will continue to monitor (8) Acute on chronic kidney failure: Qualifiers: Acute renal failure type: unspecified Chronic kidney disease stage: unspecified stage Qualified Code(s): N17.9 - Acute kidney failure, unspecified; N18.9 - Chronic kidney disease, unspecified Code(s): N17.9 - Acute kidney failure, unspecified; N18.9 - Chronic kidney disease, unsp
[2020-07-30] MEDS: INSULIN HUMAN REGULAR (*BKC) 100 UNITS in SODIUM CHLORIDE 0.9% IV 99 ML 13.2 UNITS IV CONT (14:03)
[2020-07-30 14:11] LABS: Hematocrit 30.3 % (42.0-52.0); Hemoglobin 10.2 g/dL (14.0-18.0); Immature Platelet Fraction Pct 13.6 % (0.9-11.2); Mean Corpuscular HGB Conc 33.7 g/dl (32-36); Mean Corpuscular Hemoglobin 28.2 pg (26-34); Mean Corpuscular Volume 83.7 fl (80-100); Platelet Count Result 65 k/mm3 (150-375); Red Blood Count 3.62 M/mm3 (4.6-6.20); Red Cell Distribution Width 14.1 % (11.5-14.5); White Blood Count 15.6 K/mm3 (4.5-10.0)
[2020-07-30 14:19] LABS: Alanine Aminotransferase 19 U/L (4-50); Albumin Level 2.6 g/dL (3.5-5.1); Alkaline Phosphatase 71 U/L (38-126); Anion Gap 9 mmol/L (8-16); Aspartate Amino Transferase 22 U/L (17-59); Bilirubin,Total 0.8 mg/dL (0.2-1.3); Blood Urea Nitrogen 110 mg/dL (9-20); Calcium 8.6 mg/dL (8.4-10.2); Carbon Dioxide 21 mmol/L (22-30); Chloride 109 mmol/L (98-107); Estimated CRCL calculation 18 ml/min; Estimated Glomerular Filt Rate 11; Glucose 167 mg/dL (75-110); Potassium 3.8 mmol/L (3.4-5.0); Sodium 139 mmol/L (137-145)
[2020-07-30 14:46] LABS: Alveolar/Arterial O2 Gradient 602.6 mmHg; Base Excess ABG -5.4 mEq/l (+/-2.0); Fractional Inspired Oxygen 100 %; HCO3 ABG 19.4 mEq/l (22.0-26.0); Oxygen Content ABG 17.3 %vol (16.0-22.0); Oxygen Saturation ABG 94.5 % (95.0-100.0); Oxyhemoglobin 92.9 % THb (90.0-100.0); PCO2 ABG 35.8 mmHg (35.0-45.0); PO2 ABG 74.6 mmHg (80.0-100.0); PO2 FiO2 Ratio Arterial Blood 0.75 %; Site Drawn ARTLINE; Total Hemoglobin 13.2 g/dL (12.0-18.0); pH ABG 7.352 (7.350-7.450)
[2020-07-30 14:47] LABS: Device VENTILATOR
[2020-07-30 14:48] LABS: Arterial Blood Gas PEEP 16 cmH2O; Arterial Blood Gas Tidal Volume 430 ml; Arterial Blood Gas Vent Mode CMV; Arterial Blood Gas Ventilator rate 32 /MIN
[2020-07-30 15:02] LABS: Glucose Point of Care 229 (65-105)
[2020-07-30 15:02] LABS: Glucose Point of Care 275 (65-105)
[2020-07-30 15:02] LABS: Glucose Point of Care 180 (65-105)
--- NOTE | 2020-07-30 16:11 | PM.IMPN ---
Progress Note: A&P Assessment and Plan (1) Respiratory failure: Qualifiers: Chronicity: acute on chronic Respiratory failure complication: hypoxia and hypercapnia Qualified Code(s): J96.21 - Acute and chronic respiratory failure with hypoxia; J96.22 - Acute and chronic respiratory failure with hypercapnia Code(s): J96.90 - Respiratory failure, unspecified, unspecified whether with hypoxia or hypercapnia Status: Acute Assessment and Plan: The patient was intubated at [facility]. Vent settings per screen stretcher. (2) Exposure to COVID-19 virus: Code(s): Z20.828 - Contact with and (suspected) exposure to other viral communicable diseases Status: Acute Assessment and Plan: Patient is now intubated. Continue with Decadron. (3) Thrombocytopenia: Code(s): D69.6 - Thrombocytopenia, unspecified Status: Acute Assessment and Plan: Hematology as this is the chronic condition. (4) Acute on chronic kidney failure: Qualifiers: Acute renal failure type: unspecified Chronic kidney disease stage: unspecified stage Qualified Code(s): N17.9 - Acute kidney failure, unspecified; N18.9 - Chronic kidney disease, unspecified Code(s): N17.9 - Acute kidney failure, unspecified; N18.9 - Chronic kidney disease, unspecified Status: Acute Assessment and Plan: Patient has worsening chronic kidney disease, nephrology on board (5) Pneumonia due to COVID-19 virus: Code(s): U07.1 - COVID-19; J12.89 - Other viral pneumonia Status: Acute Assessment and Plan: See above. (6) Atrial fibrillation: Code(s): I48.91 - Unspecified atrial fibrillation Status: Acute Assessment and Plan: Patient has atrial fib and with the slow ventricular response. Patient is externally paced. Cardiology has been consulted and has given recommendations. (7) Diabetes: Code(s): E11.9 - Type 2 diabetes mellitus without complications Status: Chronic Assessment and Plan: The patient is placed on insulin drip and Accu-Cheks are every 1 hour. (8) Type 2 diabetes mellitus without complications: Code(s): E11.9 - Type 2 diabetes mellitus without complications Status: Acute (9) Elevated troponin: Code(s): R77.8 - Other specified abnormalities of plasma proteins Status: Acute Assessment and Plan: Patient's values are different at [place] and it looks like his troponins have gone back down to normal. Will repeat troponins here. (10) Bradycardia: Code(s): R00.1 - Bradycardia, unspecified Status: Acute Assessment and Plan: PT externally paced and is getting calcium gluconate at this time. Patient is on epinephrine drip. (11) Obstructive sleep apnea: Code(s): G47.33 - Obstructive sleep apnea (adult) (pediatric) Status: Chronic Assessment and Plan: Patient is currently intubated (12) Hypothyroidism: Code(s): E03.9 - Hypothyroidism, unspecified Status: Chronic Assessment and Plan: Continue with levothyroxine with half the dose for IV. (13) Seizure: Code(s): R56.9 - Unspecified convulsions Status: Acute Assessment and Plan: Continue with Keppra IV Subjective Date/time seen: 07/30/20 16:11 Pt was seen by me for covid and itp went [facility] with worsening sob and had a cardiac arrest. Pt was intubated here and transferred here for higher level of care. Pt is presently intubated. Intubated in [facility]. Pt had problems with bradycardia yesterday night ICU MD needed to come in as pt needed pacing and art line and central line Review of Systems Review of Systems: All systems reviewed & are unremarkable except as noted in HPI and below Exam Narrative: Exam Narrative: Intubated on ventilator Const: Nutritional Appearance: overweight Orientation/consciousness: oriented to person, oriented to place, oriented
[2020-07-30 16:18] LABS: Glucose Point of Care 147 (65-105)
--- NOTE | 2020-07-30 17:28 | P.CONNP_ITS ---
Assessment and Plan Assessment and plan (1) WILMAR (acute kidney injury): Code(s): N17.9 - Acute kidney failure, unspecified Status: Acute Assessment and Plan: * due to a combination of possible disease progression and COVID-19 * previous renal ultrasound with moderate bilateral hydronephrosis - this playing a role? - will recheck renal ultrasound and if still present, consult Urology * no critical electrolytes but volume status a concern * continues to make good urine output -- consider IV diuretics if necessary * follow trend of repeat labs and UOP (2) Chronic kidney disease, stage IV (severe): Code(s): N18.4 - Chronic kidney disease, stage 4 (severe) Status: Chronic Assessment and Plan: * baseline creatinine presumed to be 3.49mg/dl (January 2020) * likely due to diabetes, hypertension, vascular disease, and age-related change (3) Atrial fibrillation: Code(s): I48.91 - Unspecified atrial fibrillation Status: Acute Assessment and Plan: * Cardiology following * attempt rate control as tolerated (4) Bradycardia: Code(s): R00.1 - Bradycardia, unspecified Status: Acute Assessment and Plan: * medication induced versus due to acute illness(?) * heart rate has been relatively stable * Cardiology monitoring (5) Respiratory failure: Qualifiers: Chronicity: acute on chronic Respiratory failure complication: hypoxia and hypercapnia Qualified Code(s): J96.21 - Acute and chronic respiratory failure with hypoxia; J96.22 - Acute and chronic respiratory failure with hypercapnia Code(s): J96.90 - Respiratory failure, unspecified, unspecified whether with hypoxia or hypercapnia Status: Acute Assessment and Plan: * suspect due to COVID-19 +/- volume overload with possible progression to ARDS * Pulmonary following * continue ventilator support (6) Pneumonia due to COVID-19 virus: Code(s): U07.1 - COVID-19; J12.89 - Other viral pneumonia Status: Acute Assessment and Plan: * on steroids * not a candidate for remdesivir due to CKD * continue supportive therapy (7) Chronic ITP (idiopathic thrombocytopenia): Code(s): D69.3 - Immune thrombocytopenic purpura Status: Acute Assessment and Plan: * platelet count stable * Hem/Onc consulted Will continue to follow. History of Present Illness Reason for Consult Consult date: 07/30/20 Reason for consult: acute renal failure (on chronic kidney disease) Chief Complaint Chief complaint: Covid Pneumonia History of Present Illness Narrative: Most of the information I have obtained is from review of the electronic medical record both on this most recent admission as well as review of his chart from his recent hospitalization here [facility] as the patient is unable to provide me any history at this time due to his current clinical status. The patient is a 69 year old male with an extensive past medical history as noted below who initially presented to the [facility] on 07/27/2020 with increasing shortness of breath associated with cough, congestion, and weakness. He actually presented there the same day he was discharged from [facility] where he was hospitalized for COVID-19 infection and was treated with supportive therapy prior to his discharge. During his hospital stay at [facility], he was started on steroids but he was not a candidate for REM does have ear due to his significant kidney disease. Anticoagulation
--- NOTE | 2020-07-30 17:28 | PM.CNNEP ---
Assessment and Plan Assessment and plan (1) WILMAR (acute kidney injury): Code(s): N17.9 - Acute kidney failure, unspecified Status: Acute Assessment and Plan: due to a combination of possible disease progression and COVID-19 previous renal ultrasound with moderate bilateral hydronephrosis - this playing a role? - will recheck renal ultrasound and if still present, consult Urology no critical electrolytes but volume status a concern continues to make good urine output -- consider IV diuretics if necessary follow trend of repeat labs and UOP (2) Chronic kidney disease, stage IV (severe): Code(s): N18.4 - Chronic kidney disease, stage 4 (severe) Status: Chronic Assessment and Plan: baseline creatinine presumed to be 3.49mg/dl (January 2020) likely due to diabetes, hypertension, vascular disease, and age-related change (3) Atrial fibrillation: Code(s): I48.91 - Unspecified atrial fibrillation Status: Acute Assessment and Plan: Cardiology following attempt rate control as tolerated (4) Bradycardia: Code(s): R00.1 - Bradycardia, unspecified Status: Acute Assessment and Plan: medication induced versus due to acute illness(?) heart rate has been relatively stable Cardiology monitoring (5) Respiratory failure: Qualifiers: Chronicity: acute on chronic Respiratory failure complication: hypoxia and hypercapnia Qualified Code(s): J96.21 - Acute and chronic respiratory failure with hypoxia; J96.22 - Acute and chronic respiratory failure with hypercapnia Code(s): J96.90 - Respiratory failure, unspecified, unspecified whether with hypoxia or hypercapnia Status: Acute Assessment and Plan: suspect due to COVID-19 +/- volume overload with possible progression to ARDS Pulmonary following continue ventilator support (6) Pneumonia due to COVID-19 virus: Code(s): U07.1 - COVID-19; J12.89 - Other viral pneumonia Status: Acute Assessment and Plan: on steroids not a candidate for remdesivir due to CKD continue supportive therapy (7) Chronic ITP (idiopathic thrombocytopenia): Code(s): D69.3 - Immune thrombocytopenic purpura Status: Acute Assessment and Plan: platelet count stable Hem/Onc consulted Will continue to follow. History of Present Illness Reason for Consult Consult date: 07/30/20 Reason for consult: acute renal failure (on chronic kidney disease) Chief Complaint Chief complaint: Covid Pneumonia History of Present Illness Narrative: Most of the information I have obtained is from review of the electronic medical record both on this most recent admission as well as review of his chart from his recent hospitalization here [facility] as the patient is unable to provide me any history at this time due to his current clinical status. The patient is a 69 year old male with an extensive past medical history as noted below who initially presented to the [facility] on 07/27/2020 with increasing shortness of breath associated with cough, congestion, and weakness. He actually presented there the same day he was discharged from [facility] where he was hospitalized for COVID-19 infection and was treated with supportive therapy prior to his discharge. During his hospital stay at [facility], he was started on steroids but he was not a candidate for REM does have ear due to his significant kidney disease. Anticoagulation was not instituted due to his known history of ITP and thrombocytopenia as well. He was also noted to be in AFib with RVR. He was started on a Cardizem drip but this had to be discontinued due to hypotension and significant bradycardia. He was given IV fluids for the hypotension and pacer pads were applied for pacing. He subsequently was given atropine with some improvement his heart rate but
[2020-07-30 20:35] LABS: Glucose Point of Care 90 (65-105)
[2020-07-30 20:35] LABS: Glucose Point of Care 88 (65-105)
[2020-07-30 20:35] LABS: Glucose Point of Care 107 (65-105)
[2020-07-30 21:31] LABS: Glucose Point of Care 135 (65-105)
[2020-07-30] MEDS: FENTANYL 2,500MCG/NS250ML(*CRX 2,500 MCG/250 ML BAG 15 MCG IV CONT (22:50)
[2020-07-30 22:58] LABS: Glucose Point of Care 149 (65-105)
[2020-07-30 23:56] LABS: Glucose Point of Care 136 (65-105)
[2020-07-31] VITALS (31 sets, daily range): BP systolic 125–195; BP diastolic 61–74; PULSE 11–113; RESP 24–33; TEMP 35.6–36.9; O2SAT 96–100; BMI 49.3
[2020-07-31] MEDS: CISATRACURIUM BESYLATE 200 MG in DEXTROSE 5% 80 ML 14.07 ML IV CONT ×2 (01:12→05:47)
[2020-07-31 01:56] LABS: T4 Thyroxine 3.67 ug/dL (5.53-11.0)
[2020-07-31] MEDS: ALBUTEROL SULFATE NEB 2.5 MG/0.5 ML INH INHALATION ×5 (02:24→20:43)
[2020-07-31] MEDS: IPRATROPIUM BR 0.02% INH SOLN 0.5 MG/2.5 ML VIAL INHALATION ×5 (02:24→20:43)
[2020-07-31 03:09] LABS: Glucose Point of Care 188 (65-105)
[2020-07-31 03:09] LABS: Glucose Point of Care 153 (65-105)
[2020-07-31 03:09] LABS: Glucose Point of Care 168 (65-105)
[2020-07-31 04:37] LABS: Glucose Point of Care 211 (65-105)
[2020-07-31] MEDS: CENTRAL LINE FLUSH 10 ML IV PUSH ×2 (04:58→21:48)
[2020-07-31 05:25] LABS: Base Excess ABG -8.1 mEq/l (+/-2.0); Carboxyhemoglobin 0.2 % THb (0-2.0); Fractional Inspired Oxygen 90 %; HCO3 ABG 17.3 mEq/l (22.0-26.0); Methemoglobin ABG 0.2 %THb (0-1.5); Oxygen Content ABG 14.2 %vol (16.0-22.0); Oxygen Saturation ABG 95.4 % (95.0-100.0); Oxyhemoglobin 93.5 % THb (90.0-100.0); PCO2 ABG 34.9 mmHg (35.0-45.0); PO2 ABG 82.9 mmHg (80.0-100.0); PO2 FiO2 Ratio Arterial Blood 0.92 %; Reduced Hemoglobin 6.1 %THb (0-5.0); Total Hemoglobin 10.7 g/dL (12.0-18.0); pH ABG 7.313 (7.350-7.450)
[2020-07-31 05:26] LABS: Device VENTILATOR; Site Drawn ARTLINE
[2020-07-31] MEDS: LEVOTHYROXINE SODIUM INJ 100 MCG/5 ML VIAL 37.5 MCG IV PUSH (05:52)
[2020-07-31 06:16] LABS: Hematocrit 31.8 % (42.0-52.0); Hemoglobin 10.3 g/dL (14.0-18.0); Immature Platelet Fraction Pct 14.8 % (0.9-11.2); Mean Corpuscular HGB Conc 32.4 g/dl (32-36); Mean Corpuscular Hemoglobin 27.8 pg (26-34); Mean Corpuscular Volume 85.7 fl (80-100); Platelet Count Result 63 k/mm3 (150-375); Red Blood Count 3.71 M/mm3 (4.6-6.20); Red Cell Distribution Width 14.4 % (11.5-14.5); White Blood Count 14.6 K/mm3 (4.5-10.0)
[2020-07-31 06:40] LABS: Alanine Aminotransferase 18 U/L (4-50); Albumin Level 2.7 g/dL (3.5-5.1); Alkaline Phosphatase 75 U/L (38-126); Anion Gap 11 mmol/L (8-16); Aspartate Amino Transferase 20 U/L (17-59); Bilirubin,Total 0.9 mg/dL (0.2-1.3); Blood Urea Nitrogen 105 mg/dL (9-20); Calcium 8.7 mg/dL (8.4-10.2); Carbon Dioxide 20 mmol/L (22-30); Chloride 110 mmol/L (98-107); Estimated CRCL calculation 18 ml/min; Estimated Glomerular Filt Rate 11; Glucose 206 mg/dL (75-110); Magnesium 1.9 mg/dL (1.6-2.3); Phosphorus 6.3 mg/dL (2.5-4.5); Sodium 141 mmol/L (137-145)
[2020-07-31 06:57] LABS: Glucose Point of Care 190 (65-105)
[2020-07-31 06:58] LABS: Glucose Point of Care 183 (65-105)
[2020-07-31 07:20] LABS: Free T4 Free Thyroxine 1.53 ng/mL (0.78-2.19)
[2020-07-31] MEDS: levETIRAcetam 1000MG/NACL100ML 1,000 MG/100 ML BAG 400 MG IVPB ×2 (08:04→21:47)
[2020-07-31] MEDS: DEXAMETHASONE SOD PHOS INJ 4 MG/ML VIAL 6 MG IV PUSH (08:04)
[2020-07-31] MEDS: INSULIN HUMAN REGULAR (*BKC) 100 UNITS in SODIUM CHLORIDE 0.9% IV 99 ML 9.6 UNITS IV CONT (08:05)
[2020-07-31 08:09] LABS: Glucose Point of Care 160 (65-105)
--- NOTE | 2020-07-31 10:09 | PCDIET ---
Nutrition Follow-Up Complete: Inadequate oral intake related to inability to consume foods orally as evidence by day two NPO and mechanical ventilation Total intake will meet estimated nutrition needs Goal: Pt current nutrition is NPO Nutrition recommendation: Vital HP at 10ml/hr, advancing 10ml q 4hrs to goal of 40ml/hr day one Last recorded weight is 156 kg. Additional Notes: Pt needs due to morbid obesity: 2184kcals (14kcals/kg actual body weight) and 188g protein (2.5g/kg ideal body weight). Due to current renal labs, recommend protein intake at .6g/kg body weight, unless dialysis starts. Recommend starting with Vital HP at 10ml/hr and advancing 10ml q 4hrs, in the next 24 hrs, to goal of 40ml/hr to provide 880 kcals and 77g,735ml of free water, over 22hrs, which will still be under .6g/kg protein per body weight. If pt tolerates, we will assess renal labs and dialysis plans for increasing to potential goal of Vital HP at 85ml/hr to provide 1870kcals, 163g protein, and 1563ml of free water over 22hrs. Following for enteral nutrition, labs, skin, I/O, BMs, meds daily in ICU rounds with reassessment every three days
[2020-07-31 10:13] LABS: Glucose Point of Care 157 (65-105)
[2020-07-31 12:00] LABS: Glucose Point of Care 156 (65-105)
--- NOTE | 2020-07-31 12:18 | PM.PNCARD ---
Progress Note: A&P Assessment and Plan (1) Bradycardia: Code(s): R00.1 - Bradycardia, unspecified Status: Acute Assessment and Plan: Stable. Received calcium gluconate and bicarb. Avoid AV an SA gordon agents. Right now his heart rate is reasonable. No carvedilol or diltiazem to be given. (2) Atrial fibrillation: Code(s): I48.91 - Unspecified atrial fibrillation Status: Acute Assessment and Plan: Rate is stable. Anticoagulate if okay with Hematology (3) 2019 novel coronavirus–infected pneumonia (NCIP)#8211;infected pneumonia (NCIP): Code(s): U07.1 - COVID-19; J12.89 - Other viral pneumonia Status: Acute Assessment and Plan: Per tint layer (4) Chronic ITP (idiopathic thrombocytopenia): Code(s): D69.3 - Immune thrombocytopenic purpura Status: Acute Assessment and Plan: Hematology is consulted (5) Essential (primary) hypertension: Code(s): I10 - Essential (primary) hypertension Status: Acute Assessment and Plan: No carvedilol. Subjective Date/time seen: 07/31/20 12:18 Interval history: 69-year-old admitted for respiratory distress, COVID pneumonia, atrial fibrillation with bradycardia Date of service 07/31/2020: Still intubated. Sedated. Atrial fibrillation is stable Review of Systems Review of Systems: ROS unobtainable: Yes unobtainable due to endotracheal tube and unobtainable due to medical condition ENT: Denies epistaxis Exam Narrative: Exam Narrative: Currently intubated and sedated Const: General: uncomfortable HENMT: General nose exam: Normal nares present Chest: Other: No chest wall deformities Cardio: Rhythm: abnormal rhythm irregularly irregular GI: Other: Obese Urinary Catheter: Urinary Catheter: patent and draining Extrem: General: edema (Mild lower extremity bilateral edema) Psych: Other: Currently sedated Objective Data Vital Signs Vital Signs: Vital Signs - 24 hr 07/30/20 14:00 07/30/20 14:01 07/30/20 15:05 Temperature Pulse Rate 66 61 63 Respiratory Rate 32 H Blood Pressure 145/52 H 132/54 L Pulse Oximetry 98 98 07/30/20 15:06 07/30/20 16:00 07/30/20 17:34 Temperature 36.0 C L Pulse Rate 63 71 72 Respiratory Rate 32 H 32 H Blood Pressure 131/59 L Pulse Oximetry 97 98 07/30/20 19:59 07/30/20 20:00 07/30/20 20:25 Temperature 36.3 C L Pulse Rate 76 86 80 Respiratory Rate 32 H 32 H Blood Pressure 146/67 H 155/71 H Pulse Oximetry 97 99 07/30/20 20:28 07/30/20 21:39 07/30/20 22:50 Temperature 36.3 C L Pulse Rate 80 81 81 Respiratory Rate 32 H 32 H 32 H Blood Pressure 146/66 H Pulse Oximetry 97 07/30/20 23:06 07/30/20 23:29 07/30/20 23:35 Temperature 36.1 C L Pulse Rate 81 77 82 Respiratory Rate 32 H 32 H Blood Pressure 149/64 H Pulse Oximetry 97 98 98 07/31/20 00:00 07/31/20 01:12 07/31/20 02:00 Temperature Pulse Rate 76 85 Respiratory Rate 32 H Blood Pressure 152/64 H 154/69 H Pulse Oximetry 98 07/31/20 02:24 07/31/20 02:25 07/31/20 03:52 Temperature Pulse Rate 88 84 81 Respiratory Rate 32 H 32 H Blood Pressure Pulse Oximetry 97 98 07/31/20 04:00 07/31/20 05:06 07/31/20 05:10 Temperature 36.3 C L Pulse Rate 82 90 86 Respiratory Rate 32 H 32 H Blood Pressure 152/64 H Pulse Oximetry 98 98 07/31/20 05:47 07/31/20 05:53 07/31/20 08:00 Temperature 36.6 C Pulse Rate 88 85 80 Respiratory Rate 32 H 32 H Blood Pressure 151/68 H 146/68 H 160/71 H Pulse Oximetry 98 99 07/31/20 08:05 07/31/20 08:15 07/31/20 08:25 Temperature Pulse Rate 83 88 85 Respiratory Rate 32 H 32 H Blood Pressure 161/74 H Pulse Oximetry 98 07/31/20 10:00 Temperature Pulse Rate 82 Respiratory Rate 32 H Blood Pressure 156/71 H Pulse Oximetry 99 Intake/Output Intake/Output: Intake & Output 07/28/20 07/29/20 07/30/20 07/31/20 23:59 23:59 23:59 23:59 Intake
--- NOTE | 2020-07-31 12:33 | WPDINTPN ---
Progress Note: A&P Assessment and Plan (1) Respiratory failure: Qualifiers: Chronicity: acute on chronic Respiratory failure complication: hypoxia and hypercapnia Qualified Code(s): J96.21 - Acute and chronic respiratory failure with hypoxia; J96.22 - Acute and chronic respiratory failure with hypercapnia Code(s): J96.90 - Respiratory failure, unspecified, unspecified whether with hypoxia or hypercapnia Status: Acute Assessment and Plan: Acute hypoxic respiratory to volume overload, COVID-19 pneumonia -Chest x-ray shows extensive edema and/or pneumonia. -patient is on CMV mode of ventilation, low tidal volume strategy due to ARDS physiology, peep of 16, tidal volume of 430, rate of 32, 70 FiO2. -permissive hypercapnia. Continue to monitor ABG and chest x-ray. -wean PEEP and FiO2 if tolerated. He is currently paralyzed with Nimbex which has been started 07/30 for severe hypoxia with maximum support from ventilator with 100% FiO2 and 16 of PEEP. If later today his oxygenation is getting better later today than he will be weaned off from Nimbex. - Continue bronchodilators - Currently sedated with fentanyl and Versed. Keep RASS of -1. Daily sedation vacation trial. Doppler ultrasound of the lower extremity will be ordered to rule out DVT. (2) Atrial fibrillation: Code(s): I48.91 - Unspecified atrial fibrillation Status: Acute Assessment and Plan: Patient with AFib RVR at the outside hospital requiring Cardizem infusion which was then converted to p.o. Cardizem and Coreg. Developed bradycardia and hypotension. Now both has been discontinued. -He was given calcium gluconate along with glucagon at the time of presentation. Cardiology is following. AV gordon kaz will be on hold. Epinephrine has been discontinued. Can discontinue pacer pads. -continue to monitor closely (3) Bradycardia: Code(s): R00.1 - Bradycardia, unspecified Status: Acute Assessment and Plan: Patient with bradycardia, requiring atropine, dopamine, epinephrine and started being paced with external pacer pads -this could be related to multiple causes, Cardizem, Coreg, COVID-19 induced cardiomyopathy or myocarditis -cardiology service recommendations appreciated. -now off epinephrine and pacing and his heart rate in his 60s and 70s. Pacer Garcia's can be discontinued. Echocardiogram has been ordered. (4) Diabetes: Code(s): E11.9 - Type 2 diabetes mellitus without complications Status: Chronic Assessment and Plan: Hyperglycemia likely related to steroids, acute critical care illness - Insulin drip today and transition him to basal bolus insulin. Continue to check fingerstick sugars every 6 hours and insulin sliding scale. (5) Chronic ITP (idiopathic thrombocytopenia): Code(s): D69.3 - Immune thrombocytopenic purpura Status: Acute Assessment and Plan: Patient with history of ITP, has been seen by Dr. Rodriguez, patient has received platelets recently, he also receives IVIG treatment -continue to monitor platelet count. Hematology service is aware. May need anticoagulation for atrial fibrillation if it is okay with Hematology Service considering his ITP and down trending platelet counts. (6) 2019 novel coronavirus–infected pneumonia (NCIP)#8211;infected pneumonia (NCIP): Code(s): U07.1 - COVID-19; J12.89 - Other viral pneumonia Status: Acute Assessment and Plan: SARS-CoV-2 PCR positive on 07/22/2020 -continue dexamethasone, initiated on 07/28/2020 -patient not a candidate for Remdesivir due to acute on chronic renal failure -continue droplet, airborne, contact isolation/precautions -will monitor inflammatory markers (7) Erythropoietin deficiency anemia: Code(s): D63.1 - Anemia in chronic kidney disease Status: Acute Assessment and Plan: Hemoglobin is stable, will continue to monitor (8) Acute on chronic kidney failure:
--- NOTE | 2020-07-31 14:32 | P.PNNP_ITS ---
Progress Note: A&P Assessment and Plan (1) WILMAR (acute kidney injury): Code(s): N17.9 - Acute kidney failure, unspecified Status: Acute Assessment and Plan: * due to a combination of possible disease progression and COVID-19 * previous renal ultrasound with moderate bilateral hydronephrosis - this playing a role? - recheck renal ultrasound and if still present, consult Urology * no critical electrolytes but volume status a concern * however, continues to make good urine output -- consider IV diuretics if necessary * follow trend of repeat labs and UOP (2) Chronic kidney disease, stage IV (severe): Code(s): N18.4 - Chronic kidney disease, stage 4 (severe) Status: Chronic Assessment and Plan: * baseline creatinine presumed to be 3.49mg/dl (January 2020) * likely due to diabetes, hypertension, vascular disease, and age-related change (3) Atrial fibrillation: Code(s): I48.91 - Unspecified atrial fibrillation Status: Acute Assessment and Plan: * Cardiology following * attempt rate control as tolerated (4) Bradycardia: Code(s): R00.1 - Bradycardia, unspecified Status: Acute Assessment and Plan: * medication induced versus due to acute illness(?) * heart rate has been relatively stable * Cardiology monitoring (5) Respiratory failure: Qualifiers: Chronicity: acute on chronic Respiratory failure complication: hypoxia and hypercapnia Qualified Code(s): J96.21 - Acute and chronic respiratory failure with hypoxia; J96.22 - Acute and chronic respiratory failure with hypercapnia Code(s): J96.90 - Respiratory failure, unspecified, unspecified whether with hypoxia or hypercapnia Status: Acute Assessment and Plan: * suspect due to COVID-19 +/- volume overload with possible progression to ARDS * Pulmonary following * continue ventilator support (6) Pneumonia due to COVID-19 virus: Code(s): U07.1 - COVID-19; J12.89 - Other viral pneumonia Status: Acute Assessment and Plan: * on steroids * not a candidate for remdesivir due to CKD * continue supportive therapy (7) Chronic ITP (idiopathic thrombocytopenia): Code(s): D69.3 - Immune thrombocytopenic purpura Status: Acute Assessment and Plan: * platelet count stable * Hem/Onc consulted Will continue to follow. Subjective Date/time seen: 07/31/20 14:32 Remains intubated/sedated/paralyzed at the time of my visit; stable hemodynamics (if not a bit hypertensive today); continues to make reasonable urine output with relative stability in renal function; weaning FiO2 as tolerated; no apparent distress noted. Exam Narrative: Exam Narrative: General: Elderly male intubated/sedated Heart: IRRRnormal S1 and S2; no rub Lungs: coarse throughout with crackles/rhonchi noted Abdomen: soft, nontender, nondistended, positive bowel sounds Extremities: no cyanosis or clubbing; 1+ edema Skin: warm and dry Objective Data Vital Signs Vital Signs: Vital Signs Temp Pulse Resp BP Pulse Ox 07/31/20 13:51 82 32 H 157/71 H 98 07/31/20 12:00 36.3 C L 95 32 H 161/70 H 98 07/31/20 10:00 82 32 H 156/71 H 99 07/31/20 08:25 85 32 H 07/31/20 08:15 88 32 H 98 07/31/20 08:05 83 161/74 H 07/31/20 08:00 36.6 C 80 32 H 160/71 H 99 07/31/20 05:53 85 32 H 146/68 H 98
--- NOTE | 2020-07-31 14:32 | PM.PNNEP ---
Progress Note: A&P Assessment and Plan (1) WILMAR (acute kidney injury): Code(s): N17.9 - Acute kidney failure, unspecified Status: Acute Assessment and Plan: due to a combination of possible disease progression and COVID-19 previous renal ultrasound with moderate bilateral hydronephrosis - this playing a role? - recheck renal ultrasound and if still present, consult Urology no critical electrolytes but volume status a concern however, continues to make good urine output -- consider IV diuretics if necessary follow trend of repeat labs and UOP (2) Chronic kidney disease, stage IV (severe): Code(s): N18.4 - Chronic kidney disease, stage 4 (severe) Status: Chronic Assessment and Plan: baseline creatinine presumed to be 3.49mg/dl (January 2020) likely due to diabetes, hypertension, vascular disease, and age-related change (3) Atrial fibrillation: Code(s): I48.91 - Unspecified atrial fibrillation Status: Acute Assessment and Plan: Cardiology following attempt rate control as tolerated (4) Bradycardia: Code(s): R00.1 - Bradycardia, unspecified Status: Acute Assessment and Plan: medication induced versus due to acute illness(?) heart rate has been relatively stable Cardiology monitoring (5) Respiratory failure: Qualifiers: Chronicity: acute on chronic Respiratory failure complication: hypoxia and hypercapnia Qualified Code(s): J96.21 - Acute and chronic respiratory failure with hypoxia; J96.22 - Acute and chronic respiratory failure with hypercapnia Code(s): J96.90 - Respiratory failure, unspecified, unspecified whether with hypoxia or hypercapnia Status: Acute Assessment and Plan: suspect due to COVID-19 +/- volume overload with possible progression to ARDS Pulmonary following continue ventilator support (6) Pneumonia due to COVID-19 virus: Code(s): U07.1 - COVID-19; J12.89 - Other viral pneumonia Status: Acute Assessment and Plan: on steroids not a candidate for remdesivir due to CKD continue supportive therapy (7) Chronic ITP (idiopathic thrombocytopenia): Code(s): D69.3 - Immune thrombocytopenic purpura Status: Acute Assessment and Plan: platelet count stable Hem/Onc consulted Will continue to follow. Subjective Date/time seen: 07/31/20 14:32 Remains intubated/sedated/paralyzed at the time of my visit; stable hemodynamics (if not a bit hypertensive today); continues to make reasonable urine output with relative stability in renal function; weaning FiO2 as tolerated; no apparent distress noted. Exam Narrative: Exam Narrative: General: Elderly male intubated/sedated Heart: IRRRnormal S1 and S2; no rub Lungs: coarse throughout with crackles/rhonchi noted Abdomen: soft, nontender, nondistended, positive bowel sounds Extremities: no cyanosis or clubbing; 1+ edema Skin: warm and dry Objective Data Vital Signs Vital Signs: Vital Signs Temp Pulse Resp BP Pulse Ox 07/31/20 13:51 82 32 H 157/71 H 98 07/31/20 12:00 36.3 C L 95 32 H 161/70 H 98 07/31/20 10:00 82 32 H 156/71 H 99 07/31/20 08:25 85 32 H 07/31/20 08:15 88 32 H 98 07/31/20 08:05 83 161/74 H 07/31/20 08:00 36.6 C 80 32 H 160/71 H 99 07/31/20 05:53 85 32 H 146/68 H 98 07/31/20 05:47 88 151/68 H 07/31/20 05:10 86 98 07/31/20 05:06 90 32 H 07/31/20 04:00 36.3 C L 82 32 H 152/64 H 98 07/31/20 03:52 81 32 H 98 07/31/20 02:25 84 97 07/31/20 02:24 88 32 H 07/31/20 02:00 85 32 H 154/69 H 98 07/31/20 01:12 152/64 H 07/31/20 00:00 76 07/30/20 23:35 36.1 C L 82 32 H 149/64 H 98 07/30/20 23:29 77 32 H 98 07/30/20 23:06 81 97 07/30/20 22:50 81 32 H 07/30/20 21:39 36.3 C L 81 32 H 146/66 H 97 07/30/20 20:28 80 32 H 07/30/20 20:25 8
[2020-07-31] MEDS: FENTANYL 2,500MCG/NS250ML(*CRX 2,500 MCG/250 ML BAG 15 MCG IV CONT (15:07)
[2020-07-31] MEDS: INSULIN GLARGINE (*BKC) 100 UNITS/ML 20 UNITS SUB-Q (15:07)
--- NOTE | 2020-07-31 15:08 | PM.IMPN ---
Progress Note: A&P Assessment and Plan (1) Respiratory failure: Qualifiers: Chronicity: acute on chronic Respiratory failure complication: hypoxia and hypercapnia Qualified Code(s): J96.21 - Acute and chronic respiratory failure with hypoxia; J96.22 - Acute and chronic respiratory failure with hypercapnia Code(s): J96.90 - Respiratory failure, unspecified, unspecified whether with hypoxia or hypercapnia Status: Acute Assessment and Plan: The patient was intubated at [facility]. Vent settings per day porter. 07/31/20 15:08 patient is 69-year-old male patient was initially diagnosed with COVID-19 on 07/22/20 and was admitted to the inpatient hospital his symptom had improved and he was transferred to [facility], patient is morbidly obese with history of chronic kidney disease, ITP, atrial fibrillation, CVA, and history of seizure, while at the [facility] patient symptom worsen he was quite hypoxic was intubated and transferred to ICU at [facility] via helicopter, currently patient is intubated, he is being treated with dexamethasone / cannot receive Remdesivir because patient has a stage 4 chronic kidney disease, upon arrival patient was hypotensive and bradycardic started on epinephrine infusion is now off epinephrine blood pressure and rate is stable, patient is seen by day porter and Nephrology and appreciate continue to monitor (2) Exposure to COVID-19 virus: Code(s): Z20.828 - Contact with and (suspected) exposure to other viral communicable diseases Status: Acute Assessment and Plan: Patient is now intubated. Continue with Decadron. (3) Thrombocytopenia: Code(s): D69.6 - Thrombocytopenia, unspecified Status: Acute Assessment and Plan: Hematology as this is the chronic condition. (4) Acute on chronic kidney failure: Qualifiers: Acute renal failure type: unspecified Chronic kidney disease stage: unspecified stage Qualified Code(s): N17.9 - Acute kidney failure, unspecified; N18.9 - Chronic kidney disease, unspecified Code(s): N17.9 - Acute kidney failure, unspecified; N18.9 - Chronic kidney disease, unspecified Status: Acute Assessment and Plan: Patient has worsening chronic kidney disease, nephrology on board (5) Pneumonia due to COVID-19 virus: Code(s): U07.1 - COVID-19; J12.89 - Other viral pneumonia Status: Acute Assessment and Plan: See above. (6) Atrial fibrillation: Code(s): I48.91 - Unspecified atrial fibrillation Status: Acute Assessment and Plan: Patient has atrial fib and with the slow ventricular response. Patient is externally paced. Cardiology has been consulted and has given recommendations. (7) Diabetes: Code(s): E11.9 - Type 2 diabetes mellitus without complications Status: Chronic Assessment and Plan: The patient is placed on insulin drip and Accu-Cheks are every 1 hour. (8) Type 2 diabetes mellitus without complications: Code(s): E11.9 - Type 2 diabetes mellitus without complications Status: Acute (9) Elevated troponin: Code(s): R77.8 - Other specified abnormalities of plasma proteins Status: Acute Assessment and Plan: Patient's values are different at [place] and it looks like his troponins have gone back down to normal. Will repeat troponins here. (10) Bradycardia: Code(s): R00.1 - Bradycardia, unspecified Status: Acute Assessment and Plan: PT externally paced and is getting calcium gluconate at this time. Patient is on epinephrine drip. (11) Obstructive sleep apnea: Code(s): G47.33 - Obstructive sleep apnea (adult) (pediatric) Status: Chronic Assessment and Plan: Patient is currently intubated (12) Hypothyroidism: Code(s): E03.9 - Hypothyroidism, unspecified Status: Chronic Assessment and Plan: Hannah
[2020-07-31 17:00] LABS: Glucose Point of Care 173 (65-105)
[2020-07-31 17:00] LABS: Glucose Point of Care 158 (65-105)
[2020-07-31 17:32] LABS: Glucose Point of Care 216 (65-105)
[2020-07-31 17:57] LABS: Glucose Point of Care 241 (65-105)
[2020-07-31] MEDS: INSULIN ASPART (*BKC) 100 UNITS/ML SUB-Q ×2 (18:20→23:50)
[2020-08-01] VITALS (38 sets, daily range): BP systolic 150–176; BP diastolic 61–81; PULSE 80–135; RESP 32–35; TEMP 36–37.3; O2SAT 91–100
[2020-08-01 00:16] LABS: Glucose Point of Care 279 (65-105)
[2020-08-01] MEDS: IPRATROPIUM BR 0.02% INH SOLN 0.5 MG/2.5 ML VIAL INHALATION ×4 (02:58→19:34)
[2020-08-01] MEDS: ALBUTEROL SULFATE NEB 2.5 MG/0.5 ML INH INHALATION ×4 (02:58→19:34)
[2020-08-01 04:38] LABS: Alveolar/Arterial O2 Gradient 258.4 mmHg; Base Excess ABG -4.7 mEq/l (+/-2.0); Carboxyhemoglobin 0.3 % THb (0-2.0); Fractional Inspired Oxygen 55 %; Methemoglobin ABG 0.2 %THb (0-1.5); Oxygen Saturation ABG 96.2 % (95.0-100.0); Oxyhemoglobin 94.4 % THb (90.0-100.0); PCO2 ABG 40.8 mmHg (35.0-45.0); PO2 ABG 88.4 mmHg (80.0-100.0); PO2 FiO2 Ratio Arterial Blood 1.61 %; Reduced Hemoglobin 5.1 %THb (0-5.0); Total Hemoglobin 13.5 g/dL (12.0-18.0); pH ABG 7.329 (7.350-7.450)
[2020-08-01 04:39] LABS: Arterial Blood Gas PEEP 16 cmH2O; Arterial Blood Gas Tidal Volume 430 ml; Arterial Blood Gas Vent Mode ASSIST CONTROL; Arterial Blood Gas Ventilator rate 32 /MIN; Device VENTILATOR; Modified Allen's Test Unable to perform; Site Drawn ARTLINE
[2020-08-01 05:23] LABS: Hematocrit 32.5 % (42.0-52.0); Hemoglobin 10.6 g/dL (14.0-18.0); Immature Platelet Fraction Pct 9.4 % (0.9-11.2); Mean Corpuscular HGB Conc 32.6 g/dl (32-36); Mean Platelet Volume 13.1 fl (7.4-10.4); Platelet Count Result 79 k/mm3 (150-375); Red Blood Count 3.78 M/mm3 (4.6-6.20); Red Cell Distribution Width 14.6 % (11.5-14.5); White Blood Count 12.8 K/mm3 (4.5-10.0)
[2020-08-01 05:33] LABS: Alanine Aminotransferase 17 U/L (4-50); Albumin Level 2.8 g/dL (3.5-5.1); Alkaline Phosphatase 78 U/L (38-126); Anion Gap 8 mmol/L (8-16); Aspartate Amino Transferase 20 U/L (17-59); Bilirubin,Total 0.8 mg/dL (0.2-1.3); Blood Urea Nitrogen 110 mg/dL (9-20); Calcium 8.8 mg/dL (8.4-10.2); Carbon Dioxide 23 mmol/L (22-30); Chloride 113 mmol/L (98-107); Estimated CRCL calculation 21 ml/min; Estimated Glomerular Filt Rate 11; Glucose 286 mg/dL (75-110); Magnesium 2.1 mg/dL (1.6-2.3); Phosphorus 5.5 mg/dL (2.5-4.5); Potassium 4.5 mmol/L (3.4-5.0); Sodium 144 mmol/L (137-145)
[2020-08-01] MEDS: INSULIN ASPART (*BKC) 100 UNITS/ML SUB-Q ×4 (06:12→23:53)
[2020-08-01] MEDS: LEVOTHYROXINE SODIUM INJ 100 MCG/5 ML VIAL 37.5 MCG IV PUSH (06:12)
[2020-08-01] MEDS: INSULIN GLARGINE (*BKC) 100 UNITS/ML 20 UNITS SUB-Q (06:12)
[2020-08-01] MEDS: CENTRAL LINE FLUSH 10 ML IV PUSH ×7 (06:13→22:29)
[2020-08-01] MEDS: hydrALAZINE HCL 20 MG/ML VIAL 10 MG IV PUSH ×3 (06:21→20:56)
[2020-08-01] MEDS: FENTANYL 2,500MCG/NS250ML(*CRX 2,500 MCG/250 ML BAG 12.5 MCG IV CONT (06:22)
[2020-08-01] MEDS: DEXAMETHASONE SOD PHOS INJ 4 MG/ML VIAL 6 MG IV PUSH (08:52)
[2020-08-01] MEDS: levETIRAcetam 1000MG/NACL100ML 1,000 MG/100 ML BAG 400 MG IVPB ×2 (08:55→22:18)
[2020-08-01] MEDS: CLINDAMYCIN 900 MG/D5W 50 ML 900 MG/50 ML PIGGYBACK 50 MG IVPB (10:41)
--- NOTE | 2020-08-01 11:04 | PDONCCN ---
HPI - Date of Consult Date/Time: 08/01/20 11:04 Requesting Physician: Lissett Plaomino MD Primary Care Provider: UNKNOWN,DOCTOR - Consult Narrative Reason for consult: Chronic recurrent ITP Narrative: Marcelino Quinonez is a 69 year old male with history of chronic ITP and was treated with a steroid and IV IgG during the last hospital stay with improvement in platelet count and was subsequently discharged home. Patient also has a history of atrial fibrillation calmer hypertension and diabetes. Patient was transferred from [facility] this time with increasing shortness of breath and chest x-ray showed pneumonia. He found to be hypotensive as well He was tested positive for COVID-19 infection. Patient was not a candidate for M-severe. He is currently intubated. Patient was started on steroid. His platelet count was [id number] and he is not having any evidence of bleeding. Review of Systems - Review of Systems All systems reviewed & are unremarkable except as noted in HPI and bel - Neurologic Reports system reviewed and no additional complaints, except as documented, Reports hearing normal, Reports weakness [facility] Medical History: Medical History (Last Reviewed 07/30/20 @ 11:38 by Mario Alberto Álvarez MD) Anxiety Atrial fibrillation Atrial fibrillation CVA (cerebral vascular accident) Depression Diabetes Erythropoietin deficiency anemia Essential (primary) hypertension Exposure to COVID-19 virus History of ITP Hypertension Hypothyroidism Obstructive sleep apnea Seizure Type 2 diabetes mellitus without complications Surgical History: Surgical History (Last Reviewed 07/30/20 @ 11:38 by Mario Alberto Álvarez MD) History of appendectomy Family History: Family History (Last Reviewed 07/30/20 @ 11:38 by Mario Alberto Álvarez MD) Father Colon cancer Mother Breast cancer Sibling Acute myocardial infarction Colon cancer - Social History Social History: Social History (Last Reviewed 07/30/20 @ 11:38 by Mario Alberto Álvarez MD) Gender Identity: Gender identity (if verbalized by the patient): Male Alcohol Use: Alcohol intake: unknown Drinks per week: 15 Substance Use: Substance use: never Others: Spiritual care concerns: No Smoking Status: Smoking status: Former smoker Tobacco type: cigarettes Tobacco type: cigars Smoking Pack-years: Smoking packs per day: 1 Smoking cigarettes per day: 20.0 Years smoked: 13 Smoking pack-years: 13.00 Meds Home Medications Medication Instructions Recorded Confirmed Type Lactobacillus acidophilus 1,000 mmu cells PO DAILY 07/23/20 07/30/20 History Lantus U-100 Insulin 50 unit SUBCUT BID 07/23/20 07/30/20 History atorvastatin [Lipitor] 40 mg PO DAILY 07/23/20 07/30/20 History bumetanide 1 mg PO DAILY 07/23/20 07/30/20 History carvedilol [Coreg] 12.5 mg PO BID 07/23/20 07/30/20 History gabapentin 800 mg PO TID 07/23/20 07/30/20 History hydralazine 50 mg PO TID 07/23/20 07/30/20 History insulin aspart U-100 See Protocol SUBCUT TIDWM 07/23/20 07/30/20 History isosorbide mononitrate 30 mg PO DAILY 07/23/20 07/30/20 History levetiracetam [Keppra] 1,000 mg PO BID 07/23/20 07/30/20 History levothyroxine [Synthroid] 75 mcg PO DAILY 07/23/20 07/30/20 History loperamide 2 mg PO Q4H PRN 07/23/20 07/30/20 History albuterol sulfate [Proventil HFA] 4 puff INHALATION Q6HRT PRN #1 inh 07/27/20 07/30/20 Rx benzonatate 100 mg PO TID #30 cap 07/27/20 07/30/20 Rx methylprednisolone [Methylpred DP] See Rx Instructions .ROUTE 07/27/20 07/30/20 Rx .COMPLEX #21 ea Allergies Allergy/AdvReac Type Severity Reaction Status Date / Time meropenem Allergy Hives Verified 07/27/20 21:21 vancomycin Allergy Hives Verified 07/27/20 21:21 Heparin Analogues AdvReac Unknown Verified 07/27/20 21:21 Results - Labs CBC & Chem 7: 08/01/20 04:22 08/01/20 04:22 Labs: Short CBC 08/01/20 Range/Units 04:22 W
--- NOTE | 2020-08-01 11:56 | PCFNICU ---
ICU Rounding Note: Pt current nutrition is Glucerna 12 at 10 ml/hr. Nutrition recommendation: increase by 10 ml/hr q 4 hours to goal rate of 75 ml/hr Last recorded weight is 195.4 kg. Bowel Motility:No BM reported. Labs Reviewed:Cr 5.2, BUN 110,Alb 2.8, Glu 286 Meds Noted:NovoLog, Fentanyl, Versed, Synthroid,Keppra. Additional Notes: Mechanical vent. Patient to start on tube feedings of Glucerna 1.2 at 10 ml/hr. Chest x-ray better today. Following daily in ICU rounds. Assessing/reassessing every Saturday and Saturday.
[2020-08-01] MEDS: LIDOCAINE HCL 1% LOCAL INJ 2 ML AMPUL 5 ML INFILTRATE (12:02)
--- NOTE | 2020-08-01 12:14 | WPDINTPN ---
Progress Note: A&P Assessment and Plan (1) Respiratory failure: Qualifiers: Chronicity: acute on chronic Respiratory failure complication: hypoxia and hypercapnia Qualified Code(s): J96.21 - Acute and chronic respiratory failure with hypoxia; J96.22 - Acute and chronic respiratory failure with hypercapnia Code(s): J96.90 - Respiratory failure, unspecified, unspecified whether with hypoxia or hypercapnia Status: Acute Assessment and Plan: Acute hypoxic respiratory to volume overload, COVID-19 pneumonia -Chest x-ray shows Diffuse lung disease with interval improvement in the upper lung zones, consistent with pneumonia and/or pulmonary edema and/or acute respiratory distress syndrome (ARDS). -patient is on CMV mode of ventilation, low tidal volume strategy due to ARDS physiology, decrease PEEP to 14, wean FiO2 as tolerated -allow permissive hypercapnia. Continue to monitor ABG and chest x-ray. -patient on fentanyl and Versed for sedation, off Nimbex. - Continue bronchodilators -venous Dopplers 07/31: Negative for DVT bilateral (2) Atrial fibrillation: Code(s): I48.91 - Unspecified atrial fibrillation Status: Acute Assessment and Plan: Patient with AFib RVR at the outside hospital requiring Cardizem infusion which was then converted to p.o. Cardizem and Coreg. Developed bradycardia and hypotension. Now both has been discontinued. -He was given calcium gluconate along with glucagon at the time of presentation. Cardiology is following. AV gordon kaz will be on hold. Epinephrine has been discontinued. Can discontinue pacer pads. -continue to monitor closely -currently in AFib, rate controlled (3) Bradycardia: Code(s): R00.1 - Bradycardia, unspecified Status: Acute Assessment and Plan: RESOLVED Patient with bradycardia, requiring atropine, dopamine, epinephrine and started being paced with external pacer pads -this could be related to multiple causes, Cardizem, Coreg, COVID-19 induced cardiomyopathy or myocarditis -cardiology service recommendations appreciated. -now off epinephrine and pacing and his heart rate in his 60s and 70s. Pacer Garcia's can be discontinued. Echocardiogram 07/30: EF 60-65%, mild pulmonary hypertension with RVSP of 39 mmHg (4) Diabetes: Code(s): E11.9 - Type 2 diabetes mellitus without complications Status: Chronic Assessment and Plan: Hyperglycemia likely related to steroids, acute critical care illness -continue Lantus. Continue to check fingerstick sugars every 6 hours and insulin sliding scale. (5) Chronic ITP (idiopathic thrombocytopenia): Code(s): D69.3 - Immune thrombocytopenic purpura Status: Acute Assessment and Plan: Patient with history of ITP, has been seen by Dr. Rodriguez, patient has received platelets recently, he also receives IVIG treatment -continue to monitor platelet count. Hematology service is aware. May need anticoagulation for atrial fibrillation if it is okay with Hematology Service considering his ITP and down trending platelet counts. (6) 2019 novel coronavirus–infected pneumonia (NCIP)#[id number];infected pneumonia (NCIP): Code(s): U07.1 - COVID-19; J12.89 - Other viral pneumonia Status: Acute Assessment and Plan: SARS-CoV-2 PCR positive on 07/22/2020 -continue dexamethasone, initiated on 07/28/2020 -patient not a candidate for Remdesivir due to acute on chronic renal failure -continue droplet, airborne, contact isolation/precautions -will monitor inflammatory markers (7) Erythropoietin deficiency anemia: Code(s): D63.1 - Anemia in chronic kidney disease Status: Acute Assessment and Plan: Hemoglobin is stable, will continue to monitor (8) Acute on chronic kidney failure: Qualifiers: Acute renal failure type: unspecified Chronic kidney disease stage: unspecified stage Qualified Code(s): N17.9 - Acute kidney failure, unspeci
--- NOTE | 2020-08-01 12:19 | PM.PNPUL ---
Progress Note: A&P Assessment and Plan (1) Respiratory failure: Qualifiers: Chronicity: acute on chronic Respiratory failure complication: hypoxia and hypercapnia Qualified Code(s): J96.21 - Acute and chronic respiratory failure with hypoxia; J96.22 - Acute and chronic respiratory failure with hypercapnia Code(s): J96.90 - Respiratory failure, unspecified, unspecified whether with hypoxia or hypercapnia Status: Acute Assessment and Plan: He has improvement in his respiratory failure, fiO2 is now lower at 55%, prior to the procedure, PEEP is lower at 14 cm. Has a new JACC catheter. He is receiving maximum supportive care for his multisystem failure. I agree with the current ventilator strategy. His pO2 is now improved, and FiO2 may be able to be weaned slowly. Prognosis is poor. (2) Pneumonia due to COVID-19 virus: Code(s): U07.1 - COVID-19; J12.89 - Other viral pneumonia Status: Acute Assessment and Plan: 07/22/2020 diagnosed with (+) SARS-CoV-2 {RT-PCR}; was not able to have remdesivir with is renal issues, no lovenox with ITP and low platelets; he is getting maximum supportive care. He has elevated inflammatory markers including ferritin 508, CRP 8.2, (3) Acidosis, metabolic, with respiratory acidosis: Code(s): E87.4 - Mixed disorder of acid-base balance Status: Acute Assessment and Plan: Resolved; normal acid bse status. Had mixed acid base status with metabolic acidosis from shock, renal failure which is acute on chronic, respiratory acidosis due to respiratory failure. Acidosis is improved, pH closer to normal 7.221. He is on bicarbonate drip, and has ventilator settings with Ve = f x TV =14.4 has corrected pCO2 now 43 mmHg. Subjective Date/time seen: 08/01/20 12:19 This 69 yo man is seen in follow up for COVID pneumonia with acute respiratory failure. He just had a new IV placed in the [facility] catheter so that the femoral line can be removed. Not on any pressors. Versed 4 mg, fentanyl 100 mcg/hour. Off neuromuscular blockade. FiO2 was increased for the procedure, was on 55% prior to being supine for the IV. PEEP is lower, 14 cm. The WBC is power 12.8K, improved. Review of Systems Review of Systems: ROS unobtainable: Yes unobtainable due to endotracheal tube Exam Narrative: Exam Narrative: Chemically sedated, orally intubated and therefore not responsive Const: General: no acute distress HENMT: Mouth: Yes moist mucous membranes Eyes: General: appearance normal, both eyes and all related structures Neck: Lymphatic: lymphadenopathy not noted Chest: Other: Equal expansion, Resp: Auscultation: diminished lung sounds bilateral and diffuse Cardio: Rate: bradycardic (Atrial fib with a rate 41 at lowest, as high as 62, mostly mid 50s) Rhythm: abnormal rhythm irregularly irregular GI: Auscultation: abnormal bowel sounds Neuro: Speech: No normal speech Other: No speech; intubated, not responding to voice, Extrem: General: normal to inspection Psych: Other: sedated, paralyzed Objective Data Vital Signs Vital Signs: Vital Signs - 24 hr 07/31/20 13:51 07/31/20 14:35 07/31/20 14:45 Temperature Pulse Rate 82 94 95 Respiratory Rate 32 H 32 H 32 H Blood Pressure 157/71 H Pulse Oximetry 98 97 07/31/20 15:07 07/31/20 16:00 07/31/20 16:32 Temperature 36.6 C Pulse Rate 87 102 H 100 Respiratory Rate 32 H 32 H Blood Pressure 173/61 H Pulse Oximetry 98 96 07/31/20 18:00 07/31/20 20:00 07/31/20 20:43 Temperature 36.9 C Pulse Rate 113 H 110 H 110 H Respiratory Rate 32 H 24 H 33 H Blood Pressure 175/71 H 195/66 H Pulse Oximetry 97 97 07/31/20 20:45 07/31/20 22:00 07/31/20 22:53 Temperature Pulse Rate 1
--- NOTE | 2020-08-01 13:27 | PM.IMPN ---
Progress Note: A&P Assessment and Plan (1) Respiratory failure: Qualifiers: Chronicity: acute on chronic Respiratory failure complication: hypoxia and hypercapnia Qualified Code(s): J96.21 - Acute and chronic respiratory failure with hypoxia; J96.22 - Acute and chronic respiratory failure with hypercapnia Code(s): J96.90 - Respiratory failure, unspecified, unspecified whether with hypoxia or hypercapnia Status: Acute Assessment and Plan: The patient was intubated at [facility]. Vent settings per u.s. revenue officer. 08/01/20 13:27 patient is 69-year-old male patient was initially diagnosed with COVID-19 on 07/22/20 and was admitted to the inpatient hospital his symptom had improved and he was transferred to [facility], patient is morbidly obese with history of chronic kidney disease, ITP, atrial fibrillation, CVA, and history of seizure, while at the [facility] patient symptom worsen he was quite hypoxic was intubated and transferred to ICU at [facility] via helicopter, currently patient is intubated, he is being treated with dexamethasone 10/19 cannot receive Remdesivir because patient has a stage 4 chronic kidney disease, upon arrival patient was hypotensive and bradycardic started on epinephrine infusion is now off epinephrine blood pressure and rate is stable, patient with ITP was seen by Hematology patient is being treated with steroid for COVID-19 his platelet counts a improving any has no complaint of bleeding. Patient remains off pressors, patient on NG tube and being fed, discussed with u.s. revenue officer will continue present management, patient is seen by Nephrology and appreciate continue to monitor (2) Exposure to COVID-19 virus: Code(s): Z20.828 - Contact with and (suspected) exposure to other viral communicable diseases Status: Acute Assessment and Plan: Patient is now intubated. Continue with Decadron. (3) Thrombocytopenia: Code(s): D69.6 - Thrombocytopenia, unspecified Status: Acute Assessment and Plan: Hematology as this is the chronic condition. (4) Acute on chronic kidney failure: Qualifiers: Acute renal failure type: unspecified Chronic kidney disease stage: unspecified stage Qualified Code(s): N17.9 - Acute kidney failure, unspecified; N18.9 - Chronic kidney disease, unspecified Code(s): N17.9 - Acute kidney failure, unspecified; N18.9 - Chronic kidney disease, unspecified Status: Acute Assessment and Plan: Patient has worsening chronic kidney disease, nephrology on board (5) Pneumonia due to COVID-19 virus: Code(s): U07.1 - COVID-19; J12.89 - Other viral pneumonia Status: Acute Assessment and Plan: See above. (6) Atrial fibrillation: Code(s): I48.91 - Unspecified atrial fibrillation Status: Acute Assessment and Plan: Patient has atrial fib and with the slow ventricular response. Patient is externally paced. Cardiology has been consulted and has given recommendations. (7) Diabetes: Code(s): E11.9 - Type 2 diabetes mellitus without complications Status: Chronic Assessment and Plan: The patient is placed on insulin drip and Accu-Cheks are every 1 hour. (8) Type 2 diabetes mellitus without complications: Code(s): E11.9 - Type 2 diabetes mellitus without complications Status: Acute (9) Elevated troponin: Code(s): R77.8 - Other specified abnormalities of plasma proteins Status: Acute Assessment and Plan: Patient's values are different at [place] and it looks like his troponins have gone back down to normal. Will repeat troponins here. (10) Bradycardia: Code(s): R00.1 - Bradycardia, unspecified Status: Acute Assessment and Plan: PT externally paced and is getting calcium gluconate at this time. Patient is on epinephrine drip. (11) Obstructive sleep apnea: Code(s)
[2020-08-01 13:33] LABS: Glucose Point of Care 307 (65-105)
--- NOTE | 2020-08-01 14:02 | WPDINFPN2 ---
Progress Note: A&P Assessment and Plan (1) Gram-positive cocci bacteremia: Code(s): R78.81 - Bacteremia Status: Acute Assessment and Plan: 1. Gram + bacteremia 2. CoVid 19 infection 3. Renal insufficiency 4. Stasis dermatitis LEs, no cellulitis 5. Vanc --> hives REC Dapto #1, f/u micro. Subjective Date/time seen: 08/01/20 14:02 Objective Data Vital Signs Vital Signs: Vital Signs - 24 hr 07/31/20 14:35 07/31/20 14:45 07/31/20 15:07 Temperature Pulse Rate 94 95 87 Respiratory Rate 32 H 32 H 32 H Blood Pressure Pulse Oximetry 97 07/31/20 16:00 07/31/20 16:32 07/31/20 18:00 Temperature 36.6 C Pulse Rate 102 H 100 113 H Respiratory Rate 32 H 32 H Blood Pressure 173/61 H 175/71 H Pulse Oximetry 98 96 97 07/31/20 20:00 07/31/20 20:43 07/31/20 20:45 Temperature 36.9 C Pulse Rate 110 H 110 H 110 H Respiratory Rate 24 H 33 H Blood Pressure 195/66 H Pulse Oximetry 97 98 07/31/20 22:00 07/31/20 22:53 07/31/20 23:58 Temperature Pulse Rate 110 H 105 H 105 H Respiratory Rate 26 H 32 H Blood Pressure 157/68 H Pulse Oximetry 97 98 08/01/20 00:00 08/01/20 00:03 08/01/20 02:00 Temperature 37.3 C Pulse Rate 107 H 110 H 97 Respiratory Rate 32 H 32 H 32 H Blood Pressure 162/63 H 159/65 H Pulse Oximetry 93 96 08/01/20 02:58 08/01/20 02:59 08/01/20 03:34 Temperature Pulse Rate 91 97 97 Respiratory Rate 32 H 32 H Blood Pressure Pulse Oximetry 95 95 08/01/20 04:00 08/01/20 04:41 08/01/20 04:42 Temperature 37.1 C Pulse Rate 88 97 95 Respiratory Rate 32 H 32 H 32 H Blood Pressure 150/61 H Pulse Oximetry 95 08/01/20 04:57 08/01/20 05:59 08/01/20 06:00 Temperature Pulse Rate 89 94 99 Respiratory Rate 32 H Blood Pressure 171/69 H Pulse Oximetry 95 95 08/01/20 06:11 08/01/20 06:22 08/01/20 08:00 Temperature 36.6 C Pulse Rate 97 90 106 H Respiratory Rate 32 H 32 H 32 H Blood Pressure 164/63 H Pulse Oximetry 94 08/01/20 08:19 08/01/20 10:00 08/01/20 10:43 Temperature Pulse Rate 105 H 103 H 105 H Respiratory Rate 32 H 32 H 32 H Blood Pressure 160/65 H Pulse Oximetry 94 93 08/01/20 11:18 08/01/20 12:00 Temperature 36.9 C Pulse Rate 92 96 Respiratory Rate 32 H Blood Pressure 166/74 H Pulse Oximetry 94 94 Intake/Output Intake/Output: Intake & Output 07/29/20 07/30/20 07/31/20 08/01/20 23:59 23:59 23:59 23:59 Intake Total 751 850 880 398 Output Total 2250 3600 1750 Balance 117 -9691 -9917 -3437 Meds/Results Medications: Active Medications Generic Name Dose Route Start Last Admin Trade Name Freq PRN Reason Stop Dose Admin Albuterol 2.5 mg 07/30/20 02:00 08/01/20 13:53 Albuterol Sulfate Neb 2.5 Mg/0.5 Ml Inh INHALATION 2.5 mg Q6HRT DAMARI Administration Dexamethasone Sodium Phosphate 6 mg 07/30/20 09:00 08/01/20 08:52 Dexamethasone Sod Phos Inj 4 Mg/Ml Vial IV PUSH 08/08/20 09:01 6 mg DAILY DAMARI Administration Dextrose 12.5 gm 07/29/20 20:23 Dextrose 50% 25 Gm/50 Ml Syringe IV PUSH PRN PRN Hypoglycemia Protocol Glucagon 1 mg 07/29/20 20:23 Glucagon For Inj 1 Mg Vial IM PRN PRN Hypoglycemia Protocol Glucose 15 gm 07/29/20 20:23 Glucose Oral Gel 15 Gm Of Glucse In 37.5 Gm Tube PO PRN PRN Hypoglycemia Protocol Dextrose 1,000 mls @ 100 mls/hr 07/29/20 20:23 Dextrose 5% 1,000 Ml IVPB PRN PRN Hypoglycemia Protocol Levetiracetam 1,000 mg in 100 mls @ 400 mls/hr 07/29/20 21:00 08/01/20 09:30 Keppra Iv IVPB Infused Q12HR DAMARI Infusion Fentanyl Citrate 2,500 mcg in 250 mls @ 10 mls/hr 07/29/20 23:40 08/01/20 10:43 Fentanyl 2,500 Mcg/Ns 250 Ml IV CONT 100 mcg/hr .Q25H DAMARI 10 mls/hr Titration Protocol 100 MCG/HR Midazolam HCl 100 mg in 100 mls @ 4 mls/hr 07/29/20 23:40 08/01/20 10:00 Versed 100 Mg/D5w 100 Ml IV CONT 4 mg/hr .Q25H
[2020-08-01] MEDS: DAPTOmycin 1,000 MG in SODIUM CHLORIDE 0.9% IV 50 ML 100 MG IVPB (15:59)
[2020-08-01] MEDS: INSULIN GLARGINE (*BKC) 100 UNITS/ML 26 UNITS SUB-Q (17:30)
--- NOTE | 2020-08-01 17:39 | P.PNNP_ITS ---
Progress Note: A&P Assessment and Plan (1) WILMAR (acute kidney injury): Code(s): N17.9 - Acute kidney failure, unspecified Status: Acute Assessment and Plan: * due to a combination of possible disease progression and COVID-19 * previous renal ultrasound with moderate bilateral hydronephrosis but repeat ultrasound negative * no critical electrolytes but volume status a concern * however, continues to make good urine output -- consider IV diuretics if necessary * follow trend of repeat labs and UOP (2) Chronic kidney disease, stage IV (severe): Code(s): N18.4 - Chronic kidney disease, stage 4 (severe) Status: Chronic Assessment and Plan: * baseline creatinine presumed to be 3.49mg/dl (January 2020) * likely due to diabetes, hypertension, vascular disease, and age-related change (3) Atrial fibrillation: Code(s): I48.91 - Unspecified atrial fibrillation Status: Acute Assessment and Plan: * Cardiology following * attempt rate control as tolerated (4) Bradycardia: Code(s): R00.1 - Bradycardia, unspecified Status: Acute Assessment and Plan: * medication induced versus due to acute illness(?) * heart rate has been relatively stable * Cardiology monitoring (5) Respiratory failure: Qualifiers: Chronicity: acute on chronic Respiratory failure complication: hypoxia and hypercapnia Qualified Code(s): J96.21 - Acute and chronic respiratory failure with hypoxia; J96.22 - Acute and chronic respiratory failure with hypercapnia Code(s): J96.90 - Respiratory failure, unspecified, unspecified whether with hypoxia or hypercapnia Status: Acute Assessment and Plan: * suspect due to COVID-19 +/- volume overload with possible progression to ARDS * Pulmonary following * continue ventilator support (6) Pneumonia due to COVID-19 virus: Code(s): U07.1 - COVID-19; J12.89 - Other viral pneumonia Status: Acute Assessment and Plan: * on steroids * not a candidate for remdesivir due to CKD * continue supportive therapy (7) Chronic ITP (idiopathic thrombocytopenia): Code(s): D69.3 - Immune thrombocytopenic purpura Status: Acute Assessment and Plan: * platelet count stable * Hem/Onc consulted Will continue to follow. Subjective Date/time seen: 08/01/20 17:39 Continues to make reasonable urine output at this time; remains hemodynamically stable as well without the need for vasopressor therapy; + blood cultures and platelet count noted; remains intubated and on mechanical ventilation; no distress noted. Exam Narrative: Exam Narrative: General: Elderly male intubated/sedated Heart: IRRRnormal S1 and S2; no rub Lungs: coarse throughout with crackles/rhonchi noted Abdomen: soft, nontender, nondistended, positive bowel sounds Extremities: no cyanosis or clubbing; 1+ edema Skin: warm and dry Objective Data Vital Signs Vital Signs: Vital Signs Temp Pulse Resp BP Pulse Ox 08/01/20 17:37 93 32 H 08/01/20 16:00 36.0 C L 95 32 H 168/77 H 92 08/01/20 14:43 93 32 H 08/01/20 14:00 92 32 H 165/75 H 91 08/01/20 13:59 91 95 08/01/20 12:00 36.9 C 96 32 H 166/74 H 94 08/01/20 11:18 92 94 08/01/20 10:43 105 H 32 H 08/01/20 10:00 103 H 32 H 160/65 H 93 08/01/20 08:19 105 H 32 H 94 08/01/20
--- NOTE | 2020-08-01 17:39 | PM.PNNEP ---
Progress Note: A&P Assessment and Plan (1) WILMAR (acute kidney injury): Code(s): N17.9 - Acute kidney failure, unspecified Status: Acute Assessment and Plan: due to a combination of possible disease progression and COVID-19 previous renal ultrasound with moderate bilateral hydronephrosis but repeat ultrasound negative no critical electrolytes but volume status a concern however, continues to make good urine output -- consider IV diuretics if necessary follow trend of repeat labs and UOP (2) Chronic kidney disease, stage IV (severe): Code(s): N18.4 - Chronic kidney disease, stage 4 (severe) Status: Chronic Assessment and Plan: baseline creatinine presumed to be 3.49mg/dl (January 2020) likely due to diabetes, hypertension, vascular disease, and age-related change (3) Atrial fibrillation: Code(s): I48.91 - Unspecified atrial fibrillation Status: Acute Assessment and Plan: Cardiology following attempt rate control as tolerated (4) Bradycardia: Code(s): R00.1 - Bradycardia, unspecified Status: Acute Assessment and Plan: medication induced versus due to acute illness(?) heart rate has been relatively stable Cardiology monitoring (5) Respiratory failure: Qualifiers: Chronicity: acute on chronic Respiratory failure complication: hypoxia and hypercapnia Qualified Code(s): J96.21 - Acute and chronic respiratory failure with hypoxia; J96.22 - Acute and chronic respiratory failure with hypercapnia Code(s): J96.90 - Respiratory failure, unspecified, unspecified whether with hypoxia or hypercapnia Status: Acute Assessment and Plan: suspect due to COVID-19 +/- volume overload with possible progression to ARDS Pulmonary following continue ventilator support (6) Pneumonia due to COVID-19 virus: Code(s): U07.1 - COVID-19; J12.89 - Other viral pneumonia Status: Acute Assessment and Plan: on steroids not a candidate for remdesivir due to CKD continue supportive therapy (7) Chronic ITP (idiopathic thrombocytopenia): Code(s): D69.3 - Immune thrombocytopenic purpura Status: Acute Assessment and Plan: platelet count stable Hem/Onc consulted Will continue to follow. Subjective Date/time seen: 08/01/20 17:39 Continues to make reasonable urine output at this time; remains hemodynamically stable as well without the need for vasopressor therapy; + blood cultures and platelet count noted; remains intubated and on mechanical ventilation; no distress noted. Exam Narrative: Exam Narrative: General: Elderly male intubated/sedated Heart: IRRRnormal S1 and S2; no rub Lungs: coarse throughout with crackles/rhonchi noted Abdomen: soft, nontender, nondistended, positive bowel sounds Extremities: no cyanosis or clubbing; 1+ edema Skin: warm and dry Objective Data Vital Signs Vital Signs: Vital Signs Temp Pulse Resp BP Pulse Ox 08/01/20 17:37 93 32 H 08/01/20 16:00 36.0 C L 95 32 H 168/77 H 92 08/01/20 14:43 93 32 H 08/01/20 14:00 92 32 H 165/75 H 91 08/01/20 13:59 91 95 08/01/20 12:00 36.9 C 96 32 H 166/74 H 94 08/01/20 11:18 92 94 08/01/20 10:43 105 H 32 H 08/01/20 10:00 103 H 32 H 160/65 H 93 08/01/20 08:19 105 H 32 H 94 08/01/20 08:00 36.6 C 106 H 32 H 164/63 H 94 08/01/20 06:22 90 32 H 08/01/20 06:11 97 32 H 08/01/20 06:00 99 08/01/20 05:59 94 32 H 171/69 H 95 08/01/20 04:57 89 95 08/01/20 04:42 95 32 H 08/01/20 04:41 97 32 H 08/01/20 04:00 37.1 C 88 32 H 150/61 H 95 08/01/20 03:34 97 32 H 95 08/01/20 02:59 97 95 08/01/20 02:58 91 32 H 08/01/20 02:00 97 32 H 159/65 H 96 08/01/20 00:03 110 H 32 H 08/01/20 00:00 37.3 C 107 H 32 H 162/63 H 93 07/31/20 23:58 105 H 32 H 07/31/20 22:53 105 H 98 07/31/20
--- NOTE | 2020-08-01 19:19 | CONS_ITS ---
DATE OF CONSULTATION: 08/01/2020 REASON FOR CONSULTATION: Bacteremia. HISTORY OF PRESENT ILLNESS: A 69-year-old male who cannot provide any history as he is intubated and sedated. He was originally admitted on the evening of the with a platelet count of 2000. Upon arrival, he was noted to have a dry cough with a chest x-ray being abnormal. He was tested positive for coronavirus, was admitted. He since has been intubated. He was not hypoxic, but nonetheless was given corticosteroids. He has been diagnosed with ITP and has ongoing steroids. His FiO2 requirement is lower. He has had placement of a JACC. Also left radial artery line. He is on no pressors. Blood culture was collected single one on the , now positive and he has been given clindamycin. Consultation requested. Blood cultures from admission are final no growth. ALLERGIES: MEROPENEM AND VANCOMYCIN, BOTH HAVE CAUSED HIVES IN THE PAST. I CANNOT TELL IF HE WAS ON BOTH OF THOSE AGENTS AT THE SAME TIME WHEN HE DEVELOPED THE HIVES. PRESENT MEDICATIONS: Dexamethasone. No home steroids. HABITS: Ex-smoker. No alcohol. PAST MEDICAL HISTORY: Appendectomy, type 2 diabetes mellitus, seizure disorder, SILAS, hypothyroidism, hypertension, past ITP, morbid obesity, anemia of chronic inflammation, previous stroke, depression, AF, anxiety. FAMILY HISTORY: Cancer, [place]. SOCIAL HISTORY: No family at the bedside. He is . Lives locally. REVIEW OF SYSTEMS: 14-point review not obtainable from the patient due to intubated status. PHYSICAL EXAMINATION: GENERAL: This is an elderly male who appears his actual age on the ventilator. VITAL SIGNS: Temperature on arrival was normal and on the , he had a T-max of 37.7, otherwise has been afebrile. 165/75, 32, 92. He is tachypneic with his ventilator. SKIN: He has stasis dermatitis over both lower legs. No cellulitis is present on exam. No deep space infection. NODES: No axillary or cervical adenopathy. EENT: The conjunctivae are difficult to examine due to eyedrops but brief inspection is normal. He has no paranasal sinus erythema, edema, or tenderness. He is orally intubated. No thrush is present. No HSV1 lesions. NECK: Foreshortened. No masses. No meningismus. LUNGS: Diminished breath sounds with bibasilar rales, otherwise clear to auscultation and percussion. CHEST: He has a right IJ JACC. ABDOMEN: Obese and protuberant but not distended. Hypoactive bowel sounds. No masses or organomegaly and no tenderness is apparent. EXTREMITIES: 2+ nonpitting edema. Distal legs, ankles, feet. LABORATORY DATA: Blood cultures above. Urine culture obtained on the , mixed urogenital keshav. White count is 12.8, was as high as 18.7 on the , his platelet count originally 21, now up to 79. Hemoglobin stable at 10.6. Blood gases 7.33, 41, 88, 21. AA gradient 258, which is improved. His electrolytes are normal except for chloride 113. His BUN is 110, creatinine 5.2, glucose 286, lactate normal. Ferritin 508. Transaminases normal. CRP 8.2, albumin 2.8. Urinalysis, multiple abnormalities that do not suggest infection. RADIOLOGY: Chest x-ray with diffuse bilateral airspace disease. Air bronchograms, left pleural effusion, cardiomegaly, spondylosis, osteoarthritis. Echocardiogram performed on the , results reviewed. No evidence of infection. Renal ultrasound on the , moderate bilateral hydronephrosis, repeated on the with resolution of the above. Venous Dopplers, no DVT. ASSESSMENT: 1. Gram-positive bacteremia of questionable significance. Considerations include catheter-related phlebitis, pneumonia, skin contaminant, primary bloodstream infection. I doubt urinary tract infection, cellulitis, central nervous system or
[2020-08-01] MEDS: LORazepam INJ (*CRX) 2 MG/ML VIAL IV PUSH (19:46)
[2020-08-01 20:07] LABS: Glucose Point of Care 312 (65-105)
--- NOTE | 2020-08-01 20:11 | PC.NURSE ---
Message left for Dr. Larsen regarding consult
[2020-08-01] MEDS: AMIODARONE 360 MG/D5W 200 ML 360 MG/200 ML BAG 33.33 MG IV CONT (22:24)
[2020-08-02] VITALS (31 sets, daily range): BP systolic 137–162; BP diastolic 65–78; PULSE 71–113; RESP 22–34; TEMP 35.6–36.7; O2SAT 92–95; BMI 64.1
[2020-08-02 00:07] LABS: Glucose Point of Care 338 (65-105)
[2020-08-02] MEDS: IPRATROPIUM BR 0.02% INH SOLN 0.5 MG/2.5 ML VIAL INHALATION ×4 (01:27→21:33)
[2020-08-02] MEDS: ALBUTEROL SULFATE NEB 2.5 MG/0.5 ML INH INHALATION ×4 (01:27→21:33)
[2020-08-02] MEDS: AMIODARONE 360 MG/D5W 200 ML 360 MG/200 ML BAG 16.67 MG IV CONT ×2 (03:56→16:00)
[2020-08-02] MEDS: FENTANYL 2,500MCG/NS250ML(*CRX 2,500 MCG/250 ML BAG 10 MCG IV CONT (04:02)
[2020-08-02 04:08] LABS: Hematocrit 33.2 % (42.0-52.0); Hemoglobin 10.6 g/dL (14.0-18.0); Immature Platelet Fraction Pct 7.1 % (0.9-11.2); Mean Corpuscular HGB Conc 31.9 g/dl (32-36); Mean Corpuscular Hemoglobin 27.9 pg (26-34); Mean Corpuscular Volume 87.4 fl (80-100); Mean Platelet Volume 13.1 fl (7.4-10.4); Platelet Count Result 69 k/mm3 (150-375); Red Cell Distribution Width 14.9 % (11.5-14.5); White Blood Count 12.8 K/mm3 (4.5-10.0)
[2020-08-02 04:29] LABS: Alanine Aminotransferase 16 U/L (4-50); Albumin Level 2.8 g/dL (3.5-5.1); Alkaline Phosphatase 76 U/L (38-126); Anion Gap 10 mmol/L (8-16); Aspartate Amino Transferase 24 U/L (17-59); Bilirubin,Total 0.7 mg/dL (0.2-1.3); Calcium 9.4 mg/dL (8.4-10.2); Carbon Dioxide 22 mmol/L (22-30); Chloride 115 mmol/L (98-107); Estimated CRCL calculation 21 ml/min; Estimated Glomerular Filt Rate 11; Glucose 385 mg/dL (75-110); Magnesium 2.2 mg/dL (1.6-2.3); Phosphorus 6.6 mg/dL (2.5-4.5); Potassium 4.9 mmol/L (3.4-5.0); Sodium 147 mmol/L (137-145)
[2020-08-02 04:32] LABS: Blood Urea Nitrogen 127 mg/dL (9-20)
[2020-08-02 04:37] LABS: Alveolar/Arterial O2 Gradient 277.5 mmHg; Base Excess ABG -6.7 mEq/l (+/-2.0); Carboxyhemoglobin 0.3 % THb (0-2.0); Fractional Inspired Oxygen 55 %; HCO3 ABG 18.4 mEq/l (22.0-26.0); Methemoglobin ABG 0.2 %THb (0-1.5); Oxygen Content ABG 14.5 %vol (16.0-22.0); Oxygen Saturation ABG 94.4 % (95.0-100.0); Oxyhemoglobin 92.5 % THb (90.0-100.0); PCO2 ABG 35.5 mmHg (35.0-45.0); PO2 ABG 75.2 mmHg (80.0-100.0); PO2 FiO2 Ratio Arterial Blood 1.37 %; Total Hemoglobin 11.1 g/dL (12.0-18.0); pH ABG 7.333 (7.350-7.450)
[2020-08-02 04:38] LABS: Arterial Blood Gas PEEP 14 cmH2O; Arterial Blood Gas Tidal Volume 430 ml; Arterial Blood Gas Vent Mode CMV; Arterial Blood Gas Ventilator rate 32 /MIN; Device VENTILATOR; Modified Allen's Test Unable to perform; Site Drawn RIGHT RADIAL
[2020-08-02] MEDS: INSULIN ASPART (*BKC) 100 UNITS/ML SUB-Q ×5 (04:42→20:38)
[2020-08-02] MEDS: CENTRAL LINE FLUSH 10 ML IV PUSH ×4 (04:43→19:59)
[2020-08-02] MEDS: INSULIN GLARGINE (*BKC) 100 UNITS/ML 26 UNITS SUB-Q (04:43)
[2020-08-02] MEDS: LEVOTHYROXINE SODIUM INJ 100 MCG/5 ML VIAL 37.5 MCG IV PUSH (06:33)
[2020-08-02 06:36] LABS: Glucose Point of Care 307 (65-105)
[2020-08-02] MEDS: levETIRAcetam 1000MG/NACL100ML 1,000 MG/100 ML BAG 400 MG IVPB ×2 (09:01→19:58)
[2020-08-02] MEDS: DEXAMETHASONE SOD PHOS INJ 4 MG/ML VIAL 6 MG IV PUSH (09:01)
[2020-08-02 09:35] LABS: Glucose Point of Care 286 (65-105)
--- NOTE | 2020-08-02 10:45 | PC.NURSE ---
Updated daughter on plan of care.
--- NOTE | 2020-08-02 11:50 | PCDIET ---
Nutrition Follow-Up Complete: Inadequate oral intake related to inability to consume foods orally as evidence by day two NPO and mechanical ventilation Total intake will meet estimated nutrition needs Goal: Goal not met. Continue goal. Pt current nutrition is Glucerna 1.2@10ml/hr Nutrition recommendation: Agree due to steroids and elevated blood sugars. Recommend advance to goal of 75ml/hr Last recorded weight is 202.8 kg, up from assessed wt of 156kg. (question accuracy, recommend reweigh) (I/O -1194) Bowel Motility: No BM yet Labs Reviewed:Hgb 10.6, Hct 33.2, Albumin 2.8, Na 147, PO4 6.6, GFR 11, BUN 127, Cr 5.30, Glucose 307 Meds Noted: Decadron, Albuterol, Fentanyl, Insulin, Keppra, Synthroid, Ativan, Versed, Zofran Additional Notes: Pt tolerating 10m/hr of Glucerna 1.2. Plans to increase to goal of 75ml/hr today. Over 22hrs, enteral nutrition will provide 1980 kcal, 99g protein, 1328ml of free water. RN states increased to high dose sliding scale insulin due to steroids and elevated blood glucose. We will follow enteral nutrition, labs, skin, I/O, BMs, meds daily in ICU rounds with reassessment every T/S.
[2020-08-02] MEDS: amLODIPine BESYLATE 2.5 MG, amLODIPine BESYLATE 5 MG 7.5 MG PO (12:12)
[2020-08-02] MEDS: hydrALAZINE HCL 20 MG/ML VIAL 10 MG IV PUSH ×2 (12:27→20:38)
--- NOTE | 2020-08-02 12:29 | P.PNNP_ITS ---
Progress Note: A&P Assessment and Plan (1) WILMAR (acute kidney injury): Code(s): N17.9 - Acute kidney failure, unspecified Status: Acute Assessment and Plan: * due to a combination of possible disease progression and COVID-19 * previous renal ultrasound with moderate bilateral hydronephrosis but repeat ultrasound negative * no critical electrolytes * however, continues to make good urine output -- consider IV diuretics if necessary * follow trend of repeat labs and UOP (2) Chronic kidney disease, stage IV (severe): Code(s): N18.4 - Chronic kidney disease, stage 4 (severe) Status: Chronic Assessment and Plan: * baseline creatinine presumed to be 3.49mg/dl (January 2020) * likely due to diabetes, hypertension, vascular disease, and age-related change (3) Atrial fibrillation: Code(s): I48.91 - Unspecified atrial fibrillation Status: Acute Assessment and Plan: * Cardiology following * attempt rate control as tolerated (4) Respiratory failure: Qualifiers: Chronicity: acute on chronic Respiratory failure complication: hypoxia and hypercapnia Qualified Code(s): J96.21 - Acute and chronic respiratory failure with hypoxia; J96.22 - Acute and chronic respiratory failure with hypercapnia Code(s): J96.90 - Respiratory failure, unspecified, unspecified whether with hypoxia or hypercapnia Status: Acute Assessment and Plan: * suspect due to COVID-19 +/- volume overload with possible progression to ARDS * Pulmonary following * continue ventilator support (5) Pneumonia due to COVID-19 virus: Code(s): U07.1 - COVID-19; J12.89 - Other viral pneumonia Status: Acute Assessment and Plan: * on steroids * not a candidate for remdesivir due to CKD * blood cultures noted -- real or contamination? * continue supportive therapy (6) Chronic ITP (idiopathic thrombocytopenia): Code(s): D69.3 - Immune thrombocytopenic purpura Status: Acute Assessment and Plan: * platelet count stable * Hem/Onc following Will continue to follow. Subjective Date/time seen: 08/02/20 12:29 Remains intubated and on mechanical ventilation for respiratory support; hemody namically stable without the need for pressors at this time; continues to make good urine output; no events overnight or earlier this AM. Exam Narrative: Exam Narrative: General: Elderly male intubated/sedated Heart: IRRRnormal S1 and S2; no rub Lungs: coarse throughout with crackles/rhonchi noted Abdomen: soft, nontender, nondistended, positive bowel sounds Extremities: no cyanosis or clubbing; 1+ edema Skin: warm and intact Objective Data Vital Signs Vital Signs: Vital Signs Temp Pulse Resp BP Pulse Ox 08/02/20 12:00 35.6 C L 72 32 H 162/73 H 94 08/02/20 11:00 86 95 08/02/20 10:00 86 32 H 153/65 H 95 08/02/20 08:36 88 32 H 08/02/20 08:25 85 32 H 95 08/02/20 08:00 35.6 C L 93 32 H 154/73 H 95 08/02/20 06:00 88 32 H 137/78 93 08/02/20 04:44 87 92 08/02/20 04:03 76 32 H 08/02/20 04:02 82 32 H 08/02/20 04:00 36.1 C L 82 32 H 139/69 94 08/02/20 03:56 86 139/67 08/02/20 03:01 89 32 H 94 08/02/20 02:00 100 34 H 153/67 H 95 08/02/20 01:32 104 H 22 H 08/02/20 01:27 108 H 24 H 08/02/20 0
--- NOTE | 2020-08-02 12:29 | PM.PNNEP ---
Progress Note: A&P Assessment and Plan (1) WILMAR (acute kidney injury): Code(s): N17.9 - Acute kidney failure, unspecified Status: Acute Assessment and Plan: due to a combination of possible disease progression and COVID-19 previous renal ultrasound with moderate bilateral hydronephrosis but repeat ultrasound negative no critical electrolytes however, continues to make good urine output -- consider IV diuretics if necessary follow trend of repeat labs and UOP (2) Chronic kidney disease, stage IV (severe): Code(s): N18.4 - Chronic kidney disease, stage 4 (severe) Status: Chronic Assessment and Plan: baseline creatinine presumed to be 3.49mg/dl (January 2020) likely due to diabetes, hypertension, vascular disease, and age-related change (3) Atrial fibrillation: Code(s): I48.91 - Unspecified atrial fibrillation Status: Acute Assessment and Plan: Cardiology following attempt rate control as tolerated (4) Respiratory failure: Qualifiers: Chronicity: acute on chronic Respiratory failure complication: hypoxia and hypercapnia Qualified Code(s): J96.21 - Acute and chronic respiratory failure with hypoxia; J96.22 - Acute and chronic respiratory failure with hypercapnia Code(s): J96.90 - Respiratory failure, unspecified, unspecified whether with hypoxia or hypercapnia Status: Acute Assessment and Plan: suspect due to COVID-19 +/- volume overload with possible progression to ARDS Pulmonary following continue ventilator support (5) Pneumonia due to COVID-19 virus: Code(s): U07.1 - COVID-19; J12.89 - Other viral pneumonia Status: Acute Assessment and Plan: on steroids not a candidate for remdesivir due to CKD blood cultures noted -- real or contamination? continue supportive therapy (6) Chronic ITP (idiopathic thrombocytopenia): Code(s): D69.3 - Immune thrombocytopenic purpura Status: Acute Assessment and Plan: platelet count stable Hem/Onc following Will continue to follow. Subjective Date/time seen: 08/02/20 12:29 Remains intubated and on mechanical ventilation for respiratory support; hemodynamically stable without the need for pressors at this time; continues to make good urine output; no events overnight or earlier this AM. Exam Narrative: Exam Narrative: General: Elderly male intubated/sedated Heart: IRRRnormal S1 and S2; no rub Lungs: coarse throughout with crackles/rhonchi noted Abdomen: soft, nontender, nondistended, positive bowel sounds Extremities: no cyanosis or clubbing; 1+ edema Skin: warm and intact Objective Data Vital Signs Vital Signs: Vital Signs Temp Pulse Resp BP Pulse Ox 08/02/20 12:00 35.6 C L 72 32 H 162/73 H 94 08/02/20 11:00 86 95 08/02/20 10:00 86 32 H 153/65 H 95 08/02/20 08:36 88 32 H 08/02/20 08:25 85 32 H 95 08/02/20 08:00 35.6 C L 93 32 H 154/73 H 95 08/02/20 06:00 88 32 H 137/78 93 08/02/20 04:44 87 92 08/02/20 04:03 76 32 H 08/02/20 04:02 82 32 H 08/02/20 04:00 36.1 C L 82 32 H 139/69 94 08/02/20 03:56 86 139/67 08/02/20 03:01 89 32 H 94 08/02/20 02:00 100 34 H 153/67 H 95 08/02/20 01:32 104 H 22 H 08/02/20 01:27 108 H 24 H 08/02/20 01:25 103 H 95 08/02/20 00:00 36.7 C 107 H 33 H 154/66 H 94 08/01/20 22:59 122 H 33 H 156/70 H 94 08/01/20 22:41 120 H 95 08/01/20 22:29 135 H 34 H 08/01/20 22:27 125 H 35 H 08/01/20 22:24 135 H 172/69 H 08/01/20 22:00 135 H 34 H 172/70 H 96 08/01/20 21:59 125 H 35 H 08/01/20 20:00 36.7 C 123 H 32 H 162/79 H 93 08/01/20 19:43 123 H 34 H 08/01/20 19:36 121 H 92 08/01/20 19:35 121 H 33 H 08/01/20 18:00 98 32 H 176/81 H 93 08/01/20 17:37 93 32 H 08/01/20 17:22 92 93 08/01/20 16:00 36.0 C L 95 32 H 168/77 H 9
[2020-08-02 12:32] LABS: Glucose Point of Care 305 (65-105)
--- NOTE | 2020-08-02 12:54 | WPDINFPN2 ---
Progress Note: A&P Assessment and Plan (1) Gram-positive cocci bacteremia: Code(s): R78.81 - Bacteremia Status: Acute Assessment and Plan: 1. Peptostreptococcus bacteremia, skin contaminant 2. CoVid 19 infection with viral pneumonia 3. Renal insufficiency 4. Stasis dermatitis LEs, no cellulitis 5. Vanc --> hives REC Dapto #2, stop and follow. Further BCs in process. At this time, he does not need antibacterial therapy for pneumonia. Subjective Date/time seen: 08/02/20 12:54 Interval history: sedated, on vent Exam Narrative: Exam Narrative: afebrile Const: General: no acute distress Other: obese Neck: Other: L JACC Resp: Auscultation: clear to auscultation bilaterally and diminished lung sounds Cardio: Rate: regular rate Rhythm: regular rhythm GI: Inspection: distended GI Palp: Yes Firmness to palpation present (GI) and No Tenderness to palpation present (GI) Urinary Catheter: Urinary Catheter: patent and draining and urine clear Objective Data Vital Signs Vital Signs: Vital Signs - 24 hr 08/01/20 13:59 08/01/20 14:00 08/01/20 14:43 Temperature Pulse Rate 91 92 93 Respiratory Rate 32 H 32 H Blood Pressure 165/75 H Pulse Oximetry 95 91 08/01/20 16:00 08/01/20 17:22 08/01/20 17:37 Temperature 36.0 C L Pulse Rate 95 92 93 Respiratory Rate 32 H 32 H Blood Pressure 168/77 H Pulse Oximetry 92 93 08/01/20 18:00 08/01/20 19:35 08/01/20 19:36 Temperature Pulse Rate 98 121 H 121 H Respiratory Rate 32 H 33 H Blood Pressure 176/81 H Pulse Oximetry 93 92 08/01/20 19:43 08/01/20 20:00 08/01/20 21:59 Temperature 36.7 C Pulse Rate 123 H 123 H 125 H Respiratory Rate 34 H 32 H 35 H Blood Pressure 162/79 H Pulse Oximetry 93 08/01/20 22:00 08/01/20 22:24 08/01/20 22:27 Temperature Pulse Rate 135 H 135 H 125 H Respiratory Rate 34 H 35 H Blood Pressure 172/70 H 172/69 H Pulse Oximetry 96 08/01/20 22:29 08/01/20 22:41 08/01/20 22:59 Temperature Pulse Rate 135 H 120 H 122 H Respiratory Rate 34 H 33 H Blood Pressure 156/70 H Pulse Oximetry 95 94 08/02/20 00:00 08/02/20 01:25 08/02/20 01:27 Temperature 36.7 C Pulse Rate 107 H 103 H 108 H Respiratory Rate 33 H 24 H Blood Pressure 154/66 H Pulse Oximetry 94 95 08/02/20 01:32 08/02/20 02:00 08/02/20 03:01 Temperature Pulse Rate 104 H 100 89 Respiratory Rate 22 H 34 H 32 H Blood Pressure 153/67 H Pulse Oximetry 95 94 08/02/20 03:56 08/02/20 04:00 08/02/20 04:02 Temperature 36.1 C L Pulse Rate 86 82 82 Respiratory Rate 32 H 32 H Blood Pressure 139/67 139/69 Pulse Oximetry 94 08/02/20 04:03 08/02/20 04:44 08/02/20 06:00 Temperature Pulse Rate 76 87 88 Respiratory Rate 32 H 32 H Blood Pressure 137/78 Pulse Oximetry 92 93 08/02/20 08:00 08/02/20 08:25 08/02/20 08:36 Temperature 35.6 C L Pulse Rate 93 85 88 Respiratory Rate 32 H 32 H 32 H Blood Pressure 154/73 H Pulse Oximetry 95 95 08/02/20 10:00 08/02/20 11:00 08/02/20 12:00 Temperature 35.6 C L Pulse Rate 86 86 72 Respiratory Rate 32 H 32 H Blood Pressure 153/65 H 162/73 H Pulse Oximetry 95 95 94 Intake/Output Intake/Output: Intake & Output 07/30/20 07/31/20 08/01/20 08/02/20 23:59 23:59 23:59 23:59 Intake Total 850 880 887 456 Output Total 6450 6890 3652 8870 Wgjljyr -9436 -5530 -2763 -1094 Meds/Results Medications: Active Medications Generic Name Dose Route Start Last Admin Trade Name Freq PRN Reason Stop Dose Admin Albuterol 2.5 mg 07/30/20 02:00 08/02/20 08:25 Albuterol Sulfate Neb 2.5 Mg/0.5 Ml Inh INHALATION 2.5 mg Q6HRT DAMARI Administration Amlodipine Besylate 2.5 mg/ 7.5 mg 08/02/20 10:30 08/02/20 12:12 Amlodipine Besylate 5 mg PO 7.5 mg DAILY DAMARI Administration Dexamethasone Sodium Phosphate 6 mg 07/30/20 09:00 08/02/20 09:01 Dexamethasone Sod Phos Inj 4 Mg/Ml Vial IV PUSH 08/08/20 09:01 6 mg
--- NOTE | 2020-08-02 13:10 | WPDINTPN ---
Progress Note: A&P Assessment and Plan (1) Respiratory failure: Qualifiers: Chronicity: acute on chronic Respiratory failure complication: hypoxia and hypercapnia Qualified Code(s): J96.21 - Acute and chronic respiratory failure with hypoxia; J96.22 - Acute and chronic respiratory failure with hypercapnia Code(s): J96.90 - Respiratory failure, unspecified, unspecified whether with hypoxia or hypercapnia Status: Acute Assessment and Plan: Acute hypoxic respiratory to volume overload, COVID-19 pneumonia -Chest x-ray shows Diffuse lung disease with interval improvement in the upper lung zones, consistent with pneumonia and/or pulmonary edema and/or acute respiratory distress syndrome (ARDS). -patient is on CMV mode of ventilation, low tidal volume strategy due to ARDS physiology, decrease PEEP to 12, wean FiO2 as tolerated -allow permissive hypercapnia. Continue to monitor ABG and chest x-ray. -patient on fentanyl and Versed for sedation, off Nimbex. - Continue bronchodilators -venous Dopplers 07/31: Negative for DVT bilateral (2) Atrial fibrillation: Code(s): I48.91 - Unspecified atrial fibrillation Status: Acute Assessment and Plan: Patient with AFib RVR at the outside hospital requiring Cardizem infusion which was then converted to p.o. Cardizem and Coreg. Developed bradycardia and hypotension. Now both has been discontinued. -He was given calcium gluconate along with glucagon at the time of presentation. Cardiology is following. AV gordon kaz will be on hold. Epinephrine has been discontinued. Can discontinue pacer pads. -continue to monitor closely -currently in AFib, rate controlled - No anticoagulation as plts low (3) Bradycardia: Code(s): R00.1 - Bradycardia, unspecified Status: Acute Assessment and Plan: RESOLVED Patient with bradycardia, requiring atropine, dopamine, epinephrine and started being paced with external pacer pads -this could be related to multiple causes, Cardizem, Coreg, COVID-19 induced cardiomyopathy or myocarditis -cardiology service recommendations appreciated. -now off epinephrine and pacing and his heart rate in his 60s and 70s. Pacer Garcia's can be discontinued. Echocardiogram 07/30: EF 60-65%, mild pulmonary hypertension with RVSP of 39 mmHg (4) Diabetes: Code(s): E11.9 - Type 2 diabetes mellitus without complications Status: Chronic Assessment and Plan: Hyperglycemia likely related to steroids, acute critical care illness -continue Lantus. Continue to check fingerstick sugars every 6 hours and insulin sliding scale. (5) Chronic ITP (idiopathic thrombocytopenia): Code(s): D69.3 - Immune thrombocytopenic purpura Status: Acute Assessment and Plan: Patient with history of ITP, has been seen by Dr. Rodriguez, patient has received platelets recently, he also receives IVIG treatment -continue to monitor platelet count. Hematology evaluation appreciated May need anticoagulation for atrial fibrillation if it is okay with Hematology Service considering his ITP and down trending platelet counts. (6) 2019 novel coronavirus–infected pneumonia (NCIP)#8211;infected pneumonia (NCIP): Code(s): U07.1 - COVID-19; J12.89 - Other viral pneumonia Status: Acute Assessment and Plan: SARS-CoV-2 PCR positive on 07/22/2020 -continue dexamethasone, initiated on 07/28/2020 -patient not a candidate for Remdesivir due to acute on chronic renal failure -continue droplet, airborne, contact isolation/precautions -will monitor inflammatory markers (7) Erythropoietin deficiency anemia: Code(s): D63.1 - Anemia in chronic kidney disease Status: Acute Assessment and Plan: Hemoglobin is stable, will continue to monitor (8) Acute on chronic kidney failure: Qualifiers: Acute renal failure type: unspecified Chronic kidney disease stage: unspecified stage Qualified Code(s
--- NOTE | 2020-08-02 15:50 | PM.IMPN ---
Progress Note: A&P Assessment and Plan (1) Respiratory failure: Qualifiers: Chronicity: acute on chronic Respiratory failure complication: hypoxia and hypercapnia Qualified Code(s): J96.21 - Acute and chronic respiratory failure with hypoxia; J96.22 - Acute and chronic respiratory failure with hypercapnia Code(s): J96.90 - Respiratory failure, unspecified, unspecified whether with hypoxia or hypercapnia Status: Acute Assessment and Plan: The patient was intubated at [facility]. Vent settings per liquor bridge operator. 08/02/20 15:50 patient is 69-year-old male patient was initially diagnosed with COVID-19 on 07/22/20 and was admitted to the inpatient hospital his symptom had improved and he was transferred to [facility], patient is morbidly obese with history of chronic kidney disease, ITP, atrial fibrillation, CVA, and history of seizure, while at the [facility] patient symptom worsen he was quite hypoxic was intubated and transferred to ICU at [facility] via helicopter, currently patient is intubated, he is being treated with dexamethasone 10/19 cannot receive Remdesivir because patient has a stage 4 chronic kidney disease, upon arrival patient was hypotensive and bradycardic started on epinephrine infusion is now off epinephrine blood pressure and rate is stable, patient with ITP was seen by Hematology patient is being treated with steroid for COVID-19 his platelet counts a improving any has no complaint of bleeding. Patient remains off pressors, patient on NG tube and being fed, Patient blood culture is growing gram-positive cocci in cluster was seen by Dr. Guthrie suspect its contamination and does not recommend any abx and stopped daptomycin. Patient is seen by liquor bridge operator and track greaser in [place]. (2) Exposure to COVID-19 virus: Code(s): Z20.828 - Contact with and (suspected) exposure to other viral communicable diseases Status: Acute Assessment and Plan: Patient is now intubated. Continue with Decadron. (3) Thrombocytopenia: Code(s): D69.6 - Thrombocytopenia, unspecified Status: Acute Assessment and Plan: Hematology as this is the chronic condition. (4) Acute on chronic kidney failure: Qualifiers: Acute renal failure type: unspecified Chronic kidney disease stage: unspecified stage Qualified Code(s): N17.9 - Acute kidney failure, unspecified; N18.9 - Chronic kidney disease, unspecified Code(s): N17.9 - Acute kidney failure, unspecified; N18.9 - Chronic kidney disease, unspecified Status: Acute Assessment and Plan: Patient has worsening chronic kidney disease, nephrology on board (5) Pneumonia due to COVID-19 virus: Code(s): U07.1 - COVID-19; J12.89 - Other viral pneumonia Status: Acute Assessment and Plan: See above. (6) Atrial fibrillation: Code(s): I48.91 - Unspecified atrial fibrillation Status: Acute Assessment and Plan: Patient has atrial fib and with the slow ventricular response. Patient is externally paced. Cardiology has been consulted and has given recommendations. (7) Diabetes: Code(s): E11.9 - Type 2 diabetes mellitus without complications Status: Chronic Assessment and Plan: The patient is placed on insulin drip and Accu-Cheks are every 1 hour. (8) Type 2 diabetes mellitus without complications: Code(s): E11.9 - Type 2 diabetes mellitus without complications Status: Acute (9) Elevated troponin: Code(s): R77.8 - Other specified abnormalities of plasma proteins Status: Acute Assessment and Plan: Patient's values are different at [place] and it looks like his troponins have gone back down to normal. Will repeat troponins here. (10) Bradycardia: Code(s): R00.1 - Bradycardia, unspecified Status: Acute Assessment and Plan: PT externally paced and is getting ca
[2020-08-02 16:06] LABS: Glucose Point of Care 354 (65-105)
[2020-08-02] MEDS: INSULIN GLARGINE (*BKC) 100 UNITS/ML 32 UNITS SUB-Q (20:38)
[2020-08-02 21:32] LABS: Glucose Point of Care 317 (65-105)
[2020-08-03] VITALS (35 sets, daily range): BP systolic 123–153; BP diastolic 58–98; PULSE 86–115; RESP 26–32; TEMP 35.7–36.6; O2SAT 92–96
[2020-08-03 00:15] LABS: Glucose Point of Care 339 (65-105)
[2020-08-03] MEDS: INSULIN ASPART (*BKC) 100 UNITS/ML SUB-Q ×6 (00:36→20:42)
[2020-08-03] MEDS: IPRATROPIUM BR 0.02% INH SOLN 0.5 MG/2.5 ML VIAL INHALATION ×4 (03:00→20:35)
[2020-08-03] MEDS: ALBUTEROL SULFATE NEB 2.5 MG/0.5 ML INH INHALATION ×4 (03:00→20:34)
[2020-08-03] MEDS: FENTANYL 2,500MCG/NS250ML(*CRX 2,500 MCG/250 ML BAG 10 MCG IV CONT (03:53)
[2020-08-03] MEDS: AMIODARONE 360 MG/D5W 200 ML 360 MG/200 ML BAG 16.67 MG IV CONT ×2 (03:56→16:07)
[2020-08-03 04:14] LABS: Alveolar/Arterial O2 Gradient 254.2 mmHg; Base Excess ABG -7.1 mEq/l (+/-2.0); Carboxyhemoglobin 0.2 % THb (0-2.0); Fractional Inspired Oxygen 55 %; HCO3 ABG 16.8 mEq/l (22.0-26.0); Methemoglobin ABG 0.2 %THb (0-1.5); Oxygen Saturation ABG 97.9 % (95.0-100.0); Oxyhemoglobin 96.1 % THb (90.0-100.0); PCO2 ABG 28.9 mmHg (35.0-45.0); PO2 ABG 105.8 mmHg (80.0-100.0); PO2 FiO2 Ratio Arterial Blood 1.92 %; Reduced Hemoglobin 3.5 %THb (0-5.0); pH ABG 7.382 (7.350-7.450)
[2020-08-03 04:16] LABS: Arterial Blood Gas PEEP 12 cmH2O; Arterial Blood Gas Tidal Volume 430 ml; Arterial Blood Gas Vent Mode CMV; Arterial Blood Gas Ventilator rate 32 /MIN; Device VENTILATOR; Site Drawn ARTLINE
[2020-08-03 04:23] LABS: Hematocrit 33.5 % (42.0-52.0); Hemoglobin 10.7 g/dL (14.0-18.0); Immature Platelet Fraction Pct 9.2 % (0.9-11.2); Mean Corpuscular HGB Conc 31.9 g/dl (32-36); Mean Corpuscular Hemoglobin 27.7 pg (26-34); Mean Corpuscular Volume 86.8 fl (80-100); Mean Platelet Volume 14.1 fl (7.4-10.4); Platelet Count Result 62 k/mm3 (150-375); Red Blood Count 3.86 M/mm3 (4.6-6.20); Red Cell Distribution Width 14.9 % (11.5-14.5); White Blood Count 11.7 K/mm3 (4.5-10.0)
[2020-08-03 04:35] LABS: Alanine Aminotransferase 15 U/L (4-50); Albumin Level 2.7 g/dL (3.5-5.1); Alkaline Phosphatase 71 U/L (38-126); Anion Gap 10 mmol/L (8-16); Aspartate Amino Transferase 20 U/L (17-59); Bilirubin,Total 0.6 mg/dL (0.2-1.3); Calcium 9.6 mg/dL (8.4-10.2); Carbon Dioxide 22 mmol/L (22-30); Chloride 120 mmol/L (98-107); Estimated CRCL calculation 21 ml/min; Estimated Glomerular Filt Rate 11; Glucose 340 mg/dL (75-110); Magnesium 2.3 mg/dL (1.6-2.3); Phosphorus 5.5 mg/dL (2.5-4.5); Sodium 152 mmol/L (137-145)
[2020-08-03 05:01] LABS: Blood Urea Nitrogen 141 mg/dL (9-20)
[2020-08-03] MEDS: hydrALAZINE HCL 20 MG/ML VIAL 10 MG IV PUSH (05:01)
[2020-08-03] MEDS: LEVOTHYROXINE SODIUM INJ 100 MCG/5 ML VIAL 37.5 MCG IV PUSH (05:02)
[2020-08-03] MEDS: CENTRAL LINE FLUSH 10 ML IV PUSH ×3 (05:03→20:42)
[2020-08-03] MEDS: levETIRAcetam 1000MG/NACL100ML 1,000 MG/100 ML BAG 400 MG IVPB ×2 (08:01→20:41)
[2020-08-03] MEDS: DEXAMETHASONE SOD PHOS INJ 4 MG/ML VIAL 6 MG IV PUSH (08:02)
[2020-08-03] MEDS: amLODIPine BESYLATE 2.5 MG, amLODIPine BESYLATE 5 MG 7.5 MG PO (08:02)
[2020-08-03 08:07] LABS: Glucose Point of Care 290 (65-105)
[2020-08-03] MEDS: INSULIN GLARGINE (*BKC) 100 UNITS/ML 32 UNITS SUB-Q (08:28)
--- NOTE | 2020-08-03 11:50 | PCFNICU ---
ICU Rounding Note: Pt current nutrition is Glucerna 1.2 at 50 ml/hr. Nutrition recommendation:Agree Last recorded weight is 202.7kg. Bowel Motility:NO BM reported, Miralax started. Labs Reviewed:PO4 5.5,GFR 11,Na 152,Alb 2.7,Glu 340 Meds Noted:NovoLog,Versed, Fentanyl,Keppra,Decadron,Lantus. Additional Notes: Mechanical vent on 08/08/20. Tube feedings at 50 ml/hr ,goal rate at 75 ml/hr and tolerating. Hypoactive bowel sounds. Miralax added today. Following daily in ICU rounds. Assessing/reassessing every Saturday and Saturday.
--- NOTE | 2020-08-03 12:52 | WPDINFPN2 ---
Progress Note: A&P Assessment and Plan (1) Gram-positive cocci bacteremia: Code(s): R78.81 - Bacteremia Status: Acute Assessment and Plan: 1. Peptostreptococcus bacteremia, skin contaminant. Repeat BCs ng 2 days 2. CoVid 19 infection with viral pneumonia 3. Renal insufficiency 4. Stasis dermatitis LEs, no cellulitis 5. Vanc --> hives REC Off antibiotics. No therapy needed for lung superinfection at this point. Will sign off, call if other Qs. Subjective Date/time seen: 08/03/20 12:52 Interval history: no pressors, on vent Exam Narrative: Exam Narrative: afebrile tachypneic Const: General: no acute distress Resp: Effort & Inspection: normal respiratory effort Auscultation: clear to auscultation bilaterally and diminished lung sounds Cardio: Rate: regular rate Rhythm: regular rhythm Heart sounds: no murmurs GI: Inspection: distended GI Palp: Yes Soft to palpation and No Tenderness to palpation present (GI) Urinary Catheter: Urinary Catheter: patent and draining and urine clear Objective Data Vital Signs Vital Signs: Vital Signs - 24 hr 08/02/20 14:00 08/02/20 14:31 08/02/20 14:42 Temperature Pulse Rate 71 89 89 Respiratory Rate 32 H 32 H 32 H Blood Pressure 154/66 H Pulse Oximetry 93 93 08/02/20 16:00 08/02/20 16:56 08/02/20 18:00 Temperature 35.6 C L Pulse Rate 93 92 85 Respiratory Rate 32 H 32 H Blood Pressure 146/65 H 145/75 H Pulse Oximetry 93 93 93 08/02/20 20:00 08/02/20 21:35 08/02/20 21:37 Temperature 36.5 C Pulse Rate 80 101 H 101 H Respiratory Rate 32 H 32 H Blood Pressure 162/70 H Pulse Oximetry 93 93 08/02/20 21:45 08/02/20 22:00 08/02/20 23:26 Temperature Pulse Rate 105 H 105 H 100 Respiratory Rate 32 H 32 H 32 H Blood Pressure 158/69 H Pulse Oximetry 92 92 08/03/20 00:00 08/03/20 00:06 08/03/20 02:00 Temperature 36.6 C Pulse Rate 106 H 105 H 95 Respiratory Rate 32 H 32 H Blood Pressure 146/69 H 139/72 Pulse Oximetry 92 92 92 08/03/20 03:02 08/03/20 03:03 08/03/20 03:07 Temperature Pulse Rate 99 99 95 Respiratory Rate 32 H 32 H Blood Pressure Pulse Oximetry 93 93 08/03/20 03:53 08/03/20 03:55 08/03/20 03:56 Temperature Pulse Rate 93 86 97 Respiratory Rate 32 H 32 H Blood Pressure 123/65 Pulse Oximetry 08/03/20 04:00 08/03/20 05:27 08/03/20 06:00 Temperature 36.5 C Pulse Rate 92 109 H 108 H Respiratory Rate 32 H 32 H Blood Pressure 140/98 H 145/60 H Pulse Oximetry 93 94 93 08/03/20 08:00 08/03/20 08:38 08/03/20 08:39 Temperature 36.3 C L Pulse Rate 101 H 112 H 109 H Respiratory Rate 32 H 26 H Blood Pressure 140/58 L Pulse Oximetry 93 93 08/03/20 08:49 08/03/20 10:00 08/03/20 11:05 Temperature Pulse Rate 99 104 H 91 Respiratory Rate 32 H 32 H Blood Pressure 145/61 H Pulse Oximetry 93 93 Intake/Output Intake/Output: Intake & Output 07/31/20 08/01/20 08/02/20 08/03/20 23:59 23:59 23:59 23:59 Intake Total 880 887 986 894 Output Total 3600 3650 2950 1500 Balance -2720 -2763 -1964 -606 Meds/Results Medications: Active Medications Generic Name Dose Route Start Last Admin Trade Name Freq PRN Reason Stop Dose Admin Albuterol 2.5 mg 07/30/20 02:00 08/03/20 08:37 Albuterol Sulfate Neb 2.5 Mg/0.5 Ml Inh INHALATION 2.5 mg Q6HRT DAMARI Administration Amlodipine Besylate 2.5 mg/ 7.5 mg 08/02/20 10:30 08/03/20 08:02 Amlodipine Besylate 5 mg PO 7.5 mg DAILY DAMARI Administration Bisacodyl 10 mg 08/04/20 09:00 Bisacodyl 10 Mg Suppository RECTAL QAM [facility] Dexamethasone Sodium Phosphate 6 mg 07/30/20 09:00 08/03/20 08:02 Dexamethasone Sod Phos Inj 4 Mg/Ml Vial IV PUSH 08/08/20 09:01 6 mg DAILY DAMARI Administration Dextrose 12.5 gm 07/29/20 20:23 Dextrose 50% 25 Gm/50 Ml Syringe IV PUSH PRN PRN Hypoglycemia Protocol Glucagon 1 mg 07/29/20 20:23 Glucagon For Inj 1 Mg Vial IM
--- NOTE | 2020-08-03 13:01 | WPDINTPN ---
Progress Note: A&P Assessment and Plan (1) Respiratory failure: Qualifiers: Chronicity: acute on chronic Respiratory failure complication: hypoxia and hypercapnia Qualified Code(s): J96.21 - Acute and chronic respiratory failure with hypoxia; J96.22 - Acute and chronic respiratory failure with hypercapnia Code(s): J96.90 - Respiratory failure, unspecified, unspecified whether with hypoxia or hypercapnia Status: Acute Assessment and Plan: Acute hypoxic respiratory to volume overload, COVID-19 pneumonia -Chest x-ray shows Diffuse lung disease with interval improvement in the upper lung zones, consistent with pneumonia and/or pulmonary edema and/or acute respiratory distress syndrome (ARDS). -patient is on CMV mode of ventilation, low tidal volume strategy due to ARDS physiology, decrease PEEP to 12, wean FiO2 as tolerated -allow permissive hypercapnia. Continue to monitor ABG and chest x-ray. -patient on fentanyl and Versed for sedation, off Nimbex. - Continue bronchodilators -venous Dopplers 07/31: Negative for DVT bilateral (2) Atrial fibrillation: Code(s): I48.91 - Unspecified atrial fibrillation Status: Acute Assessment and Plan: Patient with AFib RVR at the outside hospital requiring Cardizem infusion which was then converted to p.o. Cardizem and Coreg. Developed bradycardia and hypotension. Now both has been discontinued. -He was given calcium gluconate along with glucagon at the time of presentation. Cardiology is following. -currently on amiodarone infusion rate controlled - No anticoagulation as plts low (3) Bradycardia: Code(s): R00.1 - Bradycardia, unspecified Status: Acute Assessment and Plan: RESOLVED Patient with bradycardia, requiring atropine, dopamine, epinephrine and started being paced with external pacer pads -this could be related to multiple causes, Cardizem, Coreg, COVID-19 induced cardiomyopathy or myocarditis -cardiology service recommendations appreciated. -now off epinephrine and pacing and his heart rate in his 60s and 70s. Pacer Garcia's can be discontinued. 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 Rodriguez, patient has received platelets recently, he also receives IVIG treatment -continue to monitor platelet count. Hematology evaluation appreciated May need anticoagulation for atrial fibrillation if it is okay with Hematology Service considering his ITP and down trending platelet counts. (6) 2019 novel coronavirus–infected pneumonia (NCIP)#8211;infected pneumonia (NCIP): Code(s): U07.1 - COVID-19; J12.89 - Other viral pneumonia Status: Acute Assessment and Plan: SARS-CoV-2 PCR positive on 07/22/2020 -continue dexamethasone, initiated on 07/28/2020 -patient not a candidate for Remdesivir due to acute on chronic renal failure -continue droplet, airborne, contact isolation/precautions -will monitor inflammatory markers (7) Erythropoietin deficiency anemia: Code(s): D63.1 - Anemia in chronic kidney disease Status: Acute Assessment and Plan: Hemoglobin is stable, will continue to monitor (8) Acute on chronic kidney failure: Qualifiers: Acute renal failure type: unspecified Chronic kidney disease stage: unspecified stage Qualified Code(s): N17.9 - Acute kidney failure, unspecified; N18.9 - Chronic kidney disease, unspecified Code(s): N
--- NOTE | 2020-08-03 13:29 | P.PNNP_ITS ---
Progress Note: A&P Assessment and Plan (1) WILMAR (acute kidney injury): Code(s): N17.9 - Acute kidney failure, unspecified Status: Acute Assessment and Plan: * due to a combination of possible disease progression and COVID-19 * previous renal ultrasound with moderate bilateral hydronephrosis but repeat ultrasound negative * no critical electrolytes * Urine output is still good. He made 2900cc of urine yesterday. * His creatinine is up marginally, his BUN is high, out of proportion to the creatinine, due to high catabolic state plus steroids. (2) Chronic kidney disease, stage IV (severe): Code(s): N18.4 - Chronic kidney disease, stage 4 (severe) Status: Chronic Assessment and Plan: * baseline creatinine presumed to be 3.49mg/dl (January 2020) * likely due to diabetes, hypertension, vascular disease, and age-related change (3) Atrial fibrillation: Code(s): I48.91 - Unspecified atrial fibrillation Status: Acute Assessment and Plan: * Cardiology following * attempt rate control as tolerated (4) Respiratory failure: Qualifiers: Chronicity: acute on chronic Respiratory failure complication: hypoxia and hypercapnia Qualified Code(s): J96.21 - Acute and chronic respiratory failure with hypoxia; J96.22 - Acute and chronic respiratory failure with hypercapnia Code(s): J96.90 - Respiratory failure, unspecified, unspecified whether with hypoxia or hypercapnia Status: Acute Assessment and Plan: * suspect due to COVID-19 +/- volume overload with possible progression to ARDS * Pulmonary following * continue ventilator support * Intake/output negative yesterday. (5) Pneumonia due to COVID-19 virus: Code(s): U07.1 - COVID-19; J12.89 - Other viral pneumonia Status: Acute Assessment and Plan: * on steroids * not a candidate for remdesivir due to CKD * blood cultures noted -- real or contamination? * Dr Guthrie is on the case * continue supportive therapy (6) Chronic ITP (idiopathic thrombocytopenia): Code(s): D69.3 - Immune thrombocytopenic purpura Status: Acute Assessment and Plan: * platelet count stable * Hem/Onc following Subjective Date/time seen: 08/03/20 13:29 Interval history: Patient cannot give a history He is on the ventilator and sedated. Review of Systems Review of Systems: ROS unobtainable: Yes unobtainable due to medical condition Exam Narrative: Exam Narrative: General: Elderly male intubated/sedated Heart: IRRRnormal S1 and S2; no rub or gallop Lungs: coarse throughout with crackles/rhonchi noted Abdomen: soft, nontender, nondistended, positive bowel sounds Extremities: no cyanosis or clubbing; 1+ edema Skin: No rash Objective Data Vital Signs Vital Signs: Vital Signs - 24 hr 08/02/20 14:00 08/02/20 14:31 08/02/20 14:42 Temperature Pulse Rate 71 89 89 Respiratory Rate 32 H 32 H 32 H Blood Pressure 154/66 H Pulse Oximetry 93 93 08/02/20 16:00 08/02/20 16:56 08/02/20 18:00 Temperature 35.6 C L Pulse Rate 93 92 85 Respiratory Rate 32 H 32 H Blood Pressure 146/65 H 145/75 H Pulse Oximetry 93 93 93 08/02/20 20:00 08/02/20 21:35 08/02/20 21:37 Temperature 36.5 C Pulse Rate 80 101 H 101 H
--- NOTE | 2020-08-03 13:29 | PM.PNNEP ---
Progress Note: A&P Assessment and Plan (1) WILMAR (acute kidney injury): Code(s): N17.9 - Acute kidney failure, unspecified Status: Acute Assessment and Plan: due to a combination of possible disease progression and COVID-19 previous renal ultrasound with moderate bilateral hydronephrosis but repeat ultrasound negative no critical electrolytes Urine output is still good. He made 2900cc of urine yesterday. His creatinine is up marginally, his BUN is high, out of proportion to the creatinine, due to high catabolic state plus steroids. (2) Chronic kidney disease, stage IV (severe): Code(s): N18.4 - Chronic kidney disease, stage 4 (severe) Status: Chronic Assessment and Plan: baseline creatinine presumed to be 3.49mg/dl (January 2020) likely due to diabetes, hypertension, vascular disease, and age-related change (3) Atrial fibrillation: Code(s): I48.91 - Unspecified atrial fibrillation Status: Acute Assessment and Plan: Cardiology following attempt rate control as tolerated (4) Respiratory failure: Qualifiers: Chronicity: acute on chronic Respiratory failure complication: hypoxia and hypercapnia Qualified Code(s): J96.21 - Acute and chronic respiratory failure with hypoxia; J96.22 - Acute and chronic respiratory failure with hypercapnia Code(s): J96.90 - Respiratory failure, unspecified, unspecified whether with hypoxia or hypercapnia Status: Acute Assessment and Plan: suspect due to COVID-19 +/- volume overload with possible progression to ARDS Pulmonary following continue ventilator support Intake/output negative yesterday. (5) Pneumonia due to COVID-19 virus: Code(s): U07.1 - COVID-19; J12.89 - Other viral pneumonia Status: Acute Assessment and Plan: on steroids not a candidate for remdesivir due to CKD blood cultures noted -- real or contamination? Dr Guthrie is on the case continue supportive therapy (6) Chronic ITP (idiopathic thrombocytopenia): Code(s): D69.3 - Immune thrombocytopenic purpura Status: Acute Assessment and Plan: platelet count stable Hem/Onc following Subjective Date/time seen: 08/03/20 13:29 Interval history: Patient cannot give a history He is on the ventilator and sedated. Review of Systems Review of Systems: ROS unobtainable: Yes unobtainable due to medical condition Exam Narrative: Exam Narrative: General: Elderly male intubated/sedated Heart: IRRRnormal S1 and S2; no rub or gallop Lungs: coarse throughout with crackles/rhonchi noted Abdomen: soft, nontender, nondistended, positive bowel sounds Extremities: no cyanosis or clubbing; 1+ edema Skin: No rash Objective Data Vital Signs Vital Signs: Vital Signs - 24 hr 08/02/20 14:00 08/02/20 14:31 08/02/20 14:42 Temperature Pulse Rate 71 89 89 Respiratory Rate 32 H 32 H 32 H Blood Pressure 154/66 H Pulse Oximetry 93 93 08/02/20 16:00 08/02/20 16:56 08/02/20 18:00 Temperature 35.6 C L Pulse Rate 93 92 85 Respiratory Rate 32 H 32 H Blood Pressure 146/65 H 145/75 H Pulse Oximetry 93 93 93 08/02/20 20:00 08/02/20 21:35 08/02/20 21:37 Temperature 36.5 C Pulse Rate 80 101 H 101 H Respiratory Rate 32 H 32 H Blood Pressure 162/70 H Pulse Oximetry 93 93 08/02/20 21:45 08/02/20 22:00 08/02/20 23:26 Temperature Pulse Rate 105 H 105 H 100 Respiratory Rate 32 H 32 H 32 H Blood Pressure 158/69 H Pulse Oximetry 92 92 08/03/20 00:00 08/03/20 00:06 08/03/20 02:00 Temperature 36.6 C Pulse Rate 106 H 105 H 95 Respiratory Rate 32 H 32 H Blood Pressure 146/69 H 139/72 Pulse Oximetry 92 92 92 08/03/20 03:02 08/03/20 03:03 08/03/20 03:07 Temperature Pulse Rate 99 99 95 Respiratory Rate 32 H 32 H Blood Pressure Pulse Oximetry 93 93 08/03/20 03:53 08/03/20 03:55 08/03/20 03:56 Temperature Pulse Rate 93 86 97
[2020-08-03 14:30] LABS: Arterial Blood Gas PEEP 16 cmH2O; Arterial Blood Gas Tidal Volume 430 ml; Arterial Blood Gas Vent Mode CMV; Arterial Blood Gas Ventilator rate 32 /MIN
--- NOTE | 2020-08-03 15:11 | PM.IMPN ---
Progress Note: A&P Assessment and Plan (1) Respiratory failure: Qualifiers: Chronicity: acute on chronic Respiratory failure complication: hypoxia and hypercapnia Qualified Code(s): J96.21 - Acute and chronic respiratory failure with hypoxia; J96.22 - Acute and chronic respiratory failure with hypercapnia Code(s): J96.90 - Respiratory failure, unspecified, unspecified whether with hypoxia or hypercapnia Status: Acute Assessment and Plan: The patient was intubated at [facility]. Vent settings per pole tester. 08/03/20 15:11 patient is 69-year-old male patient was initially diagnosed with COVID-19 on 07/22/20 and was admitted to the inpatient hospital his symptom had improved and he was transferred to [facility], patient is morbidly obese with history of chronic kidney disease, ITP, atrial fibrillation, CVA, and history of seizure, while at the [facility] patient symptom worsen he was quite hypoxic was intubated and transferred to ICU at [facility] via helicopter, currently patient is intubated, he is being treated with dexamethasone 10/19 cannot receive Remdesivir because patient has a stage 4 chronic kidney disease, upon arrival patient was hypotensive and bradycardic started on epinephrine infusion is now off epinephrine blood pressure and rate is stable, patient with ITP was seen by Hematology patient is being treated with steroid for COVID-19 his platelet counts a improving any has no complaint of bleeding. Patient remains off pressors, patient on NG tube and being fed, Patient blood culture is growing gram-positive cocci in cluster was seen by Dr. Guthrie suspect its contamination and does not recommend any abx and stopped daptomycin. Patient remains clinically stable on vent, will continue to follow, Patient is seen by pole tester and electronics worker in [place]. (2) Exposure to COVID-19 virus: Code(s): Z20.828 - Contact with and (suspected) exposure to other viral communicable diseases Status: Acute Assessment and Plan: Patient is now intubated. Continue with Decadron. (3) Thrombocytopenia: Code(s): D69.6 - Thrombocytopenia, unspecified Status: Acute Assessment and Plan: Hematology as this is the chronic condition. (4) Acute on chronic kidney failure: Qualifiers: Acute renal failure type: unspecified Chronic kidney disease stage: unspecified stage Qualified Code(s): N17.9 - Acute kidney failure, unspecified; N18.9 - Chronic kidney disease, unspecified Code(s): N17.9 - Acute kidney failure, unspecified; N18.9 - Chronic kidney disease, unspecified Status: Acute Assessment and Plan: Patient has worsening chronic kidney disease, nephrology on board (5) Pneumonia due to COVID-19 virus: Code(s): U07.1 - COVID-19; J12.89 - Other viral pneumonia Status: Acute Assessment and Plan: See above. (6) Atrial fibrillation: Code(s): I48.91 - Unspecified atrial fibrillation Status: Acute Assessment and Plan: Patient has atrial fib and with the slow ventricular response. Patient is externally paced. Cardiology has been consulted and has given recommendations. (7) Diabetes: Code(s): E11.9 - Type 2 diabetes mellitus without complications Status: Chronic Assessment and Plan: The patient is placed on insulin drip and Accu-Cheks are every 1 hour. (8) Type 2 diabetes mellitus without complications: Code(s): E11.9 - Type 2 diabetes mellitus without complications Status: Acute (9) Elevated troponin: Code(s): R77.8 - Other specified abnormalities of plasma proteins Status: Acute Assessment and Plan: Patient's values are different at [place] and it looks like his troponins have gone back down to normal. Will repeat troponins here. (10) Bradycardia: Code(s): R00.1 - Bradycardia, unspecified Status: Ac
[2020-08-03 16:59] LABS: Glucose Point of Care 382 (65-105)
[2020-08-03] MEDS: INSULIN GLARGINE (*BKC) 100 UNITS/ML 40 UNITS SUB-Q (20:42)
[2020-08-03 21:05] LABS: Glucose Point of Care 407 (65-105)
[2020-08-03 22:43] LABS: Glucose Point of Care 380 (65-105)
[2020-08-04] VITALS (51 sets, daily range): BP systolic 115–162; BP diastolic 50–71; PULSE 74–132; RESP 24–32; TEMP 36.2–37; O2SAT 92–96
[2020-08-04] MEDS: INSULIN ASPART (*BKC) 100 UNITS/ML SUB-Q (00:38)
[2020-08-04 00:45] LABS: Glucose Point of Care 366 (65-105)
[2020-08-04] MEDS: IPRATROPIUM BR 0.02% INH SOLN 0.5 MG/2.5 ML VIAL INHALATION ×4 (02:07→19:44)
[2020-08-04] MEDS: ALBUTEROL SULFATE NEB 2.5 MG/0.5 ML INH INHALATION ×4 (02:08→19:44)
[2020-08-04] MEDS: FENTANYL 2,500MCG/NS250ML(*CRX 2,500 MCG/250 ML BAG 7.5 MCG IV CONT (03:20)
[2020-08-04] MEDS: AMIODARONE 360 MG/D5W 200 ML 360 MG/200 ML BAG 16.67 MG IV CONT ×2 (04:00→16:33)
[2020-08-04 04:28] LABS: Hematocrit 34.6 % (42.0-52.0); Hemoglobin 10.9 g/dL (14.0-18.0); Mean Corpuscular HGB Conc 31.5 g/dl (32-36); Mean Corpuscular Hemoglobin 28.1 pg (26-34); Mean Corpuscular Volume 89.2 fl (80-100); Platelet Count Result 87 k/mm3 (150-375); Red Blood Count 3.88 M/mm3 (4.6-6.20); Red Cell Distribution Width 15.4 % (11.5-14.5); White Blood Count 14.7 K/mm3 (4.5-10.0)
[2020-08-04 04:39] LABS: Alveolar/Arterial O2 Gradient 219.4 mmHg; Carboxyhemoglobin 0.3 % THb (0-2.0); Fractional Inspired Oxygen 50 %; HCO3 ABG 19.3 mEq/l (22.0-26.0); Methemoglobin ABG 0.2 %THb (0-1.5); Oxygen Content ABG 15.6 %vol (16.0-22.0); Oxygen Saturation ABG 96.9 % (95.0-100.0); Oxyhemoglobin 95.1 % THb (90.0-100.0); PCO2 ABG 37.4 mmHg (35.0-45.0); Reduced Hemoglobin 4.4 %THb (0-5.0); Total Hemoglobin 11.6 g/dL (12.0-18.0); pH ABG 7.331 (7.350-7.450)
[2020-08-04 04:41] LABS: Device VENTILATOR; Modified Allen's Test Pass; Site Drawn ARTLINE
[2020-08-04 04:42] LABS: Arterial Blood Gas PEEP 12 cmH2O; Arterial Blood Gas Tidal Volume 430 ml; Arterial Blood Gas Vent Mode CMV; Arterial Blood Gas Ventilator rate 32 /MIN
[2020-08-04 04:51] LABS: Albumin Level 2.7 g/dL (3.5-5.1); Anion Gap 10 mmol/L (8-16); Calcium 9.6 mg/dL (8.4-10.2); Carbon Dioxide 22 mmol/L (22-30); Chloride 120 mmol/L (98-107); Estimated CRCL calculation 20 ml/min; Estimated Glomerular Filt Rate 10; Glucose 369 mg/dL (75-110); Phosphorus 6.1 mg/dL (2.5-4.5); Potassium 5.7 mmol/L (3.4-5.0); Sodium 152 mmol/L (137-145)
[2020-08-04] MEDS: LEVOTHYROXINE SODIUM INJ 100 MCG/5 ML VIAL 37.5 MCG IV PUSH (05:07)
[2020-08-04] MEDS: CENTRAL LINE FLUSH 10 ML IV PUSH ×5 (05:14→20:14)
[2020-08-04 05:25] LABS: Blood Urea Nitrogen 166 mg/dL (9-20)
[2020-08-04] MEDS: INSULIN HUMAN REGULAR (*BKC) 100 UNITS in SODIUM CHLORIDE 0.9% IV 99 ML 6.1 UNITS IV CONT (06:05)
[2020-08-04 07:07] LABS: Glucose Point of Care 343 (65-105)
[2020-08-04] MEDS: DEXAMETHASONE SOD PHOS INJ 4 MG/ML VIAL 6 MG IV PUSH (08:13)
[2020-08-04] MEDS: polyethylene glycoL 3350 17 GM POWD.PACK PO (08:13)
[2020-08-04] MEDS: BISACODYL 10 MG SUPPOSITORY RECTAL (08:14)
[2020-08-04] MEDS: amLODIPine BESYLATE 2.5 MG, amLODIPine BESYLATE 5 MG 7.5 MG PO (08:14)
[2020-08-04 09:14] LABS: Anion Gap 10 mmol/L (8-16); Calcium 9.5 mg/dL (8.4-10.2); Carbon Dioxide 22 mmol/L (22-30); Chloride 122 mmol/L (98-107); Estimated CRCL calculation 20 ml/min; Estimated Glomerular Filt Rate 10; Glucose 340 mg/dL (75-110); Potassium 5.2 mmol/L (3.4-5.0); Sodium 154 mmol/L (137-145)
[2020-08-04] MEDS: levETIRAcetam 1000MG/NACL100ML 1,000 MG/100 ML BAG 400 MG IVPB ×2 (09:22→23:21)
[2020-08-04 09:26] LABS: Blood Urea Nitrogen 174 mg/dL (9-20)
[2020-08-04] MEDS: INSULIN GLARGINE (*BKC) 100 UNITS/ML 40 UNITS SUB-Q (10:52)
[2020-08-04] MEDS: INSULIN GLARGINE (*BKC) 100 UNITS/ML 60 UNITS SUB-Q ×2 (10:54→20:13)
[2020-08-04] MEDS: SODIUM POLYSTYRENE SULFONONATE 15 GM/60 ML BTL 30 GM PO (11:05)
[2020-08-04] MEDS: DEXTROSE 5% IN WATER 500 ML 100 ML IV CONT (11:05)
[2020-08-04 11:40] LABS: Glucose Point of Care 242 (65-105)
[2020-08-04 11:40] LABS: Glucose Point of Care 259 (65-105)
[2020-08-04 11:40] LABS: Glucose Point of Care 347 (65-105)
[2020-08-04 11:40] LABS: Glucose Point of Care 276 (65-105)
--- NOTE | 2020-08-04 12:06 | PC.NURSE ---
Updated daughter, Rosetta, via telephone on plan of care.
--- NOTE | 2020-08-04 12:12 | PCDIET ---
ICU Rounding Note: Pt current nutrition is Glucerna 1.2 @75ml/hr. Nutrition recommendation: agree for now while no dialysis Last recorded weight is 199.5kg, up from 156kg on assessment 07/29, question accuracy I/O +388 Bowel Motility:No BM notes, miralax on board Labs Reviewed:PO4 6.1, Na 154, K 5.2, GFR 10, Cr 5.50, Glucose 340 Meds Noted:Insulin, albuterol, Dulcolax, Decadron, fentanyl, Keppra, Synthroid Additional Notes: Pt on insulin drip. Ag goal with glucerna at 75m/hr providing 1980kcals, 99g protein, and 1328ml of free water. Additional 100ml water flush given q 4hrs which I agree with due to Na of 154. Current protein intake appropriate at 99g with GFR 10 (.6g/kg is 93g). If pt continues to decline in renal function with dialysis starting, Nepro with goal of 60ml/hr would be more appropriate. We will follow daily in ICU rounds and reassess on Saturday.
--- NOTE | 2020-08-04 12:34 | P.PNNP_ITS ---
Progress Note: A&P Assessment and Plan (1) WILMAR (acute kidney injury): Code(s): N17.9 - Acute kidney failure, unspecified Status: Acute Assessment and Plan: * Creatinine has been up and down in the low 5s. * So his underlying GFR is most likely 10-12 * BUN is on the rise. He is hyper catabolic from the COVID and also he is on dexamethasone. This is likely going to continue to rise. * Discussed with . He says this family is considering aggressiveness of care. * If we are to continue to be aggressive, we should probably start dialysis pretty soon. It is on an emergency today. He has no rub. (2) Chronic kidney disease, stage IV (severe): Code(s): N18.4 - Chronic kidney disease, stage 4 (severe) Status: Chronic Assessment and Plan: * baseline creatinine presumed to be 3.49mg/dl (January 2020) * likely due to diabetes, hypertension, vascular disease, and age-related change (3) Atrial fibrillation: Code(s): I48.91 - Unspecified atrial fibrillation Status: Acute Assessment and Plan: * Cardiology following * Pulse between 80 and 105 (4) Respiratory failure: Qualifiers: Chronicity: acute on chronic Respiratory failure complication: hypoxia and hypercapnia Qualified Code(s): J96.21 - Acute and chronic respiratory failure with hypoxia; J96.22 - Acute and chronic respiratory failure with hypercapnia Code(s): J96.90 - Respiratory failure, unspecified, unspecified whether with hypoxia or hypercapnia Status: Acute Assessment and Plan: * suspect due to COVID-19 +/- volume overload with possible progression to ARDS * Pulmonary following * continue ventilator support * Intake/output negative yesterday. (5) Pneumonia due to COVID-19 virus: Code(s): U07.1 - COVID-19; J12.89 - Other viral pneumonia Status: Acute Assessment and Plan: * on steroids * not a candidate for remdesivir due to CKD * blood cultures noted -- real or contamination? * Dr Guthrie is on the case * continue supportive therapy (6) Chronic ITP (idiopathic thrombocytopenia): Code(s): D69.3 - Immune thrombocytopenic purpura Status: Acute Assessment and Plan: * platelet count up a little. * Hem/Onc following Subjective Date/time seen: 08/04/20 12:34 Interval history: Patient cannot give a history He is on the ventilator and sedated. Review of Systems Review of Systems: ROS unobtainable: Yes unobtainable due to medical condition Exam Narrative: Exam Narrative: General: Elderly male intubated/sedated Heart: IRRRnormal S1 and S2; no rub or gallop Lungs: coarse throughout with crackles/rhonchi noted Abdomen: soft, nontender, nondistended, positive bowel sounds Extremities: 1+ edema Skin: No rash or subcu nodules Objective Data Vital Signs Vital Signs: Vital Signs - 24 hr 08/03/20 13:39 08/03/20 13:42 08/03/20 13:59 Temperature Pulse Rate 105 H 104 H 100 Respiratory Rate 32 H 32 H Blood Pressure Pulse Oximetry 94 08/03/20 14:00 08/03/20 16:00 08/03/20 16:06 Temperature 36.4 C Pulse Rate 100 107 H 107 H Respiratory Rate 32 H 32 H Blood Pressure 144/58 H 153/81 H 133/98 H Pulse Oximetry 93 92 08/03/20 16:07 08/03/20 16:50 08/03/20 18:00 Tem[place]a
--- NOTE | 2020-08-04 12:34 | PM.PNNEP ---
Progress Note: A&P Assessment and Plan (1) WILMAR (acute kidney injury): Code(s): N17.9 - Acute kidney failure, unspecified Status: Acute Assessment and Plan: Creatinine has been up and down in the low 5s. So his underlying GFR is most likely 10-12 BUN is on the rise. He is hyper catabolic from the COVID and also he is on dexamethasone. This is likely going to continue to rise. Discussed with . He says this family is considering aggressiveness of care. If we are to continue to be aggressive, we should probably start dialysis pretty soon. It is on an emergency today. He has no rub. (2) Chronic kidney disease, stage IV (severe): Code(s): N18.4 - Chronic kidney disease, stage 4 (severe) Status: Chronic Assessment and Plan: baseline creatinine presumed to be 3.49mg/dl (January 2020) likely due to diabetes, hypertension, vascular disease, and age-related change (3) Atrial fibrillation: Code(s): I48.91 - Unspecified atrial fibrillation Status: Acute Assessment and Plan: Cardiology following Pulse between 80 and 105 (4) Respiratory failure: Qualifiers: Chronicity: acute on chronic Respiratory failure complication: hypoxia and hypercapnia Qualified Code(s): J96.21 - Acute and chronic respiratory failure with hypoxia; J96.22 - Acute and chronic respiratory failure with hypercapnia Code(s): J96.90 - Respiratory failure, unspecified, unspecified whether with hypoxia or hypercapnia Status: Acute Assessment and Plan: suspect due to COVID-19 +/- volume overload with possible progression to ARDS Pulmonary following continue ventilator support Intake/output negative yesterday. (5) Pneumonia due to COVID-19 virus: Code(s): U07.1 - COVID-19; J12.89 - Other viral pneumonia Status: Acute Assessment and Plan: on steroids not a candidate for remdesivir due to CKD blood cultures noted -- real or contamination? Dr Guthrie is on the case continue supportive therapy (6) Chronic ITP (idiopathic thrombocytopenia): Code(s): D69.3 - Immune thrombocytopenic purpura Status: Acute Assessment and Plan: platelet count up a little. Hem/Onc following Subjective Date/time seen: 08/04/20 12:34 Interval history: Patient cannot give a history He is on the ventilator and sedated. Review of Systems Review of Systems: ROS unobtainable: Yes unobtainable due to medical condition Exam Narrative: Exam Narrative: General: Elderly male intubated/sedated Heart: IRRRnormal S1 and S2; no rub or gallop Lungs: coarse throughout with crackles/rhonchi noted Abdomen: soft, nontender, nondistended, positive bowel sounds Extremities: 1+ edema Skin: No rash or subcu nodules Objective Data Vital Signs Vital Signs: Vital Signs - 24 hr 08/03/20 13:39 08/03/20 13:42 08/03/20 13:59 Temperature Pulse Rate 105 H 104 H 100 Respiratory Rate 32 H 32 H Blood Pressure Pulse Oximetry 94 08/03/20 14:00 08/03/20 16:00 08/03/20 16:06 Temperature 36.4 C Pulse Rate 100 107 H 107 H Respiratory Rate 32 H 32 H Blood Pressure 144/58 H 153/81 H 133/98 H Pulse Oximetry 93 92 08/03/20 16:07 08/03/20 16:50 08/03/20 18:00 Temperature 35.7 C L Pulse Rate 105 H 101 H 105 H Respiratory Rate 28 H Blood Pressure 133/98 H 136/66 Pulse Oximetry 92 92 08/03/20 20:00 08/03/20 20:35 08/03/20 20:37 Temperature 36.3 C L Pulse Rate 100 104 H 101 H Respiratory Rate 32 H 32 H Blood Pressure 143/70 H Pulse Oximetry 96 94 08/03/20 20:45 08/03/20 22:00 08/03/20 23:21 Temperature Pulse Rate 100 98 93 Respiratory Rate 32 H 32 H 32 H Blood Pressure 148/64 H Pulse Oximetry 92 92 08/03/20 23:23 08/04/20 00:00 08/04/20 02:00 Temperature 36.6 C Pulse Rate 102 H 98 95 Respiratory Rate 32 H 32 H Blood Pressure 140/62 144/63 H Pulse Oximetry 92 92 92 08/04/20 02
[2020-08-04 13:23] LABS: Glucose Point of Care 268 (65-105)
--- NOTE | 2020-08-04 13:49 | WPDINTPN ---
Progress Note: A&P Assessment and Plan (1) Respiratory failure: Qualifiers: Chronicity: acute on chronic Respiratory failure complication: hypoxia and hypercapnia Qualified Code(s): J96.21 - Acute and chronic respiratory failure with hypoxia; J96.22 - Acute and chronic respiratory failure with hypercapnia Code(s): J96.90 - Respiratory failure, unspecified, unspecified whether with hypoxia or hypercapnia Status: Acute Assessment and Plan: Acute hypoxic respiratory to volume overload, COVID-19 pneumonia -Chest x-ray shows Diffuse lung disease with interval improvement in the upper lung zones, consistent with pneumonia and/or pulmonary edema and/or acute respiratory distress syndrome (ARDS). -patient is on CMV mode of ventilation, low tidal volume strategy due to ARDS physiology, decrease PEEP to 10, wean FiO2 as tolerated -allow permissive hypercapnia. Continue to monitor ABG and chest x-ray. -patient on fentanyl and Versed for sedation, off Nimbex. - Continue bronchodilators -venous Dopplers 07/31: Negative for DVT bilateral (2) 2019 novel coronavirus–infected pneumonia (NCIP)#[id number];infected pneumonia (NCIP): Code(s): U07.1 - COVID-19; J12.89 - Other viral pneumonia Status: Acute Assessment and Plan: SARS-CoV-2 PCR positive on 07/22/2020 -continue dexamethasone, initiated on 07/28/2020 -patient not a candidate for Remdesivir due to acute on chronic renal failure -continue droplet, airborne, contact isolation/precautions -will monitor inflammatory markers (3) Acute on chronic kidney failure: Qualifiers: Acute renal failure type: unspecified Chronic kidney disease stage: unspecified stage Qualified Code(s): N17.9 - Acute kidney failure, unspecified; N18.9 - Chronic kidney disease, unspecified Code(s): N17.9 - Acute kidney failure, unspecified; N18.9 - Chronic kidney disease, unspecified Status: Acute Assessment and Plan: Acute on chronic kidney disease, baseline creatinine 3.5-4.0 -metabolic acidosis likely related to uremia. He was given IV bicarb which has been stopped now -he continues to have good urine output close to 2 L in 24 hours but uremia has worsened which is likely from catabolic state and steroids -will continue monitor urine output, renal function and electrolytes. -renal ultrasound 07/23/2020 showed moderate bilateral hydronephrosis -repeat renal ultrasound on 07/31: Normal kidney size, no hydronephrosis -will add D5 water for hypernatremia hypernatremia and hyperchloremia -nephrology service following and discussed with Dr. Devine. Will initiate hemodialysis -I spoke to patient's daughter Sirisha by phone she gave consent for hemodialysis catheter insertion and initiation of hemodialysis (4) Atrial fibrillation: Code(s): I48.91 - Unspecified atrial fibrillation Status: Acute Assessment and Plan: Patient with AFib RVR at the outside hospital requiring Cardizem infusion which was then converted to p.o. Cardizem and Coreg. Developed bradycardia and hypotension. Now both has been discontinued. -He was given calcium gluconate along with glucagon at the time of presentation. Cardiology is following. -currently on amiodarone infusion rate controlled - No anticoagulation as plts low (5) Bradycardia: Code(s): R00.1 - Bradycardia, unspecified Status: Acute Assessment and Plan: RESOLVED Patient with bradycardia, requiring atropine, dopamine, epinephrine and started being paced with external pacer pads -this could be related to multiple causes, Cardizem, Coreg, COVID-19 induced cardiomyopathy or myocarditis -cardiology service recommendations appreciated. -now off epinephrine and pacing and his heart rate in his 60s and 70s. Pacer Garcia's can be discontinued. Echocardiogram 07/30: EF 60-65%, mild pulmonary hypertension with RVSP of 39 mmHg (6) Diabetes: Code(s): E11.9 - Type 2 diabetes mellitus with
[2020-08-04] MEDS: INSULIN HUMAN REGULAR (*BKC) 100 UNITS in SODIUM CHLORIDE 0.9% IV 99 ML 18.2 UNITS IV CONT (14:20)
--- NOTE | 2020-08-04 15:12 | WPDPROCEDUR ---
Procedures Central Line Placement Right IJ: Central Line Date: 08/04/20 Central Line Time: 14:45 Discussed w/ the patient/family/POA,the placement of a central venous catheter, including its clinical necessity/indication & associated potential risks, benifits and alternatives.: Yes The patient/family/POA understand(s) and acknowledge(s) the need to proceed with central venous catheter insertion as an important element of the patient's clinical management.: Yes Consent: Informed verbal consent was obtained on the phone from patient's daughter Sirisha Time Out Performed: Yes Patient Position: supine Patient placed on monitor/pulse ox: Yes Provider Prep: mask, sterile gown, sterile gloves, Max. sterile barrier precautions, cap and hand hygiene with conventional soap/water or alcohol based hand rub Central line prep: 2% Chlorhexidine scrub Sterile US Technique with sterile gel/sterile probe covers: Yes Central line lumen inserted: triple Luxembourgish: 12 Length (cm): 20 Depth of Insertion (cm): 20 Post Procedure: sutured in place, good blood return, all ports aspirated, flushed, capped, transparent dressing, hemostatic product and antimicrobial product Post procedure x-ray: tip of catheter in good position and no pneumothorax seen Patient tolerated procedure: well Additional comments: Patient has a big nelson. Although the catheter insertion site was away from the nelson, some of the hairs were shaved and cut to create a field for suturing and application of dressing. Arterial Line Size (Gauge): 16
[2020-08-04 17:00] LABS: Anion Gap 8 mmol/L (8-16); Calcium 9.5 mg/dL (8.4-10.2); Carbon Dioxide 24 mmol/L (22-30); Chloride 122 mmol/L (98-107); Estimated CRCL calculation 20 ml/min; Estimated Glomerular Filt Rate 10; Glucose 273 mg/dL (75-110); Potassium 5.4 mmol/L (3.4-5.0); Sodium 154 mmol/L (137-145)
[2020-08-04 17:48] LABS: Blood Urea Nitrogen 172 mg/dL (9-20)
[2020-08-04] MEDS: INSULIN HUMAN REGULAR (*BKC) 100 UNITS in SODIUM CHLORIDE 0.9% IV 99 ML 7.8 UNITS IV CONT (20:23)
[2020-08-04 20:29] LABS: Glucose Point of Care 278 (65-105)
[2020-08-04 20:29] LABS: Glucose Point of Care 160 (65-105)
[2020-08-04 20:29] LABS: Glucose Point of Care 262 (65-105)
[2020-08-04 20:29] LABS: Glucose Point of Care 248 (65-105)
[2020-08-04 20:29] LABS: Glucose Point of Care 222 (65-105)
[2020-08-04 20:29] LABS: Glucose Point of Care 185 (65-105)
[2020-08-05] VITALS (60 sets, daily range): BP systolic 104–149; BP diastolic 50–103; PULSE 74–116; RESP 32–34; TEMP 36.1–37.9; O2SAT 92–95
[2020-08-05 00:18] LABS: Anion Gap 6 mmol/L (8-16); Blood Urea Nitrogen 116 mg/dL (9-20); Calcium 8.9 mg/dL (8.4-10.2); Carbon Dioxide 28 mmol/L (22-30); Chloride 112 mmol/L (98-107); Estimated CRCL calculation 28 ml/min; Estimated Glomerular Filt Rate 15; Glucose 167 mg/dL (75-110); Potassium 4.6 mmol/L (3.4-5.0); Sodium 146 mmol/L (137-145)
[2020-08-05] MEDS: IPRATROPIUM BR 0.02% INH SOLN 0.5 MG/2.5 ML VIAL INHALATION ×4 (01:28→20:28)
[2020-08-05] MEDS: ALBUTEROL SULFATE NEB 2.5 MG/0.5 ML INH INHALATION ×4 (01:28→20:28)
[2020-08-05 01:29] LABS: Hepatitis B Surface Antigen Negative (Negative)
[2020-08-05 01:49] LABS: Hepatitis B Surface Anti Res Positive
[2020-08-05 03:13] LABS: Hemoglobin A1C 8.7 % (<5.7)
[2020-08-05 04:33] LABS: Alveolar/Arterial O2 Gradient 242.9 mmHg; Base Excess ABG -0.8 mEq/l (+/-2.0); Device VENTILATOR; Fractional Inspired Oxygen 50 %; Oxygen Content ABG 14.5 %vol (16.0-22.0); Oxygen Saturation ABG 93.7 % (95.0-100.0); Oxyhemoglobin 91.6 % THb (90.0-100.0); PCO2 ABG 40.1 mmHg (35.0-45.0); PO2 ABG 68.5 mmHg (80.0-100.0); PO2 FiO2 Ratio Arterial Blood 1.37 %; Site Drawn ARTLINE; Total Hemoglobin 11.2 g/dL (12.0-18.0); pH ABG 7.395 (7.350-7.450)
[2020-08-05 04:34] LABS: Arterial Blood Gas PEEP 12 cmH2O; Arterial Blood Gas Tidal Volume 430 ml; Arterial Blood Gas Vent Mode ASSIST CONTROL; Arterial Blood Gas Ventilator rate 32 /MIN
[2020-08-05] MEDS: INSULIN HUMAN REGULAR (*BKC) 100 UNITS in SODIUM CHLORIDE 0.9% IV 99 ML 8.5 UNITS IV CONT (04:37)
[2020-08-05] MEDS: AMIODARONE 360 MG/D5W 200 ML 360 MG/200 ML BAG 16.67 MG IV CONT ×2 (04:38→15:10)
[2020-08-05] MEDS: LEVOTHYROXINE SODIUM INJ 100 MCG/5 ML VIAL 37.5 MCG IV PUSH (04:42)
[2020-08-05] MEDS: CENTRAL LINE FLUSH 10 ML IV PUSH ×5 (04:43→20:06)
[2020-08-05 05:00] LABS: Glucose Point of Care 144 (65-105)
[2020-08-05 05:00] LABS: Glucose Point of Care 162 (65-105)
[2020-08-05 05:00] LABS: Glucose Point of Care 125 (65-105)
[2020-08-05 05:00] LABS: Glucose Point of Care 148 (65-105)
[2020-08-05 05:00] LABS: Glucose Point of Care 161 (65-105)
[2020-08-05 05:00] LABS: Glucose Point of Care 130 (65-105)
[2020-08-05 05:00] LABS: Glucose Point of Care 124 (65-105)
[2020-08-05 05:03] LABS: Hematocrit 34.5 % (42.0-52.0); Hemoglobin 10.9 g/dL (14.0-18.0); Immature Platelet Fraction Pct 10.8 % (0.9-11.2); Mean Corpuscular HGB Conc 31.6 g/dl (32-36); Mean Corpuscular Hemoglobin 28.2 pg (26-34); Mean Corpuscular Volume 89.1 fl (80-100); Mean Platelet Volume 13.6 fl (7.4-10.4); Platelet Count Result 90 k/mm3 (150-375); Red Blood Count 3.87 M/mm3 (4.6-6.20); Red Cell Distribution Width 15.3 % (11.5-14.5); White Blood Count 16.9 K/mm3 (4.5-10.0)
[2020-08-05 05:25] LABS: Anion Gap 8 mmol/L (8-16); Carbon Dioxide 28 mmol/L (22-30); Chloride 112 mmol/L (98-107); Estimated CRCL calculation 25 ml/min; Estimated Glomerular Filt Rate 14; Glucose 122 mg/dL (75-110); Potassium 4.7 mmol/L (3.4-5.0); Sodium 148 mmol/L (137-145)
[2020-08-05 05:31] LABS: Blood Urea Nitrogen 129 mg/dL (9-20)
[2020-08-05 06:08] LABS: Glucose Point of Care 111 (65-105)
[2020-08-05 06:55] LABS: Glucose Point of Care 126 (65-105)
[2020-08-05] MEDS: levETIRAcetam 1000MG/NACL100ML 1,000 MG/100 ML BAG 400 MG IVPB ×2 (08:38→20:04)
[2020-08-05] MEDS: INSULIN GLARGINE (*BKC) 100 UNITS/ML 60 UNITS SUB-Q ×2 (08:39→20:05)
[2020-08-05] MEDS: DEXAMETHASONE SOD PHOS INJ 4 MG/ML VIAL 6 MG IV PUSH (08:40)
[2020-08-05] MEDS: amLODIPine BESYLATE 2.5 MG, amLODIPine BESYLATE 5 MG 7.5 MG PO (08:40)
[2020-08-05] MEDS: BISACODYL 10 MG SUPPOSITORY RECTAL (08:40)
--- NOTE | 2020-08-05 08:40 | P.PNNP_ITS ---
Progress Note: A&P Assessment and Plan (1) WILMAR (acute kidney injury): Code(s): N17.9 - Acute kidney failure, unspecified Status: Acute Assessment and Plan: * Because of the very high BUN he started dialysis yesterday. * Because of his substantial chronic kidney disease, he started slowly to prevent dialysis disequilibrium. Will do another treatment today. * Discussed with Dr. Farias (2) Chronic kidney disease, stage IV (severe): Code(s): N18.4 - Chronic kidney disease, stage 4 (severe) Status: Chronic Assessment and Plan: * baseline creatinine presumed to be 3.49mg/dl (January 2020) * likely due to diabetes, hypertension, vascular disease, and age-related change (3) Atrial fibrillation: Code(s): I48.91 - Unspecified atrial fibrillation Status: Acute Assessment and Plan: * Cardiology following * Pulse between 80 and 105 (4) Respiratory failure: Qualifiers: Chronicity: acute on chronic Respiratory failure complication: hypoxia and hypercapnia Qualified Code(s): J96.21 - Acute and chronic respiratory failure with hypoxia; J96.22 - Acute and chronic respiratory failure with hypercapnia Code(s): J96.90 - Respiratory failure, unspecified, unspecified whether with hypoxia or hypercapnia Status: Acute Assessment and Plan: * suspect due to COVID-19 +/- volume overload with possible progression to ARDS * Will try to take more fluid off as tolerated. (5) Pneumonia due to COVID-19 virus: Code(s): U07.1 - COVID-19; J12.89 - Other viral pneumonia Status: Acute Assessment and Plan: * on Dexamethasone * not a candidate for remdesivir due to CKD * blood cultures noted -- real or contamination? * Dr Guthrie is on the case * continue supportive therapy (6) Chronic ITP (idiopathic thrombocytopenia): Code(s): D69.3 - Immune thrombocytopenic purpura Status: Acute Assessment and Plan: * platelet count up a little. * Hem/Onc following Subjective Date/time seen: 08/05/20 08:40 Interval history: Patient cannot give a history He is on the ventilator and sedated. Review of Systems Review of Systems: ROS unobtainable: Yes unobtainable due to medical condition Exam Narrative: Exam Narrative: General: Elderly male intubated/sedated Heart: IRRRnormal S1 and S2; no rub Lungs: coarse bilaterally Abdomen: soft, nontender, nondistended, positive bowel sounds Extremities: 1+ edema Skin: No rash Objective Data Vital Signs Vital Signs: Vital Signs - 24 hr 08/04/20 09:58 08/04/20 10:00 08/04/20 10:52 Temperature Pulse Rate 105 H 100 82 Respiratory Rate 32 H 32 H Blood Pressure 160/71 H Pulse Oximetry 95 96 08/04/20 12:00 08/04/20 13:25 08/04/20 13:28 Temperature 36.4 C L Pulse Rate 99 99 89 Respiratory Rate 32 H 28 H Blood Pressure 162/65 H Pulse Oximetry 94 94 08/04/20 13:31 08/04/20 14:00 08/04/20 16:00 Temperature 36.8 C Pulse Rate 101 H 100 104 H Respiratory Rate 32 H 32 H 32 H Blood Pressure 149/60 H 159/68 H Pulse Oximetry 94 94 08/04/20 16:33 08/04/20 18:00 08/04/20 18:03 Temperature Pulse Rate 105 H 100 100
--- NOTE | 2020-08-05 08:40 | PM.PNNEP ---
Progress Note: A&P Assessment and Plan (1) WILMAR (acute kidney injury): Code(s): N17.9 - Acute kidney failure, unspecified Status: Acute Assessment and Plan: Because of the very high BUN he started dialysis yesterday. Because of his substantial chronic kidney disease, he started slowly to prevent dialysis disequilibrium. Will do another treatment today. Discussed with Dr. Farias (2) Chronic kidney disease, stage IV (severe): Code(s): N18.4 - Chronic kidney disease, stage 4 (severe) Status: Chronic Assessment and Plan: baseline creatinine presumed to be 3.49mg/dl (January 2020) likely due to diabetes, hypertension, vascular disease, and age-related change (3) Atrial fibrillation: Code(s): I48.91 - Unspecified atrial fibrillation Status: Acute Assessment and Plan: Cardiology following Pulse between 80 and 105 (4) Respiratory failure: Qualifiers: Chronicity: acute on chronic Respiratory failure complication: hypoxia and hypercapnia Qualified Code(s): J96.21 - Acute and chronic respiratory failure with hypoxia; J96.22 - Acute and chronic respiratory failure with hypercapnia Code(s): J96.90 - Respiratory failure, unspecified, unspecified whether with hypoxia or hypercapnia Status: Acute Assessment and Plan: suspect due to COVID-19 +/- volume overload with possible progression to ARDS Will try to take more fluid off as tolerated. (5) Pneumonia due to COVID-19 virus: Code(s): U07.1 - COVID-19; J12.89 - Other viral pneumonia Status: Acute Assessment and Plan: on Dexamethasone not a candidate for remdesivir due to CKD blood cultures noted -- real or contamination? Dr Guthrie is on the case continue supportive therapy (6) Chronic ITP (idiopathic thrombocytopenia): Code(s): D69.3 - Immune thrombocytopenic purpura Status: Acute Assessment and Plan: platelet count up a little. Hem/Onc following Subjective Date/time seen: 08/05/20 08:40 Interval history: Patient cannot give a history He is on the ventilator and sedated. Review of Systems Review of Systems: ROS unobtainable: Yes unobtainable due to medical condition Exam Narrative: Exam Narrative: General: Elderly male intubated/sedated Heart: IRRRnormal S1 and S2; no rub Lungs: coarse bilaterally Abdomen: soft, nontender, nondistended, positive bowel sounds Extremities: 1+ edema Skin: No rash Objective Data Vital Signs Vital Signs: Vital Signs - 24 hr 08/04/20 09:58 08/04/20 10:00 08/04/20 10:52 Temperature Pulse Rate 105 H 100 82 Respiratory Rate 32 H 32 H Blood Pressure 160/71 H Pulse Oximetry 95 96 08/04/20 12:00 08/04/20 13:25 08/04/20 13:28 Temperature 36.4 C L Pulse Rate 99 99 89 Respiratory Rate 32 H 28 H Blood Pressure 162/65 H Pulse Oximetry 94 94 08/04/20 13:31 08/04/20 14:00 08/04/20 16:00 Temperature 36.8 C Pulse Rate 101 H 100 104 H Respiratory Rate 32 H 32 H 32 H Blood Pressure 149/60 H 159/68 H Pulse Oximetry 94 94 08/04/20 16:33 08/04/20 18:00 08/04/20 18:03 Temperature Pulse Rate 105 H 100 100 Respiratory Rate 32 H Blood Pressure 158/69 H 149/64 H Pulse Oximetry 94 94 08/04/20 19:44 08/04/20 19:45 08/04/20 19:51 Temperature Pulse Rate 105 H 96 103 H Respiratory Rate 32 H 32 H Blood Pressure Pulse Oximetry 95 08/04/20 20:00 08/04/20 20:30 08/04/20 20:40 Temperature 36.6 C 36.3 C L Pulse Rate 100 107 H 106 H Respiratory Rate 32 H 32 H Blood Pressure 139/61 150/62 H 152/57 H Pulse Oximetry 95 95 08/04/20 20:45 08/04/20 21:00 08/04/20 21:08 Temperature Pulse Rate 105 H 109 H 100 Respiratory Rate 32 H Blood Pressure 153/54 H 149/58 H Pulse Oximetry 08/04/20 21:09 08/04/20 21:15 08/04/20 21:27 Temperature Pulse Rate 110 H 111 H 115 H Respiratory Rate 32 H Blood Pressure 139/58 L
[2020-08-05] MEDS: polyethylene glycoL 3350 17 GM POWD.PACK PO (08:41)
[2020-08-05 09:05] LABS: Glucose Point of Care 121 (65-105)
[2020-08-05 09:05] LABS: Glucose Point of Care 134 (65-105)
[2020-08-05] MEDS: FENTANYL 2,500MCG/NS250ML(*CRX 2,500 MCG/250 ML BAG 7.5 MCG IV CONT (11:01)
[2020-08-05 11:08] LABS: Glucose Point of Care 140 (65-105)
--- NOTE | 2020-08-05 12:36 | WPDINTPN ---
Progress Note: A&P Assessment and Plan (1) Respiratory failure: Qualifiers: Chronicity: acute on chronic Respiratory failure complication: hypoxia and hypercapnia Qualified Code(s): J96.21 - Acute and chronic respiratory failure with hypoxia; J96.22 - Acute and chronic respiratory failure with hypercapnia Code(s): J96.90 - Respiratory failure, unspecified, unspecified whether with hypoxia or hypercapnia Status: Acute Assessment and Plan: Acute hypoxic respiratory to volume overload, COVID-19 pneumonia -Chest x-ray shows Diffuse lung disease with interval improvement in the upper lung zones, consistent with pneumonia and/or pulmonary edema and/or acute respiratory distress syndrome (ARDS). -patient is on CMV mode of ventilation, low tidal volume strategy due to ARDS physiology, decrease PEEP to 10, wean FiO2 as tolerated -allow permissive hypercapnia. Continue to monitor ABG and chest x-ray. -patient on fentanyl and Versed for sedation, off Nimbex. - Continue bronchodilators -venous Dopplers 07/31: Negative for DVT bilateral (2) 2019 novel coronavirus–infected pneumonia (NCIP)#8211;infected pneumonia (NCIP): Code(s): U07.1 - COVID-19; J12.89 - Other viral pneumonia Status: Acute Assessment and Plan: SARS-CoV-2 PCR positive on 07/22/2020 -continue dexamethasone, initiated on 07/28/2020 -patient not a candidate for Remdesivir due to acute on chronic renal failure -continue droplet, airborne, contact isolation/precautions -will monitor inflammatory markers (3) Acute on chronic kidney failure: Qualifiers: Acute renal failure type: unspecified Chronic kidney disease stage: unspecified stage Qualified Code(s): N17.9 - Acute kidney failure, unspecified; N18.9 - Chronic kidney disease, unspecified Code(s): N17.9 - Acute kidney failure, unspecified; N18.9 - Chronic kidney disease, unspecified Status: Acute Assessment and Plan: Acute on chronic kidney disease, baseline creatinine 3.5-4.0 -metabolic acidosis likely related to uremia. He was given IV bicarb which has been stopped now -he continues to have good urine output close to 2 L in 24 hours but uremia has worsened which is likely from catabolic state and steroids -will continue monitor urine output, renal function and electrolytes. -renal ultrasound 07/23/2020 showed moderate bilateral hydronephrosis -repeat renal ultrasound on 07/31: Normal kidney size, no hydronephrosis -nephrology service following and discussed with Dr. Devine. Started dialysis on 08/04 after insertion temporary HD catheter -dialysis schedule per Nephrology (4) Atrial fibrillation: Code(s): I48.91 - Unspecified atrial fibrillation Status: Acute Assessment and Plan: Patient with AFib RVR at the outside hospital requiring Cardizem infusion which was then converted to p.o. Cardizem and Coreg. Developed bradycardia and hypotension. Now both has been discontinued. -He was given calcium gluconate along with glucagon at the time of presentation. Cardiology is following. -currently on amiodarone infusion rate controlled - No anticoagulation as plts low (5) Bradycardia: Code(s): R00.1 - Bradycardia, unspecified Status: Acute Assessment and Plan: RESOLVED Patient with bradycardia, requiring atropine, dopamine, epinephrine and started being paced with external pacer pads -this could be related to multiple causes, Cardizem, Coreg, COVID-19 induced cardiomyopathy or myocarditis -cardiology service recommendations appreciated. -now off epinephrine and pacing and his heart rate in his 60s and 70s. Pacer Garcia's can be discontinued. Echocardiogram 07/30: EF 60-65%, mild pulmonary hypertension with RVSP of 39 mmHg (6) Diabetes: Code(s): E11.9 - Type 2 diabetes mellitus without complications Status: Chronic Assessment and Plan: Hyperglycemia likely related to steroids, acute critical c
[2020-08-05 13:46] LABS: Glucose Point of Care 136 (65-105)
[2020-08-05] MEDS: INSULIN HUMAN REGULAR (*BKC) 100 UNITS in SODIUM CHLORIDE 0.9% IV 99 ML 13.2 UNITS IV CONT (15:07)
[2020-08-05 15:38] LABS: Glucose Point of Care 162 (65-105)
--- NOTE | 2020-08-05 15:50 | PM.IMPN ---
Progress Note: A&P Assessment and Plan (1) Respiratory failure: Qualifiers: Chronicity: acute on chronic Respiratory failure complication: hypoxia and hypercapnia Qualified Code(s): J96.21 - Acute and chronic respiratory failure with hypoxia; J96.22 - Acute and chronic respiratory failure with hypercapnia Code(s): J96.90 - Respiratory failure, unspecified, unspecified whether with hypoxia or hypercapnia Status: Acute Assessment and Plan: The patient was intubated at [facility]. Vent settings per furniture polisher. 08/05/20 15:50 patient is 69-year-old male patient was initially diagnosed with COVID-19 on 07/22/20 and was admitted to the inpatient hospital his symptom had improved and he was transferred to [facility], patient is morbidly obese with history of chronic kidney disease, ITP, atrial fibrillation, CVA, and history of seizure, while at the [facility] patient symptom worsen he was quite hypoxic was intubated and transferred to ICU at [facility] via helicopter, currently patient is intubated, he is being treated with dexamethasone 10/19 cannot receive Remdesivir because patient has a stage 4 chronic kidney disease, upon arrival patient was hypotensive and bradycardic started on epinephrine infusion is now off epinephrine blood pressure and rate is stable, patient with ITP was seen by Hematology patient is being treated with steroid for COVID-19 his platelet counts a improving any has no complaint of bleeding. Patient remains off pressors, patient on NG tube and being fed, Patient blood culture is growing gram-positive cocci in cluster was seen by Dr. Guthrie suspect its contamination and does not recommend any abx and stopped daptomycin. Patient remains clinically stable on vent, Patient was seen by final block press operator and had HD on 08/04, this will help reduce volume and help with extubation, will continue to follow, Patient is seen by furniture polisher and final block press operator in appreciate. (2) Exposure to COVID-19 virus: Code(s): Z20.828 - Contact with and (suspected) exposure to other viral communicable diseases Status: Acute Assessment and Plan: Patient is now intubated. Continue with Decadron. (3) Thrombocytopenia: Code(s): D69.6 - Thrombocytopenia, unspecified Status: Acute Assessment and Plan: Hematology as this is the chronic condition. (4) Acute on chronic kidney failure: Qualifiers: Acute renal failure type: unspecified Chronic kidney disease stage: unspecified stage Qualified Code(s): N17.9 - Acute kidney failure, unspecified; N18.9 - Chronic kidney disease, unspecified Code(s): N17.9 - Acute kidney failure, unspecified; N18.9 - Chronic kidney disease, unspecified Status: Acute Assessment and Plan: Patient has worsening chronic kidney disease, nephrology on board (5) Pneumonia due to COVID-19 virus: Code(s): U07.1 - COVID-19; J12.89 - Other viral pneumonia Status: Acute Assessment and Plan: See above. (6) Atrial fibrillation: Code(s): I48.91 - Unspecified atrial fibrillation Status: Acute Assessment and Plan: Patient has atrial fib and with the slow ventricular response. Patient is externally paced. Cardiology has been consulted and has given recommendations. (7) Diabetes: Code(s): E11.9 - Type 2 diabetes mellitus without complications Status: Chronic Assessment and Plan: The patient is placed on insulin drip and Accu-Cheks are every 1 hour. (8) Type 2 diabetes mellitus without complications: Code(s): E11.9 - Type 2 diabetes mellitus without complications Status: Acute (9) Elevated troponin: Code(s): R77.8 - Other specified abnormalities of plasma proteins Status: Acute Assessment and Plan: Patient's values are different at [place] and it looks like his troponins have gone back down to normal. Will
[2020-08-05 16:59] LABS: Glucose Point of Care 132 (65-105)
[2020-08-05 16:59] LABS: Glucose Point of Care 157 (65-105)
[2020-08-05 18:51] LABS: Glucose Point of Care 129 (65-105)
[2020-08-05 20:39] LABS: Glucose Point of Care 142 (65-105)
[2020-08-05 21:27] LABS: Glucose Point of Care 123 (65-105)
[2020-08-05 23:05] LABS: Glucose Point of Care 135 (65-105)
[2020-08-06] VITALS (48 sets, daily range): BP systolic 101–187; BP diastolic 50–163; PULSE 60–809; RESP 32; TEMP 36.2–37.3; O2SAT 90–97
[2020-08-06 00:11] LABS: Glucose Point of Care 104 (65-105)
[2020-08-06] MEDS: INSULIN HUMAN REGULAR (*BKC) 100 UNITS in SODIUM CHLORIDE 0.9% IV 99 ML 8.7 UNITS IV CONT (01:20)
[2020-08-06] MEDS: AMIODARONE 360 MG/D5W 200 ML 360 MG/200 ML BAG 16.67 MG IV CONT (01:22)
[2020-08-06 01:26] LABS: Glucose Point of Care 127 (65-105)
[2020-08-06] MEDS: IPRATROPIUM BR 0.02% INH SOLN 0.5 MG/2.5 ML VIAL INHALATION ×3 (02:11→20:53)
[2020-08-06] MEDS: ALBUTEROL SULFATE NEB 2.5 MG/0.5 ML INH INHALATION ×3 (02:11→20:53)
[2020-08-06 02:35] LABS: Glucose Point of Care 121 (65-105)
[2020-08-06 04:20] LABS: Alveolar/Arterial O2 Gradient 321.6 mmHg; Base Excess ABG 1.5 mEq/l (+/-2.0); Carboxyhemoglobin 0.3 % THb (0-2.0); Fractional Inspired Oxygen 60 %; HCO3 ABG 25.3 mEq/l (22.0-26.0); Methemoglobin ABG 0.3 %THb (0-1.5); Oxygen Content ABG 15.3 %vol (16.0-22.0); Oxygen Saturation ABG 93.9 % (95.0-100.0); Oxyhemoglobin 90.7 % THb (90.0-100.0); PCO2 ABG 37.1 mmHg (35.0-45.0); PO2 ABG 65.4 mmHg (80.0-100.0); PO2 FiO2 Ratio Arterial Blood 1.09 %; Reduced Hemoglobin 8.7 %THb (0-5.0); pH ABG 7.452 (7.350-7.450)
[2020-08-06 04:21] LABS: Arterial Blood Gas PEEP 12 cmH2O; Arterial Blood Gas Tidal Volume 430 ml; Arterial Blood Gas Vent Mode CMV; Arterial Blood Gas Ventilator rate 32 /MIN; Device VENTILATOR; Modified Allen's Test Pass; Site Drawn RIGHT RADIAL
[2020-08-06 05:17] LABS: Glucose Point of Care 108 (65-105)
[2020-08-06 05:17] LABS: Glucose Point of Care 130 (65-105)
[2020-08-06] MEDS: CENTRAL LINE FLUSH 10 ML IV PUSH ×5 (05:54→20:00)
[2020-08-06] MEDS: LEVOTHYROXINE SODIUM INJ 100 MCG/5 ML VIAL 37.5 MCG IV PUSH (06:37)
[2020-08-06] MEDS: hydrALAZINE HCL 20 MG/ML VIAL 10 MG IV PUSH (06:37)
[2020-08-06 06:47] LABS: Glucose Point of Care 102 (65-105)
[2020-08-06 06:47] LABS: Glucose Point of Care 95 (65-105)
[2020-08-06] MEDS: polyethylene glycoL 3350 17 GM POWD.PACK PO (07:58)
[2020-08-06] MEDS: amLODIPine BESYLATE 2.5 MG, amLODIPine BESYLATE 5 MG 7.5 MG PO (07:58)
[2020-08-06] MEDS: BISACODYL 10 MG SUPPOSITORY RECTAL (07:58)
[2020-08-06] MEDS: DEXAMETHASONE SOD PHOS INJ 4 MG/ML VIAL 6 MG IV PUSH (07:59)
[2020-08-06 08:05] LABS: Glucose Point of Care 104 (65-105)
[2020-08-06 09:41] LABS: Basophils Percent Auto 0.1 % (0.2-1.2); Eosinophils Absolute Auto 0.1 K/mm3 (0-0.3); Eosinophils Percent Auto 0.5 % (0-4.4); Hematocrit 34.1 % (42.0-52.0); Hemoglobin 10.7 g/dL (14.0-18.0); Immature Granulocyte Absolute 0.39 K/mm3 (0.00-0.031); Immature Granulocyte Percent A 2.2 % (0-0.5); Immature Platelet Fraction Pct 11.7 % (0.9-11.2); Lymphocytes Absolute Auto 1.38 K/mm3 (0.9-3.2); Mean Corpuscular HGB Conc 31.4 g/dl (32-36); Mean Corpuscular Hemoglobin 27.6 pg (26-34); Mean Corpuscular Volume 88.1 fl (80-100); Monocytes Percent Auto 5.6 % (2.6-8.5); Neutrophils Absolute Auto 14.5 K/mm3 (1.3-6.7); Neutrophils Percent Auto 83.6 % (45.5-73.1); Nucleated Red Blood Cells Perc 0.1 % (0.0-0.2); Platelet Count Result 86 k/mm3 (150-375); Red Blood Count 3.87 M/mm3 (4.6-6.20); Red Cell Distribution Width 14.8 % (11.5-14.5); White Blood Count 17.4 K/mm3 (4.5-10.0)
[2020-08-06] MEDS: levETIRAcetam 1000MG/NACL100ML 1,000 MG/100 ML BAG 400 MG IVPB ×2 (09:43→19:58)
[2020-08-06 09:56] LABS: Alanine Aminotransferase 20 U/L (4-50); Albumin Level 2.8 g/dL (3.5-5.1); Alkaline Phosphatase 72 U/L (38-126); Anion Gap 11 mmol/L (8-16); Aspartate Amino Transferase 36 U/L (17-59); Blood Urea Nitrogen 117 mg/dL (9-20); Calcium 8.6 mg/dL (8.4-10.2); Carbon Dioxide 30 mmol/L (22-30); Chloride 101 mmol/L (98-107); Estimated CRCL calculation 27 ml/min; Estimated Glomerular Filt Rate 14; Glucose 127 mg/dL (75-110); Magnesium 2.3 mg/dL (1.6-2.3); Phosphorus 7.1 mg/dL (2.5-4.5); Potassium 4.8 mmol/L (3.4-5.0); Sodium 142 mmol/L (137-145)
[2020-08-06 10:12] LABS: Glucose Point of Care 133 (65-105)
[2020-08-06] MEDS: INSULIN GLARGINE (*BKC) 100 UNITS/ML 60 UNITS SUB-Q ×2 (11:11→19:58)
[2020-08-06 11:19] LABS: Glucose Point of Care 111 (65-105)
--- NOTE | 2020-08-06 11:24 | P.PNINT_ITS ---
Progress Note: A&P Assessment and Plan (1) Respiratory failure: Qualifiers: Chronicity: acute on chronic Respiratory failure complication: hypoxia and hypercapnia Qualified Code(s): J96.21 - Acute and chronic respiratory failure with hypoxia; J96.22 - Acute and chronic respiratory failure with hypercapnia Code(s): J96.90 - Respiratory failure, unspecified, unspecified whether with hypoxia or hypercapnia Status: Acute Assessment and Plan: Acute hypoxic respiratory to volume overload, COVID-19 pneumonia. On 07/29/2020 -Chest x-ray shows Diffuse lung disease with interval improvement in the upper lung zones, consistent with pneumonia and/or pulmonary edema and/or acute respiratory distress syndrome (ARDS). -patient is on CMV mode of ventilation, low tidal volume strategy due to ARDS physiology, decrease PEEP to 10, wean FiO2 as tolerated -allow permissive hypercapnia. Continue to monitor ABG and chest x-ray. -patient on fentanyl and Versed for sedation, OFF Nimbex. - Continue bronchodilators -venous Dopplers 07/31: Negative for DVT bilateral (2) 2019 novel coronavirus–infected pneumonia (NCIP)#8211;infected pneumonia (NCIP): Code(s): U07.1 - COVID-19; J12.89 - Other viral pneumonia Status: Acute Assessment and Plan: SARS-CoV-2 PCR positive on 07/22/2020 -continue dexamethasone, initiated on 07/28/2020 -patient not a candidate for Remdesivir due to acute on chronic renal failure -continue droplet, airborne, contact isolation/precautions -will monitor inflammatory markers (3) Acute on chronic kidney failure: Qualifiers: Acute renal failure type: unspecified Chronic kidney disease stage: unspecified stage Qualified Code(s): N17.9 - Acute kidney failure, unspecified; N18.9 - Chronic kidney disease, unspecified Code(s): N17.9 - Acute kidney failure, unspecified; N18.9 - Chronic kidney disease, unspecified Status: Acute Assessment and Plan: Acute on chronic kidney disease, baseline creatinine 3.5-4.0 -metabolic acidosis likely related to uremia. He was given IV bicarb which has been stopped now -he continues to have good urine output close to 2 L in 24 hours but uremia has worsened which is likely from catabolic state and steroids -will continue monitor urine output, renal function and electrolytes. -renal ultrasound 07/23/2020 showed moderate bilateral hydronephrosis -repeat renal ultrasound on 07/31: Normal kidney size, no hydronephrosis -nephrology service following and discussed with Dr. Devine. Started dialysis on 08/04 after insertion temporary HD catheter -dialysis schedule per Nephrology (4) Atrial fibrillation: Code(s): I48.91 - Unspecified atrial fibrillation Status: Acute Assessment and Plan: Patient with AFib RVR at the outside hospital requiring Cardizem infusion which was then converted to p.o. Cardizem and Coreg. Developed bradycardia and hypotension. Now both has been discontinued. -He was given calcium gluconate along with glucagon at the time of presentation. Cardiology is following. -currently on amiodarone infusion rate controlled - No anticoagulation as plts low (5) Bradycardia: Code(s): R00.1 - Bradycardia, unspecified Status: Acute Assessment and Plan: RESOLVED Patient with bradycardia, requiring atropine, dopamine, epinephrine and started being paced with external pacer pads -this could be related to multiple causes, Cardizem, Coreg, COVID-19 induced cardiomyopathy or myocarditis -cardiology service recommendations appreciated. -now off epinephrine and pacing and his heart rate in his 60
[2020-08-06] MEDS: AMIODARONE 360 MG/D5W 200 ML 360 MG/200 ML BAG 33.33 MG IV CONT ×2 (12:16→17:58)
[2020-08-06] MEDS: METOCLOPRAMIDE HCL INJ 10 MG/2 ML VIAL IV PUSH ×3 (12:18→23:01)
--- NOTE | 2020-08-06 12:42 | PCDIET ---
Nutrition Follow-Up Complete: Nutrition Diagnosis: Inadequate oral intake related to inability to consume foods orally as evidence by day two NPO and mechanical ventilation Nutrition Goal: Total intake will meet estimated nutrition needs Goal in progress. Tube feedings held earlier for 400mL residual. MD added Reglan. Discussed formula with MD; verbal order to change to Nepro at 50mL/hr for volume control. Last recorded weight is 201.2 kg which is increased from last review. +I/O. Patient had 1.5L UF on 08/05/20. Bowel Motility: No BM, per RN - Patient on Miralax and Dulcolax. Labs Reviewed: Hgb (10.7), Hct (34.1), Glu (127), BUN (117), Cr (4.1), Alb (2.8) Meds Noted: Albuterol, Fentanyl, Atrovent, Norvasc, Hydralazine, Miralax, Dulcolax, Decadron, Aspart, Reglan, Lantus, Synthroid, Versed Additional Notes: No documented skin breakdown. Will continue to monitor with same goal. Nutrition Monitoring and Evaluation: Follow up every Saturday/Saturday. Follow daily in ICU rounds.
--- NOTE | 2020-08-06 12:48 | P.PNNP_ITS ---
Progress Note: A&P Assessment and Plan (1) WILMAR (acute kidney injury): Code(s): N17.9 - Acute kidney failure, unspecified Status: Acute Assessment and Plan: * Received dialysis 2 days in a row. * Will treat again today. Today will be 3 hours 300 blood flow. Will start off slowly. * Discussed with Dr. Farias (2) Chronic kidney disease, stage IV (severe): Code(s): N18.4 - Chronic kidney disease, stage 4 (severe) Status: Chronic Assessment and Plan: * baseline creatinine presumed to be 3.49mg/dl (January 2020) * likely due to diabetes, hypertension, vascular disease, and age-related change (3) Atrial fibrillation: Code(s): I48.91 - Unspecified atrial fibrillation Status: Acute Assessment and Plan: * Cardiology following * Pulse between 80 and 105 (4) Respiratory failure: Qualifiers: Chronicity: acute on chronic Respiratory failure complication: hypoxia and hypercapnia Qualified Code(s): J96.21 - Acute and chronic respiratory failure with hypoxia; J96.22 - Acute and chronic respiratory failure with hypercapnia Code(s): J96.90 - Respiratory failure, unspecified, unspecified whether with hypoxia or hypercapnia Status: Acute Assessment and Plan: * suspect due to COVID-19 +/- volume overload with possible progression to ARDS * Will try to take more fluid off as tolerated. (5) Pneumonia due to COVID-19 virus: Code(s): U07.1 - COVID-19; J12.89 - Other viral pneumonia Status: Acute Assessment and Plan: * on Dexamethasone * not a candidate for remdesivir due to CKD * Repeat blood cultures negative on the . * Dr Guthrie is on the case * continue supportive therapy (6) Chronic ITP (idiopathic thrombocytopenia): Code(s): D69.3 - Immune thrombocytopenic purpura Status: Acute Assessment and Plan: * platelet count stable * Hem/Onc following Subjective Date/time seen: 08/06/20 12:48 Interval history: Patient cannot give a history He is on the ventilator and sedated. Settings noted. Review of Systems Review of Systems: ROS unobtainable: Yes unobtainable due to medical condition Exam Narrative: Exam Narrative: General: Elderly male intubated/sedated Heart: IRRRnormal S1 and S2; no rub Lungs: coarse bilaterally Abdomen: soft, nontender, nondistended, positive bowel sounds Extremities: 1+ edema Skin: No rash Objective Data Vital Signs Vital Signs: Vital Signs - 24 hr 08/05/20 13:41 08/05/20 13:42 08/05/20 13:54 Temperature Pulse Rate 92 95 93 Respiratory Rate 32 H 32 H Blood Pressure Pulse Oximetry 94 08/05/20 14:00 08/05/20 14:55 08/05/20 15:00 Temperature 37.9 C H Pulse Rate 78 88 83 Respiratory Rate 32 H 32 H Blood Pressure 149/71 H 135/63 133/66 Pulse Oximetry 94 93 08/05/20 15:10 08/05/20 15:12 08/05/20 15:15 Temperature Pulse Rate 80 91 86 Respiratory Rate 32 H Blood Pressure 133/66 133/79 Pulse Oximetry 08/05/20 15:24 08/05/20 15:30 08/05/20 15:45 Temperature 36.1 C L Pulse Rate 84 83 92 Respiratory Rate 32 H Blood Pressure 133/79 127/71 104/59 L Pulse Ox
--- NOTE | 2020-08-06 12:48 | PM.PNNEP ---
Progress Note: A&P Assessment and Plan (1) WILMAR (acute kidney injury): Code(s): N17.9 - Acute kidney failure, unspecified Status: Acute Assessment and Plan: Received dialysis 2 days in a row. Will treat again today. Today will be 3 hours 300 blood flow. Will start off slowly. Discussed with Dr. Farias (2) Chronic kidney disease, stage IV (severe): Code(s): N18.4 - Chronic kidney disease, stage 4 (severe) Status: Chronic Assessment and Plan: baseline creatinine presumed to be 3.49mg/dl (January 2020) likely due to diabetes, hypertension, vascular disease, and age-related change (3) Atrial fibrillation: Code(s): I48.91 - Unspecified atrial fibrillation Status: Acute Assessment and Plan: Cardiology following Pulse between 80 and 105 (4) Respiratory failure: Qualifiers: Chronicity: acute on chronic Respiratory failure complication: hypoxia and hypercapnia Qualified Code(s): J96.21 - Acute and chronic respiratory failure with hypoxia; J96.22 - Acute and chronic respiratory failure with hypercapnia Code(s): J96.90 - Respiratory failure, unspecified, unspecified whether with hypoxia or hypercapnia Status: Acute Assessment and Plan: suspect due to COVID-19 +/- volume overload with possible progression to ARDS Will try to take more fluid off as tolerated. (5) Pneumonia due to COVID-19 virus: Code(s): U07.1 - COVID-19; J12.89 - Other viral pneumonia Status: Acute Assessment and Plan: on Dexamethasone not a candidate for remdesivir due to CKD Repeat blood cultures negative on the . Dr Guthrie is on the case continue supportive therapy (6) Chronic ITP (idiopathic thrombocytopenia): Code(s): D69.3 - Immune thrombocytopenic purpura Status: Acute Assessment and Plan: platelet count stable Hem/Onc following Subjective Date/time seen: 08/06/20 12:48 Interval history: Patient cannot give a history He is on the ventilator and sedated. Settings noted. Review of Systems Review of Systems: ROS unobtainable: Yes unobtainable due to medical condition Exam Narrative: Exam Narrative: General: Elderly male intubated/sedated Heart: IRRRnormal S1 and S2; no rub Lungs: coarse bilaterally Abdomen: soft, nontender, nondistended, positive bowel sounds Extremities: 1+ edema Skin: No rash Objective Data Vital Signs Vital Signs: Vital Signs - 24 hr 08/05/20 13:41 08/05/20 13:42 08/05/20 13:54 Temperature Pulse Rate 92 95 93 Respiratory Rate 32 H 32 H Blood Pressure Pulse Oximetry 94 08/05/20 14:00 08/05/20 14:55 08/05/20 15:00 Temperature 37.9 C H Pulse Rate 78 88 83 Respiratory Rate 32 H 32 H Blood Pressure 149/71 H 135/63 133/66 Pulse Oximetry 94 93 08/05/20 15:10 08/05/20 15:12 08/05/20 15:15 Temperature Pulse Rate 80 91 86 Respiratory Rate 32 H Blood Pressure 133/66 133/79 Pulse Oximetry 08/05/20 15:24 08/05/20 15:30 08/05/20 15:45 Temperature 36.1 C L Pulse Rate 84 83 92 Respiratory Rate 32 H Blood Pressure 133/79 127/71 104/59 L Pulse Oximetry 95 08/05/20 16:00 08/05/20 16:15 08/05/20 16:30 Temperature Pulse Rate 107 H 101 H 101 H Respiratory Rate 32 H Blood Pressure 118/51 L 133/103 H 133/103 H Pulse Oximetry 94 08/05/20 16:45 08/05/20 17:00 08/05/20 17:08 Temperature Pulse Rate 103 H 109 H 95 Respiratory Rate Blood Pressure 108/57 L 111/64 Pulse Oximetry 93 08/05/20 17:11 08/05/20 17:12 08/05/20 17:15 Temperature Pulse Rate 103 H 99 102 H Respiratory Rate 32 H 32 H Blood Pressure 113/55 L Pulse Oximetry 08/05/20 17:30 08/05/20 17:32 08/05/20 17:34 Temperature 37.1 C Pulse Rate 103 H 99 108 H Respiratory Rate 32 H Blood Pressure 121/83 126/88 124/102 H Pulse Oximetry 08/05/20 17:55 08/05/20 18:00 08/05/20 18:09 Temperature Pu
[2020-08-06 12:53] LABS: Glucose Point of Care 132 (65-105)
[2020-08-06 13:34] LABS: Glucose Point of Care 131 (65-105)
[2020-08-06] MEDS: amLODIPine BESYLATE 2.5 MG TABLET PO (14:42)
[2020-08-06] MEDS: FENTANYL 2,500MCG/NS250ML(*CRX 2,500 MCG/250 ML BAG 10 MCG IV CONT (14:43)
[2020-08-06] MEDS: INSULIN HUMAN REGULAR (*BKC) 100 UNITS in SODIUM CHLORIDE 0.9% IV 99 ML 8.2 UNITS IV CONT (15:12)
--- NOTE | 2020-08-06 16:22 | PM.IMPN ---
Progress Note: A&P Assessment and Plan (1) Respiratory failure: Qualifiers: Chronicity: acute on chronic Respiratory failure complication: hypoxia and hypercapnia Qualified Code(s): J96.21 - Acute and chronic respiratory failure with hypoxia; J96.22 - Acute and chronic respiratory failure with hypercapnia Code(s): J96.90 - Respiratory failure, unspecified, unspecified whether with hypoxia or hypercapnia Status: Acute Assessment and Plan: The patient was intubated at [facility]. Vent settings per energy conservation technician. 08/06/20 16:22 patient is 69-year-old male patient was initially diagnosed with COVID-19 on 07/22/20 and was admitted to the inpatient hospital his symptom had improved and he was transferred to [facility], patient is morbidly obese with history of chronic kidney disease, ITP, atrial fibrillation, CVA, and history of seizure, while at the [facility] patient symptom worsen he was quite hypoxic was intubated and transferred to ICU at [facility] via helicopter, currently patient is intubated, he is being treated with dexamethasone 10/19 cannot receive Remdesivir because patient has a stage 4 chronic kidney disease, upon arrival patient was hypotensive and bradycardic started on epinephrine infusion is now off epinephrine blood pressure and rate is stable, patient with ITP was seen by Hematology patient is being treated with steroid for COVID-19 his platelet counts a improving any has no complaint of bleeding. Patient remains off pressors, patient on NG tube and being fed, Patient blood culture is growing gram-positive cocci in cluster was seen by Dr. Guthrie suspect its contamination and does not recommend any abx and stopped daptomycin. Patient remains clinically stable on vent, Patient was seen by motor vehicle assembler and had HD on 08/04, today patient patient oxygen requirement is increasing, again patient had HD and 1500cc was removed, this will help his oxygenation, patient is clinically stable and off all pressores, HR is controlled with amiodoran drip, patient is seen by energy conservation technician and motor vehicle assembler and appreciate (2) Exposure to COVID-19 virus: Code(s): Z20.828 - Contact with and (suspected) exposure to other viral communicable diseases Status: Acute Assessment and Plan: Patient is now intubated. Continue with Decadron. (3) Thrombocytopenia: Code(s): D69.6 - Thrombocytopenia, unspecified Status: Acute Assessment and Plan: Hematology as this is the chronic condition. (4) Acute on chronic kidney failure: Qualifiers: Acute renal failure type: unspecified Chronic kidney disease stage: unspecified stage Qualified Code(s): N17.9 - Acute kidney failure, unspecified; N18.9 - Chronic kidney disease, unspecified Code(s): N17.9 - Acute kidney failure, unspecified; N18.9 - Chronic kidney disease, unspecified Status: Acute Assessment and Plan: Patient has worsening chronic kidney disease, nephrology on board (5) Pneumonia due to COVID-19 virus: Code(s): U07.1 - COVID-19; J12.89 - Other viral pneumonia Status: Acute Assessment and Plan: See above. (6) Atrial fibrillation: Code(s): I48.91 - Unspecified atrial fibrillation Status: Acute Assessment and Plan: Patient has atrial fib and with the slow ventricular response. Patient is externally paced. Cardiology has been consulted and has given recommendations. (7) Diabetes: Code(s): E11.9 - Type 2 diabetes mellitus without complications Status: Chronic Assessment and Plan: The patient is placed on insulin drip and Accu-Cheks are every 1 hour. (8) Type 2 diabetes mellitus without complications: Code(s): E11.9 - Type 2 diabetes mellitus without complications Status: Acute (9) Elevated troponin: Code(s): R77.8 - Other specified abnormalities of plasma proteins Status: Acute
[2020-08-06 16:46] LABS: Glucose Point of Care 156 (65-105)
[2020-08-06 16:46] LABS: Glucose Point of Care 129 (65-105)
[2020-08-06 18:07] LABS: Glucose Point of Care 136 (65-105)
[2020-08-06 19:08] LABS: Glucose Point of Care 129 (65-105)
[2020-08-06 20:21] LABS: Glucose Point of Care 116 (65-105)
[2020-08-06 21:20] LABS: Glucose Point of Care 127 (65-105)
[2020-08-06 22:24] LABS: Glucose Point of Care 116 (65-105)
[2020-08-07] VITALS (74 sets, daily range): BP systolic 80–166; BP diastolic 36–105; PULSE 55–135; RESP 26–32; TEMP 36.6–37.9; O2SAT 89–100
[2020-08-07 00:39] LABS: Glucose Point of Care 112 (65-105)
[2020-08-07] MEDS: INSULIN HUMAN REGULAR (*BKC) 100 UNITS in SODIUM CHLORIDE 0.9% IV 99 ML 7.6 UNITS IV CONT (01:25)
[2020-08-07] MEDS: ALBUTEROL SULFATE NEB 2.5 MG/0.5 ML INH INHALATION ×5 (02:09→20:02)
[2020-08-07] MEDS: IPRATROPIUM BR 0.02% INH SOLN 0.5 MG/2.5 ML VIAL INHALATION ×5 (02:09→20:03)
[2020-08-07 02:14] LABS: Glucose Point of Care 123 (65-105)
[2020-08-07 02:14] LABS: Glucose Point of Care 105 (65-105)
[2020-08-07 04:07] LABS: Glucose Point of Care 108 (65-105)
[2020-08-07] MEDS: AMIODARONE 360 MG/D5W 200 ML 360 MG/200 ML BAG 16.67 MG IV CONT (04:48)
[2020-08-07 05:13] LABS: Alveolar/Arterial O2 Gradient 469.7 mmHg; Base Excess ABG 3.1 mEq/l (+/-2.0); Carboxyhemoglobin 0.3 % THb (0-2.0); Fractional Inspired Oxygen 85 %; HCO3 ABG 26.7 mEq/l (22.0-26.0); Methemoglobin ABG 0.1 %THb (0-1.5); Oxygen Content ABG 16.3 %vol (16.0-22.0); Oxygen Saturation ABG 97.8 % (95.0-100.0); Oxyhemoglobin 95.9 % THb (90.0-100.0); PO2 FiO2 Ratio Arterial Blood 1.15 %; Reduced Hemoglobin 3.7 %THb (0-5.0); pH ABG 7.476 (7.350-7.450)
[2020-08-07 05:14] LABS: Device VENTILATOR; Site Drawn RIGHT BRACHIAL
[2020-08-07 05:15] LABS: Arterial Blood Gas PEEP 10 cmH2O; Arterial Blood Gas Tidal Volume 430 ml; Arterial Blood Gas Vent Mode ASSIST CONTROL; Arterial Blood Gas Ventilator rate 32 /MIN
[2020-08-07 06:04] LABS: Glucose Point of Care 99 (65-105)
[2020-08-07 06:04] LABS: Glucose Point of Care 110 (65-105)
[2020-08-07] MEDS: CENTRAL LINE FLUSH 10 ML IV PUSH ×5 (06:07→21:32)
[2020-08-07] MEDS: METOCLOPRAMIDE HCL INJ 10 MG/2 ML VIAL IV PUSH ×2 (06:07→17:31)
[2020-08-07] MEDS: LEVOTHYROXINE SODIUM INJ 100 MCG/5 ML VIAL 37.5 MCG IV PUSH (06:08)
[2020-08-07 06:12] LABS: Hemoglobin 10.7 g/dL (14.0-18.0); Immature Platelet Fraction Pct 17.2 % (0.9-11.2); Mean Corpuscular HGB Conc 31.5 g/dl (32-36); Mean Corpuscular Hemoglobin 27.7 pg (26-34); Mean Corpuscular Volume 88.1 fl (80-100); Platelet Count Result 86 k/mm3 (150-375); Red Blood Count 3.86 M/mm3 (4.6-6.20); Red Cell Distribution Width 14.6 % (11.5-14.5); White Blood Count 17.4 K/mm3 (4.5-10.0)
[2020-08-07 06:31] LABS: Anion Gap 8 mmol/L (8-16); Blood Urea Nitrogen 79 mg/dL (9-20); Calcium 8.6 mg/dL (8.4-10.2); Carbon Dioxide 31 mmol/L (22-30); Chloride 98 mmol/L (98-107); Estimated CRCL calculation 33 ml/min; Estimated Glomerular Filt Rate 19; Glucose 103 mg/dL (75-110); Magnesium 2.2 mg/dL (1.6-2.3); Phosphorus 7.6 mg/dL (2.5-4.5); Potassium 4.6 mmol/L (3.4-5.0); Sodium 137 mmol/L (137-145)
[2020-08-07 06:57] LABS: Glucose Point of Care 129 (65-105)
[2020-08-07] MEDS: polyethylene glycoL 3350 17 GM POWD.PACK PO (08:28)
[2020-08-07] MEDS: DEXAMETHASONE SOD PHOS INJ 4 MG/ML VIAL 6 MG IV PUSH (08:29)
[2020-08-07] MEDS: BISACODYL 10 MG SUPPOSITORY RECTAL (08:29)
[2020-08-07] MEDS: amLODIPine BESYLATE 5 MG TABLET 10 MG PO (08:29)
[2020-08-07] MEDS: levETIRAcetam 1000MG/NACL100ML 1,000 MG/100 ML BAG 400 MG IVPB ×2 (08:30→21:31)
[2020-08-07] MEDS: INSULIN GLARGINE (*BKC) 100 UNITS/ML 60 UNITS SUB-Q ×2 (08:31→21:31)
[2020-08-07 09:13] LABS: Glucose Point of Care 98 (65-105)
--- NOTE | 2020-08-07 09:33 | PM.PNNEP ---
Progress Note: A&P Assessment and Plan (1) WILMAR (acute kidney injury): Code(s): N17.9 - Acute kidney failure, unspecified Status: Acute Assessment and Plan: Getting daily dialysis right now. Will treat again today. Today will be 3 hours 400 blood flow. Will start off slowly. Discussed with Dr. Farias (2) Chronic kidney disease, stage IV (severe): Code(s): N18.4 - Chronic kidney disease, stage 4 (severe) Status: Chronic Assessment and Plan: baseline creatinine presumed to be 3.49mg/dl (January 2020) likely due to diabetes, hypertension, vascular disease, and age-related change (3) Atrial fibrillation: Code(s): I48.91 - Unspecified atrial fibrillation Status: Acute Assessment and Plan: Cardiology following Pulse between 80 and 105 (4) Respiratory failure: Qualifiers: Chronicity: acute on chronic Respiratory failure complication: hypoxia and hypercapnia Qualified Code(s): J96.21 - Acute and chronic respiratory failure with hypoxia; J96.22 - Acute and chronic respiratory failure with hypercapnia Code(s): J96.90 - Respiratory failure, unspecified, unspecified whether with hypoxia or hypercapnia Status: Acute Assessment and Plan: suspect due to COVID-19 +/- volume overload with possible progression to ARDS Will try to take more fluid off as tolerated. (5) Pneumonia due to COVID-19 virus: Code(s): U07.1 - COVID-19; J12.89 - Other viral pneumonia Status: Acute Assessment and Plan: on Dexamethasone not a candidate for remdesivir due to CKD Repeat blood cultures on the are no growth todate Dr Guthrie is on the case continue supportive therapy (6) Chronic ITP (idiopathic thrombocytopenia): Code(s): D69.3 - Immune thrombocytopenic purpura Status: Acute Assessment and Plan: platelet count stable Hem/Onc following Subjective Date/time seen: 08/07/20 09:33 Interval history: Patient cannot give a history He is on the ventilator and sedated. He had dialysis yesterday. Will treat again today. Review of Systems Review of Systems: ROS unobtainable: Yes unobtainable due to medical condition Exam Narrative: Exam Narrative: General: Elderly male intubated/sedated Heart: IRRRnormal S1 and S2; no rub Lungs: coarse bilaterally Abdomen: Bowel sounds positive and no tenderness Extremities: 1+ edema Skin: No rash or subcu nodules Objective Data Vital Signs Vital Signs: Vital Signs - 24 hr 08/06/20 10:00 08/06/20 10:02 08/06/20 10:03 Temperature Pulse Rate 117 H 116 H 116 H Respiratory Rate 32 H 32 H 32 H Blood Pressure 149/90 H Pulse Oximetry 92 08/06/20 11:13 08/06/20 11:32 08/06/20 12:00 Temperature 37.3 C Pulse Rate 122 H 108 H 123 H Respiratory Rate 32 H Blood Pressure 147/98 H 138/75 Pulse Oximetry 91 92 08/06/20 12:16 08/06/20 12:21 08/06/20 12:22 Temperature Pulse Rate 107 H 103 H 103 H Respiratory Rate 32 H 32 H Blood Pressure 138/75 Pulse Oximetry 08/06/20 13:16 08/06/20 13:20 08/06/20 14:00 Temperature Pulse Rate 101 H 112 H 93 Respiratory Rate 32 H 32 H Blood Pressure 101/64 Pulse Oximetry 92 90 08/06/20 14:43 08/06/20 15:54 08/06/20 15:55 Temperature Pulse Rate 87 85 88 Respiratory Rate 32 H 32 H 32 H Blood Pressure Pulse Oximetry 08/06/20 16:00 08/06/20 16:13 08/06/20 17:43 Temperature 36.9 C Pulse Rate 86 90 68 Respiratory Rate 32 H Blood Pressure 123/50 L Pulse Oximetry 92 94 95 08/06/20 17:54 08/06/20 17:58 08/06/20 18:00 Temperature Pulse Rate 68 73 79 Respiratory Rate 32 H 32 H Blood Pressure 126/67 Pulse Oximetry 94 08/06/20 19:56 08/06/20 19:57 08/06/20 20:00 Temperature 37.2 C Pulse Rate 66 64 60 Respiratory Rate 32 H 32 H Blood Pressure 136/63 120/78 Pulse Oximetry 94 08/06/20 20:53 08/06/20 21:00 08/06/20 21:
--- NOTE | 2020-08-07 11:40 | WPDINTPN ---
Progress Note: A&P Assessment and Plan (1) Respiratory failure: Qualifiers: Chronicity: acute on chronic Respiratory failure complication: hypoxia and hypercapnia Qualified Code(s): J96.21 - Acute and chronic respiratory failure with hypoxia; J96.22 - Acute and chronic respiratory failure with hypercapnia Code(s): J96.90 - Respiratory failure, unspecified, unspecified whether with hypoxia or hypercapnia Status: Acute Assessment and Plan: Acute hypoxic respiratory to volume overload, COVID-19 pneumonia. On 07/29/2020 -Chest x-ray shows Dense left consolidation, smaller right basilar pneumonia. Probable small to moderate left pleural effusion. -patient is on CMV mode of ventilation, low tidal volume strategy due to ARDS physiology, decrease PEEP to 10, wean FiO2 as tolerated -allow permissive hypercapnia. Continue to monitor ABG and chest x-ray. -patient on fentanyl and Versed for sedation, OFF Nimbex. - Continue bronchodilators -venous Dopplers 07/31: Negative for DVT bilateral (2) 2018 novel coronavirus–infected pneumonia (NCIP)#8211;infected pneumonia (NCIP): Code(s): U07.1 - COVID-19; J12.89 - Other viral pneumonia Status: Acute Assessment and Plan: SARS-CoV-2 PCR positive on 07/22/2020 -continue dexamethasone, initiated on 07/28/2020 -patient not a candidate for Remdesivir due to acute on chronic renal failure -continue droplet, airborne, contact isolation/precautions -will monitor inflammatory markers (3) Acute on chronic kidney failure: Qualifiers: Acute renal failure type: unspecified Chronic kidney disease stage: unspecified stage Qualified Code(s): N17.9 - Acute kidney failure, unspecified; N18.9 - Chronic kidney disease, unspecified Code(s): N17.9 - Acute kidney failure, unspecified; N18.9 - Chronic kidney disease, unspecified Status: Acute Assessment and Plan: Acute on chronic kidney disease, baseline creatinine 3.5-4.0 -metabolic acidosis likely related to uremia. He was given IV bicarb which has been stopped now - adequate but remains uremic, likely from catabolic state and steroids -will continue monitor urine output, renal function and electrolytes. -renal ultrasound 07/23/2020 showed moderate bilateral hydronephrosis -repeat renal ultrasound on 07/31: Normal kidney size, no hydronephrosis -nephrology service following and discussed with Dr. Devine. Started dialysis on 08/04 after insertion temporary HD catheter -dialysis schedule per Nephrology (4) Atrial fibrillation: Code(s): I48.91 - Unspecified atrial fibrillation Status: Acute Assessment and Plan: Patient with AFib RVR at the outside hospital requiring Cardizem infusion which was then converted to p.o. Cardizem and Coreg. Developed bradycardia and hypotension. Now both has been discontinued. -He was given calcium gluconate along with glucagon at the time of presentation. Cardiology is following. -currently on amiodarone infusion rate controlled - No anticoagulation as plts low (5) Bradycardia: Code(s): R00.1 - Bradycardia, unspecified Status: Acute Assessment and Plan: RESOLVED Patient with bradycardia, requiring atropine, dopamine, epinephrine and started being paced with external pacer pads -this could be related to multiple causes, Cardizem, Coreg, COVID-19 induced cardiomyopathy or myocarditis -cardiology service recommendations appreciated. -now off epinephrine and pacing and his heart rate in his 60s and 70s. Pacer Garcia's can be discontinued. Echocardiogram 07/30: EF 60-65%, mild pulmonary hypertension with RVSP of 39 mmHg (6) Diabetes: Code(s): E11.9 - Type 2 diabetes mellitus without complications Status: Chronic Assessment and Plan: Hyperglycemia likely related to steroids, acute critical care illness Will stop insulin and continue Lantus -continue q.4 hours sliding scale (7) Chronic ITP (idiopa
[2020-08-07 12:26] LABS: Glucose Point of Care 211 (65-105)
[2020-08-07] MEDS: ROCURONIUM BROMIDE 50 MG/5 ML VIAL IV PUSH (12:32)
--- NOTE | 2020-08-07 13:49 | ECG_ITS ---
Measurements Intervals [place] Rate: 82 P: 68 SC: 264 QRS: -79 QRSD: 142 T: 74 QT: 397 QTc: 466 Interpretive Statements SINUS RHYTHM WITH FIRST DEGREE AV BLOCK FREQUENT ATRIAL PREMATURE COMPLEXES RIGHT BUNDLE BRANCH BLOCK LEFT ANTERIOR FASCICULAR BLOCK BASELINE ARTIFACT- AVR, AVL, AVF, V4-V6 ABNORMAL ECG Electronically Signed On 08-08-2020 11:16:06 COCOA POWDER MIXER OPERATOR by Elias Persaud D.O.
[2020-08-07 13:56] LABS: Basophils Absolute Auto 0.2 K/mm3 (0.0-0.1); Basophils Percent Auto 0.4 % (0.2-1.2); Eosinophils Percent Auto 0.1 % (0-4.4); Hematocrit 38.6 % (42.0-52.0); Immature Granulocyte Absolute 2.04 K/mm3 (0.00-0.031); Immature Granulocyte Percent A 4.9 % (0-0.5); Immature Platelet Fraction Pct 21.7 % (0.9-11.2); Lymphocytes Absolute Auto 3.58 K/mm3 (0.9-3.2); Lymphocytes Percent Auto 8.6 % (18.3-44.2); Mean Corpuscular HGB Conc 31.1 g/dl (32-36); Mean Corpuscular Hemoglobin 27.8 pg (26-34); Mean Corpuscular Volume 89.4 fl (80-100); Monocytes Absolute Auto 0.8 K/mm3 (0.1-0.6); Monocytes Percent Auto 1.8 % (2.6-8.5); Neutrophils Absolute Auto 34.8 K/mm3 (1.3-6.7); Neutrophils Percent Auto 84.2 % (45.5-73.1); Nucleated Red Blood Cells Absolute Auto 0.1 K/mm3 (0.0-0.012); Nucleated Red Blood Cells Perc 0.2 % (0.0-0.2); Platelet Count Result 101 k/mm3 (150-375); Red Blood Count 4.32 M/mm3 (4.6-6.20); Red Cell Distribution Width 14.7 % (11.5-14.5); White Blood Count 41.4 K/mm3 (4.5-10.0)
[2020-08-07 14:10] LABS: Alkaline Phosphatase 107 U/L (38-126); Anion Gap 14 mmol/L (8-16); Aspartate Amino Transferase 72 U/L (17-59); Bilirubin,Total 1.3 mg/dL (0.2-1.3); Blood Urea Nitrogen 77 mg/dL (9-20); Calcium 8.7 mg/dL (8.4-10.2); Carbon Dioxide 30 mmol/L (22-30); Chloride 93 mmol/L (98-107); Estimated CRCL calculation 38 ml/min; Estimated Glomerular Filt Rate 22; Glucose 325 mg/dL (75-110); Magnesium 2.5 mg/dL (1.6-2.3); Phosphorus 9.9 mg/dL (2.5-4.5); Potassium 4.9 mmol/L (3.4-5.0); Sodium 137 mmol/L (137-145)
[2020-08-07 14:11] LABS: Lactic Acid Reflex 6.7 mmol/L (0.7-2.1)
--- NOTE | 2020-08-07 14:11 | PM.PNCARD ---
Progress Note: A&P Assessment and Plan (1) Cardiac arrest: Code(s): I46.9 - Cardiac arrest, cause unspecified Status: Acute Assessment and Plan: Sudden VT cardiac arrest shortly after dialysis. New RBBB and inferior ST changes -- Arrest 2nd generalized cardiac ischemia? ?IMI? Terminal event in pt w/ multiple life-threatening problems? Does not appear to be a pro-arrhythmic event fr amio. ITP and multiple comorbidities preclude invasive cardiac evaluation. Rec supportive care: given ASA, unable to use NTP 2nd low CARPENTER'S ASSISTANT, unable to use BB 2nd low BP and h/o bradycardia. Wouldn't give TPA w/ uncertain dx and ITP. Re-eval later w/ EKG, check trop, perhaps check Echo. (2) Bradycardia: Code(s): R00.1 - Bradycardia, unspecified Status: Acute Assessment and Plan: H/o bradycardia on transfer fr [place], thought to be aggravated by CCB + BB, required external pacer. REsolved. (3) Atrial fibrillation: Code(s): I48.91 - Unspecified atrial fibrillation Status: Acute Assessment and Plan: Rate is stable on amio. May be back in NSR. (4) 2019 novel coronavirus–infected pneumonia (NCIP)#8211;infected pneumonia (NCIP): Code(s): U07.1 - COVID-19; J12.89 - Other viral pneumonia Status: Acute Assessment and Plan: Per probe operator (5) Chronic ITP (idiopathic thrombocytopenia): Code(s): D69.3 - Immune thrombocytopenic purpura Status: Acute Assessment and Plan: Platelet count 2on admission, now 80-100 K. Hematology is consulted (6) Essential (primary) hypertension: Code(s): I10 - Essential (primary) hypertension Status: Acute Assessment and Plan: No carvedilol. Subjective Date/time seen: 08/07/20 14:11 Interval history: 69-year-old admitted for respiratory distress, COVID pneumonia, atrial fibrillation with bradycardia 07/31/2020: Still intubated. Sedated. Atrial fibrillation is stable Date of Service 08/07/2020: Called STAT to see pt who just suffered a VT arrest requiring defibrillation X 2. Pt has been having a fib managed w/ IV amio, titrated fr 0.l5 to 1 mg/min earlier today. No bradycardia. Still being tx'd for COVID-asso PNA and ARF. Finishing up on dialysis uneventfully today then started having ventricular ectopy, then sustained monomorphic VT requiring CPR and cardioversions X2. BP now low, started Levophed. EKG shows a new RBBB and possbile inferior ST elevation. Review of Systems Review of Systems: Narrative: Obtained fr pt's nurses, DR. Farias and EMR. ROS unobtainable: Yes unobtainable due to endotracheal tube, unobtainable due to medical condition and unobtainable due to mental status Constitutional: Constitutional: Reports no additional constitutional complaints ENT: Reports system reviewed and no additional complaints, except as documented Cardiovascular: Cardiovascular: Reports as per HPI Respiratory: Respiratory: Reports as per HPI Gastrointestinal: Gastrointestinal: Reports no additional gastrointestinal complaints Genitourinary: Genitourinary: Reports as per HPI Musculoskeletal: Musculoskeletal: Reports no additional musculoskeletal complaints Integumentary/Breasts: Skin/Breast: Reports system reviewed and no additional complaints, except as docu Neurologic: Reports system reviewed and no additional complaints, except as documented Psychiatric: Psychiatric: Reports no additional psychiatric complaints Exam Narrative: Exam Narrative: SEverely ill WM w/ multiple tubes and lines. SEdated and unresponsive. Const: General: in distress HENMT: General nose exam: no epistaxis Eyes: General: appearance normal, both eyes and all related structures Neck: Neck: supple (per EMR) Resp: Auscultation: crackles
--- NOTE | 2020-08-07 14:12 | PDCODEBLUE ---
[facility] Note Code [facility] Note Time Arrived at [facility]: 1:30 p.m. Initial Rhythm on Arrival: pulseless V-tach Airway Management: Initiated bagging pt on arrival Chest Compressions: Initiated upon arrival Cardiac Rhythm Post Code: Sinus rhythm at 1:39 p.m. [facility] Summary: Patient in ICU 5, intubated on mechanical ventilation was getting dialyzed, had removed 700 mL of fluid, patient went into pulseless V-tach, [facility] was called, CPR initiated along with bagging the patient. ACLS protocol was initiated and a patient was given multiple doses of epinephrine, bicarb. Patient was shocked x2. Also given amiodarone 300 mg bolus and lidocaine with ROSC within 9 minutes. Rhythm post code was sinus, rate controlled. EKG showed ST changes, discussed with Cardiology. Blood pressures initially elevated which were possibly secondary to epinephrine circulating the system. Repeat blood pressures were low. Will give aspirin 81 mg x4 pills. Hold nitroglycerin paste at this time given low blood pressures. [place] labs have been ordered along with troponin
[2020-08-07 14:14] LABS: Alanine Aminotransferase 28 U/L (4-50)
[2020-08-07] MEDS: NOREPINEPHRINE 8 MG/D5W 250 ML 8 MG/250 ML BAG 18.75 MG IV CONT (14:30)
[2020-08-07 14:35] LABS: Alveolar/Arterial O2 Gradient 590.3 mmHg; Base Excess ABG -1.1 mEq/l (+/-2.0); Fractional Inspired Oxygen 100 %; HCO3 ABG 24.9 mEq/l (22.0-26.0); Oxygen Content ABG 15.7 %vol (16.0-22.0); Oxygen Saturation ABG 94.4 % (95.0-100.0); Oxyhemoglobin 91.3 % THb (90.0-100.0); PCO2 ABG 46.8 mmHg (35.0-45.0); PO2 ABG 75.9 mmHg (80.0-100.0); PO2 FiO2 Ratio Arterial Blood 0.76 %; Total Hemoglobin 12.2 g/dL (12.0-18.0); pH ABG 7.344 (7.350-7.450)
[2020-08-07 14:36] LABS: Arterial Blood Gas PEEP 14 cmH2O; Arterial Blood Gas Vent Mode CMV; Arterial Blood Gas Ventilator rate 32 /MIN; Device VENTILATOR; Modified Allen's Test Pass; Site Drawn RIGHT BRACHIAL
[2020-08-07 14:37] LABS: Arterial Blood Gas Tidal Volume 430 ml
[2020-08-07] MEDS: SODIUM CHLORIDE 0.9% IV 500 ML IV CONT (15:51)
[2020-08-07] MEDS: AMIODARONE 360 MG/D5W 200 ML 360 MG/200 ML BAG 33.33 MG IV CONT (16:05)
[2020-08-07] MEDS: ASPIRIN 81 MG CHEWABLE TABLET 324 MG PO (16:06)
[2020-08-07 16:20] LABS: Glucose Point of Care 414 (65-105)
[2020-08-07] MEDS: FENTANYL 2,500MCG/NS250ML(*CRX 2,500 MCG/250 ML BAG 10 MCG IV CONT (16:23)
[2020-08-07 16:53] LABS: Reflex Lactic Acid Yes or No Add Lactic
--- NOTE | 2020-08-07 17:15 | PM.IMPN ---
Progress Note: A&P Assessment and Plan (1) Respiratory failure: Qualifiers: Chronicity: acute on chronic Respiratory failure complication: hypoxia and hypercapnia Qualified Code(s): J96.21 - Acute and chronic respiratory failure with hypoxia; J96.22 - Acute and chronic respiratory failure with hypercapnia Code(s): J96.90 - Respiratory failure, unspecified, unspecified whether with hypoxia or hypercapnia Status: Acute Assessment and Plan: The patient was intubated at [facility]. Vent settings per ekg/ecg technician. 08/07/20 17:15 patient is 69-year-old male patient was initially diagnosed with COVID-19 on 07/22/20 and was admitted to the inpatient hospital his symptom had improved and he was transferred to [facility], patient is morbidly obese with history of chronic kidney disease, ITP, atrial fibrillation, CVA, and history of seizure, while at the [facility] patient symptom worsen he was quite hypoxic was intubated and transferred to ICU at [facility] via helicopter, currently patient is intubated, he is being treated with dexamethasone 10/19 cannot receive Remdesivir because patient has a stage 4 chronic kidney disease, upon arrival patient was hypotensive and bradycardic started on epinephrine infusion is now off epinephrine blood pressure and rate is stable, patient with ITP was seen by Hematology patient is being treated with steroid for COVID-19 his platelet counts a improving any has no complaint of bleeding. Patient remains off pressors, patient on NG tube and being fed, Patient blood culture is growing gram-positive cocci in cluster was seen by Dr. Guthrie suspect its contamination and does not recommend any abx and stopped daptomycin. Patient remains clinically stable on vent, Patient was seen by compact assembler and had HD on 08/04, patient oxygen requirement is increasing, again patient had HD and 1500cc was removed, this will help his oxygenation, patient is clinically stable and off all pressores, HR is controlled with amiodoran drip, patient is seen by ekg/ecg technician and compact assembler and appreciate, plan for dialysis today. (2) Exposure to COVID-19 virus: Code(s): Z20.828 - Contact with and (suspected) exposure to other viral communicable diseases Status: Acute Assessment and Plan: Patient is now intubated. Continue with Decadron. (3) Thrombocytopenia: Code(s): D69.6 - Thrombocytopenia, unspecified Status: Acute Assessment and Plan: Hematology as this is the chronic condition. (4) Acute on chronic kidney failure: Qualifiers: Acute renal failure type: unspecified Chronic kidney disease stage: unspecified stage Qualified Code(s): N17.9 - Acute kidney failure, unspecified; N18.9 - Chronic kidney disease, unspecified Code(s): N17.9 - Acute kidney failure, unspecified; N18.9 - Chronic kidney disease, unspecified Status: Acute Assessment and Plan: Patient has worsening chronic kidney disease, nephrology on board (5) Pneumonia due to COVID-19 virus: Code(s): U07.1 - COVID-19; J12.89 - Other viral pneumonia Status: Acute Assessment and Plan: See above. (6) Atrial fibrillation: Code(s): I48.91 - Unspecified atrial fibrillation Status: Acute Assessment and Plan: Patient has atrial fib and with the slow ventricular response. Patient is externally paced. Cardiology has been consulted and has given recommendations. (7) Diabetes: Code(s): E11.9 - Type 2 diabetes mellitus without complications Status: Chronic Assessment and Plan: The patient is placed on insulin drip and Accu-Cheks are every 1 hour. (8) Type 2 diabetes mellitus without complications: Code(s): E11.9 - Type 2 diabetes mellitus without complications Status: Acute (9) Elevated troponin: Code(s): R77.8 - Other specified abnormalities of plasma proteins S
[2020-08-07] MEDS: INSULIN ASPART (*BKC) 100 UNITS/ML SUB-Q (17:34)
[2020-08-07 17:47] LABS: Lactic Acid Reflex 2.3 mmol/L (0.7-2.1)
[2020-08-07] MEDS: INSULIN GLARGINE (*BKC) 100 UNITS/ML 10 UNITS SUB-Q (17:49)
[2020-08-07 18:01] LABS: Troponin I 0.746 ng/mL (0.000-0.034)
--- NOTE | 2020-08-07 20:18 | PC.NURSE ---
Spoke to Dr. Farias regarding elevated blood sugar. Start insulin drip without fluids. Also updated on SB/SR HR. Hold Amiodarone.
[2020-08-07 20:26] LABS: Glucose Point of Care 396 (65-105)
[2020-08-07 21:27] LABS: Basophils Absolute Auto 0.1 K/mm3 (0.0-0.1); Basophils Percent Auto 0.2 % (0.2-1.2); Hematocrit 32.6 % (42.0-52.0); Hemoglobin 10.3 g/dL (14.0-18.0); Immature Granulocyte Absolute 0.43 K/mm3 (0.00-0.031); Immature Granulocyte Percent A 1.2 % (0-0.5); Immature Platelet Fraction Pct 16.4 % (0.9-11.2); Lymphocytes Percent Auto 2.6 % (18.3-44.2); Mean Corpuscular HGB Conc 31.6 g/dl (32-36); Mean Corpuscular Hemoglobin 27.8 pg (26-34); Mean Corpuscular Volume 88.1 fl (80-100); Monocytes Absolute Auto 1.7 K/mm3 (0.1-0.6); Monocytes Percent Auto 4.9 % (2.6-8.5); Neutrophils Absolute Auto 31.4 K/mm3 (1.3-6.7); Neutrophils Percent Auto 91.1 % (45.5-73.1); Platelet Count Result 128 k/mm3 (150-375); Red Cell Distribution Width 14.7 % (11.5-14.5); White Blood Count 34.5 K/mm3 (4.5-10.0)
[2020-08-07] MEDS: INSULIN HUMAN REGULAR (*BKC) 100 UNITS in SODIUM CHLORIDE 0.9% IV 99 ML 6.72 UNITS IV CONT (21:30)
--- NOTE | 2020-08-07 22:10 | ECG_ITS ---
Measurements Intervals [place] Rate: 64 P: -49 SD: 184 QRS: -47 QRSD: 117 T: 49 QT: 404 QTc: 419 Interpretive Statements SINUS RHYTHM BORDERLINE AV CONDUCTION DELAY LEFT ANTERIOR FASCICULAR BLOCK ABNORMAL ECG Electronically Signed On 08-08-2020 7:17:10 MANAGER STATE by Elias Persaud D.O.
[2020-08-07 22:58] LABS: Glucose Point of Care 324 (65-105)
[2020-08-08] VITALS (53 sets, daily range): BP systolic 94–160; BP diastolic 48–88; PULSE 52–114; RESP 16–32; TEMP 36.2–37.8; O2SAT 91–98
--- NOTE | 2020-08-08 | ECHO_ITS ---
Patient Info Name: Marcelino Quinonez Age: 69 years : 1950 Gender: Male Ht: 70 in Wt: 417 lbs BSA: 3.17 m2 HR: 65 bpm BP: 138 / 65 mmHg Technical Quality: Good Exam Date: 08/08/2020 11:17 AM Exam Location: [facility] Pulmonary Patient Status: Inpatient Admit Date: 07/29/2020 Staff Ordering Physician: Abad Farias MD Aquatic Ecologist: Rolf Robert RDCS, RT Attending Provider: Lissett Palomino MD Exam Type: CA echo doppler color flow Study Info Complete two-dimensional, color flow and Doppler transthoracic echocardiogram is performed. Summary 1. Complete two-dimensional, color flow and Doppler transthoracic echocardiogram is performed. 2. Left ventricular systolic function is normal, estimated at 60-65%. 3. There is moderately increased left ventricular wall thickness. 4. There is trace mitral valve regurgitation. 5. Trivial pericardial effusion with no tamponade. Left Ventricle Left ventricular chamber dimension is normal. Left ventricular systolic function is normal, estimated at 60-65%. There is moderately increased left ventricular wall thickness. Left ventricular septal wall motion is normal. The left ventricular diastolic function is indeterminate. Right Ventricle Right ventricular chamber dimension is normal. Right ventricular systolic function is normal. Left Atria Left atrial chamber dimension is normal. Right Atria Right atrial chamber dimension is normal. Atrial Septum Intact interatrial septum visualized by color flow imaging. Aortic Valve The aortic valve is not well visualized. There is no aortic valve stenosis. There is no aortic valve regurgitation. Pulmonic Valve The pulmonic valve is normal. There is no pulmonic valve stenosis. There is no pulmonic regurgitation. Mitral Valve The mitral valve has normal leaflets. There is no mitral valve stenosis. There is trace mitral valve regurgitation. Tricuspid Valve The tricuspid valve leaflets are normal. There is no significant tricuspid valve stenosis. There is no tricuspid valve regurgitation. Pericardium/Pleural There is trivial pericardial effusion. Inferior Vena Cava Normal inferior vena cava with >50% collapse upon inspiration consistent with elevated right atrial pressure, 10 mmHg. Aorta The aortic root size at the sinus of Valsalva is normal. The prox ascending aorta size is normal. Left Ventricular Outflow Tract Name Value Normal LVOT 2D LVOT Diameter 2.0 cm LVOT Doppler LVOT Peak Gradient 4 mmHg LVOT Mean Gradient 2 mmHg LVOT VTI 21 cm LVOT VTI/AV VTI Ratio 0.9 LVOT Stroke Volume 65 ml LVOT CO 4.4 l/min LVOT CI 1.4 l/min/m2 Mitral Valve Name Value Normal MV Doppler
[2020-08-08] MEDS: METOCLOPRAMIDE HCL INJ 10 MG/2 ML VIAL IV PUSH ×5 (00:26→23:52)
[2020-08-08 00:32] LABS: Glucose Point of Care 329 (65-105)
[2020-08-08 02:01] LABS: Glucose Point of Care 244 (65-105)
[2020-08-08 03:10] LABS: Glucose Point of Care 214 (65-105)
[2020-08-08 03:47] LABS: Alveolar/Arterial O2 Gradient 386.6 mmHg; Base Excess ABG -0.6 mEq/l (+/-2.0); Carboxyhemoglobin 0.3 % THb (0-2.0); Fractional Inspired Oxygen 70 %; HCO3 ABG 23.7 mEq/l (22.0-26.0); Methemoglobin ABG 0.2 %THb (0-1.5); Oxygen Content ABG 15.9 %vol (16.0-22.0); Oxygen Saturation ABG 94.7 % (95.0-100.0); Oxyhemoglobin 91.7 % THb (90.0-100.0); PCO2 ABG 37.9 mmHg (35.0-45.0); PO2 ABG 71.8 mmHg (80.0-100.0); PO2 FiO2 Ratio Arterial Blood 1.03 %; Reduced Hemoglobin 7.8 %THb (0-5.0); Total Hemoglobin 12.3 g/dL (12.0-18.0); pH ABG 7.414 (7.350-7.450)
[2020-08-08 03:48] LABS: Device VENTILATOR; Modified Allen's Test Pass; Site Drawn RIGHT RADIAL
[2020-08-08 03:49] LABS: Arterial Blood Gas PEEP 14 cmH2O; Arterial Blood Gas Tidal Volume 430 ml; Arterial Blood Gas Vent Mode CMV; Arterial Blood Gas Ventilator rate 32 /MIN
[2020-08-08 04:12] LABS: Glucose Point of Care 167 (65-105)
[2020-08-08] MEDS: CENTRAL LINE FLUSH 10 ML IV PUSH ×5 (05:30→21:50)
[2020-08-08] MEDS: LEVOTHYROXINE SODIUM INJ 100 MCG/5 ML VIAL 37.5 MCG IV PUSH (05:30)
[2020-08-08 05:33] LABS: Hematocrit 33.1 % (42.0-52.0); Hemoglobin 10.4 g/dL (14.0-18.0); Immature Platelet Fraction Pct 18.3 % (0.9-11.2); Mean Corpuscular HGB Conc 31.4 g/dl (32-36); Mean Corpuscular Hemoglobin 27.7 pg (26-34); Mean Corpuscular Volume 88.3 fl (80-100); Platelet Count Result 109 k/mm3 (150-375); Red Blood Count 3.75 M/mm3 (4.6-6.20); Red Cell Distribution Width 14.6 % (11.5-14.5); White Blood Count 22.7 K/mm3 (4.5-10.0)
[2020-08-08 05:46] LABS: Glucose Point of Care 152 (65-105)
[2020-08-08 05:50] LABS: Anion Gap 14 mmol/L (8-16); Blood Urea Nitrogen 114 mg/dL (9-20); Calcium 8.9 mg/dL (8.4-10.2); Carbon Dioxide 30 mmol/L (22-30); Chloride 95 mmol/L (98-107); Estimated CRCL calculation 24 ml/min; Estimated Glomerular Filt Rate 13; Glucose 155 mg/dL (75-110); Magnesium 2.4 mg/dL (1.6-2.3); Potassium 5.3 mmol/L (3.4-5.0); Sodium 139 mmol/L (137-145)
[2020-08-08 07:07] LABS: Glucose Point of Care 135 (65-105)
[2020-08-08] MEDS: INSULIN HUMAN REGULAR (*BKC) 100 UNITS in SODIUM CHLORIDE 0.9% IV 99 ML IV CONT (07:58)
[2020-08-08] MEDS: amLODIPine BESYLATE 5 MG TABLET 10 MG PO (08:04)
[2020-08-08] MEDS: levETIRAcetam 1000MG/NACL100ML 1,000 MG/100 ML BAG 400 MG IVPB ×2 (08:05→21:50)
[2020-08-08] MEDS: DEXAMETHASONE SOD PHOS INJ 4 MG/ML VIAL 6 MG IV PUSH (08:05)
[2020-08-08] MEDS: polyethylene glycoL 3350 17 GM POWD.PACK PO (08:05)
[2020-08-08] MEDS: INSULIN GLARGINE (*BKC) 100 UNITS/ML 60 UNITS SUB-Q (08:07)
[2020-08-08 08:31] LABS: Glucose Point of Care 100 (65-105)
[2020-08-08] MEDS: ALBUTEROL SULFATE NEB 2.5 MG/0.5 ML INH INHALATION ×3 (08:34→20:00)
[2020-08-08] MEDS: IPRATROPIUM BR 0.02% INH SOLN 0.5 MG/2.5 ML VIAL INHALATION ×3 (08:34→20:00)
--- NOTE | 2020-08-08 08:43 | PM.PNNEP ---
Progress Note: A&P Assessment and Plan (1) WILMAR (acute kidney injury): Code(s): N17.9 - Acute kidney failure, unspecified Status: Acute Assessment and Plan: Getting daily dialysis Will treat again today. Today will be 3.5 hours 280 blood flow hopefully he will not have another event. Discussed with Dr. Farias (2) Chronic kidney disease, stage IV (severe): Code(s): N18.4 - Chronic kidney disease, stage 4 (severe) Status: Chronic Assessment and Plan: baseline creatinine presumed to be 3.49mg/dl (January 2020) likely due to diabetes, hypertension, vascular disease, and age-related change (3) Atrial fibrillation: Code(s): I48.91 - Unspecified atrial fibrillation Status: Acute Assessment and Plan: Cardiology following Pulse between 80 and 105 (4) Respiratory failure: Qualifiers: Chronicity: acute on chronic Respiratory failure complication: hypoxia and hypercapnia Qualified Code(s): J96.21 - Acute and chronic respiratory failure with hypoxia; J96.22 - Acute and chronic respiratory failure with hypercapnia Code(s): J96.90 - Respiratory failure, unspecified, unspecified whether with hypoxia or hypercapnia Status: Acute Assessment and Plan: suspect due to COVID-19 +/- volume overload with possible progression to ARDS Will try to take a little more fluid off as tolerated. (5) Pneumonia due to COVID-19 virus: Code(s): U07.1 - COVID-19; J12.89 - Other viral pneumonia Status: Acute Assessment and Plan: on Dexamethasone not a candidate for remdesivir due to CKD Repeat blood cultures on the are no growth todate Dr Guthrie is on the case continue supportive therapy (6) Chronic ITP (idiopathic thrombocytopenia): Code(s): D69.3 - Immune thrombocytopenic purpura Status: Acute Assessment and Plan: platelet count stable Hem/Onc following Subjective Date/time seen: 08/08/20 08:43 Interval history: Patient cannot give a history He is on the ventilator and sedated. He had dialysis yesterday. The patient was done on a 3K bath. His blood flow rate was turned up slowly. He had not even gotten [id number] when the patient developed V-tach. He had a PEA arrest. The patient recovered. He was on norepinephrine for a while and has since then improved such that this drip was able to be stopped. His troponins have increased. Cardiology is on the case. The patient was done on a 3K bath and his potassium was 4.7 so it is unlikely that his potassium was low. Review of Systems Review of Systems: ROS unobtainable: Yes unobtainable due to medical condition Exam Narrative: Exam Narrative: General: Elderly male intubated/sedated Heart: IRRRnormal S1 and S2; no rub Lungs: coarse bilaterally Without wheez Abdomen: Bowel sounds positive and no tenderness Extremities: 1+ edema Skin: No rash or subcu nodules Objective Data Vital Signs Vital Signs: Vital Signs - 24 hr 08/07/20 10:00 08/07/20 10:40 08/07/20 11:57 Temperature 37.1 C Pulse Rate 85 82 100 Respiratory Rate 30 H 30 H Blood Pressure 125/73 117/67 Pulse Oximetry 96 96 94 08/07/20 12:00 08/07/20 12:15 08/07/20 12:29 Temperature 37.2 C Pulse Rate 89 98 100 Respiratory Rate 30 H 32 H Blood Pressure 146/71 H 142/77 H Pulse Oximetry 91 100 08/07/20 12:35 08/07/20 12:45 08/07/20 13:00 Temperature Pulse Rate 99 103 H 109 H Respiratory Rate Blood Pressure 154/105 H 166/97 H 145/89 H Pulse Oximetry 08/07/20 13:15 08/07/20 13:27 08/07/20 13:30 Temperature Pulse Rate 109 H 135 H 115 H Respiratory Rate Blood Pressure 164/86 H Pulse Oximetry 08/07/20 14:00 08/07/20 14:26 08/07/20 14:30 Temperature 37.2 C Pulse Rate 77 69 72 Respiratory Rate 29 H 26 H Blood Pressure 144/46 H 80/36 L Pulse Oximetry 95 96 08/07/20 14:45 08/07/20 14:52 08/07/20
[2020-08-08 09:44] LABS: Glucose Point of Care 92 (65-105)
[2020-08-08 11:02] LABS: Glucose Point of Care 96 (65-105)
--- NOTE | 2020-08-08 11:41 | WPDINTPN ---
Progress Note: A&P Assessment and Plan (1) Cardiac arrest: Code(s): I46.9 - Cardiac arrest, cause unspecified Status: Acute Assessment and Plan: Patient with pulseless V-tach arrest on 08/07 while dialysis was being done. Had removed her on 700 mL when patient went into pulseless V-tach. ACLS protocol was instituted, ROSC at 9 minutes. -ST-elevation noted in inferior leads, elevated troponins. Discussed with Cardiology Dr. Crook. Patient was given aspirin and 81 mg x4 pills, no beta-kaz as blood pressures were low, no heparin infusion was started as patient has chronic ITP with low platelets. -echocardiogram has been ordered to evaluate wall motion abnormalities -cardiology to follow (2) Respiratory failure: Qualifiers: Chronicity: acute on chronic Respiratory failure complication: hypoxia and hypercapnia Qualified Code(s): J96.21 - Acute and chronic respiratory failure with hypoxia; J96.22 - Acute and chronic respiratory failure with hypercapnia Code(s): J96.90 - Respiratory failure, unspecified, unspecified whether with hypoxia or hypercapnia Status: Acute Assessment and Plan: Acute hypoxic respiratory failure to volume overload, COVID-19 pneumonia. Intubated On 07/29/2020 -Chest x-ray shows Dense left consolidation, smaller right basilar pneumonia. Probable small to moderate left pleural effusion. -patient is on CMV mode of ventilation, low tidal volume strategy due to ARDS physiology, decrease PEEP to 12, wean FiO2 as tolerated -allow permissive hypercapnia. Continue to monitor ABG and chest x-ray. -patient on fentanyl and Versed for sedation, OFF Nimbex. - Continue bronchodilators -venous Dopplers 07/31: Negative for DVT bilateral (3) 2019 novel coronavirus–infected pneumonia (NCIP)#8211;infected pneumonia (NCIP): Code(s): U07.1 - COVID-19; J12.89 - Other viral pneumonia Status: Acute Assessment and Plan: SARS-CoV-2 PCR positive on 07/22/2020 -continue dexamethasone, initiated on 07/28/2020 -patient not a candidate for Remdesivir due to acute on chronic renal failure -continue droplet, airborne, contact isolation/precautions -will monitor inflammatory markers (4) Acute on chronic kidney failure: Qualifiers: Acute renal failure type: unspecified Chronic kidney disease stage: unspecified stage Qualified Code(s): N17.9 - Acute kidney failure, unspecified; N18.9 - Chronic kidney disease, unspecified Code(s): N17.9 - Acute kidney failure, unspecified; N18.9 - Chronic kidney disease, unspecified Status: Acute Assessment and Plan: Acute on chronic kidney disease, baseline creatinine 3.5-4.0 -metabolic acidosis likely related to uremia. He was given IV bicarb which has been stopped now - adequate but remains uremic, likely from catabolic state and steroids -will continue monitor urine output, renal function and electrolytes. -renal ultrasound 07/23/2020 showed moderate bilateral hydronephrosis -repeat renal ultrasound on 07/31: Normal kidney size, no hydronephrosis -nephrology service following and discussed with Dr. Devine. Started dialysis on 08/04 after insertion temporary HD catheter -dialysis schedule per Nephrology (5) Atrial fibrillation: Code(s): I48.91 - Unspecified atrial fibrillation Status: Acute Assessment and Plan: Patient with AFib RVR at the outside hospital requiring Cardizem infusion which was then converted to p.o. Cardizem and Coreg. Developed bradycardia and hypotension. Now both has been discontinued. -He was given calcium gluconate along with glucagon at the time of presentation. Cardiology is following. -c currently sinus rhythm, rate controlled, OFF amiodarone - No anticoagulation as plts low (6) Bradycardia: Code(s): R00.1 - Bradycardia, unspecified Status: Acute Assessment and Plan: RESOLVED Patient with bradycardia, requiring atropine, dopamine, epi
--- NOTE | 2020-08-08 11:51 | PCDIET ---
ICU Rounding Note: Tube feedings held following code blue on 08/07/20. MD order to resume tube feedings today (Nepro at goal of 50mL/hr with 30mL water flush every 4 hours). Last recorded weight is 189.5kg which is significantly decreased from last review. Recommend reweighing to ensure accuracy. Noted -I/O. Plan for dialysis today. Bowel Motility: Last documented BM on 08/07/20. Labs Reviewed: Hgb (10.4), Hct (33.1), Glu (155), BUN (114), Cr (4.4), K (5.3), Alb (3.0), PO4 (12.0) Meds Noted: Albuterol, Norvasc, Aspart, Lantus, Reglan, Versed, Fentanyl, Hydralazine, Atrovent, Synthroid Additional Notes: Coccyx reddened, but no open wounds documented. Following daily in ICU rounds. Assessing/reassessing every Saturday/Saturday.
[2020-08-08 12:01] LABS: Glucose Point of Care 109 (65-105)
[2020-08-08 13:10] LABS: Glucose Point of Care 116 (65-105)
[2020-08-08 13:55] LABS: Glucose Point of Care 131 (65-105)
[2020-08-08 14:56] LABS: Glucose Point of Care 118 (65-105)
--- NOTE | 2020-08-08 16:04 | PM.IMPN ---
Progress Note: A&P Assessment and Plan (1) Respiratory failure: Qualifiers: Chronicity: acute on chronic Respiratory failure complication: hypoxia and hypercapnia Qualified Code(s): J96.21 - Acute and chronic respiratory failure with hypoxia; J96.22 - Acute and chronic respiratory failure with hypercapnia Code(s): J96.90 - Respiratory failure, unspecified, unspecified whether with hypoxia or hypercapnia Status: Acute Assessment and Plan: The patient was intubated at [facility]. Vent settings per hot die press feeder. 08/07/20 17:15 patient is 69-year-old male patient was initially diagnosed with COVID-19 on 07/22/20 and was admitted to the inpatient hospital his symptom had improved and he was transferred to [facility], patient is morbidly obese with history of chronic kidney disease, ITP, atrial fibrillation, CVA, and history of seizure, while at the [facility] patient symptom worsen he was quite hypoxic was intubated and transferred to ICU at [facility] via helicopter, currently patient is intubated, he is being treated with dexamethasone 10/19 cannot receive Remdesivir because patient has a stage 4 chronic kidney disease, upon arrival patient was hypotensive and bradycardic started on epinephrine infusion is now off epinephrine blood pressure and rate is stable, patient with ITP was seen by Hematology patient is being treated with steroid for COVID-19 his platelet counts a improving any has no complaint of bleeding. Patient remains off pressors, patient on NG tube and being fed, Patient blood culture is growing gram-positive cocci in cluster was seen by Dr. Guthrie suspect its contamination and does not recommend any abx and stopped daptomycin. Patient remains clinically stable on vent, Patient was seen by public relations account executive and had HD on 08/04, patient oxygen requirement is increasing, again patient had HD and 1500cc was removed, this will help his oxygenation, patient is clinically stable and off all pressores, HR is controlled with amiodoran drip, patient is seen by hot die press feeder and public relations account executive and appreciate, plan for dialysis today. (2) Exposure to COVID-19 virus: Code(s): Z20.828 - Contact with and (suspected) exposure to other viral communicable diseases Status: Acute Assessment and Plan: Patient is now intubated. Continue with Decadron. (3) Thrombocytopenia: Code(s): D69.6 - Thrombocytopenia, unspecified Status: Acute Assessment and Plan: Hematology as this is the chronic condition. (4) Acute on chronic kidney failure: Qualifiers: Acute renal failure type: unspecified Chronic kidney disease stage: unspecified stage Qualified Code(s): N17.9 - Acute kidney failure, unspecified; N18.9 - Chronic kidney disease, unspecified Code(s): N17.9 - Acute kidney failure, unspecified; N18.9 - Chronic kidney disease, unspecified Status: Acute Assessment and Plan: Patient has worsening chronic kidney disease, nephrology on board (5) Pneumonia due to COVID-19 virus: Code(s): U07.1 - COVID-19; J12.89 - Other viral pneumonia Status: Acute Assessment and Plan: See above. (6) Atrial fibrillation: Code(s): I48.91 - Unspecified atrial fibrillation Status: Acute Assessment and Plan: Patient has atrial fib and with the slow ventricular response. Patient is externally paced. Cardiology has been consulted and has given recommendations. (7) Diabetes: Code(s): E11.9 - Type 2 diabetes mellitus without complications Status: Chronic Assessment and Plan: The patient is placed on insulin drip and Accu-Cheks are every 1 hour. (8) Type 2 diabetes mellitus without complications: Code(s): E11.9 - Type 2 diabetes mellitus without complications Status: Acute (9) Elevated troponin: Code(s): R77.8 - Other specified abnormalities of plasma proteins S
[2020-08-08 16:06] LABS: Glucose Point of Care 115 (65-105)
[2020-08-08 16:48] LABS: Glucose Point of Care 119 (65-105)
[2020-08-08 18:03] LABS: Glucose Point of Care 113 (65-105)
[2020-08-08 20:05] LABS: Glucose Point of Care 100 (65-105)
[2020-08-08 20:05] LABS: Glucose Point of Care 107 (65-105)
[2020-08-08 22:46] LABS: Glucose Point of Care 132 (65-105)
[2020-08-08 22:46] LABS: Glucose Point of Care 139 (65-105)
[2020-08-09] VITALS (56 sets, daily range): BP systolic 89–140; BP diastolic 49–95; PULSE 88–134; RESP 26–35; TEMP 36.4–37.4; O2SAT 91–97
[2020-08-09 00:30] LABS: Glucose Point of Care 136 (65-105)
[2020-08-09 01:02] LABS: Glucose Point of Care 109 (65-105)
[2020-08-09 02:00] LABS: Glucose Point of Care 109 (65-105)
[2020-08-09] MEDS: ALBUTEROL SULFATE NEB 2.5 MG/0.5 ML INH INHALATION ×5 (02:04→20:12)
[2020-08-09] MEDS: IPRATROPIUM BR 0.02% INH SOLN 0.5 MG/2.5 ML VIAL INHALATION ×5 (02:05→20:13)
[2020-08-09] MEDS: FENTANYL 2,500MCG/NS250ML(*CRX 2,500 MCG/250 ML BAG 7.5 MCG IV CONT (02:43)
[2020-08-09 02:57] LABS: Glucose Point of Care 99 (65-105)
[2020-08-09 04:01] LABS: Glucose Point of Care 108 (65-105)
[2020-08-09 04:12] LABS: Base Excess ABG 3.4 mEq/l (+/-2.0); Carboxyhemoglobin 0.3 % THb (0-2.0); Fractional Inspired Oxygen 65 %; Methemoglobin ABG 0.4 %THb (0-1.5); Oxygen Content ABG 15.8 %vol (16.0-22.0); Oxygen Saturation ABG 93.4 % (95.0-100.0); Oxyhemoglobin 89.9 % THb (90.0-100.0); PCO2 ABG 42.5 mmHg (35.0-45.0); PO2 ABG 65.2 mmHg (80.0-100.0); Reduced Hemoglobin 9.4 %THb (0-5.0); Total Hemoglobin 12.5 g/dL (12.0-18.0); pH ABG 7.437 (7.350-7.450)
[2020-08-09 04:13] LABS: Arterial Blood Gas Ventilator rate 32 /MIN; Device VENTILATOR; Site Drawn LEFT BRACHIAL
[2020-08-09 04:14] LABS: Arterial Blood Gas PEEP 12 cmH2O; Arterial Blood Gas Tidal Volume 430 ml; Arterial Blood Gas Vent Mode CMV
[2020-08-09 04:16] LABS: Anion Gap 10 mmol/L (8-16); Blood Urea Nitrogen 82 mg/dL (9-20); Calcium 8.9 mg/dL (8.4-10.2); Carbon Dioxide 31 mmol/L (22-30); Chloride 94 mmol/L (98-107); Glucose 111 mg/dL (75-110); Magnesium 2.2 mg/dL (1.6-2.3); Phosphorus 12.3 mg/dL (2.5-4.5); Potassium 5.2 mmol/L (3.4-5.0); Sodium 135 mmol/L (137-145)
[2020-08-09 04:28] LABS: Estimated CRCL calculation 27 ml/min; Estimated Glomerular Filt Rate 15
[2020-08-09 05:19] LABS: Glucose Point of Care 102 (65-105)
[2020-08-09 06:00] LABS: Hematocrit 33.1 % (42.0-52.0); Hemoglobin 10.5 g/dL (14.0-18.0); Mean Corpuscular HGB Conc 31.7 g/dl (32-36); Mean Corpuscular Hemoglobin 27.9 pg (26-34); Mean Corpuscular Volume 87.8 fl (80-100); Platelet Count Result 105 k/mm3 (150-375); Red Blood Count 3.77 M/mm3 (4.6-6.20); Red Cell Distribution Width 14.6 % (11.5-14.5); White Blood Count 23.1 K/mm3 (4.5-10.0)
[2020-08-09] MEDS: LEVOTHYROXINE SODIUM INJ 100 MCG/5 ML VIAL 37.5 MCG IV PUSH (06:07)
[2020-08-09] MEDS: METOCLOPRAMIDE HCL INJ 10 MG/2 ML VIAL IV PUSH ×2 (06:07→12:06)
[2020-08-09] MEDS: CENTRAL LINE FLUSH 10 ML IV PUSH ×6 (06:08→21:24)
[2020-08-09 08:09] LABS: Glucose Point of Care 98 (65-105)
[2020-08-09 08:09] LABS: Glucose Point of Care 110 (65-105)
[2020-08-09 08:09] LABS: Glucose Point of Care 105 (65-105)
[2020-08-09] MEDS: levETIRAcetam 1000MG/NACL100ML 1,000 MG/100 ML BAG 400 MG IVPB ×2 (09:08→21:03)
[2020-08-09] MEDS: polyethylene glycoL 3350 17 GM POWD.PACK PO (09:10)
[2020-08-09] MEDS: INSULIN GLARGINE (*BKC) 100 UNITS/ML 30 UNITS SUB-Q ×2 (09:11→21:24)
[2020-08-09 09:21] LABS: Glucose Point of Care 109 (65-105)
--- NOTE | 2020-08-09 09:58 | PM.PNNEP ---
Progress Note: A&P Assessment and Plan (1) WILMAR (acute kidney injury): Code(s): N17.9 - Acute kidney failure, unspecified Status: Acute Assessment and Plan: Getting daily dialysis Will treat again today. Today will dry ultrafiltrate only. (2) Chronic kidney disease, stage IV (severe): Code(s): N18.4 - Chronic kidney disease, stage 4 (severe) Status: Chronic Assessment and Plan: baseline creatinine presumed to be 3.49mg/dl (January 2020) likely due to diabetes, hypertension, vascular disease, and age-related change (3) Atrial fibrillation: Code(s): I48.91 - Unspecified atrial fibrillation Status: Acute Assessment and Plan: Cardiology following Pulse between 80 and 105 (4) Respiratory failure: Qualifiers: Chronicity: acute on chronic Respiratory failure complication: hypoxia and hypercapnia Qualified Code(s): J96.21 - Acute and chronic respiratory failure with hypoxia; J96.22 - Acute and chronic respiratory failure with hypercapnia Code(s): J96.90 - Respiratory failure, unspecified, unspecified whether with hypoxia or hypercapnia Status: Acute Assessment and Plan: suspect due to COVID-19 +/- volume overload with possible progression to ARDS Will try to take more fluid off as tolerated. (5) Pneumonia due to COVID-19 virus: Code(s): U07.1 - COVID-19; J12.89 - Other viral pneumonia Status: Acute Assessment and Plan: on Dexamethasone not a candidate for remdesivir due to CKD Repeat blood cultures on the are no growth todate Dr Guthrie is on the case continue supportive therapy (6) Chronic ITP (idiopathic thrombocytopenia): Code(s): D69.3 - Immune thrombocytopenic purpura Status: Acute Assessment and Plan: platelet count stable Hem/Onc following Subjective Date/time seen: 08/09/20 09:58 Interval history: Patient cannot give a history He is on the ventilator and sedated. He had dialysis yesterday. The treatment went a little bit better however he was persistently mildly hypotensive. Not much fluid was removed. Will try dry ultrafiltration today to see if we can get more fluid off. Exam Narrative: Exam Narrative: General: Elderly male intubated/sedated Heart: IRRRnormal S1 and S2; no rub Lungs: coarse bilaterally Without wheez Abdomen: Bowel sounds positive and no tenderness Extremities: 1+ edema Skin: No rash or subcu nodules Objective Data Vital Signs Vital Signs: Vital Signs - 24 hr 08/08/20 10:00 08/08/20 11:31 08/08/20 12:00 Temperature 36.6 C Pulse Rate 65 66 64 Respiratory Rate 32 H 32 H Blood Pressure 141/63 H 148/66 H Pulse Oximetry 94 94 94 08/08/20 13:56 08/08/20 14:00 08/08/20 16:00 Temperature 36.6 C Pulse Rate 64 59 L 56 L Respiratory Rate 32 H 32 H 32 H Blood Pressure 106/52 L 105/65 Pulse Oximetry 96 97 98 08/08/20 16:34 08/08/20 16:48 08/08/20 16:50 Temperature 36.8 C Pulse Rate 60 62 60 Respiratory Rate 32 H Blood Pressure 105/56 L 105/55 L 149/70 H Pulse Oximetry 93 08/08/20 17:00 08/08/20 17:15 08/08/20 17:28 Temperature Pulse Rate 64 66 98 Respiratory Rate Blood Pressure 146/68 H 124/60 Pulse Oximetry 92 08/08/20 17:30 08/08/20 17:45 08/08/20 17:46 Temperature Pulse Rate 102 H 82 86 Respiratory Rate 32 H 32 H Blood Pressure 98/61 L 106/68 Pulse Oximetry 08/08/20 17:48 08/08/20 18:00 08/08/20 18:15 Temperature Pulse Rate 83 82 89 Respiratory Rate 32 H Blood Pressure 106/68 109/56 L 94/68 L Pulse Oximetry 93 08/08/20 18:30 08/08/20 18:45 08/08/20 19:00 Temperature Pulse Rate 108 H Respiratory Rate Blood Pressure 124/65 148/77 H 134/77 Pulse Oximetry 08/08/20 19:15 08/08/20 19:30 08/08/20 19:45 Temperature Pulse Rate 98 103 H 110 H Respiratory Rate Blood Pressure 140/85 137/77 133/76 Pulse Oximetry
--- NOTE | 2020-08-09 12:12 | WPDINTPN ---
Progress Note: A&P Assessment and Plan (1) Cardiac arrest: Code(s): I46.9 - Cardiac arrest, cause unspecified Status: Acute Assessment and Plan: Patient with pulseless V-tach arrest on 08/07 while dialysis was being done. Had removed her on 700 mL when patient went into pulseless V-tach. ACLS protocol was instituted, ROSC at 9 minutes. -ST-elevation noted in inferior leads, elevated troponins. Discussed with Cardiology Dr. Crook. Patient was given aspirin and 81 mg x4 pills, no beta-kaz as blood pressures were low, no heparin infusion was started as patient has chronic ITP with low platelets. -echocardiogram has been ordered to evaluate wall motion abnormalities -cardiology following (2) Respiratory failure: Qualifiers: Chronicity: acute on chronic Respiratory failure complication: hypoxia and hypercapnia Qualified Code(s): J96.21 - Acute and chronic respiratory failure with hypoxia; J96.22 - Acute and chronic respiratory failure with hypercapnia Code(s): J96.90 - Respiratory failure, unspecified, unspecified whether with hypoxia or hypercapnia Status: Acute Assessment and Plan: Acute hypoxic respiratory failure to volume overload, COVID-19 pneumonia. Intubated On 07/29/2020 -Chest x-ray shows Dense left consolidation, smaller right basilar pneumonia. Probable small to moderate left pleural effusion. -patient is on CMV mode of ventilation, low tidal volume strategy due to ARDS physiology, decrease PEEP to 12, wean FiO2 as tolerated -allow permissive hypercapnia. Continue to monitor ABG and chest x-ray. -patient on fentanyl and Versed for sedation, OFF Nimbex. - Continue bronchodilators -venous Dopplers 07/31: Negative for DVT bilateral (3) 2019 novel coronavirus–infected pneumonia (NCIP)#8211;infected pneumonia (NCIP): Code(s): U07.1 - COVID-19; J12.89 - Other viral pneumonia Status: Acute Assessment and Plan: SARS-CoV-2 PCR positive on 07/22/2020 -continue dexamethasone, initiated on 07/28/2020 -patient not a candidate for Remdesivir due to acute on chronic renal failure -continue droplet, airborne, contact isolation/precautions -will monitor inflammatory markers (4) Acute on chronic kidney failure: Qualifiers: Acute renal failure type: unspecified Chronic kidney disease stage: unspecified stage Qualified Code(s): N17.9 - Acute kidney failure, unspecified; N18.9 - Chronic kidney disease, unspecified Code(s): N17.9 - Acute kidney failure, unspecified; N18.9 - Chronic kidney disease, unspecified Status: Acute Assessment and Plan: Acute on chronic kidney disease, baseline creatinine 3.5-4.0 -metabolic acidosis likely related to uremia. He was given IV bicarb which has been stopped now - adequate but remains uremic, likely from catabolic state and steroids -will continue monitor urine output, renal function and electrolytes. -renal ultrasound 07/23/2020 showed moderate bilateral hydronephrosis -repeat renal ultrasound on 07/31: Normal kidney size, no hydronephrosis -nephrology service following and discussed with Dr. Devine. Started dialysis on 08/04 after insertion temporary HD catheter -dialysis schedule per Nephrology (5) Atrial fibrillation: Code(s): I48.91 - Unspecified atrial fibrillation Status: Acute Assessment and Plan: Patient with AFib RVR at the outside hospital requiring Cardizem infusion which was then converted to p.o. Cardizem and Coreg. Developed bradycardia and hypotension. Now both has been discontinued. -He was given calcium gluconate along with glucagon at the time of presentation. Cardiology is following. -converted to AFib with rates of 100s-110s d, OFF amiodarone - No anticoagulation as plts low (6) Bradycardia: Code(s): R00.1 - Bradycardia, unspecified Status: Acute Assessment and Plan: RESOLVED Patient with bradycardia, requiring atropine, dopamine, e
[2020-08-09 12:14] LABS: Glucose Point of Care 121 (65-105)
--- NOTE | 2020-08-09 13:01 | PCDIET ---
Nutrition Follow-Up Complete: Nutrition Diagnosis: Inadequate oral intake related to inability to consume foods orally as evidence by day two NPO and mechanical ventilation. Nutrition Goal: Total intake will meet estimated nutrition needs. Goal in progress. Nepro initiated at 10mL/hr, then held for intolerance overnight. MD order to resume tube feedings at 10mL/hr today. Last recorded weight is 184.2 kg which is decreased from last review. -I/O. Patient had 1.3L UF on 08/08/20. Bowel Motility: Last documented BM on 08/07/20. Labs Reviewed: Hgb (10.5), Hct (33.1), Glu (111), BUN (82), Cr (3.9), K (5.2), Na (135), Alb (3.0), PO4 (12.3) Meds Noted: Albuterol, Fentanyl, Apresoline, Aspart, Lantus, Atrovent, Synthroid, Reglan, Levophed, Miralax Additional Notes: Plan for dialysis today. Coccyx reddened, but unopened. Will continue to monitor with same goal. Nutrition Monitoring and Evaluation: Follow up every Saturday/Saturday.
--- NOTE | 2020-08-09 14:41 | PM.IMPN ---
Progress Note: A&P Assessment and Plan (1) Respiratory failure: Qualifiers: Chronicity: acute on chronic Respiratory failure complication: hypoxia and hypercapnia Qualified Code(s): J96.21 - Acute and chronic respiratory failure with hypoxia; J96.22 - Acute and chronic respiratory failure with hypercapnia Code(s): J96.90 - Respiratory failure, unspecified, unspecified whether with hypoxia or hypercapnia Status: Acute Assessment and Plan: The patient was intubated at [facility]. Vent settings per mushroom picker. 08/09/20 14:41 patient is 69-year-old male patient was initially diagnosed with COVID-19 on 07/22/20 and was admitted to the inpatient hospital his symptom had improved and he was transferred to [facility], patient is morbidly obese with history of chronic kidney disease, ITP, atrial fibrillation, CVA, and history of seizure, while at the [facility] patient symptom worsen he was quite hypoxic was intubated and transferred to ICU at [facility] via helicopter, currently patient is intubated, he is being treated with dexamethasone 10/19 cannot receive Remdesivir because patient has a stage 4 chronic kidney disease, upon arrival patient was hypotensive and bradycardic started on epinephrine infusion is now off epinephrine blood pressure and rate is stable, patient with ITP was seen by Hematology patient is being treated with steroid for COVID-19 his platelet counts a improving any has no complaint of bleeding. Patient remains off pressors, patient on NG tube and being fed, Patient blood culture is growing gram-positive cocci in cluster was seen by Dr. Guthrie suspect its contamination and does not recommend any abx and stopped daptomycin. Patient remains clinically stable on vent, Patient was seen by stewardess supervisor and had HD on 08/04, patient oxygen requirement is increasing, again patient had HD and 1500cc was removed, this will help his oxygenation, patient is clinically stable and off all pressores, HR is controlled with amiodoran drip, patient had dialysis on 08/08 and 1300cc was removed, patient seen by Dr. Devine and will have dialysis, his CXR is improving, patient is seen by mushroom picker and stewardess supervisor and appreciate, plan for dialysis today. (2) Exposure to COVID-19 virus: Code(s): Z20.828 - Contact with and (suspected) exposure to other viral communicable diseases Status: Acute Assessment and Plan: Patient is now intubated. Continue with Decadron. (3) Thrombocytopenia: Code(s): D69.6 - Thrombocytopenia, unspecified Status: Acute Assessment and Plan: Hematology as this is the chronic condition. (4) Acute on chronic kidney failure: Qualifiers: Acute renal failure type: unspecified Chronic kidney disease stage: unspecified stage Qualified Code(s): N17.9 - Acute kidney failure, unspecified; N18.9 - Chronic kidney disease, unspecified Code(s): N17.9 - Acute kidney failure, unspecified; N18.9 - Chronic kidney disease, unspecified Status: Acute Assessment and Plan: Patient has worsening chronic kidney disease, nephrology on board (5) Pneumonia due to COVID-19 virus: Code(s): U07.1 - COVID-19; J12.89 - Other viral pneumonia Status: Acute Assessment and Plan: See above. (6) Atrial fibrillation: Code(s): I48.91 - Unspecified atrial fibrillation Status: Acute Assessment and Plan: Patient has atrial fib and with the slow ventricular response. Patient is externally paced. Cardiology has been consulted and has given recommendations. (7) Diabetes: Code(s): E11.9 - Type 2 diabetes mellitus without complications Status: Chronic Assessment and Plan: The patient is placed on insulin drip and Accu-Cheks are every 1 hour. (8) Type 2 diabetes mellitus without complications: Code(s): E11.9 - Type 2 diabetes mellitus without complications
[2020-08-09] MEDS: NOREPINEPHRINE 8 MG/D5W 250 ML 8 MG/250 ML BAG 1.88 MG IV CONT (15:20)
[2020-08-09] MEDS: ALBUMIN HUMAN 25% 12.5 GM/50ML 50 ML 100 GM (17:04)
[2020-08-09 17:05] LABS: Glucose Point of Care 114 (65-105)
[2020-08-09 23:14] LABS: Glucose Point of Care 137 (65-105)
[2020-08-10] VITALS (57 sets, daily range): BP systolic 91–136; BP diastolic 45–115; PULSE 67–142; RESP 27–34; TEMP 36.2–38.7; O2SAT 87–97
[2020-08-10] MEDS: METOCLOPRAMIDE HCL INJ 10 MG/2 ML VIAL IV PUSH ×4 (00:37→16:58)
[2020-08-10] MEDS: IPRATROPIUM BR 0.02% INH SOLN 0.5 MG/2.5 ML VIAL INHALATION ×4 (01:48→20:43)
[2020-08-10] MEDS: ALBUTEROL SULFATE NEB 2.5 MG/0.5 ML INH INHALATION ×4 (01:48→20:43)
[2020-08-10] MEDS: FENTANYL 2,500MCG/NS250ML(*CRX 2,500 MCG/250 ML BAG 10 MCG IV CONT (02:16)
[2020-08-10 03:52] LABS: Glucose Point of Care 130 (65-105)
[2020-08-10 04:51] LABS: Hematocrit 30.7 % (42.0-52.0); Hemoglobin 9.6 g/dL (14.0-18.0); Immature Platelet Fraction Pct 16.7 % (0.9-11.2); Mean Corpuscular HGB Conc 31.3 g/dl (32-36); Mean Corpuscular Hemoglobin 27.7 pg (26-34); Mean Corpuscular Volume 88.7 fl (80-100); Mean Platelet Volume 13.5 fl (7.4-10.4); Platelet Count Result 123 k/mm3 (150-375); Red Blood Count 3.46 M/mm3 (4.6-6.20); Red Cell Distribution Width 14.6 % (11.5-14.5); White Blood Count 20.6 K/mm3 (4.5-10.0)
[2020-08-10 05:10] LABS: Alveolar/Arterial O2 Gradient 252.3 mmHg; Base Excess ABG -0.4 mEq/l (+/-2.0); Carboxyhemoglobin 0.3 % THb (0-2.0); Fractional Inspired Oxygen 50 %; HCO3 ABG 23.8 mEq/l (22.0-26.0); Methemoglobin ABG 0.2 %THb (0-1.5); Oxygen Content ABG 12.7 %vol (16.0-22.0); Oxygen Saturation ABG 92.3 % (95.0-100.0); Oxyhemoglobin 87.6 % THb (90.0-100.0); PCO2 ABG 37.6 mmHg (35.0-45.0); PO2 ABG 61.9 mmHg (80.0-100.0); PO2 FiO2 Ratio Arterial Blood 1.24 %; Reduced Hemoglobin 11.9 %THb (0-5.0); Site Drawn LEFT BRACHIAL; Total Hemoglobin 10.3 g/dL (12.0-18.0)
[2020-08-10 05:11] LABS: Arterial Blood Gas PEEP 12 cmH2O; Arterial Blood Gas Tidal Volume 430 ml; Arterial Blood Gas Vent Mode CMV; Arterial Blood Gas Ventilator rate 32 /MIN; Device VENTILATOR
[2020-08-10 05:12] LABS: Anion Gap 19 mmol/L (8-16); Blood Urea Nitrogen 119 mg/dL (9-20); Calcium 8.6 mg/dL (8.4-10.2); Carbon Dioxide 26 mmol/L (22-30); Chloride 91 mmol/L (98-107); Glucose 141 mg/dL (75-110); Magnesium 2.5 mg/dL (1.6-2.3); Potassium 6.1 mmol/L (3.4-5.0); Sodium 136 mmol/L (137-145)
[2020-08-10 06:13] LABS: Estimated CRCL calculation 18 ml/min; Estimated Glomerular Filt Rate 9
[2020-08-10] MEDS: LEVOTHYROXINE SODIUM INJ 100 MCG/5 ML VIAL 37.5 MCG IV PUSH (06:29)
[2020-08-10] MEDS: CENTRAL LINE FLUSH 10 ML IV PUSH ×5 (06:29→21:00)
[2020-08-10 06:40] LABS: Phosphorus 14.1 mg/dL (2.5-4.5)
[2020-08-10 08:05] LABS: Glucose Point of Care 136 (65-105)
[2020-08-10] MEDS: INSULIN GLARGINE (*BKC) 100 UNITS/ML 15 UNITS SUB-Q ×2 (08:10→20:58)
[2020-08-10 08:39] LABS: Anion Gap 14 mmol/L (8-16); Calcium 8.4 mg/dL (8.4-10.2); Carbon Dioxide 28 mmol/L (22-30); Chloride 92 mmol/L (98-107); Glucose 156 mg/dL (75-110); Potassium 5.9 mmol/L (3.4-5.0); Sodium 134 mmol/L (137-145)
[2020-08-10 08:55] LABS: Blood Urea Nitrogen 121 mg/dL (9-20)
[2020-08-10] MEDS: levETIRAcetam 1000MG/NACL100ML 1,000 MG/100 ML BAG 400 MG IVPB ×2 (09:03→20:59)
[2020-08-10] MEDS: polyethylene glycoL 3350 17 GM POWD.PACK PO (09:04)
[2020-08-10 09:47] LABS: Estimated CRCL calculation 18 ml/min; Estimated Glomerular Filt Rate 10
[2020-08-10] MEDS: EPOETIN ALFA-EPBX 10,000 UNITS/ML VIAL 10000 UNITS IV PUSH (10:15)
--- NOTE | 2020-08-10 10:55 | PCDIET ---
ICU Rounding Note: Nepro advancing toward goal rate of 50mL/hr; currently at 40mL/hr with residuals 80mL and below. Patient undergoing dialysis at this time. Last recorded weight is 185kg which is increased from last review, despite -I/O. Patient had 2.3L UF on 08/09/20. Bowel Motility: Last documented BM on 08/07/20. Recent smear, per RN. Patient received Miralax today. Labs Reviewed: Hgb (9.6), Hct (30.7), Glu (156), K (5.9), Na (134), Alb (3.0), PO4 (14.1) Meds Noted: Albuterol, Retacrit, Hydralazine, Lantus, Atrovent, Synthroid, Reglan, Miralax Additional Notes: Coccyx reddened, but no open sores documented. Following daily in ICU rounds. Assessing/reassessing every Saturday/Saturday.
--- NOTE | 2020-08-10 11:14 | WPDINTPN ---
Progress Note: A&P Assessment and Plan (1) Respiratory failure: Qualifiers: Chronicity: acute on chronic Respiratory failure complication: hypoxia and hypercapnia Qualified Code(s): J96.21 - Acute and chronic respiratory failure with hypoxia; J96.22 - Acute and chronic respiratory failure with hypercapnia Code(s): J96.90 - Respiratory failure, unspecified, unspecified whether with hypoxia or hypercapnia Status: Acute Assessment and Plan: Acute hypoxic respiratory failure to volume overload, COVID-19 pneumonia. Intubated On 07/29/2020 -Chest x-ray shows Dense left consolidation, smaller right basilar pneumonia. Probable small to moderate left pleural effusion. -patient is on CMV mode of ventilation, low tidal volume strategy due to ARDS physiology, decrease PEEP to 12, 50% FiO2, will start weaning peep and FiO2 as tolerated -allow permissive hypercapnia. Continue to monitor ABG and chest x-ray. -patient on fentanyl and Versed for sedation, OFF Nimbex. - Continue bronchodilators -venous Dopplers 07/31: Negative for DVT bilateral (2) Cardiac arrest: Code(s): I46.9 - Cardiac arrest, cause unspecified Status: Acute Assessment and Plan: Patient with pulseless V-tach arrest on 08/07 while dialysis was being done. Had removed her on 700 mL when patient went into pulseless V-tach. ACLS protocol was instituted, ROSC at 9 minutes. -ST-elevation noted in inferior leads, elevated troponins. Discussed with Cardiology Dr. Crook. Patient was given aspirin and 81 mg x4 pills, no beta-kaz as blood pressures were low, no heparin infusion was started as patient has chronic ITP with low platelets. -echocardiogram has been ordered to evaluate wall motion abnormalities -cardiology following -08/08 echocardiogram showed EF of 60-65%. Moderately increased left ventricular wall thickness, trace mitral of regurg, trivial pericardial effusion with no tamponade. (3) 2019 novel coronavirus–infected pneumonia (NCIP)#8211;infected pneumonia (NCIP): Code(s): U07.1 - COVID-19; J12.89 - Other viral pneumonia Status: Acute Assessment and Plan: SARS-CoV-2 PCR positive on 07/22/2020 -continue dexamethasone, initiated on 07/28/2020 -patient not a candidate for Remdesivir due to acute on chronic renal failure -continue droplet, airborne, contact isolation/precautions -will monitor inflammatory markers (4) Acute on chronic kidney failure: Qualifiers: Acute renal failure type: unspecified Chronic kidney disease stage: unspecified stage Qualified Code(s): N17.9 - Acute kidney failure, unspecified; N18.9 - Chronic kidney disease, unspecified Code(s): N17.9 - Acute kidney failure, unspecified; N18.9 - Chronic kidney disease, unspecified Status: Acute Assessment and Plan: Acute on chronic kidney disease, baseline creatinine 3.5-4.0 -renal ultrasound 07/23/2020 showed moderate bilateral hydronephrosis -repeat renal ultrasound on 07/31: Normal kidney size, no hydronephrosis -nephrology service following and discussed with Dr. Devine. Started dialysis on 08/04 after insertion temporary HD catheter -dialysis schedule per Nephrology (5) Atrial fibrillation: Code(s): I48.91 - Unspecified atrial fibrillation Status: Acute Assessment and Plan: Patient with AFib RVR at the outside hospital requiring Cardizem infusion which was then converted to p.o. Cardizem and Coreg. Developed bradycardia and hypotension. Now both has been discontinued. -He was given calcium gluconate along with glucagon at the time of presentation. Cardiology is following. -converted to AFib with rates of 100s-110s d, OFF amiodarone - No anticoagulation as plts low (6) Bradycardia: Code(s): R00.1 - Bradycardia, unspecified Status: Acute Assessment and Plan: RESOLVED Patient with bradycardia, requiring atropine, dopamine, epinephrine and started being paced wi
[2020-08-10] MEDS: AMIODARONE 150 MG/D5W 100 ML 150 MG/100 ML BAG 600 MG IV CONT (11:45)
--- NOTE | 2020-08-10 11:53 | PM.PNNEP ---
Progress Note: A&P Assessment and Plan (1) WILMAR (acute kidney injury): Code(s): N17.9 - Acute kidney failure, unspecified Status: Acute Assessment and Plan: continue daily dialysis/DUF ongoing slow correction of fluid status and electrolytes follow repeat labs and UOP (2) Chronic kidney disease, stage IV (severe): Code(s): N18.4 - Chronic kidney disease, stage 4 (severe) Status: Chronic Assessment and Plan: baseline creatinine presumed to be 3.49mg/dl (January 2020) likely due to diabetes, hypertension, vascular disease, and age-related change (3) Atrial fibrillation: Code(s): I48.91 - Unspecified atrial fibrillation Status: Acute Assessment and Plan: Cardiology following continues to fluctuate as noted (4) Respiratory failure: Qualifiers: Chronicity: acute on chronic Respiratory failure complication: hypoxia and hypercapnia Qualified Code(s): J96.21 - Acute and chronic respiratory failure with hypoxia; J96.22 - Acute and chronic respiratory failure with hypercapnia Code(s): J96.90 - Respiratory failure, unspecified, unspecified whether with hypoxia or hypercapnia Status: Acute Assessment and Plan: suspect due to COVID-19 +/- volume overload with progression to ARDS continue fluid removal with with HD/DUF as tolerated by hemodynamics (5) Pneumonia due to COVID-19 virus: Code(s): U07.1 - COVID-19; J12.89 - Other viral pneumonia Status: Acute Assessment and Plan: on dexamethasone (started 07/28/20) not a candidate for remdesivir due to CKD follow cultures continue supportive therapy (6) Chronic ITP (idiopathic thrombocytopenia): Code(s): D69.3 - Immune thrombocytopenic purpura Status: Acute Assessment and Plan: platelet count stable Hem/Onc following Will continue to follow. Subjective Date/time seen: 08/10/20 11:53 Chart reviewed since last seen -- tolerating dialysis treatment at the time of my visit (seen on HD at 11:30AM); remains on ventilator support with some improvement by recent chest x-rays; tolerated dry ultrafiltration yesterday; tolerating tube feeds at this time as well. Exam Narrative: Exam Narrative: General: Elderly male intubated/sedated Heart: IRRR, normal S1 and S2; no rub Lungs: coarse bilaterally Abdomen: soft with positive bowel sounds Extremities: 1+ edema Skin: warm and dry Objective Data Vital Signs Vital Signs: Vital Signs Temp Pulse Resp BP Pulse Ox 08/10/20 10:00 117 H 32 H 110/53 L 93 08/10/20 08:22 104 H 32 H 08/10/20 08:15 104 H 94 08/10/20 08:14 101 H 32 H 08/10/20 08:00 37.3 C 99 32 H 111/58 L 94 08/10/20 07:00 67 32 H 08/10/20 06:27 102 H 32 H 08/10/20 06:00 100 32 H 131/56 L 93 08/10/20 05:15 104 H 94 08/10/20 04:00 36.8 C 104 H 32 H 106/57 L 95 08/10/20 03:22 101 H 32 H 95 08/10/20 02:30 110 H 32 H 08/10/20 02:16 108 H 32 H 08/10/20 02:10 110 H 94 08/10/20 02:00 106 H 32 H 118/64 95 08/10/20 01:12 108 H 32 H 08/10/20 00:00 36.6 C 106 H 32 H 113/54 L 95 08/09/20 23:28 112 H 32 H 93 08/09/20 23:10 117 H 92 08/09/20 23:00 117 H 32 H 08/09/20 22:00 115 H 32 H 115/71 91 08/09/20 21:30 101 H 139/54 L 08/09/20 21:01 114 H 32 H 08/09/20 21:00 109 H 32 H 124/54 L 93 08/09/20 20:58 112 H 32 H 08/09/20 20:57 112 H 94 08/09/20 20:00 37.4 C 103 H 32 H 108/55 L 94 08/09/20 19:11 36.8 C 100 32 H 118/60 08/09/20 19:06 110 H 114/66 08/09/20 19:00 102 H 106/58 L 08/09/20 18:45 106 H 110/53 L 08/09/20 18:31 104 H 140/62 08/09/20 18:15 108 H 110/49 L 08/09/20 18:08 107 H 32 H 12/29/20 18:00 107 H 32 H 134/85 96 08/09/20 17:45 117 H 123/66 08/09/20 17:30 107 H 123/67 08/09/20 17:15 110 H 118/61
[2020-08-10] MEDS: AMIODARONE 360 MG/D5W 200 ML 360 MG/200 ML BAG 33.33 MG IV CONT (12:00)
[2020-08-10 13:09] LABS: Glucose Point of Care 173 (65-105)
--- NOTE | 2020-08-10 13:15 | PC.NURSE ---
Daughter updated via telephone by Dr. Farias
[2020-08-10] MEDS: BISACODYL 10 MG SUPPOSITORY RECTAL (14:19)
--- NOTE | 2020-08-10 14:37 | WPDNEURCNPN ---
Assessment and Plan Assessment and plan (1) Cardiac arrest: Code(s): I46.9 - Cardiac arrest, cause unspecified Status: Acute Additional Plan encephalopathy plan is to get the EEG to evaluate the brain functions Consult date: 08/10/20 Time Seen: 14:00 HPI: Marcelino Quinonez is a 69 year old maleAdmitted to the hospital for the complaints of increasing difficulties in breathing along with the generalized aches chills and post testing COVID positive through the urgent care in addition to the history of 1. Atrial fibrillation 2. Cerebrovascular accident 3. Depression 4. Diabetes mellitus 5. Hypertension 6. I TP 7. Hypothyroidism 8. Sleep apnea patient had recently been discharged from the hospital on July 27, 2020 subsequent to admission on July 22, 2020 with positive COVID pertinent investigations include the CT scan of the head on 1220 with moderate sinusitis chronic left parietal infarction but no intracranial bleed, most recent CBC with WBC 20.6 hemoglobin 9.6 platelet count 123, basic metabolic panel with sodium 134 potassium 5.9 chloride 92 BUN 121 with creatinine of 5.80 and clearance only 18, GFR only 10 most recent exam with no acute distress ET tube in place normal respiratory effort edema of lower extremities and neurologically on vent and sedated Review of Systems Review of Systems: All systems reviewed & are unremarkable except as noted in HPI and below PMFSH Past Medical History Medical History Anxiety Atrial fibrillation Atrial fibrillation CVA (cerebral vascular accident) Depression Diabetes Erythropoietin deficiency anemia Essential (primary) hypertension Exposure to COVID-19 virus History of ITP Hypertension Hypothyroidism Obstructive sleep apnea Seizure Type 2 diabetes mellitus without complications Surgical History Surgical History History of appendectomy Family History Family History Father Colon cancer Mother Breast cancer Sibling Acute myocardial infarction Colon cancer Social History Social History Social History: Patient has been listed is a full code. He is Smoking packs per day: 1 Smoking cigarettes per day: 20.0 Years smoked: 13 Smoking pack-years: 13.00 Smoking status: Former smoker Tobacco type: cigarettes and cigars Alcohol intake: unknown Drinks per week: 15 Substance use: never Gender identity (if verbalized by the patient): Male Spiritual care concerns: No Meds Home Medications and Allergies Home Medications Medication Instructions Recorded Confirmed Type Lactobacillus acidophilus 1,000 mmu cells PO DAILY 07/23/20 07/30/20 History Lantus U-100 Insulin 50 unit SUBCUT BID 07/23/20 07/30/20 History atorvastatin [Lipitor] 40 mg PO DAILY 07/23/20 07/30/20 History bumetanide 1 mg PO DAILY 07/23/20 07/30/20 History carvedilol [Coreg] 12.5 mg PO BID 07/23/20 07/30/20 History gabapentin 800 mg PO TID 07/23/20 07/30/20 History hydralazine 50 mg PO TID 07/23/20 07/30/20 History insulin aspart U-100 See Protocol SUBCUT TIDWM 07/23/20 07/30/20 History isosorbide mononitrate 30 mg PO DAILY 07/23/20 07/30/20 History levetiracetam [Keppra] 1,000 mg PO BID 07/23/20 07/30/20 History levothyroxine [Synthroid] 75 mcg PO DAILY 07/23/20 07/30/20 History loperamide 2 mg PO Q4H PRN 07/23/20 07/30/20 History albuterol sulfate [Proventil HFA] 4 puff INHALATION Q6HRT PRN #1 inh 07/27/20 07/30/20 Rx benzonatate 100 mg PO TID #30 cap 07/27/20 07/30/20 Rx methylprednisolone [Methylpred DP] See Rx Instructions .ROUTE 07/27/20 07/30/20 Rx .COMPLEX #21 ea Allergies Allergy/AdvReac Type Severity Reaction Status Date / Time meropenem Allergy Hives Verified 07/27/20 21:21 vancomycin Allergy Hives Verified 07/27/20 21:21 Heparin Kathrin
--- NOTE | 2020-08-10 15:21 | PM.IMPN ---
Progress Note: A&P Assessment and Plan (1) Respiratory failure: Qualifiers: Chronicity: acute on chronic Respiratory failure complication: hypoxia and hypercapnia Qualified Code(s): J96.21 - Acute and chronic respiratory failure with hypoxia; J96.22 - Acute and chronic respiratory failure with hypercapnia Code(s): J96.90 - Respiratory failure, unspecified, unspecified whether with hypoxia or hypercapnia Status: Acute Assessment and Plan: The patient was intubated at [facility]. Vent settings per credit card analyst. 08/10/2020 15:21 patient is 69-year-old male patient was initially diagnosed with COVID-19 on 07/22/20 and was admitted to the inpatient hospital his symptom had improved and he was transferred to [facility], patient is morbidly obese with history of chronic kidney disease, ITP, atrial fibrillation, CVA, and history of seizure, while at the [facility] patient symptom worsen he was quite hypoxic was intubated and transferred to ICU at [facility] via helicopter, currently patient is intubated, he is being treated with dexamethasone 10/19 cannot receive Remdesivir because patient has a stage 4 chronic kidney disease, upon arrival patient was hypotensive and bradycardic started on epinephrine infusion is now off epinephrine blood pressure and rate is stable, patient with ITP was seen by Hematology patient is being treated with steroid for COVID-19 his platelet counts a improving any has no complaint of bleeding. Patient remains off pressors, patient on NG tube and being fed, Patient blood culture is growing gram-positive cocci in cluster was seen by Dr. Guthrie suspect its contamination and does not recommend any abx and stopped daptomycin. Patient remains clinically stable on vent, Patient was seen by simulation technician and had HD on 08/04, patient oxygen requirement is increasing, again patient had HD and 1500cc was removed, this will help his oxygenation, patient is clinically stable and off all pressores, HR is controlled with amiodoran drip, patient had dialysis on 08/08 and 1300cc was removed, again on 08/09 2300cc was removed, patient was seen by Dr. Devine, his CXR is improving, concerned patient's encephalopathy patient was seen by Dr. Wagner neurologist recommending EEG, will follow up, patient is seen by credit card analyst and simulation technician and appreciate. (2) Exposure to COVID-19 virus: Code(s): Z20.828 - Contact with and (suspected) exposure to other viral communicable diseases Status: Acute Assessment and Plan: Patient is now intubated. Continue with Decadron. (3) Thrombocytopenia: Code(s): D69.6 - Thrombocytopenia, unspecified Status: Acute Assessment and Plan: Hematology as this is the chronic condition. (4) Acute on chronic kidney failure: Qualifiers: Acute renal failure type: unspecified Chronic kidney disease stage: unspecified stage Qualified Code(s): N17.9 - Acute kidney failure, unspecified; N18.9 - Chronic kidney disease, unspecified Code(s): N17.9 - Acute kidney failure, unspecified; N18.9 - Chronic kidney disease, unspecified Status: Acute Assessment and Plan: Patient has worsening chronic kidney disease, nephrology on board (5) Pneumonia due to COVID-19 virus: Code(s): U07.1 - COVID-19; J12.89 - Other viral pneumonia Status: Acute Assessment and Plan: See above. (6) Atrial fibrillation: Code(s): I48.91 - Unspecified atrial fibrillation Status: Acute Assessment and Plan: Patient has atrial fib and with the slow ventricular response. Patient is externally paced. Cardiology has been consulted and has given recommendations. (7) Diabetes: Code(s): E11.9 - Type 2 diabetes mellitus without complications Status: Chronic Assessment and Plan: The patient is placed on insulin drip and Accu-Cheks are every 1 hour. (8) Type 2 diabetes m
[2020-08-10] MEDS: INSULIN ASPART (*BKC) 100 UNITS/ML SUB-Q ×2 (16:57→20:58)
[2020-08-10] MEDS: NOREPINEPHRINE 8 MG/D5W 250 ML 8 MG/250 ML BAG 3.75 MG IV CONT (17:04)
[2020-08-10 17:28] LABS: Glucose Point of Care 304 (65-105)
[2020-08-10 21:51] LABS: Glucose Point of Care 284 (65-105)
--- NOTE | 2020-08-10 21:55 | PC.NURSE ---
Eloisa MOSQUEDA notified of elevated temp and no antibiotics on patient. Eloisa MOSQUEDA to look at chart.
--- NOTE | 2020-08-10 22:13 | PM.EVENT ---
Event Note Event Note Event Note: I received a call from the patient's nurse with reports of a positive blood culture. One set of blood cultures obtained on 08/07/2020 was positive for 2 isolates in the anaerobic bottle, granulicatella adiacens and corynebacterium species. Chart was reviewed. It looks like he began spiking low-grade fevers within the past several days. White count has remained elevated throughout the stay. Given two isolates in the blood culture, I suspect contamination. He is critically ill however and it may be prudent to start empiric antibiotics. It is noted that his urine culture came back with no growth and that a recent echocardiogram made no mention obvious vegetation. Given vancomycin allergy, will start ceftriaxone and await results of the other culture. Consider ID consult. <Eloisa Hawkins PA-C - Last Filed: 08/10/20 22:28>
[2020-08-11] VITALS (61 sets, daily range): BP systolic 90–122; BP diastolic 38–62; PULSE 71–149; RESP 32–34; TEMP 36–38.9; O2SAT 89–99
[2020-08-11] MEDS: METOCLOPRAMIDE HCL INJ 10 MG/2 ML VIAL IV PUSH ×4 (00:02→17:14)
[2020-08-11 00:07] LABS: Glucose Point of Care 258 (65-105)
[2020-08-11] MEDS: INSULIN ASPART (*BKC) 100 UNITS/ML SUB-Q ×5 (00:19→20:03)
--- NOTE | 2020-08-11 00:20 | PC.NURSE ---
Ice packs applied to patient for elevated temperature.
[2020-08-11] MEDS: ALBUTEROL SULFATE NEB 2.5 MG/0.5 ML INH INHALATION ×4 (02:30→20:20)
[2020-08-11] MEDS: IPRATROPIUM BR 0.02% INH SOLN 0.5 MG/2.5 ML VIAL INHALATION ×4 (02:30→20:20)
[2020-08-11 04:43] LABS: Alveolar/Arterial O2 Gradient 233.6 mmHg; Arterial Blood Gas Ventilator rate 32 /MIN; Base Excess ABG -2.8 mEq/l (+/-2.0); Carboxyhemoglobin 0.3 % THb (0-2.0); Device VENTILATOR; Fractional Inspired Oxygen 50 %; HCO3 ABG 22.4 mEq/l (22.0-26.0); Methemoglobin ABG 0.2 %THb (0-1.5); Modified Allen's Test Unable to perform; Oxygen Content ABG 13.3 %vol (16.0-22.0); Oxygen Saturation ABG 95.1 % (95.0-100.0); Oxyhemoglobin 92.7 % THb (90.0-100.0); PCO2 ABG 40.1 mmHg (35.0-45.0); PO2 ABG 77.8 mmHg (80.0-100.0); PO2 FiO2 Ratio Arterial Blood 1.56 %; Reduced Hemoglobin 6.8 %THb (0-5.0); Site Drawn RIGHT RADIAL; Total Hemoglobin 10.1 g/dL (12.0-18.0); pH ABG 7.364 (7.350-7.450)
[2020-08-11 04:44] LABS: Arterial Blood Gas PEEP 10 cmH2O; Arterial Blood Gas Tidal Volume 430 ml; Arterial Blood Gas Vent Mode ASSIST CONTROL
[2020-08-11] MEDS: FENTANYL 2,500MCG/NS250ML(*CRX 2,500 MCG/250 ML BAG 7.5 MCG IV CONT (04:59)
[2020-08-11 05:09] LABS: Hematocrit 29.1 % (42.0-52.0); Hemoglobin 8.9 g/dL (14.0-18.0); Immature Platelet Fraction Pct 17.8 % (0.9-11.2); Mean Corpuscular HGB Conc 30.6 g/dl (32-36); Mean Corpuscular Hemoglobin 27.9 pg (26-34); Mean Corpuscular Volume 91.2 fl (80-100); Mean Platelet Volume 14.2 fl (7.4-10.4); Platelet Count Result 124 k/mm3 (150-375); Red Blood Count 3.19 M/mm3 (4.6-6.20); Red Cell Distribution Width 14.8 % (11.5-14.5); White Blood Count 24.9 K/mm3 (4.5-10.0)
[2020-08-11] MEDS: CENTRAL LINE FLUSH 10 ML IV PUSH ×4 (05:14→20:04)
[2020-08-11] MEDS: LEVOTHYROXINE SODIUM INJ 100 MCG/5 ML VIAL 37.5 MCG IV PUSH (05:14)
[2020-08-11 05:53] LABS: Anion Gap 14 mmol/L (8-16); Blood Urea Nitrogen 98 mg/dL (9-20); Calcium 8.5 mg/dL (8.4-10.2); Carbon Dioxide 25 mmol/L (22-30); Chloride 93 mmol/L (98-107); Estimated CRCL calculation 20 ml/min; Estimated Glomerular Filt Rate 11; Glucose 257 mg/dL (75-110); Magnesium 2.5 mg/dL (1.6-2.3); Phosphorus 12.4 mg/dL (2.5-4.5); Potassium 5.6 mmol/L (3.4-5.0); Sodium 132 mmol/L (137-145)
[2020-08-11] MEDS: INSULIN GLARGINE (*BKC) 100 UNITS/ML 30 UNITS SUB-Q ×2 (08:53→20:03)
[2020-08-11] MEDS: levETIRAcetam 1000MG/NACL100ML 1,000 MG/100 ML BAG 400 MG IVPB ×2 (08:54→20:03)
[2020-08-11] MEDS: polyethylene glycoL 3350 17 GM POWD.PACK PO (08:55)
--- NOTE | 2020-08-11 09:13 | WPDINTPN ---
Progress Note: A&P Assessment and Plan (1) Fever: Code(s): R50.9 - Fever, unspecified Status: Acute Assessment and Plan: Patient with fevers with T-max of 102.0 F -08/07 blood culture growing Corynebacterium species and will granulicatella adiacens 1 of 2 bottles -08/08, sputum culture: No growth of normal oropharyngeal keshav -08/07 urine culture: No growth -infectious disease is following the patient -will repeat cultures -patient started on cefepime by hospitalist on 08/10/2020 (2) Respiratory failure: Qualifiers: Chronicity: acute on chronic Respiratory failure complication: hypoxia and hypercapnia Qualified Code(s): J96.21 - Acute and chronic respiratory failure with hypoxia; J96.22 - Acute and chronic respiratory failure with hypercapnia Code(s): J96.90 - Respiratory failure, unspecified, unspecified whether with hypoxia or hypercapnia Status: Acute Assessment and Plan: Acute hypoxic respiratory failure due to volume overload, COVID-19 pneumonia. Intubated On 07/29/2020 -Chest x-ray shows No significant change in opacities in the lower lung zones consistent with atelectasis and/or pneumonia. -patient is on CMV mode of ventilation, low tidal volume strategy due to ARDS physiology, decrease PEEP to 10, 50% FiO2, will start weaning peep and FiO2 as tolerated -patient on fentanyl and Versed for sedation, OFF Nimbex. - Continue bronchodilators -venous Dopplers 07/31: Negative for DVT bilateral (3) Cardiac arrest: Code(s): I46.9 - Cardiac arrest, cause unspecified Status: Acute Assessment and Plan: Patient with pulseless V-tach arrest on 08/07 while dialysis was being done. Had removed her on 700 mL when patient went into pulseless V-tach. ACLS protocol was instituted, ROSC at 9 minutes. -ST-elevation noted in inferior leads, elevated troponins. Discussed with Cardiology Dr. Crook. Patient was given aspirin and 81 mg x4 pills, no beta-kaz as blood pressures were low, no heparin infusion was started as patient has chronic ITP with low platelets. -echocardiogram has been ordered to evaluate wall motion abnormalities -cardiology following -08/08 echocardiogram showed EF of 60-65%. Moderately increased left ventricular wall thickness, trace mitral of regurg, trivial pericardial effusion with no tamponade. (4) 2019 novel coronavirus–infected pneumonia (NCIP)#8211;infected pneumonia (NCIP): Code(s): U07.1 - COVID-19; J12.89 - Other viral pneumonia Status: Acute Assessment and Plan: SARS-CoV-2 PCR positive on 07/22/2020 -completed a 10 day course of dexamethasone -patient not a candidate for Remdesivir due to acute on chronic renal failure -continue droplet, airborne, contact isolation/precautions -will monitor inflammatory markers (5) Acute on chronic kidney failure: Qualifiers: Acute renal failure type: unspecified Chronic kidney disease stage: unspecified stage Qualified Code(s): N17.9 - Acute kidney failure, unspecified; N18.9 - Chronic kidney disease, unspecified Code(s): N17.9 - Acute kidney failure, unspecified; N18.9 - Chronic kidney disease, unspecified Status: Acute Assessment and Plan: Acute on chronic kidney disease, baseline creatinine 3.5-4.0 -renal ultrasound 07/23/2020 showed moderate bilateral hydronephrosis -repeat renal ultrasound on 07/31: Normal kidney size, no hydronephrosis -nephrology service following and discussed with Dr. Devine. Started dialysis on 08/04 after insertion temporary HD catheter -dialysis schedule per Nephrology (6) Atrial fibrillation: Code(s): I48.91 - Unspecified atrial fibrillation Status: Acute Assessment and Plan: Patient with AFib RVR at the outside hospital requiring Cardizem infusion which was then converted to p.o. Cardizem and Coreg. Developed bradycardia and hypotension. Now both has been discontinued. -He was given calcium gluconat
[2020-08-11 09:18] LABS: Glucose Point of Care 256 (65-105)
--- NOTE | 2020-08-11 11:05 | PCDIET ---
ICU Rounding Note: Patient tolerating Nepro at 50mL/hr goal rate with 30mL water flush every 4 hours. Plan for dialysis today. Last recorded weight is 188.8kg which is increased from last review. +I/O. Patient had 1.5L fluid removed yesterday in dialysis. Bowel Motility: Last documented BM on 08/07/20. RN reporting smears. Labs Reviewed: Hgb (8.9), Hct (29.1), Glu (257), BUN (98), Cr (5.4), K (5.6), PO4 (12.4) Meds Noted: Albuterol, Hydralazine, Rocephin, Novolog, Retacrit, Fentanyl, Lantus, Atrovent, Synthroid, Reglan, Versed, Levophed, Miralax Additional Notes: Coccyx reddened with Mepilex; no open sores reported. Following daily in ICU rounds. Assessing/reassessing every Saturday/Saturday.
[2020-08-11 12:31] LABS: Glucose Point of Care 278 (65-105)
--- NOTE | 2020-08-11 14:26 | WPDINFPN2 ---
Progress Note: A&P Assessment and Plan (1) Gram-positive cocci bacteremia: Code(s): R78.81 - Bacteremia Status: Acute Assessment and Plan: 1. Polymicrobial bacteremia with fever. Corynebacterium is normal skin keshav, the Granulicatella is commensal of mucosal surfaces ( but not skin). 2. CoVid 19 infection with viral pneumonia 3. Renal insufficiency 4. Stasis dermatitis LEs, no cellulitis 5. Vanc --> hives 6. s/p cardiac arrest REC Stop cefepime. Doxycycline #1. Lines can remain in place for now. Subjective Date/time seen: 08/11/20 14:26 Interval history: intubated, no pressors though earlier on norepi Exam Narrative: Exam Narrative: t max 38.9 Const: General: no acute distress Neck: Neck: supple Resp: Effort & Inspection: normal respiratory effort Auscultation: clear to auscultation bilaterally Cardio: Rate: tachycardic Rhythm: regular rhythm Heart sounds: no murmurs Urinary Catheter: Urinary Catheter: patent and draining Skin: General skin exam: normal color and no rashes or lesions noted Extrem: General: edema Other: RAJ Mitchell ij, Virgil Medel IJ Objective Data Vital Signs Vital Signs: Vital Signs - 24 hr 08/10/20 16:00 08/10/20 16:45 08/10/20 16:48 Temperature 37.9 C H Pulse Rate 98 102 H 104 H Respiratory Rate 32 H 32 H 32 H Blood Pressure 110/49 L Pulse Oximetry 95 08/10/20 17:04 08/10/20 17:16 08/10/20 18:00 Temperature Pulse Rate 96 98 94 Respiratory Rate 32 H Blood Pressure 91/51 L 104/45 L Pulse Oximetry 96 95 08/10/20 20:00 08/10/20 20:44 08/10/20 20:45 Temperature Pulse Rate 95 84 86 Respiratory Rate 32 H 32 H Blood Pressure 103/54 L Pulse Oximetry 95 96 08/10/20 20:52 08/10/20 21:00 08/10/20 21:30 Temperature 38.7 C H Pulse Rate 88 92 Respiratory Rate 32 H 32 H Blood Pressure 108/49 L Pulse Oximetry 93 08/10/20 22:00 08/10/20 22:53 08/10/20 22:56 Temperature 38.7 C H Pulse Rate 91 93 Respiratory Rate 32 H 32 H Blood Pressure 115/47 L Pulse Oximetry 96 08/10/20 23:00 08/10/20 23:39 08/10/20 23:53 Temperature Pulse Rate 94 92 90 Respiratory Rate 32 H 32 H Blood Pressure 112/49 L Pulse Oximetry 96 96 96 08/11/20 00:00 08/11/20 02:00 08/11/20 02:30 Temperature 38.8 C H 38.9 C H Pulse Rate 93 97 100 Respiratory Rate 32 H 32 H 32 H Blood Pressure 105/52 L 119/43 L 119/46 L Pulse Oximetry 95 94 94 08/11/20 02:31 08/11/20 02:35 08/11/20 03:24 Temperature Pulse Rate 91 98 98 Respiratory Rate 32 H 32 H Blood Pressure Pulse Oximetry 94 94 08/11/20 04:00 08/11/20 04:34 08/11/20 04:36 Temperature 38.7 C H Pulse Rate 92 95 98 Respiratory Rate 32 H 32 H 32 H Blood Pressure 111/52 L 109/44 L Pulse Oximetry 95 95 08/11/20 04:47 08/11/20 04:59 08/11/20 05:00 Temperature Pulse Rate 95 95 97 Respiratory Rate 32 H 32 H Blood Pressure Pulse Oximetry 94 08/11/20 05:01 08/11/20 05:02 08/11/20 05:28 Temperature 38.7 C H Pulse Rate 89 88 Respiratory Rate Blood Pressure 112/50 L 120/44 L Pulse Oximetry 08/11/20 05:31 08/11/20 05:59 08/11/20 08:00 Temperature 38.3 C H 37.1 C Pulse Rate 87 90 90 Respiratory Rate 32 H 32 H Blood Pressure 103/45 L 108/47 L 122/55 L Pulse Oximetry 92 94 08/11/20 08:01 08/11/20 08:11 08/11/20 08:55 Temperature Pulse Rate 91 94 94 Respiratory Rate 32 H 32 H 32 H Blood Pressure Pulse Oximetry 93 08/11/20 10:00 08/11/20 10:49 08/11/20 12:00 Temperature 36.6 C Pulse Rate 90 95 104 H Respiratory Rate 32 H 32 H Blood Pressure 111/62 94/48 L Pulse Oximetry 95 89 L 92 08/11/20 12:36 08/11/20 12:37 08/11/20 12:38 Temperature Pulse Rate 89 94 Respiratory Rate 32 H 32 H Blood Pressure 115/57 L Pulse Oximetry 08/11/20 14:00 08/11/20 14:01 Temperature Pulse Rate 99 105 H Respiratory Rate 32 H 32 H Blood Pressure 112/56 L Pulse Oximetry 97 99 Intake/Output In
--- NOTE | 2020-08-11 15:19 | PM.IMPN ---
Progress Note: A&P Assessment and Plan (1) Respiratory failure: Qualifiers: Chronicity: acute on chronic Respiratory failure complication: hypoxia and hypercapnia Qualified Code(s): J96.21 - Acute and chronic respiratory failure with hypoxia; J96.22 - Acute and chronic respiratory failure with hypercapnia Code(s): J96.90 - Respiratory failure, unspecified, unspecified whether with hypoxia or hypercapnia Status: Acute Assessment and Plan: The patient was intubated at [facility]. Vent settings per supervisor bit and shank department. 08/11/20 15:19 patient is 69-year-old male patient was initially diagnosed with COVID-19 on 07/22/20 and was admitted to the inpatient hospital his symptom had improved and he was transferred to [facility], patient is morbidly obese with history of chronic kidney disease, ITP, atrial fibrillation, CVA, and history of seizure, while at the [facility] patient symptom worsen he was quite hypoxic was intubated and transferred to ICU at [facility] via helicopter, currently patient is intubated, he is being treated with dexamethasone 10/19 cannot receive Remdesivir because patient has a stage 4 chronic kidney disease, upon arrival patient was hypotensive and bradycardic started on epinephrine infusion is now off epinephrine blood pressure and rate is stable, patient with ITP was seen by Hematology patient is being treated with steroid for COVID-19 his platelet counts a improving any has no complaint of bleeding. Patient remains off pressors, patient on NG tube and being fed, Patient blood culture is growing gram-positive cocci in cluster was seen by Dr. Guthrie suspect its contamination and does not recommend any abx and stopped daptomycin. Patient remains clinically stable on vent, Patient was seen by statistical methods teacher and had HD on 08/04, patient oxygen requirement is increasing, again patient had HD and 1500cc was removed, this will help his oxygenation, patient is clinically stable and off all pressores, HR is controlled with amiodoran drip, patient had dialysis on 08/08 and 1300cc was removed, again on 08/09 2300cc was removed, patient was seen by Dr. Devine, his CXR is improving, concerned patient's encephalopathy patient was seen by Dr. Wagner neurologist recommending EEG, still pending, will follow up, patient had dialysis on 08/10 and 15cc was removed, last night patient blood pressure dropped and he was placed on levophed 3mcg/min, this morning it is improving on 1mcg/min, patient is seen by supervisor bit and shank department and statistical methods teacher and appreciate. (2) Exposure to COVID-19 virus: Code(s): Z20.828 - Contact with and (suspected) exposure to other viral communicable diseases Status: Acute Assessment and Plan: Patient is now intubated. Continue with Decadron. (3) Thrombocytopenia: Code(s): D69.6 - Thrombocytopenia, unspecified Status: Acute Assessment and Plan: Hematology as this is the chronic condition. (4) Acute on chronic kidney failure: Qualifiers: Acute renal failure type: unspecified Chronic kidney disease stage: unspecified stage Qualified Code(s): N17.9 - Acute kidney failure, unspecified; N18.9 - Chronic kidney disease, unspecified Code(s): N17.9 - Acute kidney failure, unspecified; N18.9 - Chronic kidney disease, unspecified Status: Acute Assessment and Plan: Patient has worsening chronic kidney disease, nephrology on board (5) Pneumonia due to COVID-19 virus: Code(s): U07.1 - COVID-19; J12.89 - Other viral pneumonia Status: Acute Assessment and Plan: See above. (6) Atrial fibrillation: Code(s): I48.91 - Unspecified atrial fibrillation Status: Acute Assessment and Plan: Patient has atrial fib and with the slow ventricular response. Patient is externally paced. Cardiology has been consulted and has given recommendations. (7) Diabetes: Code(s): E11.9 - T
--- NOTE | 2020-08-11 15:35 | PM.PNNEP ---
Progress Note: A&P Assessment and Plan (1) WILMAR (acute kidney injury): Code(s): N17.9 - Acute kidney failure, unspecified Status: Acute Assessment and Plan: continue daily dialysis/DUF ongoing slow correction of fluid status and electrolytes follow repeat labs and UOP (2) Chronic kidney disease, stage IV (severe): Code(s): N18.4 - Chronic kidney disease, stage 4 (severe) Status: Chronic Assessment and Plan: baseline creatinine presumed to be 3.49mg/dl (January 2020) likely due to diabetes, hypertension, vascular disease, and age-related change (3) Atrial fibrillation: Code(s): I48.91 - Unspecified atrial fibrillation Status: Acute Assessment and Plan: Cardiology following continues to fluctuate as noted (4) Respiratory failure: Qualifiers: Chronicity: acute on chronic Respiratory failure complication: hypoxia and hypercapnia Qualified Code(s): J96.21 - Acute and chronic respiratory failure with hypoxia; J96.22 - Acute and chronic respiratory failure with hypercapnia Code(s): J96.90 - Respiratory failure, unspecified, unspecified whether with hypoxia or hypercapnia Status: Acute Assessment and Plan: suspect due to COVID-19 +/- volume overload with progression to ARDS continue fluid removal with with HD/DUF as tolerated by hemodynamics (5) Pneumonia due to COVID-19 virus: Code(s): U07.1 - COVID-19; J12.89 - Other viral pneumonia Status: Acute Assessment and Plan: on dexamethasone (started 07/28/20) not a candidate for remdesivir due to CKD follow cultures continue supportive therapy (6) Chronic ITP (idiopathic thrombocytopenia): Code(s): D69.3 - Immune thrombocytopenic purpura Status: Acute Assessment and Plan: platelet count stable Hem/Onc following Will continue to follow. Subjective Date/time seen: 08/11/20 15:35 Tolerating dialysis at the time of my visit (seen on HD at 3:20PM); remains on ventilator support; febrile overnight and drop in BP necessitating re-institution of vasopressor therapy; blood culture results noted; tolerating tube feeds; no apparent distress noted. Exam Narrative: Exam Narrative: General: Elderly male intubated/sedated Heart: IRRR, normal S1 and S2; no rub Lungs: coarse bilaterally Abdomen: soft with positive bowel sounds Extremities: 1+ edema Skin: warm and intact Objective Data Vital Signs Vital Signs: \ Vital Signs Temp Pulse Resp BP Pulse Ox 08/11/20 14:51 115/46 L 08/11/20 14:30 36.5 C 71 32 H 116/54 L 08/11/20 14:01 105 H 32 H 99 08/11/20 14:00 99 32 H 112/56 L 97 08/11/20 12:38 115/57 L 08/11/20 12:37 94 32 H 08/11/20 12:36 89 32 H 08/11/20 12:00 36.6 C 104 H 32 H 94/48 L 92 08/11/20 10:49 95 89 L 08/11/20 10:00 90 32 H 111/62 95 08/11/20 08:55 94 32 H 08/11/20 08:11 94 32 H 08/11/20 08:01 91 32 H 93 08/11/20 08:00 37.1 C 90 32 H 122/55 L 94 08/11/20 05:59 38.3 C H 90 32 H 108/47 L 92 08/11/20 05:31 87 103/45 L 08/11/20 05:28 88 120/44 L 08/11/20 05:02 38.7 C H 08/11/20 05:01 89 112/50 L 08/11/20 05:00 97 32 H 08/11/20 04:59 95 32 H 08/11/20 04:47 95 94 08/11/20 04:36 38.7 C H 98 32 H 109/44 L 95 08/11/20 04:34 95 32 H 08/11/20 04:00 92 32 H 111/52 L 95 08/11/20 03:24 98 32 H 94 08/11/20 02:35 98 32 H 08/11/20 02:31 91 94 08/11/20 02:30 38.9 C H 100 32 H 119/46 L 94 08/11/20 02:00 97 32 H 119/43 L 94 08/11/20 00:00 38.8 C H 93 32 H 105/52 L 95 08/10/20 23:53 90 96 08/10/20 23:39 92 32 H 96 08/10/20 23:00 94 32 H 112/49 L 96 08/10/20 22:56 93 32 H 08/10/20 22:53 38.7 C H 08/10/20 22:00 91 32 H 115/47 L 96 08/10/20 21:30 38.7 C H 08/10/20 21:00 92 32 H 108/49 L 93 08/10/20 20:52
[2020-08-11 17:12] LABS: Glucose Point of Care 194 (65-105)
[2020-08-11] MEDS: AMIODARONE 150 MG/D5W 100 ML 150 MG/100 ML BAG 600 MG IV CONT ×2 (17:28→23:23)
[2020-08-11] MEDS: EPOETIN ALFA-EPBX 10,000 UNITS/ML VIAL 10000 UNITS IV PUSH (17:40)
[2020-08-11] MEDS: AMIODARONE 360 MG/D5W 200 ML 360 MG/200 ML BAG 33.33 MG IV CONT ×2 (17:42→23:22)
[2020-08-11 20:04] LABS: Glucose Point of Care 296 (65-105)
--- NOTE | 2020-08-11 23:07 | PC.NURSE ---
Dr. Wilkins notified regarding AFIB with rate of 120-131. Awaiting new orders.
[2020-08-12] VITALS (31 sets, daily range): BP systolic 90–127; BP diastolic 36–62; PULSE 78–122; RESP 28–33; TEMP 37.2–38.8; O2SAT 90–94
[2020-08-12] MEDS: INSULIN ASPART (*BKC) 100 UNITS/ML SUB-Q (00:23)
[2020-08-12] MEDS: METOCLOPRAMIDE HCL INJ 10 MG/2 ML VIAL IV PUSH ×4 (00:23→17:33)
--- NOTE | 2020-08-12 00:45 | PC.NURSE ---
Icepacks and tylenol given for temp 101.7
[2020-08-12 00:53] LABS: Glucose Point of Care 379 (65-105)
[2020-08-12] MEDS: NOREPINEPHRINE 8 MG/D5W 250 ML 8 MG/250 ML BAG 9.38 MG IV CONT (02:10)
[2020-08-12 02:14] LABS: Glucose Point of Care 345 (65-105)
[2020-08-12] MEDS: IPRATROPIUM BR 0.02% INH SOLN 0.5 MG/2.5 ML VIAL INHALATION ×3 (02:18→14:53)
[2020-08-12] MEDS: ALBUTEROL SULFATE NEB 2.5 MG/0.5 ML INH INHALATION ×3 (02:18→14:53)
--- NOTE | 2020-08-12 02:19 | PC.NURSE ---
Dr. Wilkins updated regarding elevated blood sugars. Start insulin drip, no fluids. Updated regarding elevated temperature. Continue icepacks.
[2020-08-12] MEDS: INSULIN HUMAN REGULAR (*BKC) 100 UNITS in SODIUM CHLORIDE 0.9% IV 99 ML 5.7 UNITS IV CONT (02:56)
[2020-08-12 04:53] LABS: Glucose Point of Care 387 (65-105)
[2020-08-12 05:03] LABS: Hematocrit 28.6 % (42.0-52.0); Hemoglobin 8.5 g/dL (14.0-18.0); Immature Platelet Fraction Pct 17.3 % (0.9-11.2); Mean Corpuscular HGB Conc 29.7 g/dl (32-36); Mean Corpuscular Volume 90.8 fl (80-100); Platelet Count Result 96 k/mm3 (150-375); Red Blood Count 3.15 M/mm3 (4.6-6.20); Red Cell Distribution Width 15.1 % (11.5-14.5); White Blood Count 30.9 K/mm3 (4.5-10.0)
[2020-08-12] MEDS: LEVOTHYROXINE SODIUM INJ 100 MCG/5 ML VIAL 37.5 MCG IV PUSH (05:17)
[2020-08-12] MEDS: CENTRAL LINE FLUSH 10 ML IV PUSH ×4 (05:17→17:33)
[2020-08-12] MEDS: AMIODARONE 360 MG/D5W 200 ML 360 MG/200 ML BAG 33.33 MG IV CONT (05:18)
[2020-08-12 05:35] LABS: Anion Gap 13 mmol/L (8-16); Blood Urea Nitrogen 76 mg/dL (9-20); Calcium 8.5 mg/dL (8.4-10.2); Carbon Dioxide 24 mmol/L (22-30); Chloride 91 mmol/L (98-107); Estimated CRCL calculation 23 ml/min; Estimated Glomerular Filt Rate 13; Glucose 380 mg/dL (75-110); Magnesium 2.2 mg/dL (1.6-2.3); Phosphorus 11.4 mg/dL (2.5-4.5); Potassium 5.2 mmol/L (3.4-5.0); Sodium 128 mmol/L (137-145)
[2020-08-12 05:39] LABS: Alveolar/Arterial O2 Gradient 311.5 mmHg; Base Excess ABG -4.8 mEq/l (+/-2.0); Carboxyhemoglobin 0.3 % THb (0-2.0); Fractional Inspired Oxygen 60 %; HCO3 ABG 21.3 mEq/l (22.0-26.0); Methemoglobin ABG 0.3 %THb (0-1.5); Oxygen Content ABG 12.5 %vol (16.0-22.0); Oxyhemoglobin 89.1 % THb (90.0-100.0); PCO2 ABG 43.6 mmHg (35.0-45.0); PO2 ABG 68.3 mmHg (80.0-100.0); PO2 FiO2 Ratio Arterial Blood 1.14 %; Reduced Hemoglobin 10.3 %THb (0-5.0); Total Hemoglobin 9.9 g/dL (12.0-18.0); pH ABG 7.306 (7.350-7.450)
[2020-08-12 05:40] LABS: Arterial Blood Gas PEEP 10 cmH2O; Arterial Blood Gas Tidal Volume 430 ml; Arterial Blood Gas Vent Mode CMV; Arterial Blood Gas Ventilator rate 32 /MIN; Device VENTILATOR; Modified Allen's Test Unable to perform; Site Drawn RIGHT RADIAL
[2020-08-12 06:03] LABS: Glucose Point of Care 368 (65-105)
[2020-08-12 06:55] LABS: Glucose Point of Care 323 (65-105)
[2020-08-12] MEDS: levETIRAcetam 1000MG/NACL100ML 1,000 MG/100 ML BAG 400 MG IVPB (08:13)
[2020-08-12] MEDS: INSULIN GLARGINE (*BKC) 100 UNITS/ML 30 UNITS SUB-Q (08:22)
[2020-08-12] MEDS: polyethylene glycoL 3350 17 GM POWD.PACK PO (08:31)
[2020-08-12] MEDS: BISACODYL 10 MG SUPPOSITORY RECTAL (08:32)
[2020-08-12 08:42] LABS: Glucose Point of Care 354 (65-105)
--- NOTE | 2020-08-12 09:09 | WPDINTPN ---
Progress Note: A&P Assessment and Plan (1) Fever: Code(s): R50.9 - Fever, unspecified Status: Acute Assessment and Plan: Patient with fevers with T-max of 102.0 F -08/07 blood culture growing Corynebacterium species and will granulicatella adiacens 1 of 2 bottles -08/08, sputum culture: No growth of normal oropharyngeal keshav -08/07 urine culture: No growth -appreciate infectious disease evaluation recommendations, started on doxycycline (08/11/2020) and discontinued cefepime -will repeat cultures pending (2) Respiratory failure: Qualifiers: Chronicity: acute on chronic Respiratory failure complication: hypoxia and hypercapnia Qualified Code(s): J96.21 - Acute and chronic respiratory failure with hypoxia; J96.22 - Acute and chronic respiratory failure with hypercapnia Code(s): J96.90 - Respiratory failure, unspecified, unspecified whether with hypoxia or hypercapnia Status: Acute Assessment and Plan: Acute hypoxic respiratory failure due to volume overload, COVID-19 pneumonia. Intubated On 07/29/2020 -Chest x-ray showsNo significant interval change in opacities in the lower lung zones, left greater than right consistent with atelectasis and/or pneumonia -patient is on CMV mode of ventilation, low tidal volume strategy due to ARDS physiology, decrease PEEP to 10, 60% FiO2, wean FiO2 as tolerated - Patient OFF all sedation SINCE 08/11/2020 - Continue bronchodilators -venous Dopplers 08/11/2020: Negative for DVT bilateral (3) Cardiac arrest: Code(s): I46.9 - Cardiac arrest, cause unspecified Status: Acute Assessment and Plan: Patient with pulseless V-tach arrest on 08/07 while dialysis was being done. Had removed her on 700 mL when patient went into pulseless V-tach. ACLS protocol was instituted, ROSC at 9 minutes. -ST-elevation noted in inferior leads, elevated troponins. Discussed with Cardiology Dr. Crook. Patient was given aspirin and 81 mg x4 pills, no beta-kaz as blood pressures were low, no heparin infusion was started as patient has chronic ITP with low platelets. -echocardiogram has been ordered to evaluate wall motion abnormalities -cardiology following -08/08 echocardiogram showed EF of 60-65%. Moderately increased left ventricular wall thickness, trace mitral of regurg, trivial pericardial effusion with no tamponade. (4) 2019 novel coronavirus–infected pneumonia ([facility])#[id number];[facility] Code(s): U07.1 - COVID-19; J12.89 - Other viral pneumonia Status: Acute Assessment and Plan: SARS-CoV-2 PCR positive on 07/22/2020 -completed a 10 day course of dexamethasone -patient did not receive Remdesivir due to acute on chronic renal failure -continue droplet, airborne, contact isolation/precautions -will monitor inflammatory markers (5) Acute on chronic kidney failure: Qualifiers: Acute renal failure type: unspecified Chronic kidney disease stage: unspecified stage Qualified Code(s): N17.9 - Acute kidney failure, unspecified; N18.9 - Chronic kidney disease, unspecified Code(s): N17.9 - Acute kidney failure, unspecified; N18.9 - Chronic kidney disease, unspecified Status: Acute Assessment and Plan: Acute on chronic kidney disease, baseline creatinine 3.5-4.0 -renal ultrasound 07/23/2020 showed moderate bilateral hydronephrosis -repeat renal ultrasound on 07/31: Normal kidney size, no hydronephrosis -nephrology service following and discussed with Dr. Devine. Started dialysis on 08/04 after insertion temporary HD catheter -dialysis schedule per Nephrology (6) Atrial fibrillation: Code(s): I48.91 - Unspecified atrial fibrillation Status: Acute Assessment and Plan: Patient with AFib RVR at the outside hospital requiring Cardizem infusion which was then converted to p.o. Cardizem and Coreg. Developed bradycardia and hypotension. Now both has been discontinued. -He was g
[2020-08-12] MEDS: INSULIN HUMAN REGULAR (*BKC) 100 UNITS in SODIUM CHLORIDE 0.9% IV 99 ML 22.1 UNITS IV CONT (10:52)
[2020-08-12 11:27] LABS: Glucose Point of Care 336 (65-105)
[2020-08-12 11:27] LABS: Glucose Point of Care 323 (65-105)
[2020-08-12 11:27] LABS: Glucose Point of Care 336 (65-105)
[2020-08-12] MEDS: AMIODARONE 360 MG/D5W 200 ML 360 MG/200 ML BAG 16.67 MG IV CONT (12:45)
[2020-08-12 12:46] LABS: Glucose Point of Care 358 (65-105)
[2020-08-12 13:32] LABS: Glucose Point of Care 343 (65-105)
--- NOTE | 2020-08-12 14:18 | PM.IMPN ---
Progress Note: A&P Assessment and Plan (1) Respiratory failure: Qualifiers: Chronicity: acute on chronic Respiratory failure complication: hypoxia and hypercapnia Qualified Code(s): J96.21 - Acute and chronic respiratory failure with hypoxia; J96.22 - Acute and chronic respiratory failure with hypercapnia Code(s): J96.90 - Respiratory failure, unspecified, unspecified whether with hypoxia or hypercapnia Status: Acute Assessment and Plan: The patient was intubated at [facility]. Vent settings per piping drafter. 08/12/20 14:18 patient is 69-year-old male patient was initially diagnosed with COVID-19 on 07/22/20 and was admitted to the inpatient hospital his symptom had improved and he was transferred to [facility], patient is morbidly obese with history of chronic kidney disease, ITP, atrial fibrillation, CVA, and history of seizure, while at the [facility] patient symptom worsen he was quite hypoxic was intubated and transferred to ICU at [facility] via helicopter, currently patient is intubated, he is being treated with dexamethasone 10/19 cannot receive Remdesivir because patient has a stage 4 chronic kidney disease, upon arrival patient was hypotensive and bradycardic started on epinephrine infusion is now off epinephrine blood pressure and rate is stable, patient with ITP was seen by Hematology patient is being treated with steroid for COVID-19 his platelet counts a improving any has no complaint of bleeding. Patient remains off pressors, patient on NG tube and being fed, Patient blood culture is growing gram-positive cocci in cluster was seen by Dr. Guthrie suspect its contamination and does not recommend any abx and stopped daptomycin. Patient remains clinically stable on vent, Patient was seen by senior writer and had HD on 08/04, patient oxygen requirement is increasing, again patient had HD and 1500cc was removed, this will help his oxygenation, patient is clinically stable and off all pressores, HR is controlled with amiodoran drip, patient had dialysis on 08/08 and 1300cc was removed, again on 08/09 2300cc was removed, patient was seen by Dr. Devine, his CXR is improving, concerned patient's encephalopathy patient was seen by Dr. Wagner neurologist recommending EEG, still pending, will follow up, patient had dialysis on 08/10 and 1500cc was removed, on 08/10 patient blood pressure dropped and he was placed on levophed 3mcg/min, on 08/11 morning it improved was on 1mcg/min, today patient is off all sedation and not responding. patient is seen by piping drafter and senior writer and appreciate. (2) Exposure to COVID-19 virus: Code(s): Z20.828 - Contact with and (suspected) exposure to other viral communicable diseases Status: Acute Assessment and Plan: Patient is now intubated. Continue with Decadron. (3) Thrombocytopenia: Code(s): D69.6 - Thrombocytopenia, unspecified Status: Acute Assessment and Plan: Hematology as this is the chronic condition. (4) Acute on chronic kidney failure: Qualifiers: Acute renal failure type: unspecified Chronic kidney disease stage: unspecified stage Qualified Code(s): N17.9 - Acute kidney failure, unspecified; N18.9 - Chronic kidney disease, unspecified Code(s): N17.9 - Acute kidney failure, unspecified; N18.9 - Chronic kidney disease, unspecified Status: Acute Assessment and Plan: Patient has worsening chronic kidney disease, nephrology on board (5) Pneumonia due to COVID-19 virus: Code(s): U07.1 - COVID-19; J12.89 - Other viral pneumonia Status: Acute Assessment and Plan: See above. (6) Atrial fibrillation: Code(s): I48.91 - Unspecified atrial fibrillation Status: Acute Assessment and Plan: Patient has atrial fib and with the slow ventricular response. Patient is externally paced. Cardiology has been consulted and has given
--- NOTE | 2020-08-12 14:29 | PCDIET ---
Nutrition Follow-Up Complete: Inadequate oral intake related to inability to consume foods orally as evidence by day two NPO and mechanical ventilation Total intake will meet estimated nutrition needs Goal: Goal met. Continue goal. Pt current nutrition is Nepro at 50ml/hr over 22hrs Nutrition recommendation: agree Last recorded weight is 185.7 kg, down from 188.8kg yesterday; I/O +1298ml Bowel Motility:08/12 BM+ Labs Reviewed: Hgb/Hct 8.5, 28.6, Na 128, K 5.2, GFR 13, P4 11.4, BUN 76, Cr 4.50, Glucose 323 Meds Noted:Albumin, albuterol, Synthroid, versed, Levophed, miralax Additional Notes: Pt tolerating current nutrition at goal with 0 residual providing 1980kcals, 89g protein, and 799ml of free water. High PO4 noted. Nepro best formula for renal failure. Pt may benefit from phosphate binder. Bowels moving. 100ml water flush providing additional 600ml of free water, which is appropriate if no other IV fluids on board. Recommend 30ml water flush q 4hrs if other IV fluids provided. Following enteral nutrition, labs, skin, I/O, BMs, meds daily in ICU rounds with reassessment every T/F.
[2020-08-12] MEDS: INSULIN HUMAN REGULAR (*BKC) 100 UNITS in SODIUM CHLORIDE 0.9% IV 99 ML 32 UNITS IV CONT (14:30)
--- NOTE | 2020-08-12 15:03 | P.PNNP_ITS ---
Progress Note: A&P Assessment and Plan (1) WILMAR (acute kidney injury): Code(s): N17.9 - Acute kidney failure, unspecified Status: Acute Assessment and Plan: * continue daily dialysis/DUF - hold today due to holiday schedule but resume tomorrow * ongoing slow correction of fluid status and electrolytes * follow repeat labs and UOP (2) Chronic kidney disease, stage IV (severe): Code(s): N18.4 - Chronic kidney disease, stage 4 (severe) Status: Chronic Assessment and Plan: * baseline creatinine presumed to be 3.49mg/dl (January 2020) * likely due to diabetes, hypertension, vascular disease, and age-related change (3) Fever: Code(s): R50.9 - Fever, unspecified Status: Acute Assessment and Plan: * persistent and quite high at times * culture data noted * antibiotics per Infectious Disease recommendations * follow repeat cultures (4) Atrial fibrillation: Code(s): I48.91 - Unspecified atrial fibrillation Status: Acute Assessment and Plan: * Cardiology following * continues to fluctuate as noted requiring amiodarone (5) Respiratory failure: Qualifiers: Chronicity: acute on chronic Respiratory failure complication: hypoxia and hypercapnia Qualified Code(s): J96.21 - Acute and chronic respiratory failure with hypoxia; J96.22 - Acute and chronic respiratory failure with hypercapnia Code(s): J96.90 - Respiratory failure, unspecified, unspecified whether with hypoxia or hypercapnia Status: Acute Assessment and Plan: * suspect due to COVID-19 +/- volume overload with progression to ARDS * continue fluid removal with with HD/DUF as tolerated by hemodynamics (6) Pneumonia due to COVID-19 virus: Code(s): U07.1 - COVID-19; J12.89 - Other viral pneumonia Status: Acute Assessment and Plan: * completed course of dexamethasone * not a candidate for remdesivir due to CKD * follow cultures * continue supportive therapy (7) Chronic ITP (idiopathic thrombocytopenia): Code(s): D69.3 - Immune thrombocytopenic purpura Status: Acute Assessment and Plan: * platelet count stable * Hem/Onc following (8) Type 2 diabetes mellitus without complications: Code(s): E11.9 - Type 2 diabetes mellitus without complications Status: Chronic Assessment and Plan: * on insulin gtt * continue glycemic control Will continue to follow. Subjective Date/time seen: 08/12/20 15:03 Tolerated dialysis treatment yesterday but tachycardia/afib somewhat worse towa rds end of treatment requiring amiodarone; febrile overnight with levophed support to maintain MAP; remains on ventilator support; off all sedation since yesterday but not really waking up; issues with hyperglycemia necessitating insulin gtt as well. Exam Narrative: Exam Narrative: General: Elderly male intubated/sedated Heart: IRRR, normal S1 and S2; no rub Lungs: coarse bilaterally Abdomen: soft with positive bowel sounds Extremities: 1+ edema Skin: some mottling noted Objective Data Vital Signs Vital Signs: Vital Signs Temp Pulse Resp BP Pulse Ox 08/12/20 14:55 91 93 08/12/20 14:54 89 32 H 08/12/20 12:00 37.2 C 78 32 H 102/47 L 93 08/12/20 11:00 92 94 08/12/20 10:00 85 32 H 108/46 L 94 08/12/20 09:15 92 112/45 L 08/12/20 08:00 37.9 C H
--- NOTE | 2020-08-12 15:03 | PM.PNNEP ---
Progress Note: A&P Assessment and Plan (1) WILMAR (acute kidney injury): Code(s): N17.9 - Acute kidney failure, unspecified Status: Acute Assessment and Plan: continue daily dialysis/DUF - hold today due to holiday schedule but resume tomorrow ongoing slow correction of fluid status and electrolytes follow repeat labs and UOP (2) Chronic kidney disease, stage IV (severe): Code(s): N18.4 - Chronic kidney disease, stage 4 (severe) Status: Chronic Assessment and Plan: baseline creatinine presumed to be 3.49mg/dl (January 2020) likely due to diabetes, hypertension, vascular disease, and age-related change (3) Fever: Code(s): R50.9 - Fever, unspecified Status: Acute Assessment and Plan: persistent and quite high at times culture data noted antibiotics per Infectious Disease recommendations follow repeat cultures (4) Atrial fibrillation: Code(s): I48.91 - Unspecified atrial fibrillation Status: Acute Assessment and Plan: Cardiology following continues to fluctuate as noted requiring amiodarone (5) Respiratory failure: Qualifiers: Chronicity: acute on chronic Respiratory failure complication: hypoxia and hypercapnia Qualified Code(s): J96.21 - Acute and chronic respiratory failure with hypoxia; J96.22 - Acute and chronic respiratory failure with hypercapnia Code(s): J96.90 - Respiratory failure, unspecified, unspecified whether with hypoxia or hypercapnia Status: Acute Assessment and Plan: suspect due to COVID-19 +/- volume overload with progression to ARDS continue fluid removal with with HD/DUF as tolerated by hemodynamics (6) Pneumonia due to COVID-19 virus: Code(s): U07.1 - COVID-19; J12.89 - Other viral pneumonia Status: Acute Assessment and Plan: completed course of dexamethasone not a candidate for remdesivir due to CKD follow cultures continue supportive therapy (7) Chronic ITP (idiopathic thrombocytopenia): Code(s): D69.3 - Immune thrombocytopenic purpura Status: Acute Assessment and Plan: platelet count stable Hem/Onc following (8) Type 2 diabetes mellitus without complications: Code(s): E11.9 - Type 2 diabetes mellitus without complications Status: Chronic Assessment and Plan: on insulin gtt continue glycemic control Will continue to follow. Subjective Date/time seen: 08/12/20 15:03 Tolerated dialysis treatment yesterday but tachycardia/afib somewhat worse towards end of treatment requiring amiodarone; febrile overnight with levophed support to maintain MAP; remains on ventilator support; off all sedation since yesterday but not really waking up; issues with hyperglycemia necessitating insulin gtt as well. Exam Narrative: Exam Narrative: General: Elderly male intubated/sedated Heart: IRRR, normal S1 and S2; no rub Lungs: coarse bilaterally Abdomen: soft with positive bowel sounds Extremities: 1+ edema Skin: some mottling noted Objective Data Vital Signs Vital Signs: Vital Signs Temp Pulse Resp BP Pulse Ox 08/12/20 14:55 91 93 08/12/20 14:54 89 32 H 08/12/20 12:00 37.2 C 78 32 H 102/47 L 93 08/12/20 11:00 92 94 08/12/20 10:00 85 32 H 108/46 L 94 08/12/20 09:15 92 112/45 L 08/12/20 08:00 37.9 C H 95 32 H 109/48 L 91 08/12/20 07:56 89 90 08/12/20 07:55 89 32 H 08/12/20 06:21 103 H 122/56 L 08/12/20 06:00 107 H 28 H 121/52 L 92 08/12/20 05:18 114 H 126/49 L 08/12/20 05:16 108 H 90 08/12/20 05:00 112 H 32 H 113/54 L 92 08/12/20 04:49 38.5 C H 08/12/20 04:30 100 122/60 08/12/20 04:00 103 H 33 H 127/62 91 08/12/20 03:57 100 32 H 94 08/12/20 03:26 100 106/49 L 08/12/20 02:19 116 H 32 H 94 08/12/20 02:10 115 H 90/61 L 08/12/20 02:01 115 H 90/61 L 08/12/20 02:00 38.8
[2020-08-12] MEDS: INSULIN HUMAN REGULAR (*BKC) 100 UNITS in SODIUM CHLORIDE 0.9% IV 99 ML 31.7 UNITS IV CONT (17:15)
--- NOTE | 2020-08-12 18:31 | PC.NURSE ---
Dr. Morfin notified of . to contact next of kin.
[2020-08-12 18:40] LABS: Glucose Point of Care 271 (65-105)
[2020-08-12 18:40] LABS: Glucose Point of Care 327 (65-105)
[2020-08-12 18:40] LABS: Glucose Point of Care 277 (65-105)
[2020-08-12 18:40] LABS: Glucose Point of Care 321 (65-105)
--- NOTE | 2020-08-12 18:50 | PC.NURSE ---
Spoke with daughter, Sirisha, updated her on visitor policy.
--- NOTE | 2020-08-12 18:53 | PC.NURSE ---
Patient went into ventricular rhythm and at 181. Nigel notified. Dr. Morfin notified at 1820. He will call family.[facility] Riggins notified at 184. Not candidate for MTS. Call placed to appeals representative at 184. Waiting for return call.Lab Sandie 184.
--- NOTE | 2020-08-12 20:03 | PC.NURSE ---
[facility] and [facility] status[facility]
--- NOTE | 2020-08-12 21:50 | PC.NURSE ---
Pt's body released to [facility] in [place], [place].
--- NOTE | 2020-08-16 09:46 | PM.DDS ---
Discharge Sum: Prov Provider Primary care physician: UNKNOWN,DOCTOR Admitting provider: Lissett Palomino MD Consults: 07/29/20 Consult to Physician Routine Comment: Consulting Provider: Abad Farias callisthenics instructor/MD group to consult: dr farias Reason for consultation: respiratory failure Has provider been notified: Yes Consult to Physician Routine Comment: Consulting Provider: Quinn Upton callisthenics instructor/MD group to consult: cardiology Reason for consultation: bradycardia and elevated trop Has provider been notified: Yes Consult to Physician Routine Comment: EXCHANGE NOTIFIED Consulting Provider: Bob Franco callisthenics instructor/MD group to consult: manager [employer] database Reason for consultation: acute on chronic renal failure Has provider been notified: Yes Consult to Physician Routine Comment: SPOKE WITH DR. RODRIGUEZ Consulting Provider: Zack Rodriguez callisthenics instructor/MD group to consult: hematology Reason for consultation: itp Has provider been notified: Yes Consult to Physician Routine Comment: SPOKE WITH DR. MCCAULEY Consulting Provider: Mae Mccauley callisthenics instructor/MD group to consult: pulmonary Reason for consultation: worsening covid Has provider been notified: Yes 07/30/20 08:00 Consult to Physician Routine Comment: DUP. ORDER Consulting Provider: Bob Franco callisthenics instructor/MD group to consult: Nephrology Reason for consultation: Acute on chronic kidney disease Has provider been notified: Yes 08/01/20 19:31 Consult to Physician Routine Comment: Consulting Provider: Dimitry Larsen callisthenics instructor/MD group to consult: Neurology Reason for consultation: Seizure Has provider been notified: Yes 08/11/20 07:27 Consult to Physician Routine Comment: DR. PAINTER MONTESINOS Consulting Provider: Chu Guthrie callisthenics instructor/MD group to consult: INFECTOUS DISEASE Reason for consultation: Fevers Has provider been notified: Yes Discharge Sum: Summary Date and Time Date of admission: 07/29/20 20:24 Date of : 08/12/20 Time of : 18:19 Summary Details: patient is 69-year-old male patient was initially diagnosed with COVID-19 on 07/22/20 and was admitted to the inpatient hospital his symptom had improved and he was transferred to [facility], patient is morbidly obese with history of chronic kidney disease, ITP, atrial fibrillation, CVA, and history of seizure, while at the [facility] patient symptom worsen he was quite hypoxic was intubated and transferred to ICU at [facility] via helicopter, currently patient is intubated, he is being treated with dexamethasone 10/19 cannot receive Remdesivir because patient has a stage 4 chronic kidney disease, upon arrival patient was hypotensive and bradycardic started on epinephrine infusion is now off epinephrine blood pressure and rate is stable, patient with ITP was seen by Hematology patient is being treated with steroid for COVID-19 his platelet counts a improving any has no complaint of bleeding. Patient remains off pressors, patient on NG tube and being fed, Patient blood culture is growing gram-positive cocci in cluster was seen by Dr. Guthrie suspect its contamination and does not recommend any abx and stopped daptomycin. Patient remains clinically stable on vent, Patient was seen by manager [employer] database and had HD on 08/04, patient oxygen requirement is increasing, again patient had HD and 1500cc was removed, this will help his oxygenation, patient is clinically stable and off all pressores, HR is controlled with amiodoran drip, patient had dialysis on 08/08 and 1300cc was removed, again on 08/09 2300cc was removed, patient was seen by Dr. Devine, his CXR is improving, concerned patient's encephalopathy patient was seen by Dr. Wagner neurologist recommending EEG, still pending, will follow up, patient had dialysis on 08/10 and 1500cc was removed, on 08/10 patient blood pressure dropped and he was placed on levophed 3mcg/min, on
== END 2020-08-12 18:19 | disposition expired | DRG 208 ==
PROVIDERS: Family Medicine; Internal Medicine; Internal Medicine Cardiovascular Disease; Internal Medicine Critical Care Medicine; Internal Medicine Nephrology; Nurse Practitioner; Physician Assistant; Student in an Organized Health Care Education/Training Program; Admitting Provider Internal Medicine; Visit Provider Family Medicine
DX: U07.1 COVID-19 (principal); J96.22 Acute and chronic respiratory failure with hypercapnia; J96.21 Acute and chronic respiratory failure with hypoxia; J12.82 Pneumonia due to coronavirus disease 2019; N17.8 Other acute kidney failure; I48.20 Chronic atrial fibrillation, unspecified; D69.3 Immune thrombocytopenic purpura; N18.4 Chronic kidney disease, stage 4 (severe); N13.30 Unspecified hydronephrosis; R57.9 Shock, unspecified; E87.4 Mixed disorder of acid-base balance; Z68.43 Body mass index [BMI] 50.0-59.9, adult; I47.2 Ventricular tachycardia; I46.8 Cardiac arrest due to other underlying condition; E11.65 Type 2 diabetes mellitus with hyperglycemia; T38.0X5A Adverse effect of glucocorticoids and synthetic analogues, initial encounter; E11.22 Type 2 diabetes mellitus with diabetic chronic kidney disease; I12.9 Hypertensive chronic kidney disease with stage 1 through stage 4 chronic kidney disease, or unspecified chronic kidney disease; E87.5 Hyperkalemia; R00.1 Bradycardia, unspecified; D63.1 Anemia in chronic kidney disease; F41.8 Other specified anxiety disorders; G47.33 Obstructive sleep apnea (adult) (pediatric); E03.9 Hypothyroidism, unspecified; G40.909 Epilepsy, unspecified, not intractable, without status epilepticus; I87.2 Venous insufficiency (chronic) (peripheral); M19.90 Unspecified osteoarthritis, unspecified site; E66.01 Morbid (severe) obesity due to excess calories; Z87.891 Personal history of nicotine dependence; Z86.73 Personal history of transient ischemic attack (TIA), and cerebral infarction without residual deficits
CPT/HCPCS: 36415; 36556; 36600; 70450; 71045; 74018; 76775; 80048; 80053; 80069; 81001; 82375; 82728; 82805; 83036; 83050; 83605; 83735; 84100; 84436; 84439; 84443; 84484; 85025; 85027; 85055; 85730; 86140; 86706; 87040; 87070; 87077; 87086; 87205; 87340; 93005; 93306; 93923; 93970; 94002; 94003; 94640; A9270; C1751; C1752; C8929; G0257; J0131; J0171; J0282; J0360; J0610; J0696; J0878; J1100; J1610; J1644; J1815; J1953; J2060; J2250; J2765; J3010; J7030; J7040; J7060; P9047; Q5106; Q9957